=== PATIENT | female | born 1940 | race Caucasian/White ===

== ENCOUNTER → 2023-07-30 11:03 | Outpatient (REF) | payer OTHER, MEDICARE, SELFPAY ==
[2023-07-30 11:41] LABS: % Basophils 0.3 % (0-2); % Eosinophils 6.8 % (0-6); % Immature Granulocytes 0.5 % (0-0.5); % Lymphocytes 15.8 % (20.5-51.1); % Monocytes 7.3 % (1.7-9.3); % Neutrophils 69.3 % (42.2-75.2); Absolute Eosinophils 0.4 10^3/uL (0-0.7); Absolute Monocytes 0.5 10^3/uL (0.1-0.6); Absolute Neutrophils 4.5 10^3/uL (1.4-6.5); Hematocrit 27.2 % (37.0-47.0); Hemoglobin 8.8 g/dL (12.0-16.0); Mean Corp Hgb Conc. 32.4 g/dL (33.0-37.0); Mean Corpuscular Hgb 30.3 pg (27.0-31.0); Mean Corpuscular Volume 93.8 fL (81.0-99.0); Mean Platelet Volume 10.3 fL (7.4-10.4); Nucleated Red Blood Cells % 0 %; Platelet Count 196 10^3/uL (130-400); Red Cell Dist. Width 22.8 % (11.5-14.5); White Blood Cell Count 6.5 10^3/uL (4.8-10.8)
== END ==
LOC: OLABN 11:03
PROVIDERS: ATTENDING PHYSICIAN Internal Medicine Geriatric Medicine
DX: D63.8 Anemia in other chronic diseases classified elsewhere (principal)
CPT/HCPCS: 36415; 85025

== ENCOUNTER → 2023-08-06 09:02 | Outpatient (REF) | payer OTHER, MEDICARE, SELFPAY ==
[2023-08-06 10:02] LABS: % Basophils 0.4 % (0-2); % Eosinophils 12.5 % (0-6); % Immature Granulocytes 0.4 % (0-0.5); % Monocytes 8.4 % (1.7-9.3); % Neutrophils 56.3 % (42.2-75.2); Absolute Eosinophils 0.6 10^3/uL (0-0.7); Absolute Lymphocytes 1.1 10^3/uL (1.2-3.4); Absolute Monocytes 0.4 10^3/uL (0.1-0.6); Absolute Neutrophils 2.7 10^3/uL (1.4-6.5); Hemoglobin 8.9 g/dL (12.0-16.0); Mean Corp Hgb Conc. 31.8 g/dL (33.0-37.0); Mean Corpuscular Hgb 31.1 pg (27.0-31.0); Mean Corpuscular Volume 97.9 fL (81.0-99.0); Mean Platelet Volume 10.1 fL (7.4-10.4); Nucleated Red Blood Cells % 0 %; Platelet Count 144 10^3/uL (130-400); Red Blood Cell Count 2.86 10^6/uL (4.20-5.40); Red Cell Dist. Width 22.9 % (11.5-14.5); White Blood Cell Count 4.9 10^3/uL (4.8-10.8)
[2023-08-06 11:04] LABS: Anisocytosis 1+; Hypochromasia 1+; Normal RBC Morphology No; Polychromasia 1+
[2023-08-06 11:05] LABS: Ovalocytes 1+
[2023-08-06 11:07] LABS: Vitamin B12 958 pg/ml (239-931)
[2023-08-06 12:11] LABS: Glycohemoglobin (HgbA1c) 5.9 % (4.0-5.6)
== END ==
LOC: OLABN 09:02
PROVIDERS: ATTENDING PHYSICIAN Internal Medicine Geriatric Medicine
DX: E11.40 Type 2 diabetes mellitus with diabetic neuropathy, unspecified (principal); D51.9 Vitamin B12 deficiency anemia, unspecified; D63.8 Anemia in other chronic diseases classified elsewhere
CPT/HCPCS: 36415; 82607; 83036; 85025

== ENCOUNTER → 2023-08-13 09:26 | Outpatient (REF) | payer OTHER, MEDICARE, SELFPAY ==
[2023-08-13 10:25] LABS: % Basophils 0.6 % (0-2); % Eosinophils 5.5 % (0-6); % Lymphocytes 29.5 % (20.5-51.1); % Monocytes 13.8 % (1.7-9.3); % Neutrophils 49.6 % (42.2-75.2); Absolute Eosinophils 0.3 10^3/uL (0-0.7); Absolute Immature Granulocytes 0.1 10^3/uL (0-0.05); Absolute Lymphocytes 1.5 10^3/uL (1.2-3.4); Absolute Monocytes 0.7 10^3/uL (0.1-0.6); Absolute Neutrophils 2.4 10^3/uL (1.4-6.5); Mean Corpuscular Hgb 32.1 pg (27.0-31.0); Mean Corpuscular Volume 103.6 fL (81.0-99.0); Mean Platelet Volume 9.8 fL (7.4-10.4); Nucleated Red Blood Cells % 0 %; Platelet Count 170 10^3/uL (130-400); Red Cell Dist. Width 23.2 % (11.5-14.5); White Blood Cell Count 4.9 10^3/uL (4.8-10.8)
== END ==
LOC: OLABN 09:26
PROVIDERS: ATTENDING PHYSICIAN Internal Medicine Geriatric Medicine
DX: D63.8 Anemia in other chronic diseases classified elsewhere (principal)
CPT/HCPCS: 36415; 85025

== ENCOUNTER → 2023-08-20 12:53 | Outpatient (REF) | payer MEDICARE, OTHER, SELFPAY ==
[2023-08-20 13:25] LABS: % Basophils 0.4 % (0-2); % Eosinophils 2.7 % (0-6); % Immature Granulocytes 0.2 % (0-0.5); % Monocytes 12.5 % (1.7-9.3); % Neutrophils 61.2 % (42.2-75.2); Absolute Eosinophils 0.2 10^3/uL (0-0.7); Absolute Lymphocytes 1.3 10^3/uL (1.2-3.4); Absolute Monocytes 0.7 10^3/uL (0.1-0.6); Absolute Neutrophils 3.5 10^3/uL (1.4-6.5); Hematocrit 30.7 % (37.0-47.0); Hemoglobin 9.8 g/dL (12.0-16.0); Mean Corp Hgb Conc. 31.9 g/dL (33.0-37.0); Mean Corpuscular Hgb 33.3 pg (27.0-31.0); Mean Corpuscular Volume 104.4 fL (81.0-99.0); Mean Platelet Volume 9.4 fL (7.4-10.4); Nucleated Red Blood Cells % 0 %; Platelet Count 181 10^3/uL (130-400); Red Blood Cell Count 2.94 10^6/uL (4.20-5.40); Red Cell Dist. Width 21.3 % (11.5-14.5); White Blood Cell Count 5.7 10^3/uL (4.8-10.8)
== END ==
LOC: OLABN 12:53
PROVIDERS: ATTENDING PHYSICIAN Internal Medicine Geriatric Medicine
DX: D63.8 Anemia in other chronic diseases classified elsewhere (principal)
CPT/HCPCS: 85025

== ENCOUNTER → 2023-08-23 09:48 | Outpatient (REF) | payer MEDICARE, OTHER, SELFPAY ==
[2023-08-23 11:35] LABS: Urine Albumin Negative (Neg - Trace); Urine Bilirubin Negative (Negative); Urine Character Clear (Clear); Urine Color Yellow; Urine Glucose Negative (Negative); Urine Ketone Negative (Negative); Urine Leukocyte Trace (Negative); Urine Nitrite Negative (Negative); Urine Occult Blood 3+ (Negative); Urine Urobilinogen Negative (Neg - 1+)
[2023-08-23 12:13] LABS: Urine Squamous Cell 16-20 /LPF (Few)
[2023-08-23 12:15] LABS: Urine Bacteria Few (Negative); Urine Red Blood Cell 0-2 /HPF (0-2)
== END ==
LOC: OLABN 09:48
PROVIDERS: ATTENDING PHYSICIAN Internal Medicine Geriatric Medicine
DX: R35.0 Frequency of micturition (principal)
CPT/HCPCS: 81003; 81015; 87086

== ENCOUNTER → 2023-08-25 08:45 | Outpatient (REF) | payer MEDICARE, OTHER, SELFPAY ==
[2023-08-25 10:21] LABS: Urine Albumin Negative (Neg - Trace); Urine Bilirubin Negative (Negative); Urine Character Clear (Clear); Urine Color Yellow; Urine Glucose Negative (Negative); Urine Ketone Negative (Negative); Urine Leukocyte Negative (Negative); Urine Nitrite Negative (Negative); Urine Occult Blood Negative (Negative); Urine Specific Gravity 1.015 (<1.030); Urine Urobilinogen Negative (Neg - 1+)
== END ==
LOC: OLAB 08:45
PROVIDERS: ATTENDING PHYSICIAN Internal Medicine Geriatric Medicine
DX: R35.0 Frequency of micturition (principal)
CPT/HCPCS: 81003; 87086

== ENCOUNTER → 2023-08-27 10:51 | Outpatient (REF) | payer MEDICARE, OTHER, SELFPAY ==
[2023-08-27 11:41] LABS: Hematocrit 33.7 % (37.0-47.0); Hemoglobin 10.5 g/dL (12.0-16.0); Mean Corp Hgb Conc. 31.2 g/dL (33.0-37.0); Mean Corpuscular Hgb 32.8 pg (27.0-31.0); Mean Corpuscular Volume 105.3 fL (81.0-99.0); Mean Platelet Volume 9.6 fL (7.4-10.4); Platelet Count 180 10^3/uL (130-400); Red Cell Dist. Width 19.7 % (11.5-14.5); White Blood Cell Count 4.9 10^3/uL (4.8-10.8)
== END ==
LOC: OLABN 10:51
PROVIDERS: ATTENDING PHYSICIAN Student in an Organized Health Care Education/Training Program
DX: D63.8 Anemia in other chronic diseases classified elsewhere (principal); R35.0 Frequency of micturition
CPT/HCPCS: 36415; 85027; 87086

== ENCOUNTER → 2023-09-03 11:36 | Outpatient (REF) | payer MEDICARE, OTHER, SELFPAY ==
[2023-09-03 12:13] LABS: % Basophils 0.5 % (0-2); % Eosinophils 3.7 % (0-6); % Immature Granulocytes 0.3 % (0-0.5); % Lymphocytes 17.1 % (20.5-51.1); % Monocytes 9.7 % (1.7-9.3); % Neutrophils 68.7 % (42.2-75.2); Absolute Eosinophils 0.2 10^3/uL (0-0.7); Absolute Lymphocytes 1.1 10^3/uL (1.2-3.4); Absolute Monocytes 0.6 10^3/uL (0.1-0.6); Absolute Neutrophils 4.5 10^3/uL (1.4-6.5); Hematocrit 36.4 % (37.0-47.0); Hemoglobin 11.4 g/dL (12.0-16.0); Mean Corp Hgb Conc. 31.3 g/dL (33.0-37.0); Mean Corpuscular Hgb 33.5 pg (27.0-31.0); Mean Corpuscular Volume 107.1 fL (81.0-99.0); Mean Platelet Volume 9.5 fL (7.4-10.4); Nucleated Red Blood Cells % 0 %; Platelet Count 183 10^3/uL (130-400); Red Cell Dist. Width 18.2 % (11.5-14.5); White Blood Cell Count 6.5 10^3/uL (4.8-10.8)
== END ==
LOC: OLABN 11:36
PROVIDERS: ATTENDING PHYSICIAN Internal Medicine Geriatric Medicine
DX: D63.8 Anemia in other chronic diseases classified elsewhere (principal)
CPT/HCPCS: 36415; 85025

== ENCOUNTER → 2023-09-10 10:07 | Outpatient (REF) | payer MEDICARE, OTHER, SELFPAY ==
[2023-09-10 11:08] LABS: % Basophils 0.4 % (0-2); % Eosinophils 4.2 % (0-6); % Immature Granulocytes 0.2 % (0-0.5); % Lymphocytes 18.7 % (20.5-51.1); % Monocytes 11.1 % (1.7-9.3); % Neutrophils 65.4 % (42.2-75.2); Absolute Eosinophils 0.2 10^3/uL (0-0.7); Absolute Monocytes 0.6 10^3/uL (0.1-0.6); Absolute Neutrophils 3.6 10^3/uL (1.4-6.5); Hematocrit 33.6 % (37.0-47.0); Hemoglobin 10.9 g/dL (12.0-16.0); Mean Corp Hgb Conc. 32.4 g/dL (33.0-37.0); Mean Corpuscular Hgb 33.6 pg (27.0-31.0); Mean Corpuscular Volume 103.7 fL (81.0-99.0); Mean Platelet Volume 9.8 fL (7.4-10.4); Nucleated Red Blood Cells % 0 %; Platelet Count 191 10^3/uL (130-400); Red Blood Cell Count 3.24 10^6/uL (4.20-5.40); White Blood Cell Count 5.5 10^3/uL (4.8-10.8)
[2023-09-10 11:34] LABS: Free T4 1.43 ng/dl (0.78-2.19)
== END ==
LOC: OLABN 10:07
PROVIDERS: ATTENDING PHYSICIAN Internal Medicine Geriatric Medicine
DX: D63.8 Anemia in other chronic diseases classified elsewhere (principal); E03.9 Hypothyroidism, unspecified; E78.5 Hyperlipidemia, unspecified
CPT/HCPCS: 36415; 84439; 84443; 85025

== ENCOUNTER → 2023-09-17 10:34 | Outpatient (REF) | payer MEDICARE, OTHER, SELFPAY ==
[2023-09-17 10:55] LABS: % Basophils 0.6 % (0-2); % Eosinophils 5.7 % (0-6); % Immature Granulocytes 0.2 % (0-0.5); % Lymphocytes 23.8 % (20.5-51.1); % Monocytes 10.3 % (1.7-9.3); % Neutrophils 59.4 % (42.2-75.2); Absolute Eosinophils 0.3 10^3/uL (0-0.7); Absolute Lymphocytes 1.3 10^3/uL (1.2-3.4); Absolute Monocytes 0.5 10^3/uL (0.1-0.6); Absolute Neutrophils 3.1 10^3/uL (1.4-6.5); Hematocrit 32.2 % (37.0-47.0); Hemoglobin 10.3 g/dL (12.0-16.0); Mean Corpuscular Hgb 33.3 pg (27.0-31.0); Mean Corpuscular Volume 104.2 fL (81.0-99.0); Mean Platelet Volume 9.6 fL (7.4-10.4); Nucleated Red Blood Cells % 0 %; Platelet Count 206 10^3/uL (130-400); Red Blood Cell Count 3.09 10^6/uL (4.20-5.40); Red Cell Dist. Width 16.9 % (11.5-14.5); White Blood Cell Count 5.3 10^3/uL (4.8-10.8)
[2023-09-17 11:46] LABS: TSH 8.41 uIU/ml (0.47-4.68)
== END ==
LOC: OLABN 10:34
PROVIDERS: ATTENDING PHYSICIAN Internal Medicine Geriatric Medicine
DX: E03.9 Hypothyroidism, unspecified (principal); D63.8 Anemia in other chronic diseases classified elsewhere
CPT/HCPCS: 36415; 84443; 85025

== ENCOUNTER → 2023-09-20 09:20 | Outpatient (REF) | payer MEDICARE, OTHER, SELFPAY ==
[2023-09-20 10:42] LABS: % Basophils 0.5 % (0-2); % Eosinophils 4.6 % (0-6); % Immature Granulocytes 0.3 % (0-0.5); % Lymphocytes 23.7 % (20.5-51.1); % Neutrophils 59.9 % (42.2-75.2); Absolute Eosinophils 0.3 10^3/uL (0-0.7); Absolute Lymphocytes 1.5 10^3/uL (1.2-3.4); Absolute Monocytes 0.7 10^3/uL (0.1-0.6); Absolute Neutrophils 3.8 10^3/uL (1.4-6.5); Mean Corp Hgb Conc. 31.4 g/dL (33.0-37.0); Mean Corpuscular Hgb 32.6 pg (27.0-31.0); Mean Corpuscular Volume 103.9 fL (81.0-99.0); Nucleated Red Blood Cells % 0 %; Platelet Count 217 10^3/uL (130-400); Red Blood Cell Count 3.37 10^6/uL (4.20-5.40); Red Cell Dist. Width 16.6 % (11.5-14.5); White Blood Cell Count 6.3 10^3/uL (4.8-10.8)
[2023-09-20 11:10] LABS: Erythrocyte Sed Rate 118 mm/hour (0-20)
== END ==
LOC: OLABN 09:20
PROVIDERS: ATTENDING PHYSICIAN Internal Medicine Geriatric Medicine
DX: R52 Pain, unspecified (principal); I25.10 Atherosclerotic heart disease of native coronary artery without angina pectoris
CPT/HCPCS: 36415; 85025; 85652; 86140

== ENCOUNTER → 2023-09-24 12:10 | Outpatient (REF) | payer MEDICARE, OTHER, SELFPAY ==
[2023-09-24 13:00] LABS: % Basophils 0.5 % (0-2); % Eosinophils 4.7 % (0-6); % Immature Granulocytes 0.2 % (0-0.5); % Lymphocytes 14.8 % (20.5-51.1); % Monocytes 10.1 % (1.7-9.3); % Neutrophils 69.7 % (42.2-75.2); Absolute Eosinophils 0.3 10^3/uL (0-0.7); Absolute Monocytes 0.7 10^3/uL (0.1-0.6); Absolute Neutrophils 4.5 10^3/uL (1.4-6.5); Hematocrit 33.3 % (37.0-47.0); Hemoglobin 10.6 g/dL (12.0-16.0); Mean Corp Hgb Conc. 31.8 g/dL (33.0-37.0); Mean Corpuscular Hgb 32.7 pg (27.0-31.0); Mean Corpuscular Volume 102.8 fL (81.0-99.0); Mean Platelet Volume 9.6 fL (7.4-10.4); Nucleated Red Blood Cells % 0 %; Platelet Count 187 10^3/uL (130-400); Red Blood Cell Count 3.24 10^6/uL (4.20-5.40); Red Cell Dist. Width 16.5 % (11.5-14.5); White Blood Cell Count 6.4 10^3/uL (4.8-10.8)
[2023-09-24 14:14] LABS: Blood Urea Nitrogen 41 mg/dl (7-17); Calcium 8.5 mg/dl (8.4-10.2); Carbon Dioxide 27 mmol/L (22-30); Chloride 102 mmol/L (98-107); Glucose 122 mg/dl (70-99); Potassium 3.5 mmol/L (3.5-5.1); Sodium 139 mmol/L (135-145); eGFR 41.06
[2023-09-24 14:22] LABS: NT-proBNP 1230 pg/ml
== END ==
LOC: OLABN 12:10
PROVIDERS: ATTENDING PHYSICIAN Internal Medicine Geriatric Medicine
DX: E78.5 Hyperlipidemia, unspecified (principal); D63.8 Anemia in other chronic diseases classified elsewhere
CPT/HCPCS: 80048; 83880; 85025

== ENCOUNTER → 2023-10-01 09:56 | Outpatient (REF) | payer MEDICARE, OTHER, SELFPAY ==
[2023-10-01 11:15] LABS: % Basophils 0.2 % (0-2); % Eosinophils 0.1 % (0-6); % Immature Granulocytes 0.6 % (0-0.5); % Lymphocytes 7.3 % (20.5-51.1); % Monocytes 8.3 % (1.7-9.3); % Neutrophils 83.5 % (42.2-75.2); Absolute Immature Granulocytes 0.1 10^3/uL (0-0.05); Absolute Lymphocytes 0.6 10^3/uL (1.2-3.4); Absolute Monocytes 0.7 10^3/uL (0.1-0.6); Absolute Neutrophils 6.9 10^3/uL (1.4-6.5); Hematocrit 31.4 % (37.0-47.0); Hemoglobin 10.2 g/dL (12.0-16.0); Mean Corp Hgb Conc. 32.5 g/dL (33.0-37.0); Mean Corpuscular Hgb 33.1 pg (27.0-31.0); Mean Corpuscular Volume 101.9 fL (81.0-99.0); Mean Platelet Volume 9.9 fL (7.4-10.4); Nucleated Red Blood Cells % 0 %; Platelet Count 165 10^3/uL (130-400); Red Blood Cell Count 3.08 10^6/uL (4.20-5.40); Red Cell Dist. Width 17.2 % (11.5-14.5); White Blood Cell Count 8.3 10^3/uL (4.8-10.8)
== END ==
LOC: OLABN 09:56
PROVIDERS: ATTENDING PHYSICIAN Internal Medicine Geriatric Medicine
DX: D63.8 Anemia in other chronic diseases classified elsewhere (principal)
CPT/HCPCS: 36415; 85025

== ENCOUNTER → 2023-10-04 09:43 | Outpatient (REF) | payer MEDICARE, OTHER, SELFPAY ==
[2023-10-04 11:21] LABS: Hematocrit 27.6 % (37.0-47.0); Hemoglobin 8.8 g/dL (12.0-16.0); Mean Corp Hgb Conc. 31.9 g/dL (33.0-37.0); Mean Corpuscular Hgb 32.6 pg (27.0-31.0); Mean Corpuscular Volume 102.2 fL (81.0-99.0); Mean Platelet Volume 9.9 fL (7.4-10.4); Platelet Count 179 10^3/uL (130-400); Red Cell Dist. Width 16.9 % (11.5-14.5); White Blood Cell Count 4.9 10^3/uL (4.8-10.8)
== END ==
LOC: OLABN 09:43
PROVIDERS: ATTENDING PHYSICIAN Internal Medicine Geriatric Medicine
DX: D63.8 Anemia in other chronic diseases classified elsewhere (principal)
CPT/HCPCS: 36415; 85027

== ENCOUNTER 2023-10-06 05:23 | Inpatient (IN) | payer MEDICARE, OTHER, SELFPAY ==
[2023-10-06] VITALS (12 sets, daily range): BP systolic 101–167; BP diastolic 47–89; BMI 35.2; BMI 35.1
[2023-10-06 00:48] LABS: % Immature Granulocytes 1.1 % (0-0.5); % Neutrophils 94.9 % (42.2-75.2); Absolute Immature Granulocytes 0.1 10^3/uL (0-0.05); Absolute Lymphocytes 0.2 10^3/uL (1.2-3.4); Absolute Monocytes 0.1 10^3/uL (0.1-0.6); Absolute Neutrophils 7.5 10^3/uL (1.4-6.5); Hematocrit 32.4 % (37.0-47.0); Hemoglobin 10.6 g/dL (12.0-16.0); Mean Corp Hgb Conc. 32.7 g/dL (33.0-37.0); Mean Corpuscular Hgb 32.9 pg (27.0-31.0); Mean Corpuscular Volume 100.6 fL (81.0-99.0); Mean Platelet Volume 10.4 fL (7.4-10.4); Nucleated Red Blood Cells % 0 %; Platelet Count 310 10^3/uL (130-400); Red Blood Cell Count 3.22 10^6/uL (4.20-5.40); Red Cell Dist. Width 16.9 % (11.5-14.5); White Blood Cell Count 7.9 10^3/uL (4.8-10.8)
[2023-10-06 01:05] LABS: COVID-19 Antigen Negative (Negative)
[2023-10-06 02:16] LABS: ALT (SGPT) 11 U/L (0-35); AST (SGOT) 47 U/L (14-36); Albumin 3.4 g/dl (3.5-5.0); Alkaline Phosphatase 49 U/L (38-126); Blood Urea Nitrogen 48 mg/dl (7-17); Carbon Dioxide 21 mmol/L (22-30); Chloride 105 mmol/L (98-107); Estimated Creatinine Clearance 23 ml/min; Glucose 345 mg/dl (70-99); Potassium 5.3 mmol/L (3.5-5.1); Sodium 136 mmol/L (135-145); Total Bilirubin 0.8 mg/dl (0.2-1.3); Total Protein 7.4 g/dl (6.3-8.2); eGFR 24.48
[2023-10-06 02:26] LABS: NT-proBNP 8040 pg/ml
[2023-10-06 02:28] LABS: Troponin I 0.743 ng/ml
--- NOTE | 2023-10-06 02:40 | ED.GENMED ---
History of Present Illness
<ROESANN Todd - Last Filed: 10/06/23 03:13>
General
Chief Complaint: Breathing Problem
Source: patient
Time Seen by Provider: 10/06/23 02:11
Travel History
Have you had any contact with someone who has COVID-19?: No
Do you have any symptoms of coronavirus? Fever > 100 degrees, chills, cough, shortness of breath, sore throat, loss of taste or smell, muscle aches, or headache?: Yes
Symptoms:: SOB
History of Present Illness
History of Present Illness:
Pt is an 82 year old female presenting for respiratory distress at [facility]. She has a past medical history of chronic bronchitis, COPD, CHF, CAD, DVT, HTN, hyperlipidemia, mitral regurgitation, pulmonary HTN, GERD, CKD3, Parkinsons,
diabetes, and hypothyroidism. When asked why she is here pt states she does not know, she feels fine and has no complaints. Upon further questioning she admits to SOB but does not know why they started her on an antibiotic and steroid yesterday. Pt
denies recent falls, sore throat, congestion, ear pain, cough, chest pain, nausea, vomiting, diarrhea, fever, chills, abdominal pain, or headache.
Past History
<ROSEANN Todd - Last Filed: 10/06/23 03:13>
Past History
ED Past Medical History: Asthma, CAD, CHF, CVA (suggestion of lacunar stroke), GERD, HTN, Hypercholesterolemia, IDDM, Renal failure (chronic renal disease stage III), Valvular disease (MR), Hypothyroidism, Psychiatric (generalized anxiety disorder),
Other (Parkinson's, chronic lymphedema, cellulitis, MGUS IgG kappa, cognitive decline, B12 deficiency), Other (morbid obesity, pulmonary hypertension, anemia, DVT, PVD, meningioma, macular degeneration) and Other (drop foot left foot Fracture C
spine,Cellulitis, DVT, GIB, Umbilical hernia, iron deficiency, vitamin D deficiency)
ED Past Surgical History: Appendectomy, Cardiac (Stents 8-9), Cholecystectomy, Gynecological (Parital hysterectomy), Orthopedic (left knee replacement), Tonsilectomy and Other (PVD surgery, thyroidectomy)
Patient has exhibited threatening behavior?: No
PSI?: No
Social History
Tobacco: Non-smoker
Alcohol: None
Personal:
Living: alone
Employment: Retired
Family History
Family History: Other (reviewed and noncontributory)
Review of Systems
<ROSEANN Todd - Last Filed: 10/06/23 03:13>
Review of Systems
All Other Systems: Not applicable
Constitutional: Reports no symptoms
EENT: Reports no symptoms
Respiratory: Reports trouble breathing
Cardiac: Reports no symptoms
ABD/GI: Reports no symptoms
: Reports no symptoms
Musculoskeletal: Reports no symptoms
Skin: Reports no symptoms
Neurological: Reports no symptoms
Endocrine: Reports no symptoms
Hematologic/Lymphatic: Reports no symptoms
Psychiatric: Reports no symptoms
Phy Exam
<ROSEANN Todd - Last Filed: 10/06/23 03:13>
General Physical Exam
General Presentation: well appearing and no apparent distress
General age: appears stated age
General Skin: warm, dry and pale
General Habitus: elderly
General Mental: confused
General Hydration: dry mucous membranes and poor skin turgor
ENT Exam
ENT Exam: EOMI, pharynx normal and neck supple
Eye Exam
Eye Exam: PERRL and EOMI
Cardiovascular Exam
Cardiovascular Exam: regular rate/rhythm and normal peripheral pulses
Pulmonary Exam
Oxygen Status: oxygen 4 liters via NC
Breath Sounds: Rhonchi: generalized
Gastrointestinal Exam
Gastrointestinal Exam: normal bowel sounds, non tender, soft and non distended
Neurological Exam
Neurological Exam: alert and confused (unaware of the name of the facility she came from, the name of the hospital she is at, or what month it is. )
Musculoskeletal Exam
Musculoskeletal Exam: no edema
Skin Exam
Skin Exam: pallor and other (appearance of venous insufficiency in bilateral lower legs)
Psychiatric Exam
Psychiatric Exam: normal mood/affect
Scores
<Joshua Mitchell DO - Last Filed: 10/06/23 04:21>
Heart Failure Risk
Heart Failure Risk Score: Yes
History of Stroke or TIA: No
History of intubation for respiratory distress: No
Heart rate on ED arrival >/= 110: No
SaO2 <90% on arrival on room air: Yes
HR >/=110 during 3min walk test (or too ill to perform test): Yes
ECG has acute ischemic changes: No
Urea >/=12mmol/L (BUN 33.6mg/dL): Yes
Serum CO2>/=35mmol/L: No
Troponin I or T elevated to NE Level (0.4mg/dL): Yes
NT-proBNP >/=5,000ng/L (5,000pg/ml): Yes
HF Risk Score: 7
Admission Status: VERY HIGH RISK 69.8% Consider admission to hospital
Course
<ROSEANN Todd - Last Filed: 10/06/23 03:13>
Orders/Labs/Results
Orders:
Orders
10/06/23 00:20
EKG [Electrocardiogram (*1)] Urgent
Reason for Study: Shortness of Breath
10/06/23 00:21
EKG- Treatment ONCE
10/06/23 00:26
CBC/With Diff [Complete Blood Count/With Diff] Urgent
COVID-19 Antigen Urgent
Source: Nasal Swab
Influenza A+B Rapid Molecular Urgent
VALERY Source: Nasal Swab
Specimen Description:
10/06/23 01:39
Comprehensive Metabolic Panel Urgent
NT-proBNP Urgent
Troponin I Urgent
10/06/23 04:00
CR Chest - 2 Views Urgent
Comment:
Reason For Exam: dyspnea
10/06/23 04:03
Furosemide [Lasix] 80 mg IV NOW STA
Abnormal Lab Results
10/06/23 10/06/23
00:26 01:39
RBC 3.22 L 10^6/uL
(4.20-5.40)
Hgb 10.6 L D g/dL
(12.0-16.0)
Hct 32.4 L %
(37.0-47.0)
MCV 100.6 H fL
(81.0-99.0)
MCH 32.9 H pg
(27.0-31.0)
MCHC 32.7 L g/dL
(33.0-37.0)
RDW 16.9 H %
(11.5-14.5)
Abs Immat Gran (auto) 0.1 H 10^3/uL
(0-0.05)
Absolute Neuts (auto) 7.5 H 10^3/uL
(1.4-6.5)
Absolute Lymphs (auto) 0.2 L 10^3/uL
(1.2-3.4)
Immature Gran % 1.1 H %
(0-0.5)
Neutrophils % 94.9 H %
(42.2-75.2)
Lymphocytes % 3.0 L %
(20.5-51.1)
Monocytes % 1.0 L %
(1.7-9.3)
Potassium 5.3 H mmol/L
(3.5-5.1)
Carbon Dioxide 21 L mmol/L
(22-30)
BUN 48 H mg/dl
(7-17)
Creatinine 2.0 H mg/dL
(0.6-1.0)
Glucose 345 H mg/dl
(70-99)
Calcium 8.0 L mg/dl
(8.4-10.2)
AST 47 H U/L
(14-36)
Troponin I 0.743 H* ng/ml
Albumin 3.4 L g/dl
(3.5-5.0)
10/06/23 00:26
10/06/23 01:39
Vital Signs
Initial and Last Documented VS:
Initial Vital Signs
Pulse
106
10/06/23 00:22
Last Documented Vital Signs
Temp Pulse Resp BP Pulse Ox
97.5 F 56 21 120/56 100
10/06/23 00:28 10/06/23 04:00 10/06/23 04:00 10/06/23 04:00 10/06/23 04:00
Elanlt;Joshua Mitchell, DO - Last Filed: 10/06/23 04:21>
Orders/Labs/Results
Orders:
Orders
10/06/23 00:20
EKG [Electrocardiogram (*1)] Urgent
Reason for Study: Shortness of Breath
10/06/23 00:21
EKG- Treatment ONCE
10/06/23 00:26
CBC/With Diff [Complete Blood Count/With Diff] Urgent
COVID-19 Antigen Urgent
Source: Nasal Swab
Influenza A+B Rapid Molecular Urgent
VALERY Source: Nasal Swab
Specimen Description:
10/06/23 01:39
Comprehensive Metabolic Panel Urgent
NT-proBNP Urgent
Troponin I Urgent
10/06/23 04:00
CR Chest - 2 Views Urgent
Comment:
Reason For Exam: dyspnea
10/06/23 04:03
Furosemide [Lasix] 80 mg IV NOW STA
Abnormal Lab Results
10/06/23 10/06/23
00:26 01:39
RBC 3.22 L 10^6/uL
(4.20-5.40)
Hgb 10.6 L D g/dL
(12.0-16.0)
Hct 32.4 L %
(37.0-47.0)
MCV 100.6 H fL
(81.0-99.0)
MCH 32.9 H pg
(27.0-31.0)
MCHC 32.7 L g/dL
(33.0-37.0)
RDW 16.9 H %
(11.5-14.5)
Abs Immat Gran (auto) 0.1 H 10^3/uL
(0-0.05)
Absolute Neuts (auto) 7.5 H 10^3/uL
(1.4-6.5)
Absolute Lymphs (auto) 0.2 L 10^3/uL
(1.2-3.4)
Immature Gran % 1.1 H %
(0-0.5)
Neutrophils % 94.9 H %
(42.2-75.2)
Lymphocytes % 3.0 L %
(20.5-51.1)
Monocytes % 1.0 L %
(1.7-9.3)
Potassium 5.3 H mmol/L
(3.5-5.1)
Carbon Dioxide 21 L mmol/L
(22-30)
BUN 48 H mg/dl
(7-17)
Creatinine 2.0 H mg/dL
(0.6-1.0)
Glucose 345 H mg/dl
(70-99)
Calcium 8.0 L mg/dl
(8.4-10.2)
AST 47 H U/L
(14-36)
Troponin I 0.743 H* ng/ml
Albumin 3.4 L g/dl
(3.5-5.0)
10/06/23 00:26
10/06/23 01:39
Vital Signs
Initial and Last Documented VS:
Initial Vital Signs
Pulse
106
10/06/23 00:22
Last Documented Vital Signs
Temp Pulse Resp BP Pulse Ox
97.5 F 56 21 120/56 100
10/06/23 00:28 10/06/23 04:00 10/06/23 04:00 10/06/23 04:00 10/06/23 04:00
<ROSEANN Todd - Last Filed: 10/06/23 03:13>
MDM/Problems Addressed
Differential Diagnosis Includes:
CHF exacerbation, chronic bronchitis exacerbation, PNA, viral URI
MDM/Problems Addressed:
SOB
Chronic conditions affecting care: DM, HTN, CAD, Arrhythmia, COPD, Neurological disorder (Parkinsons) and Kidney disease
<ROSEANN Todd - Last Filed: 10/06/23 03:13>
*Critical Care Note
Total Time (30-74mins, 75-104mins- exclusive of procedures): Not Applicable
<Joshua Mitchell DO - Last Filed: 10/06/23 04:21>
Patient Management
Social determinants of health affecting care: Living situation
Discussion with other providers: Hospitalist
ED Attending Note
<ROSEANN Todd - Last Filed: 10/06/23 03:13>
-
Portions of this chart may have been created with voice recognition software.� Occasional wrong word or��sound alike� substitutions may have occurred due to the inherent limitations of voice recognition software.
<Joshua Mitchell, DO - Last Filed: 10/06/23 04:21>
ED Attending Note
Patient seen and examined by attending physician: Yes
I performed the substantive portion of visit, reviewed & personally made and approve the management plan that is documented in note by myself or SHABBIR.: Yes
ED Attending Note:
This a pleasant 82-year-old female presents with respiratory distress. She resides at [facility] and has had respiratory issues this evening. She does have a past medical history significant for COPD, CHF. She is not on home oxygen. Patient
was started on an antibiotic and a steroid yesterday. Denies chest pain current shortness of breath nausea vomiting or abdominal pain. Patient was seen in conjunction with the PA student. I have reviewed and agree with the history and treatment
plan presented. On my independent physical exam, patient is awake, alert, and pleasantly confused.
Vital signs are stable. Patient not hypoxic
Nursing note reviewed. I agree with nursing documentation up to this point in time.
Home Meds and allergies reviewed.
NUMBER AND COMPLEXITY OF PROBLEMS ADDRESSED AT THE ENCOUNTER
� Chronic conditions affecting care: COPD, CHF bronchitis, PNA, viral URI
� Acute Exacerbation and/or Progression of Chronic Illness: CHF exacerbation
� Differential Diagnosis includes:
AMOUNT AND/OR COMPLEXITY OF DATA TO BE REVIEWED AND ANALYZED
I performed an independent evaluation of the following and my interpretation is:
EKG: Sinus rhythm rate 81 with normal axis. Prolonged QT corrected at 606 ms. When compared with previous EKG dated July 19, 2023, patient does no longer have A-fib
CT:
X-rays:
Ultrasound:
Laboratory Studies:
Other:
Review of other/old records:
Clinical information was obtained by an independent historian:
Prescriptions/Medications Considered but not given:
Further testing considered but not performed:
RISK OF COMPLICATIONS AND/OR MORBIDITY OR MORTALITY OF PATIENT MANAGEMENT
Social determinants of health affecting care: Good Social Support
Discussion with other providers:
Escalation of care including admission/observation vs risk of discharge considered:
CRITICAL CARE NOTE:
Total Time (exclusive of procedures):
Update:
Discharge Plan
Departure
Patient Disposition: Admit
Date of Disposition: 10/06/23
Time of Disposition: 04:04
Admit to: Telemetry
Presentation/result/management discussed w/ accepting MD/DO: Hospitalist
Condition: Fair
Discharge Problem:
Chronic diastolic (congestive) heart failure, COPD exacerbation, Acute sinusitis, Elevated troponin
Prescriptions:
No Action
atorvastatin 80 MG tablet
80 mg PO HS
Refresh Classic (PF) 10 DROPS dropperette
1 drp BOTH EYES BID@
clopidogrel 75 MG tablet
75 mg PO DAILY 0RF
isosorbide mononitrate 60 MG tablet extended release 24 hr
60 mg PO DAILY 0RF
metolazone 5 MG tablet
5 mg PO DAILYPRN PRN (Reason: weight gain of 3lbs overnight)
furosemide 80 MG tablet
80 mg PO BID@829,1630
nitroglycerin 0.4 MG tablet, sublingual
0.4 mg sublingual [id number] PRN (Reason: chest pain)
magnesium oxide 400 MG capsule
400 mg PO MOWEFR
PreserVision AREDS-2 1 EACH capsule
1 ea PO DAILY
acetaminophen [Tylenol Extra Strength] 500 MG tablet
1,000 mg PO BID@
bisacodyl [OneLAX Bisacodyl] 10 MG suppository
10 mg NV DAILYPRN PRN (Reason: if mom ineffective)
lidocaine [Aspercreme (lidocaine)] 1 PATCH adhesive patch,medicated
1 patch topical DAILY
famotidine [Pepcid] 20 mg Tablet
10 mg PO DAILY
epoetin najma 40,000 unit/mL Solution
40,000 unit SC WE
cyanocobalamin (vitamin B-12) 1,000 mcg/mL Solution
1,000 mcg IM MONTHLY
Rx Instructions:
of the month
ketoconazole 2 % Shampoo
1 applic TOPICAL TUFR
cetirizine 5 mg Tablet
5 mg PO HS
dextromethorphan-guaifenesin [Tussin DM] 10-100 mg/5 mL Liquid
10 ml PO Q4HPRN PRN (Reason: cough)
levothyroxine [Synthroid] 100 mcg Tablet
112 mcg PO DAILY@0630
methenamine hippurate [Hiprex] 1 gram Tablet
1 g PO FR
ascorbic acid (vitamin C) [Vitamin C] 500 mg Tablet
500 mg PO DAILY
insulin aspart U-100 [Novolog U-100 Insulin aspart] 100 unit/mL Solution
9 unit SC AC
ferrous sulfate 325 mg (65 mg iron) Tablet
325 mg PO DAILY
carbidopa-levodopa 25-100 mg Tablet
2 tab PO QID
Rx Instructions:
@0630,1230,1630,2029
sodium chloride 0.65 % Aerosol,Morton
1 spray INTRANASAL Q1HPRN PRN (Reason: dryness)
duloxetine [Cymbalta] 30 mg Capsule,Delayed Release(Dr/Ec)
30 mg PO DAILY@2029
Senna Plus 8.6-50 mg Capsule
2 tab-cap PO QPM
insulin glargine [Basaglar KwikPen U-100 Insulin] 100 unit/mL (3 mL) insulin pen
20 unit SC HS
pregabalin 50 mg Capsule
50 mg PO HS Qty: 14 0RF
amiodarone [Pacerone] 200 mg Tablet
200 mg PO DAILY Qty: 30 0RF
pantoprazole 40 mg tablet,delayed release (DR/EC)
20 mg PO DAILY
Eliquis 5 mg tablet
2.5 mg PO BID
buspirone 5 mg Tablet
2.5 mg PO TID
ipratropium-albuterol 0.5 mg-3 mg(2.5 mg base)/3 mL Solution For Nebulization
3 ml INHALATION Q4H PRN (Reason: wheezing)
sulfamethoxazole-trimethoprim [Bactrim DS] 800-160 mg Tablet
1 tab PO BID
magnesium hydroxide 2,400 mg/10 mL Suspension
30 ml PO HS PRN (Reason: constipation)
latanoprost (PF) 0.005 % Dropperette
1 drp OPHTHALMIC (EYE) QPM
Referrals:
Evan Walden MD [Family Provider] -
Interventions
Interventions:
*Risk Screen - Suicide Last Done: 10/06/23 00:28
*General Assessment Last Done: 10/06/23 00:28
*Neglect/Abuse Screening Last Done: 10/06/23 00:28
ED- Fall Risk Assessment Last Done: 10/06/23 01:00
*ED COVID-19 Vaccine History Last Done: 10/06/23 00:28
ED- Cardiac Assessment Last Done: 10/06/23 01:00
ED- Pulmonary Assessment Last Done: 10/06/23 01:00
Discharge Date and Time
Print Language: CUBAN
[2023-10-06] MEDS: LASIX 80 MG IV ×2 (04:42→16:13)
--- NOTE | 2023-10-06 04:58 | HPS.HSE ---
Family Physician
-
Family Physician: Evan Walden
Chief Complaint
-
SoB
History of Present Illness
I could only very get limited information from the patient. Suspect cognitive decline. She dose not known why she is in ER
Information gathered by chart review and speaking with the ER staff.
82F Bed bound Res of [facility] with Parkinson dz, HX chr HFrEF on Lasix, Pul HTN, Prox AF on Eliquis and amiodarone, COPD, not on home O2 , HX CKD3b sent to ER for evalaution of SoB.
SoB:
As of yesterday, she was started on OP ABx and PO steroids.
ROS
No recent falls, sore throat, congestion, ear pain, cough, chest pain, nausea, vomiting, diarrhea
No fever, chills
No abdominal pain, or headache.
Medical History
Past Medical History
Past Medical History: Reports Other
Additional Past Medical History:
CAD ischemic cardiomyopathy.
Prolonged QT interval, resolved, likely medication related.
Prox Atrial fibrillation , new onset on July 18, 2023.
COPD
CKD3b
Anemia of chronic disease.
Hypothyroidism on replacement.
Parkinson's disease.
alf residence with bed-bound status
Past Surgical History: Reports Other (Appendectomy, Cardiac (Stents 8-9), Cholecystectomy, Gynecological (Parital hysterectomy), Orthopedic (left knee replacement), Tonsilectomy and Other (PVD surgery, thyroidectomy))
Social History
Unable to obtain full social history at this time due to: Other (suspect cognitive decline )
Tobacco: Non-smoker
Drug: None
Living: Detention
Family History
Family History: Not pertinent
Allergies / Home Medications
Allergies reflects when Allergies were last updated in [facility].
Home Medications with original date entered in [facility]
Allergy/Medication List:
Allergies
Allergy/AdvReac Type Severity Reaction Status Date / Time
amlodipine Allergy LEG PAINS Verified 10/06/23 00:34
amlodipine besylate Allergy leg pain Verified 10/06/23 00:34
[From Norvasc]
cat dander Allergy COUGH AND Verified 10/06/23 00:34
SNEEZING
ibuprofen Allergy Anaphylaxis Verified 10/06/23 00:34
metformin Allergy severe Verified 10/06/23 00:34
diarrhea
naproxen Allergy Unknown Verified 10/06/23 00:34
naproxen sodium [From Aleve] Allergy Anaphylaxis Verified 10/06/23 00:34
nortriptyline Allergy Unknown Verified 10/06/23 00:34
Penicillins Allergy rash as a Verified 10/06/23 00:34
child;
tolerates
Keflex,rash;severe
itching,rash;s
potassium chloride Allergy leg pain Verified 10/06/23 00:34
tree and shrub pollen Allergy COUGH AND Verified 10/06/23 00:34
SNEEZING
Home Medications
atorvastatin 80 mg tablet 80 mg PO HS High cholesterol 02/19/18
polyvinyl alcohol-povidone (PF) 1.4 %-0.6 % eye drops in a dropperette (Refresh Classic (PF)) 1 drp BOTH EYES BID@0830,1830 Eye condition 02/17/20
clopidogrel 75 mg tablet 75 mg PO DAILY 02/29/20
isosorbide mononitrate 60 mg tablet,extended release 24 hr 60 mg PO DAILY 02/29/20
acetaminophen 500 mg tablet (Tylenol Extra Strength) 1,000 mg PO BID@0830,1830 Pain 04/11/20
furosemide 80 mg tablet 80 mg PO BID@0830,1630 Fluid retention/Swelling 04/11/20
magnesium oxide 400 mg PO MOWEFR Constipation 04/11/20
metolazone 5 mg tablet 5 mg PO DAILYPRN PRN weight gain of 3lbs overnight 04/11/20
nitroglycerin 0.4 mg sublingual tablet 0.4 mg sublingual [id number] PRN chest pain 04/11/20
vit C 250 mg-vit E 90 mg-zinc 40 mg-copper 1 [id number] capsule (PreserVision AREDS-2) 1 ea PO DAILY Supplement 04/11/20
bisacodyl 10 mg rectal suppository (OneLAX Bisacodyl) 10 mg RI DAILYPRN PRN if mom ineffective 10/25/20
lidocaine 4 % topical patch (Aspercreme (lidocaine)) 1 patch topical DAILY RIGHT KNEE PAIN 01/19/21
cyanocobalamin (vitamin B-12) 1,000 mcg/mL injection solution 1,000 mcg IM MONTHLY Anemia 05/25/22
epoetin najma 40,000 unit/mL injection solution 40,000 unit SC WE take with 20,000 05/25/22
famotidine 20 mg tablet (Pepcid) 10 mg PO DAILY Gastrointestinal issue 05/25/22
ascorbic acid (vitamin C) 500 mg tablet (Vitamin C) 500 mg PO DAILY Supplement 07/10/23
carbidopa 25 mg-levodopa 100 mg tablet 2 tab PO QID Neurological Condition 07/10/23
cetirizine 5 mg tablet 5 mg PO HS Allergies 07/10/23
dextromethorphan-guaifenesin 10 mg-100 mg/5 mL oral liquid (Tussin DM) 10 ml PO Q4HPRN PRN cough 07/10/23
duloxetine 30 mg capsule,delayed release (Cymbalta) 30 mg PO DAILY@2030 Mental Health/Anxiety 07/10/23
ferrous sulfate 325 mg (65 mg iron) tablet 325 mg PO DAILY Supplement 07/10/23
insulin aspart U-100 100 unit/mL subcutaneous solution (Novolog U-100 Insulin aspart) 9 unit SC AC Diabetes 07/10/23
ketoconazole 2 % shampoo 1 applic topical TUFR Skin Issues 07/10/23
levothyroxine 100 mcg tablet (Synthroid) 112 mcg PO DAILY@0630 Thyroid 07/10/23
methenamine hippurate 1 gram tablet (Hiprex) 1 g PO FR Urinary Issue 07/10/23
sennosides 8.6 mg-docusate sodium 50 mg capsule (Senna Plus) 2 tab-cap PO QPM Constipation 07/10/23
sodium chloride 0.65 % nasal spray aerosol 1 spray intranasal Q1HPRN PRN dryness 07/10/23
insulin glargine 100 unit/mL (3 mL) subcutaneous pen (Basaglar KwikPen U-100 Insulin) 20 unit SC HS Diabetes 07/13/23
amiodarone 200 mg tablet (Pacerone) 200 mg PO DAILY #30 tabs 07/26/23
pregabalin 50 mg capsule 50 mg PO HS #14 caps 07/26/23
apixaban 5 mg tablet (Eliquis) 2.5 mg PO BID 10/06/23
buspirone 5 mg tablet 2.5 mg PO TID 10/06/23
ipratropium 0.5 mg-albuterol 3 mg (2.5 mg base)/3 mL nebulization soln 3 ml inhalation Q4H PRN wheezing 10/06/23
latanoprost (PF) 0.005 % eye drops in a dropperette 1 drp ophthalmic (eye) QPM 10/06/23
magnesium hydroxide 2,400 mg/10 mL oral suspension 30 ml PO HS PRN constipation 10/06/23
pantoprazole 40 mg tablet,delayed release 20 mg PO DAILY 10/06/23
sulfamethoxazole 800 mg-trimethoprim 160 mg tablet (Bactrim DS) 1 tab PO BID URI 10/06/23
Review of Systems
-
EENT: Reports No Symptoms
Respiratory: Reports See HPI and Trouble Breathing
Cardiac: Reports No Symptoms
Abdomen/GI: Reports No Symptoms
: Reports No Symptoms
Musculoskeletal: Reports No Symptoms
Skin: Reports No Symptoms
Neurological: Reports No Symptoms
Endocrine: Reports No Symptoms
Hematologic/Lymphatic: Reports No Symptoms
Psych: Reports Dementia (suspect cognitive disorder )
Physical Exam
Vital Signs
Vital Signs
Temp Pulse Resp BP Pulse Ox
97.5 F 56 21 120/56 100
10/06/23 00:28 10/06/23 04:00 10/06/23 04:00 10/06/23 04:00 10/06/23 04:00
Physical Exam
General: Well Developed and No Apparent Distress
HEENT: NormoCephalic, Anicteric and Moist mucous membranes
Respiratory: Rhonchi (bilateral and diffuse), Non Labored Respirations and Other (wearing 4 L NC O2 )
Cardiac: S1/S2, Regular Rhythm and Bradycardia; No Murmur
Breast: Deferred by me
GI: Soft, Non Tender, Non Distended and Normal Bowel Sounds
Rectal: Deferred by Provider
Genito-urinary: Deferred by me
Musculoskeletal: No Edema
Skin: Warm and Dry
Neuro: Awake; No Oriented ( confused (cannot recall the name of the facility she came from, the name of the hospital she is at, or disoriented wiht month ))
Psych: Calm and Confused
Laboratory Results
-
10/06/23 00:26
10/06/23 01:39
Laboratory Results
Total Bilirubin 0.8 mg/dl (0.2-1.3) 10/06/23 01:39
AST 47 U/L (14-36) H 10/06/23 01:39
ALT 11 U/L (0-35) 10/06/23 01:39
Alkaline Phosphatase 49 U/L (38-126) 10/06/23 01:39
Troponin I 0.743 ng/ml H* 10/06/23 01:39
Data Reviewed
-
Diagnostic Radiology: Image Personally Visualized and interpreted
Lab Data: Labs Reviewed by me
Old Records: Reviewed
Impression/Plan
-
VS:
Vital Signs
Temp Pulse Resp BP Pulse Ox
97.5 F 56 21 120/56 100
10/06/23 00:28 10/06/23 04:00 10/06/23 04:00 10/06/23 04:00 10/06/23 04:00
Data
nl WCC
Hgb 10.6 - baseline are mostly low 10s
MCV 100.6
K 5.3
CO2 21
BUN 48
Cr 2.0 - baseline is 1.2 - 1.4
e GFR 25
BG 345
AST 47
NEG Flu A & B
NEG Covid
TPNI 0.743
proBNP 8000s
EKG report
NORMAL SINUS RHYTHM
NONSPECIFIC ST AND T WAVE ABNORMALITY
ABNORMAL ECG
WHEN COMPARED WITH ECG OF 19-JUL-2023 09:45,
SINUS RHYTHM HAS REPLACED ATRIAL FIBRILLATION
NON-SPECIFIC CHANGE IN ST SEGMENT IN INFERIOR LEADS
T WAVE INVERSION NO LONGER EVIDENT IN INFERIOR LEADS
T WAVE INVERSION NO LONGER EVIDENT IN ANTEROLATERAL LEADS
QT HAS LENGTHENED
My read on CXR suspect mild interstitial Pul edema, Cardiomegaly
Echo 07/15/2023:
EF 35-40%, EF had been 55-60%, mild LVH, hypokinesis, mild mitral stenosis, peak/mean gradient 8/3 mmHg, valve area 1.7 cm 2 with mild to moderate MR, mild aortic stenosis, peak/mean gradient 15/10 mmHg, aortic valve area is 1.9 cm 2 with mild AI,
normal pulmonary artery systolic pressure
Last hospitalist admission: 07/13/23 - 07/26/23
DX; Acute heart failure, reduced ejection fraction
ASSESSMENT & PLAN
Noted [employer]IAN Polypharmacy
Acute on chr HFrEF , decompensated Pul HTN
Associated acute hypoxic RF requiring on 4 L O2 : Not on home O2
-BNP 8000s
-IV Lasix 80 BID
- IOs, daily weight
- Fluid restriction 1.0 L
- supplemental O2 to keep sat greater than 93
- DCA card consult
Elevated TPNI DDX: NIMI due to AE CHF with underlying CK3b
Denied CP
HX ICM, CAD
HX HLD
- Trend TPNI
- cont. Plavix, Statin and IMN
Suspect AE COPD element
HX COPD
- DuoNeb qid and PRN
- cont PO Prednisone
VERONIKA due to cardio renal syndrome on CKD stage IIIb likely cardiorenal
- Observe Cr in response to IV Diuresis
Prox AF
HX CVA
- cont. Plavix, Eliquis and amiodarone and Statin
Essential HTN: Normotensive Hypertension emergency
- cont. Frusemide
Hyperglycemia to current steroids
DMT2
- cont Home Lantus and NovoLog
- ISS low
GERD
- on home famotidine and PPI
Hypothyroidism
- cont. home Synthroid
Parkinsonism
Bed bound
- cont home Sinemet and donepezil
Chronic constipation
- cont bowel regimen with holding parameters
DVT Px:on chr Eliquis
Code: DNR
IP TLM
[2023-10-06] MEDS: DUONEB 3 ML INH ×5 (06:01→19:46)
[2023-10-06 06:12] LABS: Hematocrit 30.9 % (37.0-47.0); Hemoglobin 9.9 g/dL (12.0-16.0); Mean Platelet Volume 9.6 fL (7.4-10.4); Platelet Count 253 10^3/uL (130-400); Red Cell Dist. Width 16.7 % (11.5-14.5); White Blood Cell Count 7.5 10^3/uL (4.8-10.8)
[2023-10-06 06:32] LABS: Troponin I 0.999 ng/ml
[2023-10-06 06:47] LABS: Blood Urea Nitrogen 49 mg/dl (7-17); Calcium 8.6 mg/dl (8.4-10.2); Carbon Dioxide 21 mmol/L (22-30); Chloride 104 mmol/L (98-107); Estimated Creatinine Clearance 21 ml/min; Glucose 208 mg/dl (70-99); Potassium 4.2 mmol/L (3.5-5.1); Sodium 139 mmol/L (135-145); eGFR 21.84
[2023-10-06 07:19] LABS: TSH Reflex To Free T4 1.04 uIU/ml (0.47-4.68)
[2023-10-06] MEDS: SINEMET 25-100 PO (09:00)
[2023-10-06] MEDS: REFRESH EYE DROPS (PF) BOTH EYES (09:00)
[2023-10-06] MEDS: LASIX IV (09:00)
[2023-10-06] MEDS: NOVOLOG FLEXPEN-LOW RESISTANCE SC ×2 (09:00→12:30)
[2023-10-06] MEDS: NOVOLOG FLEXPEN SC (09:00)
--- NOTE | 2023-10-06 10:14 | W.PN.HOSP.TC ---
Today's Communication/Plan
-
see outlined plan
Assessment / Plan
Assessment / Plan
Assessment:
Acute on Chronic HFrEF
- EF 35-40% in July, reduced LV function
- BNP 8040, 2 weeks ago it was 1230
- continue IV Lasix BID - requires intensive monitoring of I/Os, weights, Lytes
- follows with Dr. Lynch - DCA consulted
Acute hypoxic respiratory insufficiency on 2L
- wean O2 as able
hx of COPD with mild exacerbation from bronchitis
- IV steroids x 24 hours
- nebs scheduled + prn
- add Doxy
Non-[place] trop elevation in setting of acute CHF, CKD 3b
hx of ICM and CAD
- Cardiac catheterization 07/19/2023: Left main: Calcified 80-90% distal stenosis, 50-60% ostial LAD stenosis, heavily calcified 95% stenosis proximal to D1, this is new, stented mid LAD with distal WON II flow, apical LAD possibly occluded,
circumflex 50 to 60% ostial stenosis, circumflex stent is patent, RCA 90% ostial stenosis, 70% stenosis mid
- on medical management as felt high risk for intervention, also contrast risk with underlying CKD 3b
- trend trops
- continue statin/Plavix/ISMN
VERONIKA on CKD stage 3b
Cardio-renal state in setting of acute CHF
- monitor BMP. Nephrology consulted
Parox A. Fib
- continue Amio/Eliquis
Hx of CVA
- continue Plavix/Statin
Essential HTN
- continue diuretics
- continue ISMN
Type 2 DM
- monitor with steroids
- continue SSI - moderate
- A1c: pending
GERD
- continue PPI/H2 christelle
Hypothyroidism
- continue replacement
Parkinsonism disease
Bed bound status
- cont home Sinemet and donepezil
Chronic constipation
- cont bowel regimen with holding parameters
DVT ppx: Eliquis
Code: DNR
Anticipated Discharge: > 48 hours
Subjective/Interval History
-
Date of Service: October 06, 2023
reports cough, sob
on O2 2L NC - not on O2 at baseline
Objective Data
-
Labs:
Laboratory Results
10/06/23 10/06/23 10/06/23
00:26 01:39 05:55
WBC 7.9 7.5
Hgb 10.6 L D 9.9 L
Hct 32.4 L 30.9 L
Plt Count 310 D 253
Sodium Cancelled 136 139
Potassium Cancelled 5.3 H 4.2
Chloride Cancelled 105 104
Carbon Dioxide Cancelled 21 L 21 L
BUN Cancelled 48 H 49 H
Creatinine Cancelled 2.0 H 2.2 H
Glucose Cancelled 345 H 208 H
Calcium Cancelled 8.0 L 8.6
Total Bilirubin Cancelled 0.8
AST Cancelled 47 H
ALT Cancelled 11
Alkaline Phosphatase Cancelled 49
Vital Signs:
Vital Signs
Temp Pulse Resp BP Pulse Ox
98.1 F 68 20 143/89 100
10/06/23 08:59 10/06/23 08:59 10/06/23 08:59 10/06/23 08:59 10/06/23 08:59
I&O
10/05/23 10/06/23 10/07/23
06:59 06:59 06:59
Output Total 300 / 300
Balance -300 / -300
Physical Exam
-
General: No Apparent Distress
HEENT: Normocephalic and Atraumatic
Respiratory: Rales and Crackles; Negative Wheezes
Cardiac: Regular Rhythm and S1/S2
Musculoskeletal: No Edema
Neuro: AO x 3
Psych: Calm
Data Reviewed
-
Total Time Spent with Patient (in minutes): 51
Labs: Labs Reviewed by me
[2023-10-06 10:36] LABS: Glycohemoglobin (HgbA1c) 6.5 % (4.0-5.6)
--- NOTE | 2023-10-06 11:31 | CON.CAR ---
Consultation
Consultation Request
Date/Time Consultation Requested: October 06, 2023
Date/Time Consultation Performed: October 06, 2023
Requesting Provider: Hospitalist
Performing Provider: Dr. Castro Franz
Reason for Consultation: Shortness of breath, congestive heart failure acute
Medical History
-
Chief Complaint: Shortness of breath
History of Present Illness:
PCP: Carlos Mott
Onc: Dr. Sumner
Cardiology: Dr. Danielle Franz
She was brought to [facility] emergency department on October 06, 2023 with worsening shortness of breath. She presented from [facility][1].
She has an extensive past medical history significant for COPD, congestive heart failure, coronary artery disease, CVA, DVT, hypertension, hyperlipidemia, chronic kidney disease, Parkinson's disease, diabetes, hypothyroidism. She also has
significant cognitive dysfunction.
She noted that while she was at [facility], the day prior to presenting to the emergency department she was started on antibiotics and steroids.
Electrocardiogram demonstrates sinus rhythm at [address] and T wave abnormalities. There is marked wavering of the baseline which makes further evaluation difficult.
Troponin value on presentation is 0.743 subsequently increased to 0.999
Laboratory values also show worsening renal insufficiency with creatinine of 2.0
CXR with moderate sized right-sided pleural effusion and small left pleural effusion. There is a mild increase in pulmonary vasculature suggesting possible congestive heart failure.
proBNP is elevated at 8040
Echo 07/15/2023:�EF 35-40%, mild LVH, hypokinesis, mild mitral stenosis, peak/mean gradient 8/3 mmHg, valve area 1.7 cm 2 with mild to moderate MR, mild aortic stenosis, peak/mean gradient 15/10 mmHg, aortic valve area is 1.9 cm 2 with mild AI,
normal pulmonary artery systolic pressure
(Echocardiogram from September 2021 noted LVEF of 55 to 60%, echocardiogram from February 22, 2020 noted EF of 25% with global hypokinesis as well as segmental wall motion abnormalities.)
PMH:
HFrEF
She has demonstrated reduced and then recovered and then reduced again ejection fraction
We have been avoiding PATRICK inhibitor, ARB, Aldactone, SGLT2 inhibitor given renal insufficiency which is waxed and waned
PAF
She is on amiodarone 200 mg daily as well as apixaban (2.5 mg twice daily)
Hypertension
Bradycardia
Prolonged QTc by EKG / abnormal EKG
COPD exacerbation/bronchitis
Recent UTI
CAD s/p NSTEMI 01/2020
CAD with medical management of multivessel CAD by cath 01/2020
CAD s/p remote PCI
12/2000 left circumflex stent
10/2002 mid RCA stent
10/2004 mid LAD x2 stents and OM stents
05/2007 mid OM stents
03/[address] stent
Prior evaluations have determined she is not a candidate for any further revascularization either surgical or percutaneous
Ranexa was previously discontinued to allow initiation of amiodarone given that she has demonstrated prolonged QT at times in the past.
Moderate MR
Insulin-dependent diabetes
CKD 3
Hyperlipidemia
PVD
Hypothyroidism
Severe orthopedic issues with decreased activity of daily living
History of neck fracture
Parkinson's disease
Social History
Tobacco: Non-Smoker
Alcohol: None
Living: Skilled Nursing
Family History
Family History: Reviewed & Not Pertinent
Allergies / Home Medications
Allergy/AdvReac Type Severity Reaction Status Date / Time
amlodipine Allergy LEG PAINS Verified 10/06/23 00:34
amlodipine besylate Allergy leg pain Verified 10/06/23 00:34
[From Norvasc]
cat dander Allergy COUGH AND Verified 10/06/23 00:34
SNEEZING
ibuprofen Allergy Anaphylaxis Verified 10/06/23 00:34
metformin Allergy severe Verified 10/06/23 00:34
diarrhea
naproxen Allergy Unknown Verified 10/06/23 00:34
naproxen sodium [From Aleve] Allergy Anaphylaxis Verified 10/06/23 00:34
nortriptyline Allergy Unknown Verified 10/06/23 00:34
Penicillins Allergy rash as a Verified 10/06/23 00:34
child;
tolerates
Keflex,rash;severe
itching,rash;s
potassium chloride Allergy leg pain Verified 10/06/23 00:34
tree and shrub pollen Allergy COUGH AND Verified 10/06/23 00:34
SNEEZING
�Medication �Instructions �Recorded �Confirmed �Type
atorvastatin 80 mg tablet 80 mg PO HS High cholesterol 02/19/18 10/06/23 History
polyvinyl alcohol-povidone (PF) 1 drp BOTH EYES BID@0830,1830 Eye 02/17/20 10/06/23 History
1.4 %-0.6 % eye drops in a condition
dropperette (Refresh Classic (PF))
clopidogrel 75 mg tablet 75 mg PO DAILY 02/29/20 10/06/23 Rx
isosorbide mononitrate 60 mg 60 mg PO DAILY 02/29/20 10/06/23 Rx
tablet,extended release 24 hr
acetaminophen 500 mg tablet 1,000 mg PO BID@0830,1830 Pain 04/11/20 10/06/23 History
(Tylenol Extra Strength)
furosemide 80 mg tablet 80 mg PO BID@0830,1630 Fluid 04/11/20 10/06/23 History
retention/Swelling
magnesium oxide 400 mg PO MOWEFR Constipation 04/11/20 10/06/23 History
metolazone 5 mg tablet 5 mg PO DAILYPRN PRN weight gain 04/11/20 10/06/23 History
of 3lbs overnight
nitroglycerin 0.4 mg sublingual 0.4 mg sublingual [id number] PRN 04/11/20 10/06/23 History
tablet chest pain
vit C 250 mg-vit E 90 mg-zinc 40 1 ea PO DAILY Supplement 04/11/20 10/06/23 History
mg-copper 1 [id number]
capsule (PreserVision AREDS-2)
bisacodyl 10 mg rectal suppository 10 mg CO DAILYPRN PRN if mom 10/25/20 10/06/23 History
(OneLAX Bisacodyl) ineffective
lidocaine 4 % topical patch 1 patch topical DAILY RIGHT KNEE 01/19/21 10/06/23 History
(Aspercreme (lidocaine)) PAIN
cyanocobalamin (vitamin B-12) 1,000 mcg IM MONTHLY Anemia 05/25/22 10/06/23 History
1,000 mcg/mL injection solution
epoetin najma 40,000 unit/mL 40,000 unit SC WE take with 20,000 05/25/22 10/06/23 History
injection solution
famotidine 20 mg tablet (Pepcid) 10 mg PO DAILY Gastrointestinal 05/25/22 10/06/23 History
issue
ascorbic acid (vitamin C) 500 mg 500 mg PO DAILY Supplement 07/10/23 10/06/23 History
tablet (Vitamin C)
carbidopa 25 mg-levodopa 100 mg 2 tab PO QID Neurological Condition 07/10/23 10/06/23 History
tablet
cetirizine 5 mg tablet 5 mg PO HS Allergies 07/10/23 10/06/23 History
dextromethorphan-guaifenesin 10 10 ml PO Q4HPRN PRN cough 07/10/23 10/06/23 History
mg-100 mg/5 mL oral liquid (Tussin
DM)
duloxetine 30 mg capsule,delayed 30 mg PO DAILY@2030 Mental 07/10/23 10/06/23 History
release (Cymbalta) Health/Anxiety
ferrous sulfate 325 mg (65 mg 325 mg PO DAILY Supplement 07/10/23 10/06/23 History
iron) tablet
insulin aspart U-100 100 unit/mL 9 unit SC AC Diabetes 07/10/23 10/06/23 History
subcutaneous solution (Novolog
U-100 Insulin aspart)
ketoconazole 2 % shampoo 1 applic topical TUFR Skin Issues 07/10/23 10/06/23 History
levothyroxine 100 mcg tablet 112 mcg PO DAILY@0630 Thyroid 07/10/23 10/06/23 History
(Synthroid)
methenamine hippurate 1 gram 1 g PO FR Urinary Issue 07/10/23 10/06/23 History
tablet (Hiprex)
sennosides 8.6 mg-docusate sodium 2 tab-cap PO QPM Constipation 07/10/23 10/06/23 History
50 mg capsule (Senna Plus)
sodium chloride 0.65 % nasal spray 1 spray intranasal Q1HPRN PRN 07/10/23 10/06/23 History
aerosol dryness
insulin glargine 100 unit/mL (3 20 unit SC HS Diabetes 07/13/23 10/06/23 History
mL) subcutaneous pen (Basaglar
KwikPen U-100 Insulin)
amiodarone 200 mg tablet (Pacerone) 200 mg PO DAILY #30 tabs 07/26/23 10/06/23 Rx
pregabalin 50 mg capsule 50 mg PO HS #14 caps 07/26/23 10/06/23 Rx
apixaban 5 mg tablet (Eliquis) 2.5 mg PO BID 10/06/23 10/06/23 History
buspirone 5 mg tablet 2.5 mg PO TID 10/06/23 10/06/23 History
ipratropium 0.5 mg-albuterol 3 mg 3 ml inhalation Q4H PRN wheezing 10/06/23 10/06/23 History
(2.5 mg base)/3 mL nebulization
soln
latanoprost (PF) 0.005 % eye drops 1 drp ophthalmic (eye) QPM 10/06/23 10/06/23 History
in a dropperette
magnesium hydroxide 2,400 mg/10 mL 30 ml PO HS PRN constipation 10/06/23 10/06/23 History
oral suspension
pantoprazole 40 mg tablet,delayed 20 mg PO DAILY 10/06/23 10/06/23 History
release
sulfamethoxazole 800 1 tab PO BID URI 10/06/23 10/06/23 History
mg-trimethoprim 160 mg tablet
(Bactrim DS)
Review of Systems
-
Unable to obtain full review of systems at this time due to: Dementia (There is some degree of dementia and forgetfulness so history may not be fully)
Physical Exam
Vital Signs
Temp Pulse Resp BP Pulse Ox
98.1 F 67 18 167/56 98
10/06/23 11:29 10/06/23 11:29 10/06/23 11:29 10/06/23 11:29 10/06/23 11:29
Lab Results
10/06/23 05:55
10/06/23 05:55
Troponin I Cancelled 10/06/23 17:33
[id number] Pept 8040 pg/ml 10/06/23 01:39
Physical Exam
General: Well Developed, Well Nourished, No Apparent Distress and Comfortable
HEENT: Normocephalic, Anicteric and Moist Mucous Membranes
Respiratory: Clear (. Decreased breath sounds at both bases although there is decreased inspiratory effort as well.)
Cardiac: S1/S2 and Regular Rhythm (Normal S1 and S2, no S3 no S4. There is grade 1/6 apical holosystolic murmur no rubs. PMI is difficult to palpate. There are no rubs)
Breast: Deferred by me
GI: Soft, Non Tender, Non Distended and Normal Bowel Sounds
Rectal: Deferred by Provider
Musculoskeletal: No Clubbing, No Cyanosis and Edema (There is +2 lower extremity edema bilaterally)
Skin: Warm and Dry
Neuro: Awake and Alert
Psych: Calm
Impression / Plan
-
Impression:
HFrEF, now acute and decompensated.
Most recent echocardiogram is from 07/15/2023 and demonstrates�EF 35-40%
She has demonstrated reduced and then recovered and then reduced again ejection fraction
We have been avoiding PATRICK inhibitor, ARB, Aldactone, SGLT2 inhibitor given renal insufficiency which is waxed and waned
She was last hospitalized 07/13/2023 for acute heart failure, proBNP 38063.
Elevated troponin
Suspect non-[place] troponin elevation related to decompensated congestive heart failure
Paroxysmal atrial fibrillation
Currently in sinus rhythm
She is on amiodarone 200 mg daily as well as apixaban (2.5 mg twice daily)
Hypertension
Bradycardia
Prolonged QTc by EKG / abnormal EKG
COPD exacerbation/bronchitis
Recent UTI
CAD s/p NSTEMI 01/2020
CAD with medical management of multivessel CAD by cath 01/2020
CAD s/p remote PCI
12/2000 left circumflex stent
10/2002 mid RCA stent
10/2004 mid LAD x2 stents and OM stents
05/2007 mid OM stents
03/[address] stent
Prior evaluations have determined she is not a candidate for any further revascularization either surgical or percutaneous
Ranexa was previously discontinued to allow initiation of amiodarone given that she has demonstrated prolonged QT at times in the past.
Moderate MR
Insulin-dependent diabetes
CKD 3
Hyperlipidemia
PVD
Hypothyroidism
Severe orthopedic issues with decreased activity of daily living
History of neck fracture
Parkinson's disease
DATA:
-Echocardiogram 07/15/2023 showed EF 35-40%, EF previously had been 55-60%.
-Cardiac cath 07/19/2023 demonstrated stable distal left main stenosis involving the origin of the LAD and circumflex and new high-grade calcified mid LAD stenosis with apical LAD now occluded. Initially there was discussion of high risk LAD PCI but
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 After further discussion w/ family decision was made to treat her medically as she was deemed not
a surgical candidate.
Recommendation:
-Agree with IV Lasix diuresis to manage her volume overload and decompensated HFrEF
Follow renal function, potassium and magnesium closely
Avoiding PATRICK inhibitor, ARB, Aldactone, SGLT2 inhibitor given renal insufficiency which is waxed and waned
Have been avoiding beta-christelle due to documented significant bradycardia at times
-Elevated troponin value
It is likely this is non-[place] related troponin from decompensated congestive heart failure.
She has known significant coronary artery disease but there is no longer any interventional option.
Medical management has also been difficult given inability to tolerate beta-christelle
She is maintained on Plavix (she is also on Eliquis anticoagulation for atrial fibrillation related thromboembolic risk reduction)
While she does have some degree of dementia and forgetfulness she is able to tell me she has not recently had any chest pain, although she admits to intermittent chest pressure at times which is chronic.
-Regarding paroxysmal atrial fibrillation
She is maintaining rhythm on amiodarone which we should continue
Continue Eliquis at current dosing for atrial fibrillation related thromboembolic risk reduction
-Regarding her known coronary artery disease unfortunately there is no viable interventional option and medical therapy has been limited as is noted above. Continue current medical therapy
I called and spoke to her son Reji giving him an update and answering all of his questions.
Data Reviewed
-
EKG: Tracing Personally Visualized and interpreted
Radiology: Image Personally Visualized and interpreted
Medical Tests (Nuc Med, Echo etc): Report Reviewed by me
Labs: Labs Reviewed by me
Old Records: Reviewed
Total Time Spent with Patient (in minutes): 82
[2023-10-06] MEDS: SYNTHROID 112 MCG PO (11:42)
[2023-10-06] MEDS: VIBRAMYCIN 100 MG PO ×2 (11:42→21:37)
[2023-10-06] MEDS: LIDOCAINE 4% PATCH 1 PATCH TOPICAL (11:43)
[2023-10-06 11:46] LABS: Glucose - Point of Care 137 mg/dl (70-99)
[2023-10-06] MEDS: IMDUR (EXTENDED RELEASE) 60 MG PO (12:17)
[2023-10-06] MEDS: PLAVIX 75 MG PO (12:17)
[2023-10-06] MEDS: PEPCID 10 MG PO (12:17)
[2023-10-06] MEDS: ELIQUIS 2.5 MG PO ×2 (12:18→21:36)
[2023-10-06] MEDS: PACERONE 200 MG PO (12:18)
[2023-10-06] MEDS: BUSPAR 2.5 MG PO ×3 (12:19→21:37)
[2023-10-06] MEDS: SINEMET 25-100 2 TABLET PO ×3 (12:20→21:37)
[2023-10-06] MEDS: NOVOLOG FLEXPEN 9 UNITS SC ×2 (12:45→17:20)
[2023-10-06 16:40] LABS: Glucose - Point of Care 163 mg/dl (70-99)
--- NOTE | 2023-10-06 17:14 | CM ---
Patient from [facility] with Hx Parkinsons Dz with Dx HF. O2 2L. Receiving IV Lasix. ST Eval pending.
Spoke with [employer], [facility] [employer], [facility];
the patient resides there in LTC and is on an [place] bed hold.
She is alert, Ox2 at baseline and recognizes family members.
The patient is assisted with ADLs and is able to do sit to stand transfers to her w/c.
She is non-ambulatory and was not getting PT.
The patient is normally on room air but was placed on O2 lst night.
Plan contact son when patient ready to return to SNF.
Plan return to [facility] when medically ready.
[2023-10-06] MEDS: NOVOLOG FLEXPEN-LOW RESISTANCE 1 UNITS SC (17:20)
--- NOTE | 2023-10-06 18:05 | W.CON.NEPH ---
Addendum entered and electronically signed by Eboni Scott MD 10/06/23 19:26:
may obtain renal US if cr did not improve tomorrow
Original Note:
Consultation
-
Date/Time Consultation Requested: 10/06/23 0810
Date/Time Consultation Performed: 10/06/23 1800
Requesting Provider: Michelle Duron
Performing Provider: Eboni Robles
Reason for Consultation: VERONIKA with CKD
Medical History
-
Chief Complaint: SOB
History of Present Illness:
She is 82y/o F with PMH Of ICMP with low EF on imdur, lasix, metolazone prn, COPD on inhalers, chr anemia on Procrit out pt, Parkinson on sinemet, DVT, P afib on amio and ELiquis, CKD beyza0n variable cr 1.2-1.8, type 2 DM on insulin, was brought
to [facility] emergency department on October 05 from [facility] with worsening shortness of breath. She noted in CHF exacerbation on CXR with high BNP 8040 and started on IV lasix 80mg BID. Cr on admit was 2, repeat was 2.2 this am hence
nephrology consulted.
She noted that while she was at [facility], the day prior to presenting to the emergency department she was started on antibiotics(bactrim) and steroids. She offers no cp or abd pain. no n/v. SOB improving. Good appetite. NO dysuria.
Past Medical History
HFrEF
Hypertension
Bradycardia
Prolonged QTc by EKG / abnormal EKG
CAD s/p NSTEMI 01/2020
CAD with medical management of multivessel CAD by cath 01/2020
CAD s/p remote PCI
12/2000 left circumflex stent
10/2002 mid RCA stent
10/2004 mid LAD x2 stents and OM stents
05/2007 mid OM stents
03/[address] stentPrior evaluations have determined she is not a candidate for any further revascularization either surgical or percutaneous
Moderate MR
Insulin-dependent diabetes
CKD 3
Hyperlipidemia
PVD
Hypothyroidism
Severe orthopedic issues with decreased activity of daily living
History of neck fracture
Parkinson's disease
Prox Atrial fibrillation , new onset on July 18, 2023.
COPD
Anemia of chronic disease.
Hypothyroidism on replacement.
jail residence with bed-bound status
Past Medical History: Other (Appendectomy, Cardiac (Stents 8-9), Cholecystectomy, Gynecological (Parital hysterectomy), Orthopedic (left knee replacement), Tonsilectomy and Other (PVD surgery, thyroidectomy))
Social History
Tobacco: Non-Smoker
Alcohol: None
Living: Alf
Family History
no CKD
Family History: Not Pertinent
Allergies / Home Medications
Allergy/AdvReac Type Severity Reaction Status Date / Time
amlodipine Allergy LEG PAINS Verified 10/06/23 00:34
amlodipine besylate Allergy leg pain Verified 10/06/23 00:34
[From Norvasc]
cat dander Allergy COUGH AND Verified 10/06/23 00:34
SNEEZING
ibuprofen Allergy Anaphylaxis Verified 10/06/23 00:34
metformin Allergy severe Verified 10/06/23 00:34
diarrhea
naproxen Allergy Unknown Verified 10/06/23 00:34
naproxen sodium [From Aleve] Allergy Anaphylaxis Verified 10/06/23 00:34
nortriptyline Allergy Unknown Verified 10/06/23 00:34
Penicillins Allergy rash as a Verified 10/06/23 00:34
child;
tolerates
Keflex,rash;severe
itching,rash;s
potassium chloride Allergy leg pain Verified 10/06/23 00:34
tree and shrub pollen Allergy COUGH AND Verified 10/06/23 00:34
SNEEZING
�Medication �Instructions �Recorded �Confirmed �Type
atorvastatin 80 mg tablet 80 mg PO HS High cholesterol 08/22/18 04/07/24 History
polyvinyl alcohol-povidone (PF) 1 drp BOTH EYES BID@0830,1830 Eye 02/17/20 10/06/23 History
1.4 %-0.6 % eye drops in a condition
dropperette (Refresh Classic (PF))
clopidogrel 75 mg tablet 75 mg PO DAILY 02/29/20 10/06/23 Rx
isosorbide mononitrate 60 mg 60 mg PO DAILY 02/29/20 10/06/23 Rx
tablet,extended release 24 hr
acetaminophen 500 mg tablet 1,000 mg PO BID@0830,1830 Pain 04/11/20 10/06/23 History
(Tylenol Extra Strength)
furosemide 80 mg tablet 80 mg PO BID@0830,1630 Fluid 04/11/20 10/06/23 History
retention/Swelling
magnesium oxide 400 mg PO MOWEFR Constipation 04/11/20 10/06/23 History
metolazone 5 mg tablet 5 mg PO DAILYPRN PRN weight gain 04/11/20 10/06/23 History
of 3lbs overnight
nitroglycerin 0.4 mg sublingual 0.4 mg sublingual [id number] PRN 04/11/20 10/06/23 History
tablet chest pain
vit C 250 mg-vit E 90 mg-zinc 40 1 ea PO DAILY Supplement 04/11/20 10/06/23 History
mg-copper 1 [id number]
capsule (PreserVision AREDS-2)
bisacodyl 10 mg rectal suppository 10 mg [place] DAILYPRN PRN if mom 10/25/20 10/06/23 History
(OneLAX Bisacodyl) ineffective
lidocaine 4 % topical patch 1 patch topical DAILY RIGHT KNEE 01/19/21 10/06/23 History
(Aspercreme (lidocaine)) PAIN
cyanocobalamin (vitamin B-12) 1,000 mcg IM MONTHLY Anemia 05/25/22 10/06/23 History
1,000 mcg/mL injection solution
epoetin najma 40,000 unit/mL 40,000 unit SC WE take with 20,000 05/25/22 10/06/23 History
injection solution
famotidine 20 mg tablet (Pepcid) 10 mg PO DAILY Gastrointestinal 05/25/22 10/06/23 History
issue
ascorbic acid (vitamin C) 500 mg 500 mg PO DAILY Supplement 07/10/23 10/06/23 History
tablet (Vitamin C)
carbidopa 25 mg-levodopa 100 mg 2 tab PO QID Neurological Condition 07/10/23 10/06/23 History
tablet
cetirizine 5 mg tablet 5 mg PO HS Allergies 07/10/23 10/06/23 History
dextromethorphan-guaifenesin 10 10 ml PO Q4HPRN PRN cough 07/10/23 10/06/23 History
mg-100 mg/5 mL oral liquid (Tussin
DM)
duloxetine 30 mg capsule,delayed 30 mg PO DAILY@2030 Mental 07/10/23 10/06/23 History
release (Cymbalta) Health/Anxiety
ferrous sulfate 325 mg (65 mg 325 mg PO DAILY Supplement 07/10/23 10/06/23 History
iron) tablet
insulin aspart U-100 100 unit/mL 9 unit SC AC Diabetes 07/10/23 10/06/23 History
subcutaneous solution (Novolog
U-100 Insulin aspart)
ketoconazole 2 % shampoo 1 applic topical TUFR Skin Issues 07/10/23 10/06/23 History
levothyroxine 100 mcg tablet 112 mcg PO DAILY@0630 Thyroid 07/10/23 10/06/23 History
(Synthroid)
methenamine hippurate 1 gram 1 g PO FR Urinary Issue 07/10/23 10/06/23 History
tablet (Hiprex)
sennosides 8.6 mg-docusate sodium 2 tab-cap PO QPM Constipation 07/10/23 10/06/23 History
50 mg capsule (Senna Plus)
sodium chloride 0.65 % nasal spray 1 spray intranasal Q1HPRN PRN 07/10/23 10/06/23 History
aerosol dryness
insulin glargine 100 unit/mL (3 20 unit SC HS Diabetes 07/13/23 10/06/23 History
mL) subcutaneous pen (Basaglar
KwikPen U-100 Insulin)
amiodarone 200 mg tablet (Pacerone) 200 mg PO DAILY #30 tabs 07/26/23 10/06/23 Rx
pregabalin 50 mg capsule 50 mg PO HS #14 caps 07/26/23 10/06/23 Rx
apixaban 5 mg tablet (Eliquis) 2.5 mg PO BID 10/06/23 10/06/23 History
buspirone 5 mg tablet 2.5 mg PO TID 10/06/23 10/06/23 History
ipratropium 0.5 mg-albuterol 3 mg 3 ml inhalation Q4H PRN wheezing 10/06/23 10/06/23 History
(2.5 mg base)/3 mL nebulization
soln
latanoprost (PF) 0.005 % eye drops 1 drp ophthalmic (eye) QPM 10/06/23 10/06/23 History
in a dropperette
magnesium hydroxide 2,400 mg/10 mL 30 ml PO HS PRN constipation 10/06/23 10/06/23 History
oral suspension
pantoprazole 40 mg tablet,delayed 20 mg PO DAILY 10/06/23 10/06/23 History
release
sulfamethoxazole 800 1 tab PO BID URI 10/06/23 10/06/23 History
mg-trimethoprim 160 mg tablet
(Bactrim DS)
Review of Systems
-
All complete 12 point ROS have been inquired and found negative other than stated in HPI
Physical Exam
Vital Signs
Vital Signs
Temp Pulse Resp BP Pulse Ox
98.0 F 72 18 130/70 98
10/06/23 15:25 10/06/23 16:13 10/06/23 15:25 10/06/23 16:13 10/06/23 15:25
Lab Results
WBC 7.5 10^3/uL (4.8-10.8) 10/06/23 05:55
RBC 3.00 10^6/uL (4.20-5.40) L 10/06/23 05:55
Hgb 9.9 g/dL (12.0-16.0) L 10/06/23 05:55
Hct 30.9 % (37.0-47.0) L 10/06/23 05:55
Plt Count 253 10^3/uL (130-400) 10/06/23 05:55
Sodium 139 mmol/L (135-145) 10/06/23 05:55
Potassium 4.2 mmol/L (3.5-5.1) 10/06/23 05:55
Chloride 104 mmol/L (98-107) 10/06/23 05:55
Carbon Dioxide 21 mmol/L (22-30) L 10/06/23 05:55
BUN 49 mg/dl (7-17) H 10/06/23 05:55
Creatinine 2.2 mg/dL (0.6-1.0) H 10/06/23 05:55
eGFR 21.84 10/06/23 05:55
Glucose 208 mg/dl (70-99) H 10/06/23 05:55
Calcium 8.6 mg/dl (8.4-10.2) 10/06/23 05:55
Ddi-R-Eccgvuyrcyr Pept 8040 pg/ml 10/06/23 01:39
Albumin 3.4 g/dl (3.5-5.0) L 10/06/23 01:39
Echo 07/2023:
CONCLUSIONS
Technically difficult study - Lumason used.
Mildly to moderately reduced left ventricular systolic function. Mild
concentric left ventricular hypertrophy. Apical hypokinesis. Left ventricular
ejection fraction is 35-40% by Gomez's method of discs.
Mild mitral stenosis. Mitral valve area by pressure halftime is calculated at
1.7 cm.2 Peak/mean gradients across the mitral valve are 8/3 mmHg
respectively. Mild to moderate mitral regurgitation.
Mild aortic stenosis. Peak/mean gradients across the aortic valve are 15/10
mmHg respectively. Using an LVOT diameter of 2.1 cm., the aortic valve by the
Continuity equation is calculated at 1.9 cm2. Mild aortic regurgitation.
Mild tricuspid regurgitation. Estimated pulmonary artery pressure of 24-29 mmHg
Compared to the previous echo the EF was 55-60% and is now reduced with apical
hypokinesis otherwise no other significant change.
CXR 10/05:
IMPRESSION:
There is a moderate sized right-sided pleural effusion and small left pleural effusion. There is a mild increase in pulmonary vasculature suggesting possible congestive heart failure.
Physical Exam
General: Awake, Alert, Oriented, AOx3, No Distress and Nontoxic
HEENT: EOMI and Anicteric
Respiratory: Clear (decreased BS), Normal Excursion and Nonlabored Respirations
Cardiac: S1/S2, Regular Rate/Rhythm and Murmur
Abdomen: Soft, Nontender and Nondistended
Musculoskeletal: No Cyanosis and No Edema
Skin: No Rash (chr skin changes of LEs)
Neuro: Nonfocal/Grossly Intact
Psych: Mood/afflect pleasant, Insight/judgement good, Appropriate and Other (mild forgetful)
Assessment/Plan
-
IMP:
Acute on CKD [id number] range of cr 1.2-1.8
Acute on chr HFrEF ,
decompensated Pul HTN
acute hypoxic RF
Elevated Troponin
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
CAD
HX HLD
HX COPD
VERONIKA
Prox AF
HX CVA
Essential HTN
DMT2
GERD
Hypothyroidism
Parkinsonism
Chronic constipation
Plan:
From [place] came with sob, noted CHF flare
VERONIKA with CKD-suspect cardiorenal, previous UA was bland
cont IVF diuresis with lasix and monitor labs
follow bladder scan
BP stable
follow h/h, was on out pt procrit
trop increasing, cards follows
d/w pt and reviewed CKD staging
Data Reviewed
-
Radiology: Report Reviewed by me
Medical Tests (Nuc Med, Echo etc): Report Reviewed by me
Labs: Labs Reviewed by me and Discussed with Patient
[2023-10-06] MEDS: REFRESH EYE DROPS (PF) 1 DROPS BOTH EYES (18:20)
[2023-10-06] MEDS: SENOKOT-S 2 TABLET PO (18:20)
[2023-10-06] MEDS: TESSALON PERLES 100 MG PO (18:27)
--- NOTE | 2023-10-06 19:34 | PTCARENOTE ---
Received patient this am AAOx2 from ED. Pt oriented to room. Spoke with an pharmacy for clarification of meds. Pt offered no complaints. Made patient comfortable. Cont to assess patient status.
[2023-10-06 21:37] LABS: Glucose - Point of Care 108 mg/dl (70-99)
[2023-10-06] MEDS: LYRICA 50 MG PO (21:37)
[2023-10-06] MEDS: LIPITOR 80 MG PO (21:37)
[2023-10-06] MEDS: CYMBALTA DELAYED RELEASE 30 MG PO (21:37)
[2023-10-06] MEDS: LANTUS 0.200000000000000011 UNITS SC (21:40)
[2023-10-06] MEDS: XALATAN OPHTHALMIC SOLUTION 1 DROP OPHTH (21:57)
[2023-10-07 03:41] VITALS: BP 124/51
[2023-10-07] MEDS: SYNTHROID 112 MCG PO (05:22)
[2023-10-07 05:33] LABS: Hematocrit 28.6 % (37.0-47.0); Hemoglobin 8.7 g/dL (12.0-16.0); Mean Corp Hgb Conc. 30.4 g/dL (33.0-37.0); Mean Corpuscular Hgb 31.9 pg (27.0-31.0); Mean Corpuscular Volume 104.8 fL (81.0-99.0); Mean Platelet Volume 9.5 fL (7.4-10.4); Platelet Count 247 10^3/uL (130-400); Red Blood Cell Count 2.73 10^6/uL (4.20-5.40); Red Cell Dist. Width 17.2 % (11.5-14.5); White Blood Cell Count 5.7 10^3/uL (4.8-10.8)
[2023-10-07 05:56] LABS: Blood Urea Nitrogen 52 mg/dl (7-17); Carbon Dioxide 24 mmol/L (22-30); Chloride 106 mmol/L (98-107); Estimated Creatinine Clearance 20 ml/min; Glucose 126 mg/dl (70-99); Magnesium 1.9 mg/dl (1.6-2.3); Potassium 3.7 mmol/L (3.5-5.1); Sodium 137 mmol/L (135-145)
[2023-10-07 06:00] VITALS: BMI 33.5
[2023-10-07 06:05] VITALS: BMI 35.1
[2023-10-07 07:20] VITALS: BP 149/64
[2023-10-07 07:23] LABS: Glucose - Point of Care 102 mg/dl (70-99)
[2023-10-07] MEDS: DUONEB 3 ML INH ×3 (07:30→19:28)
[2023-10-07 09:23] LABS: Troponin I 0.798 ng/ml
[2023-10-07] MEDS: NOVOLOG FLEXPEN-LOW RESISTANCE SC ×2 (09:43→12:37)
[2023-10-07] MEDS: LIDOCAINE 4% PATCH 1 PATCH TOPICAL (09:43)
[2023-10-07] MEDS: VIBRAMYCIN 100 MG PO ×2 (09:44→21:59)
[2023-10-07] MEDS: SINEMET 25-100 2 TABLET PO ×4 (09:44→21:53)
[2023-10-07] MEDS: PLAVIX 75 MG PO (09:44)
[2023-10-07] MEDS: PEPCID 10 MG PO (09:45)
[2023-10-07] MEDS: IMDUR (EXTENDED RELEASE) 60 MG PO (09:45)
[2023-10-07] MEDS: ELIQUIS 2.5 MG PO ×2 (09:45→21:59)
[2023-10-07] MEDS: PACERONE 200 MG PO (09:46)
[2023-10-07] MEDS: BUSPAR 2.5 MG PO ×3 (09:50→21:53)
[2023-10-07] MEDS: DECADRON 2 MG IV ×2 (09:51→21:57)
[2023-10-07] MEDS: REFRESH EYE DROPS (PF) 1 DROPS BOTH EYES ×2 (09:51→18:14)
[2023-10-07] MEDS: LASIX 80 MG IV ×2 (09:52→17:58)
[2023-10-07] MEDS: TESSALON PERLES 100 MG PO ×2 (10:05→15:48)
[2023-10-07] MEDS: NOVOLOG FLEXPEN 9 UNITS SC ×3 (10:06→17:59)
--- NOTE | 2023-10-07 10:17 | PTOTSP ---
SPEECH THERAPY SWALLOW EVALUATION:
Patient presents with grossly functional oropharyngeal swallow function; However, patient remains at risk for aspiration given predisposing (Parkinson's, COPD) and precipitating (CHF exacerbation, tenuous respiratory/pulmonary status, confusion)
dysphagia/aspiration risk factors. Recommend continue Regular texture diet, thin liquids. Medications whole with liquid as tolerated. Aspiration precautions including: Upright positioning; Remain up 30 minutes after eating/drinking; Small
sips/bites; Slow rate; Partial supervision/assistance as needed. Do not eat if SOB. D/C oral diet if signs of aspiration or decline in mental or respiratory status. Speech therapy to follow, assess diet tolerance and modify as appropriate, monitor
CXR and labs, determine indication for VFSS if warranted, and provide continued education regarding aspiration risks and precautions.
RECOMMEND:
1) Regular texture diet, thin liquids
2) Medications whole with liquid as tolerated
3) Aspiration precautions including: Upright positioning; Remain up 30 minutes after eating/drinking; Small sips/bites; Slow rate; Partial supervision/assistance as needed. Do not eat if SOB. D/C oral diet if signs of aspiration or decline in mental
or respiratory status
4) Speech therapy to follow, assess diet tolerance and modify as appropriate, monitor CXR and labs, determine indication for VFSS if warranted, and provide continued education regarding aspiration risks and precautions
[2023-10-07] MEDS: DUONEB INH (11:10)
--- NOTE | 2023-10-07 11:19 | W.PN.HOSP.TC ---
Today's Communication/Plan
-
continue IV Lasix; monitor lytes/Cr and obtain Echo
IV steroids x 1 day, then PO steroids, nebs, mucolytics
wean O2
Assessment / Plan
Assessment / Plan
Assessment:
Acute on Chronic HFrEF
- EF 35-40% in July, reduced LV function
- BNP 8040, 2 weeks ago it was 1230
- continue IV Lasix BID - requires intensive monitoring of I/Os, weights, Lytes
- follows with Dr. Lynch
- DCA group following
Acute hypoxic respiratory insufficiency on 2L
- wean O2 as able; currently on 1L NC
hx of COPD with mild exacerbation from bronchitis
- IV steroids x 24 hours (Saturday) then switch to PO steroids for short course
- nebs scheduled + prn
- continue Doxy, day 2
Non-IA trop elevation in setting of acute CHF, CKD 3b
hx of ICM and CAD
- Cardiac catheterization 07/19/2023: Left main: Calcified 80-90% distal stenosis, 50-60% ostial LAD stenosis, heavily calcified 95% stenosis proximal to D1, this is new, stented mid LAD with distal WON II flow, apical LAD possibly occluded,
circumflex 50 to 60% ostial stenosis, circumflex stent is patent, RCA 90% ostial stenosis, 70% stenosis mid
- on medical management as felt high risk for intervention, also contrast risk with underlying CKD 3b
- trend trops; peaked at 1.020
- check Echo
- continue statin/Plavix/ISMN
VERONIKA on CKD stage 3b
Cardio-renal state in setting of acute CHF
- monitor BMP. Nephrology following
Parox A. Fib
- continue Amio/Eliquis
Hx of CVA
- continue Plavix/Statin
Essential HTN
- continue diuretics
- continue ISMN
Type 2 DM
- monitor with steroids
- continue SSI - moderate
- A1c: 6.5%
GERD
- continue PPI/H2 christelle
Hypothyroidism
- continue replacement
Parkinsonism disease
Bed bound status
- cont home Sinemet and donepezil
Chronic constipation
- cont bowel regimen with holding parameters
DVT ppx: Eliquis
Code: DNR
Anticipated Discharge: > 48 hours
Subjective/Interval History
-
Date of Service: October 07, 2023
voiding ok, feels less SOB today
Objective Data
-
Labs:
Laboratory Results
10/07/23
04:53
WBC 5.7
Hgb 8.7 L
Hct 28.6 L
Plt Count 247
Sodium 137
Potassium 3.7
Chloride 106
Carbon Dioxide 24
BUN 52 H
Creatinine 2.3 H
Glucose 126 H
Calcium 8.0 L
Vital Signs:
Vital Signs
Temp Pulse Resp BP Pulse Ox
98.3 F 55 18 149/64 100
10/07/23 07:20 10/07/23 09:52 10/07/23 07:34 10/07/23 09:52 10/07/23 07:34
I&O
10/06/23 10/07/23 10/08/23
06:59 06:59 06:59
Intake Total 360 / 360
Output Total 1000 / 1000
Balance -640 / -640
Physical Exam
-
General: No Apparent Distress
HEENT: Normocephalic and Atraumatic
Respiratory: Rales and Rhonchi
Cardiac: Regular Rhythm and S1/S2
GI: Soft and Nontender
Genito-urinary: No Costovertebral Tender
Neuro: AO x 3
Psych: Calm
Data Reviewed
-
Total Time Spent with Patient (in minutes): 51
Labs: Labs Reviewed by me
[2023-10-07 12:35] LABS: Glucose - Point of Care 145 mg/dl (70-99)
[2023-10-07 12:36] VITALS: BP 123/52
--- NOTE | 2023-10-07 12:42 | WOUNDNOTE ---
WOUND CARE INSTRUCTIONS: Stage 2 Sacral/Buttocks- Clean with soap and water on normal saline. Apply Calazime to open areas BID and PRN
Bilateral heels- No sting barrier and adhesive foam. Change Q 3 days and PRN
Air Mattress
Frequent Continence Care
Turning Schedule
Keep heels off-loaded with air cushion on pillow under calves.
--- NOTE | 2023-10-07 12:45 | W.PN.CARDCBS ---
Today's Communication / Plan
-
Seems improved. Creatinine worsened slightly to 2.3
Continue IV Lasix and follow renal function closely
Impression / Plan
-
Impression:
HFrEF, now acute and decompensated.
Echocardiogram from 07/15/2023 with�EF 35-40%
She has demonstrated reduced and then recovered and then reduced again ejection fraction
We have been avoiding PATRICK inhibitor, ARB, Aldactone, SGLT2 inhibitor given renal insufficiency which is waxed and waned
She was hospitalized 07/13/2023 for acute heart failure, proBNP 09986.
Elevated troponin
Suspect non-TN myocardial injury related to decompensated congestive heart failure
Paroxysmal atrial fibrillation
Currently in sinus rhythm
She is on amiodarone 200 mg daily as well as apixaban (2.5 mg twice daily)
Hypertension
Bradycardia
Prolonged QTc by EKG / abnormal EKG
COPD exacerbation/bronchitis
Recent UTI
CAD s/p NSTEMI 01/2020
CAD with medical management of multivessel CAD by cath 01/2020
CAD s/p remote PCI
12/2000 left circumflex stent
10/2002 mid RCA stent
10/2004 mid LAD x2 stents and OM stents
05/2007 mid OM stents
03/[address] stent
Prior evaluations have determined she is not a candidate for any further revascularization either surgical or percutaneous
Ranexa was previously discontinued to allow initiation of amiodarone given that she has demonstrated prolonged QT at times in the past.
Moderate MR
Insulin-dependent diabetes
CKD 3
Hyperlipidemia
PVD
Hypothyroidism
Severe orthopedic issues with decreased activity of daily living
History of neck fracture
Parkinson's disease
DATA:
-Echocardiogram 07/15/2023 showed EF 35-40%, EF previously had been 55-60%.
-Cardiac cath 07/19/2023 demonstrated stable distal left main stenosis involving the origin of the LAD and circumflex and new high-grade calcified mid LAD stenosis with apical LAD now occluded. Initially there was discussion of high risk LAD PCI but
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 After further discussion w/ family decision was made to treat her medically as she was deemed not
a surgical candidate.
Recommendation:
Seems improved with weight possibly down 9 pounds
Creatinine has worsened slightly from 2.2 on admission to 2.3 on 10/06.
Continue IV Lasix and follow renal function closely
Avoiding PATRICK inhibitor, ARB, Aldactone, SGLT2 inhibitor given renal insufficiency
Have been avoiding beta-christelle due to documented significant bradycardia
She has known significant coronary artery disease but there is no longer any interventional option.
Medical management has also been difficult given inability to tolerate beta-christelle
She is maintained on Plavix
Progress Note - [employer]
Subjective
Date of Service: October 07, 2023
No complaints
Objective
Labs:
10/07/23 04:53
10/07/23 04:53
Labs
Hgb 8.7 g/dL (12.0-16.0) L 10/07/23 04:53
Hct 28.6 % (37.0-47.0) L 10/07/23 04:53
Plt Count 247 10^3/uL (130-400) 10/07/23 04:53
Sodium 137 mmol/L (135-145) 10/07/23 04:53
Potassium 3.7 mmol/L (3.5-5.1) 10/07/23 04:53
BUN 52 mg/dl (7-17) H 10/07/23 04:53
Creatinine 2.3 mg/dL (0.6-1.0) H 10/07/23 04:53
Glucose 126 mg/dl (70-99) H 10/07/23 04:53
Troponins
10/06/23 10/06/23 10/06/23
00:26 01:39 05:33
Troponin I Cancelled 0.743 H* Cancelled
10/06/23 10/06/23 10/06/23
05:55 11:33 12:00
Troponin I 0.999 H* D Cancelled 1.020 H*
10/06/23 10/06/23 10/07/23
17:33 18:00 08:50
Troponin I Cancelled Cancelled 0.798 H*
Vital Signs and I&O:
Vital Signs
Temp Pulse Resp BP Pulse Ox
98.7 F 67 22 123/52 93
10/07/23 12:36 10/07/23 12:36 10/07/23 12:36 10/07/23 12:36 10/07/23 12:36
Vital Signs
Temp Pulse Resp BP Pulse Ox
98.7 F 67 22 123/52 93
10/07/23 12:36 10/07/23 12:36 10/07/23 12:36 10/07/23 12:36 10/07/23 12:36
Intake & Output
10/05/23 10/06/23 10/07/23 10/08/23
06:59 06:59 06:59 06:59
Intake Total 360 / 360
Output Total 1000 / 1000
Balance -640 / -640
Physical Exam
Physical Exam
General: Well developed, well nourished in NAD.
Neck: Supple, no JVD, HJR, carotids +2 B/L, no bruits bilaterally.
Heart: Non displaced PMI, RRR, no murmurs, No S3, S4, no rubs.
Lungs: Scattered rhonchi
Extremities: No clubbing, cyanosis or edema bilaterally.
Neuro: Grossly nonfocal, awake, alert and oriented x3.
--- NOTE | 2023-10-07 12:46 | WOUNDNOTE ---
[facility] RN NOTE: Reviewed chart, met with patient. Patient assessed with RN Ba and PCT October. Patient awake, alert and cooperative. Buttocks with stage 2 appearing wound likely the result of a combination of pressure, moisture, and friction. Zinc based
barrier cream has been correctly applied and patient receiving frequent continence care. Static air overlay added to bed. Stage 1 PI bilateral heels. No sting barrier and adhesive foam applied and heels off-loaded with pillows under calves. Patient
turned to semi-side lying position. Patient reports good appetite. RN Ba given update. Will continue to follow as needed.
[2023-10-07] MEDS: SAFETUSSIN DM (SUGAR/ALCOHOL FREE) 200 MG PO (14:10)
--- NOTE | 2023-10-07 14:43 | W.PN.NEPH.PH ---
Today's Communication / Plan
-
- continue with IVF
- Cr slight bump
Assessment/Plan
-
IMP:
Acute on CKD [id number] range of cr 1.2-1.8
Acute on chr HFrEF ,
decompensated Pul HTN
acute hypoxic RF
Elevated Troponin
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
CAD
HX HLD
HX COPD
VERONIKA
Prox AF
HX CVA
Essential HTN
DMT2
GERD
Hypothyroidism
Parkinsonism
Chronic constipation
Plan:
From [place] came with sob, noted CHF flare
VERONIKA with CKD-suspect cardiorenal, previous UA was bland
cont IVF diuresis with lasix and monitor labs
obtain KUS today
BP stable
follow h/h, was on out pt procrit
cards follow
d/w patient and primary team
-
-
Date of Service: October 07, 2023
CC / HPI / ROS
-
Chief Complaint:
VERONIKA
History of Present Illness:
Cr up to 2.3 (bl 1.2-1.8)
continuing with IV lasix
Review of Systems:
feeling improved
weights coming down
Labs
-
Labs:
WBC 5.7 10^3/uL (4.8-10.8) 10/07/23 04:53
RBC 2.73 10^6/uL (4.20-5.40) L 10/07/23 04:53
Hgb 8.7 g/dL (12.0-16.0) L 10/07/23 04:53
Hct 28.6 % (37.0-47.0) L 10/07/23 04:53
Plt Count 247 10^3/uL (130-400) 10/07/23 04:53
Sodium 137 mmol/L (135-145) 10/07/23 04:53
Potassium 3.7 mmol/L (3.5-5.1) 10/07/23 04:53
Chloride 106 mmol/L (98-107) 10/07/23 04:53
Carbon Dioxide 24 mmol/L (22-30) 10/07/23 04:53
BUN 52 mg/dl (7-17) H 10/07/23 04:53
Creatinine 2.3 mg/dL (0.6-1.0) H 10/07/23 04:53
eGFR 20.70 10/07/23 04:53
Glucose 126 mg/dl (70-99) H 10/07/23 04:53
Calcium 8.0 mg/dl (8.4-10.2) L 10/07/23 04:53
Wit-E-Sgyobwfbhbq Pept 8040 pg/ml 10/06/23 01:39
Albumin 3.4 g/dl (3.5-5.0) L 10/06/23 01:39
Physical Exam
-
Vital Signs:
Vital Signs
Temp Pulse Resp BP Pulse Ox
98.7 F 67 22 123/52 93
10/07/23 12:36 10/07/23 12:36 10/07/23 12:36 10/07/23 12:36 10/07/23 12:36
Cardiovascular:: Regular rate and rhythm
Respiratory:: Bilateral: Coarse
Lung Excursion:: Normal
Abdomen:: Nontender and Soft
Bowel Sounds:: Normal
Extremity Edema:: None: Bilateral:
Silveira Catheter: No
[2023-10-07 15:50] VITALS: BP 124/51
[2023-10-07 15:59] VITALS: BMI 33.5
[2023-10-07 17:11] LABS: Glucose - Point of Care 183 mg/dl (70-99)
[2023-10-07] MEDS: SENOKOT-S 2 TABLET PO (17:57)
[2023-10-07] MEDS: NOVOLOG FLEXPEN-LOW RESISTANCE 1 UNITS SC (18:00)
[2023-10-07] MEDS: XALATAN OPHTHALMIC SOLUTION 1 DROP OPHTH (18:15)
[2023-10-07 19:40] VITALS: BP 112/76
[2023-10-07 21:37] LABS: Glucose - Point of Care 83 mg/dl (70-99)
[2023-10-07] MEDS: LIPITOR 80 MG PO (21:39)
[2023-10-07] MEDS: CYMBALTA DELAYED RELEASE 30 MG PO (21:55)
[2023-10-07] MEDS: LYRICA 50 MG PO (21:58)
[2023-10-07] MEDS: LANTUS SC (22:00)
[2023-10-07] MEDS: LANTUS 0.100000000000000006 UNITS SC (22:39)
[2023-10-07 23:00] VITALS: BP 113/49
[2023-10-08 03:32] VITALS: BP 123/43
[2023-10-08] MEDS: SYNTHROID 112 MCG PO (04:30)
[2023-10-08] MEDS: SAFETUSSIN DM (SUGAR/ALCOHOL FREE) 200 MG PO ×2 (04:31→22:43)
[2023-10-08 06:00] VITALS: BMI 33.0
[2023-10-08 06:37] LABS: Hematocrit 27.5 % (37.0-47.0); Hemoglobin 8.6 g/dL (12.0-16.0); Mean Corp Hgb Conc. 31.3 g/dL (33.0-37.0); Mean Corpuscular Hgb 32.6 pg (27.0-31.0); Mean Corpuscular Volume 104.2 fL (81.0-99.0); Mean Platelet Volume 9.3 fL (7.4-10.4); Platelet Count 246 10^3/uL (130-400); Red Blood Cell Count 2.64 10^6/uL (4.20-5.40); Red Cell Dist. Width 16.8 % (11.5-14.5); White Blood Cell Count 5.9 10^3/uL (4.8-10.8)
[2023-10-08 07:04] LABS: Blood Urea Nitrogen 60 mg/dl (7-17); Calcium 8.4 mg/dl (8.4-10.2); Carbon Dioxide 24 mmol/L (22-30); Chloride 103 mmol/L (98-107); Estimated Creatinine Clearance 22 ml/min; Glucose 168 mg/dl (70-99); Potassium 4.5 mmol/L (3.5-5.1); Sodium 138 mmol/L (135-145); eGFR 24.48
--- NOTE | 2023-10-08 07:32 | W.PN.HOSP.TC ---
Today's Communication/Plan
-
lasix
steroid taper, nebs, mucolytics
wean O2 as tolerated, encourage incentive spirometer use
start renal dosed zyrtec
retacrit once
monitor H&H renal function
Assessment / Plan
Assessment / Plan
Physical Exam
General: No Apparent Distress
HEENT: Normocephalic and Atraumatic
Respiratory: Clear to auscultation b/l
Cardiac: Regular Rhythm and S1/S2
GI: Soft and Nontender
Genito-urinary: No Costovertebral Tender
Neuro: AO x 3
Psych: Calm
Assessment:
Acute on Chronic HFrEF
- EF 35-40% in July, reduced LV function
- BNP 8040, 2 weeks prior was 1230
- continue IV Lasix BID - requires intensive monitoring of I/Os, weights, Lytes
- follows with Dr. Lynch
- Cardio eval appreciated
Acute hypoxic respiratory insufficiency
- wean O2 as tolerated
-incentive spirometry
hx of COPD with mild exacerbation from bronchitis
- IV steroids switched PO steroid taper
- nebs scheduled + prn
- continue Doxy, day 3
Cough respiratory insufficiency possible post-nasal drip contributing
-renally dosed Zyrtec started.
Non-CT trop elevation in setting of acute CHF, CKD 3b
hx of ICM and CAD
- Cardiac catheterization 07/19/2023: Left main: Calcified 80-90% distal stenosis, 50-60% ostial LAD stenosis, heavily calcified 95% stenosis proximal to D1, this is new, stented mid LAD with distal WON II flow, apical LAD possibly occluded,
circumflex 50 to 60% ostial stenosis, circumflex stent is patent, RCA 90% ostial stenosis, 70% stenosis mid
- on medical management as felt high risk for intervention, also contrast risk with underlying CKD 3b
- trend trops; peaked at 1.020 since trended down
- ECHO appreciated ECHO 65-70% mild to mod Mitral stenosis mod to severe MR, compared to ECHO Jul 2023 EF improved, possible worsening MR
- continue statin/Plavix/ISMN
VERONIKA on CKD stage 3b
Cardio-renal state in setting of acute CHF
- monitor BM
-cont diuresis
-Nephrology eval appreciated
-KUS appreciated b/l renal cortical atrophy, medical renal disease, no hydronephrosis, no sonographic abn's urinary bladder
Anemia, Macrocytic
Anemia of Chronic Disease, Renal insufficiency
B12 wnl
gets procrit hgb<10 outpt with weekly evaluations as per son Kyle
retacrit 10,000 U subq once ordered 10/07 Hgb 8.6 slowly trending down since admission
Parox A. Fib
- continue Amio/Eliquis
Hx of CVA
- continue Plavix/Statin
Essential HTN
- continue diuretics
- continue ISMN
Type 2 DM
- monitor with steroids
- continue SSI - moderate
- A1c: 6.5%
GERD
- continue PPI/H2 christelle
Hypothyroidism
- continue replacement
Parkinsonism disease
Bed bound status
- cont home Sinemet and donepezil
Chronic constipation
- cont bowel regimen with holding parameters
DVT ppx: Eliquis
Code: DNR
discussed with patient at bedside and patient's son Kyle over phone
I spent a total of 50 minutes with the patient or on the floor. More than 50% of this time involved counseling and coordination of care.
Anticipated Discharge: 24 - 48 hours
Subjective/Interval History
-
Date of Service: October 08, 2023
no acute distress resting comfortably in bed. Continues to report cough, remains oxygen dependent. patient also reports post-nasal drip.
Objective Data
-
Labs:
Laboratory Results
10/08/23
06:18
WBC 5.9
Hgb 8.6 L
Hct 27.5 L
Plt Count 246
Sodium 138
Potassium 4.5
Chloride 103
Carbon Dioxide 24
BUN 60 H
Creatinine 2.0 H
Glucose 168 H
Calcium 8.4
Vital Signs:
Vital Signs
Temp Pulse Resp BP Pulse Ox
98.3 F 58 20 123/43 100
10/08/23 03:32 10/08/23 03:32 10/08/23 03:32 10/08/23 03:32 10/08/23 03:32
I&O
10/07/23 10/08/23 10/09/23
06:59 06:59 06:59
Intake Total 360 / 360 1440 / 1440
Output Total 1000 / 1000 200 / 200
Balance -640 / -640 1240 / 1240
[2023-10-08] MEDS: DUONEB 3 ML INH ×4 (07:36→19:24)
[2023-10-08 07:40] VITALS: BP 119/51
[2023-10-08 08:00] LABS: Glucose - Point of Care 181 mg/dl (70-99)
[2023-10-08] MEDS: PEPCID 10 MG PO (09:16)
[2023-10-08] MEDS: IMDUR (EXTENDED RELEASE) 60 MG PO (09:16)
[2023-10-08] MEDS: ELIQUIS 2.5 MG PO ×2 (09:16→20:56)
[2023-10-08] MEDS: VIBRAMYCIN 100 MG PO ×2 (09:16→20:56)
[2023-10-08] MEDS: PLAVIX 75 MG PO (09:17)
[2023-10-08] MEDS: DELTASONE 40 MG PO (09:17)
[2023-10-08] MEDS: LASIX 80 MG IV ×2 (09:18→17:20)
[2023-10-08] MEDS: LIDOCAINE 4% PATCH 1 PATCH TOPICAL (09:20)
[2023-10-08] MEDS: PACERONE 200 MG PO (09:25)
[2023-10-08] MEDS: BUSPAR 2.5 MG PO ×3 (09:26→21:00)
[2023-10-08] MEDS: SINEMET 25-100 2 TABLET PO ×4 (09:26→17:20)
[2023-10-08] MEDS: REFRESH EYE DROPS (PF) 1 DROPS BOTH EYES ×2 (09:27→19:13)
[2023-10-08] MEDS: NOVOLOG FLEXPEN 9 UNITS SC ×3 (09:28→17:26)
[2023-10-08] MEDS: NOVOLOG FLEXPEN-LOW RESISTANCE 1 UNITS SC (09:30)
[2023-10-08] MEDS: TESSALON PERLES 100 MG PO (09:36)
--- NOTE | 2023-10-08 10:28 | W.PN.CARDCBS ---
Today's Communication / Plan
-
Continues to improve with IV lasix.
Cr improved to 2 October 07 after 2.3 on October 06.
Follow cr. Appreciate renal input.
Avoiding PATRICK inhibitor, ARB, Aldactone, SGLT2 inhibitor given renal insufficiency
Echo reviewed with pt and her EF has improved. MR is worse. Cont medical therapy.
Have been avoiding beta-christelle due to documented significant bradycardia
Cont medical management of her known CAD.
Cont Plavix.
Wean O2 as able. She was not on O2 at home.
Impression / Plan
-
.
Impression:
HFrEF, now acute and decompensated.
Echocardiogram from 07/15/2023 with�EF 35-40%
She has demonstrated reduced and then recovered and then reduced again ejection fraction
We have been avoiding PATRICK inhibitor, ARB, Aldactone, SGLT2 inhibitor given renal insufficiency which is waxed and waned
She was hospitalized 07/13/2023 for acute heart failure, proBNP 44773.
Elevated troponin
Suspect non-[place] myocardial injury related to decompensated congestive heart failure
Paroxysmal atrial fibrillation
Currently in sinus rhythm
She is on amiodarone 200 mg daily as well as apixaban (2.5 mg twice daily)
Hypertension
Bradycardia
Prolonged QTc by EKG / abnormal EKG
COPD exacerbation/bronchitis
Recent UTI
CAD s/p NSTEMI 01/2020
CAD with medical management of multivessel CAD by cath 01/2020
CAD s/p remote PCI
12/2000 left circumflex stent
10/2002 mid RCA stent
10/2004 mid LAD x2 stents and OM stents
05/2007 mid OM stents
03/[address] stent
Prior evaluations have determined she is not a candidate for any further revascularization either surgical or percutaneous
Ranexa was previously discontinued to allow initiation of amiodarone given that she has demonstrated prolonged QT at times in the past.
Moderate MR
Insulin-dependent diabetes
CKD 3
Hyperlipidemia
PVD
Hypothyroidism
Severe orthopedic issues with decreased activity of daily living
History of neck fracture
Parkinson's disease
DATA:
-Echocardiogram 07/15/2023 showed EF 35-40%, EF previously had been 55-60%.
-Cardiac cath 07/19/2023 demonstrated stable distal left main stenosis involving the origin of the LAD and circumflex and new high-grade calcified mid LAD stenosis with apical LAD now occluded. Initially there was discussion of high risk LAD PCI but
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 After further discussion w/ family decision was made to treat her medically as she was deemed not
a surgical candidate.
Echo October 07 2023: mild LVH, hyperdyamic systolic fxn, EF 65-70% Mild to moderate mitral stenosis. Peak/mean gradients across the
mitral valve are 14/6 mmHg. There is at least moderate and possibly severe mitral regurgitation. Mild aortic stenosis. Peak/mean gradients across the aortic
valve are 29/16 mmHg. Aortic valve area 1.1 cm. Mild to moderate aortic regurgitation.Mild tricuspid regurgitation. Estimated pulmonary artery pressure of 34 mmHg.
Since echo 07/15/2023 which was reviewed, ejection fraction has improved from 35-40% to 65-70%. MR may have worsened from mild to moderate to at least
moderate-severe.
Plan:
Continues to improve with IV lasix.
Cr improved to 2 October 07 after 2.3 on October 06.
Follow cr. Appreciate renal input.
Avoiding PATRICK inhibitor, ARB, Aldactone, SGLT2 inhibitor given renal insufficiency
Echo reviewed with pt and her EF has improved. MR is worse. Cont medical therapy.
Have been avoiding beta-christelle due to documented significant bradycardia
Cont medical management of her known CAD.
Cont Plavix.
Wean O2 as able. She was not on O2 at home.
Progress Note - Physician/Allergy/Immunology
Subjective
Date of Service: October 08, 2023
Pt seen and examined. No cp. Breathing better.
Objective
Labs:
10/08/23 06:18
10/08/23 06:18
Labs
Hgb 8.6 g/dL (12.0-16.0) L 10/08/23 06:18
Hct 27.5 % (37.0-47.0) L 10/08/23 06:18
Plt Count 246 10^3/uL (130-400) 10/08/23 06:18
Sodium 138 mmol/L (135-145) 10/08/23 06:18
Potassium 4.5 mmol/L (3.5-5.1) 10/08/23 06:18
BUN 60 mg/dl (7-17) H 10/08/23 06:18
Creatinine 2.0 mg/dL (0.6-1.0) H 10/08/23 06:18
Glucose 168 mg/dl (70-99) H 10/08/23 06:18
Troponins
10/06/23 10/06/23 10/06/23
00:26 01:39 05:33
Troponin I Cancelled 0.743 H* Cancelled
10/06/23 10/06/23 10/06/23
05:55 11:33 12:00
Troponin I 0.999 H* D Cancelled 1.020 H*
10/06/23 10/06/23 10/07/23
17:33 18:00 08:50
Troponin I Cancelled Cancelled 0.798 H*
Vital Signs and I&O:
Vital Signs
Temp Pulse Resp BP Pulse Ox
97.8 F 63 18 119/57 100
10/08/23 07:40 10/08/23 09:25 10/08/23 07:40 10/08/23 09:25 10/08/23 07:40
Vital Signs
Temp Pulse Resp BP Pulse Ox
97.8 F 63 18 119/57 100
10/08/23 07:40 10/08/23 09:25 10/08/23 07:40 10/08/23 09:25 10/08/23 07:40
Intake & Output
10/06/23 10/07/23 10/08/23 10/09/23
06:59 06:59 06:59 06:59
Intake Total 360 / 360 1440 / 1440
Output Total 1000 / 1000 200 / 200
Balance -640 / -640 1240 / 1240
Physical Exam
Physical Exam
General: No acute distress, AAOX3
Neck: Negative JVD
Heart: Regular, Negative S3 positive S1/S2, Negative S4, No murmur
Lungs: CTA b/l, negative wheezes/rales/rhonchi
Abd: Positive BS, NT/ND, neg rebound/rigidity/guarding
Ext: Negative cyanosis/clubbing/edema
Neuro: nonfocal
[2023-10-08 10:48] LABS: Iron 58 ug/dl (37-170)
[2023-10-08 10:58] LABS: Percent Saturation 24 % (20-50); Total Iron Binding Capacity 237 ug/dl (265-497)
[2023-10-08 11:30] VITALS: BP 129/61
[2023-10-08 11:51] LABS: Glucose - Point of Care 204 mg/dl (70-99)
[2023-10-08 11:54] LABS: Vitamin B12 863 pg/ml (239-931)
[2023-10-08] MEDS: NOVOLOG FLEXPEN-LOW RESISTANCE 2 UNITS SC ×2 (13:45→17:27)
--- NOTE | 2023-10-08 13:49 | W.PN.NEPH.PH ---
Today's Communication / Plan
-
- continue diuresis
Assessment/Plan
-
IMP:
Acute on CKD [id number] range of cr 1.2-1.8
Acute on chr HFrEF ,
decompensated Pul HTN
acute hypoxic RF
Elevated Troponin
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
CAD
HX HLD
HX COPD
VERONIKA
Prox AF
HX CVA
Essential HTN
DMT2
GERD
Hypothyroidism
Parkinsonism
Chronic constipation
Plan:
From NH came with sob, noted CHF flare
VERONIKA with CKD-suspect cardiorenal, previous UA was bland
cont IVF diuresis with lasix and monitor labs
Cr down to 2, peak 2.3
KUS with medical renal disease, no hydronephrosis
BP stable
follow h/h, was on out pt procrit
cards follow
d/w patient and primary team
-
-
Date of Service: October 08, 2023
CC / HPI / ROS
-
Chief Complaint:
VERONIKA
History of Present Illness:
Cr up to 2.0 (bl 1.2-1.8)
continuing with IV lasix
Review of Systems:
feeling improved
weights coming down
Labs
-
Labs:
WBC 5.9 10^3/uL (4.8-10.8) 10/08/23 06:18
RBC 2.64 10^6/uL (4.20-5.40) L 10/08/23 06:18
Hgb 8.6 g/dL (12.0-16.0) L 10/08/23 06:18
Hct 27.5 % (37.0-47.0) L 10/08/23 06:18
Plt Count 246 10^3/uL (130-400) 10/08/23 06:18
Sodium 138 mmol/L (135-145) 10/08/23 06:18
Potassium 4.5 mmol/L (3.5-5.1) 10/08/23 06:18
Chloride 103 mmol/L (98-107) 10/08/23 06:18
Carbon Dioxide 24 mmol/L (22-30) 10/08/23 06:18
BUN 60 mg/dl (7-17) H 10/08/23 06:18
Creatinine 2.0 mg/dL (0.6-1.0) H 10/08/23 06:18
eGFR 24.48 10/08/23 06:18
Glucose 168 mg/dl (70-99) H 10/08/23 06:18
Calcium 8.4 mg/dl (8.4-10.2) 10/08/23 06:18
Yaz-T-Tckqacufzew Pept 8040 pg/ml 10/06/23 01:39
Albumin 3.4 g/dl (3.5-5.0) L 10/06/23 01:39
Physical Exam
-
Vital Signs:
Vital Signs
Temp Pulse Resp BP Pulse Ox
98.5 F 83 20 129/61 95
10/08/23 11:30 10/08/23 11:30 10/08/23 11:30 10/08/23 11:30 10/08/23 11:30
Cardiovascular:: Regular rate and rhythm
Respiratory:: Bilateral: Coarse
Lung Excursion:: Normal
Abdomen:: Nontender and Soft
Bowel Sounds:: Normal
Extremity Edema:: +1: Bilateral:
Silveira Catheter: No
--- NOTE | 2023-10-08 14:24 | CM ---
Patient seen bedside, reports today is the best she has felt. Patient is LTC at [facility] on bed hold. CM will continue to follow for discharge planning needs.
Plan; return to [facility] SNF when stable.
[2023-10-08 15:40] VITALS: BP 147/52
[2023-10-08 16:39] LABS: Glucose - Point of Care 237 mg/dl (70-99)
[2023-10-08] MEDS: SENOKOT-S 2 TABLET PO (17:20)
[2023-10-08] MEDS: RETACRIT 10000 UNITS SC (18:32)
[2023-10-08] MEDS: XALATAN OPHTHALMIC SOLUTION 1 DROP OPHTH (18:32)
[2023-10-08 19:47] VITALS: BP 138/73
[2023-10-08] MEDS: CYMBALTA DELAYED RELEASE 30 MG PO (20:57)
[2023-10-08] MEDS: LYRICA 50 MG PO (21:00)
[2023-10-08] MEDS: LIPITOR 80 MG PO (21:01)
[2023-10-08 22:07] LABS: Glucose - Point of Care 263 mg/dl (70-99)
[2023-10-08] MEDS: LANTUS 0.200000000000000011 UNITS SC (22:25)
[2023-10-08 23:57] VITALS: BP 141/57
[2023-10-09 03:52] VITALS: BP 116/51
[2023-10-09] MEDS: SYNTHROID 112 MCG PO (05:54)
[2023-10-09 06:00] VITALS: BMI 33.5
--- NOTE | 2023-10-09 07:28 | W.PN.HOSP.TC ---
Today's Communication/Plan
-
lasix
steroid taper, nebs, mucolytics
wean O2 as tolerated, encourage incentive spirometer use
renal dosed zyrtec
monitor H&H renal function
Assessment / Plan
Assessment / Plan
Physical Exam
General: No Apparent Distress
HEENT: Normocephalic and Atraumatic
Respiratory: Clear to auscultation b/l
Cardiac: Regular Rhythm and S1/S2
GI: Soft and Nontender
Genito-urinary: No Costovertebral Tender
Neuro: AO x 3
Psych: Calm
Assessment:
Acute on Chronic HFrEF
- EF 35-40% in July, reduced LV function
- BNP 8040, 2 weeks prior was 1230
- continue IV Lasix BID - requires intensive monitoring of I/Os, weights, Lytes
- follows with Dr. Lynch
- Cardio eval appreciated
Acute hypoxic respiratory insufficiency
- wean O2 as tolerated
-incentive spirometry
hx of COPD with mild exacerbation from bronchitis
- IV steroids switched PO steroid taper
- nebs scheduled + prn
- continue Doxy, day 4
Cough respiratory insufficiency possible post-nasal drip contributing
-renally dosed Zyrtec started, cont
Non-Ischemic Myocardial Injury in setting of acute CHF, CKD 3b
hx of ICM and CAD
- Cardiac catheterization 07/19/2023: Left main: Calcified 80-90% distal stenosis, 50-60% ostial LAD stenosis, heavily calcified 95% stenosis proximal to D1, this is new, stented mid LAD with distal WON II flow, apical LAD possibly occluded,
circumflex 50 to 60% ostial stenosis, circumflex stent is patent, RCA 90% ostial stenosis, 70% stenosis mid
- on medical management as felt high risk for intervention, also contrast risk with underlying CKD 3b
- trend trops; peaked at 1.020 since trended down
- ECHO appreciated ECHO 65-70% mild to mod Mitral stenosis mod to severe MR, compared to ECHO Jul 2023 EF improved, possible worsening MR
- continue statin/Plavix/ISMN
VERONIKA on CKD stage 3b
Cardio-renal state in setting of acute CHF
- monitor BM
-cont diuresis
-Nephrology eval appreciated
-KUS appreciated b/l renal cortical atrophy, medical renal disease, no hydronephrosis, no sonographic abn's urinary bladder
Anemia, Macrocytic
Anemia of Chronic Disease, Renal insufficiency
B12 wnl
gets procrit hgb<10 outpt with weekly evaluations as per son Kyle
retacrit 10,000 U subq once ordered 10/07 Hgb 8.6 slowly trending down since admission
Parox A. Fib
- continue Amio/Eliquis
Hx of CVA
- continue Plavix/Statin
Essential HTN
- continue diuretics
- continue ISMN
Type 2 DM
- monitor with steroids
- continue SSI - moderate
- A1c: 6.5%
GERD
- continue PPI/H2 christelle
Hypothyroidism
- continue replacement
Parkinsonism disease
Bed bound status
- cont home Sinemet and donepezil
Chronic constipation
- cont bowel regimen with holding parameters
Bilateral Buttocks, Stage 2 pressure injury, POA
Bilateral Heels, Stage 1 pressure injury, POA
cont local wound care
DVT ppx: Eliquis
Code: DNR
discussed with patient at bedside and patient's son Kyle over phone
I spent a total of 50 minutes with the patient or on the floor. More than 50% of this time involved counseling and coordination of care.
Anticipated Discharge: 24 - 48 hours
Subjective/Interval History
-
Date of Service: October 09, 2023
Weaned off oxygen supplementation. Reports improvement/resolution post-nasal drip. Cough remains the same
Objective Data
-
Labs:
Laboratory Results
10/09/23
06:00
WBC Pending
Hgb Pending
Hct Pending
Plt Count Pending
Sodium Pending
Potassium Pending
Chloride Pending
Carbon Dioxide Pending
BUN Pending
Creatinine Pending
Glucose Pending
Calcium Pending
Vital Signs:
Vital Signs
Temp Pulse Resp BP Pulse Ox
97.8 F 61 18 116/51 99
10/09/23 03:52 10/09/23 03:52 10/09/23 03:52 10/09/23 03:52 10/09/23 03:52
I&O
10/08/23 10/09/23 10/10/23
06:59 06:59 06:59
Intake Total 1440 / 1440 900 / 900
Output Total 200 / 200 150 / 150
Balance 1240 / 1240 750 / 750
[2023-10-09 07:29] LABS: Glucose - Point of Care 160 mg/dl (70-99)
[2023-10-09] MEDS: DUONEB 3 ML INH ×4 (07:29→19:47)
[2023-10-09 07:30] VITALS: BP 166/65
[2023-10-09 08:48] LABS: Hematocrit 28.6 % (37.0-47.0); Hemoglobin 8.8 g/dL (12.0-16.0); Mean Corp Hgb Conc. 30.8 g/dL (33.0-37.0); Mean Corpuscular Hgb 31.3 pg (27.0-31.0); Mean Corpuscular Volume 101.8 fL (81.0-99.0); Mean Platelet Volume 9.2 fL (7.4-10.4); Platelet Count 270 10^3/uL (130-400); Red Blood Cell Count 2.81 10^6/uL (4.20-5.40); Red Cell Dist. Width 16.6 % (11.5-14.5); White Blood Cell Count 6.9 10^3/uL (4.8-10.8)
[2023-10-09 09:17] LABS: Blood Urea Nitrogen 73 mg/dl (7-17); Calcium 8.8 mg/dl (8.4-10.2); Carbon Dioxide 27 mmol/L (22-30); Chloride 104 mmol/L (98-107); Estimated Creatinine Clearance 23 ml/min; Glucose 119 mg/dl (70-99); Magnesium 2.1 mg/dl (1.6-2.3); Phosphorus 5.1 mg/dl (2.5-4.5); Potassium 3.8 mmol/L (3.5-5.1); Sodium 139 mmol/L (135-145); eGFR 24.48
[2023-10-09] MEDS: NOVOLOG FLEXPEN-LOW RESISTANCE 1 UNITS SC ×3 (09:54→18:27)
[2023-10-09] MEDS: NOVOLOG FLEXPEN 9 UNITS SC ×3 (09:54→18:27)
[2023-10-09] MEDS: PLAVIX 75 MG PO (09:55)
[2023-10-09] MEDS: LIDOCAINE 4% PATCH 1 PATCH TOPICAL (09:55)
[2023-10-09] MEDS: VIBRAMYCIN 100 MG PO ×2 (09:55→21:56)
[2023-10-09] MEDS: PACERONE 200 MG PO (09:55)
[2023-10-09] MEDS: SINEMET 25-100 2 TABLET PO ×4 (09:55→21:56)
[2023-10-09] MEDS: ELIQUIS 2.5 MG PO ×2 (09:56→21:55)
[2023-10-09] MEDS: DELTASONE 40 MG PO (09:57)
[2023-10-09] MEDS: BUSPAR 2.5 MG PO ×3 (09:58→21:56)
[2023-10-09] MEDS: IMDUR (EXTENDED RELEASE) 60 MG PO (09:58)
[2023-10-09] MEDS: ZYRTEC 5 MG PO (09:58)
[2023-10-09] MEDS: REFRESH EYE DROPS (PF) 1 DROPS BOTH EYES ×2 (10:00→17:44)
[2023-10-09] MEDS: PEPCID 10 MG PO (10:00)
[2023-10-09] MEDS: LASIX 80 MG IV ×2 (10:05→17:46)
[2023-10-09 11:00] VITALS: BP 133/57
--- NOTE | 2023-10-09 11:09 | PN.CDI ---
CDI
- -
CDI:
Physician Documentation Request
Admit Date: 10/06/23 05:23
Dear Doctor Chas,
Clinical Indicators:
Patient admitted with acute on chronic HFrEF.
10/07, PN, 'Non-TX trop elevation in setting of acute CHF, CKD 3b'
10/07 Cardiology PN, 'Suspect non-TX myocardial injury related to decompensated congestive heart failure
Troponin trend:
10/06/23 10/06/23 10/07/23
01:39 05:55 12:00
Troponin I 0.743 H* 0.999 H* D 1.020 H*
10/07/23
08:50
Troponin I 0.798 H*
Due to potentially conflicting documentation, please clarify the type troponin elevation:
Non ischemic myocardial injury
Troponin elevation only
Other, please specify
Use of terms such as suspected, likely, concern for, or probable (associated with a specific diagnosis that is being evaluated, monitored, or treated as if it exists) are acceptable and can be coded in the inpatient setting, when documented at the
time of discharge.
Thank you,
IRINEO Jesus RN
CDI Specialist
available via tiger text
Please use your independent medical judgment in providing your response.
--- NOTE | 2023-10-09 11:17 | PN.CDI ---
CDI
- -
CDI:
Physician Documentation Request
Admit Date: 10/06/23 05:23
Dear Doctor Chas,
Clinical Indicators:
Patient admitted with acute on chronic HFrEF.
10/05 WOC consult ordered.
10/06 WOC RN skin/wound assessment: -Bilateral Buttocks, Stage 2 pressure injury, POA
-Bilateral Heels, Stage 1 pressure injury, POA
Physician documentation of the type and location of wounds is required for compliant documentation. Based on the above clinical findings and your assessment, please provide the following in your progress note:
1. Location of the ulcer/wound, including laterality.
2. Type (etiology) of ulcer/wound:
- Pressure (decubitus) ulcer
- Other, please specify
- Unable to determine
3. If a pressure ulcer, please also include the stage* of the ulcer:
- Stage 1 - Skin intact, non-blanchable redness
- Stage 2 - Partial thickness loss of dermis, includes intact or open blister
- Stage 3 - Full thickness tissue not including bone, tendon or muscle
- Stage 4 - Full thickness tissue loss, including exposed bone, tendon or muscle
- Unstageable - Full thickness loss in which the base of the ulcer is covered by slough (yellow, chacko, devries, green or brown) and/or eschar (chacko, brown or black) in the wound bed.
- Unable to determine
Use of terms such as suspected, likely, concern for, or probable (associated with a specific diagnosis that is being evaluated, monitored, or treated as if it exists) are acceptable and can be coded in the inpatient setting, when documented at the
time of discharge.
Thank you,
IRINEO Jesus RN
CDI Specialist
available via tiger text
Please use your independent medical judgment in providing your response.
*Source: National Pressure Ulcer Advisory Panel (NPUAP)
--- NOTE | 2023-10-09 11:42 | W.PN.CARDCBS ---
Today's Communication / Plan
-
Agree with further IV diuresis, appreciate nephrology input
Continue medical management of CAD
Impression / Plan
-
Impression:
HFrEF, now acute and decompensated.
Echocardiogram from 07/15/2023 with�EF 35-40%
She has demonstrated reduced and then recovered and then reduced again ejection fraction
We have been avoiding PATRICK inhibitor, ARB, Aldactone, SGLT2 inhibitor given renal insufficiency which is waxed and waned
She was hospitalized 07/13/2023 for acute heart failure, proBNP 71982.
Elevated troponin
Suspect non-[place] myocardial injury related to decompensated congestive heart failure
Paroxysmal atrial fibrillation
Currently in sinus rhythm
She is on amiodarone 200 mg daily as well as apixaban (2.5 mg twice daily)
Hypertension
Bradycardia
Prolonged QTc by EKG / abnormal EKG
COPD exacerbation/bronchitis
Recent UTI
CAD s/p NSTEMI 01/2020
CAD with medical management of multivessel CAD by cath 01/2020
CAD s/p remote PCI
12/2000 left circumflex stent
10/2002 mid RCA stent
10/2004 mid LAD x2 stents and OM stents
05/2007 mid OM stents
03/[address] stent
Prior evaluations have determined she is not a candidate for any further revascularization either surgical or percutaneous
Ranexa was previously discontinued to allow initiation of amiodarone given that she has demonstrated prolonged QT at times in the past.
Moderate MR
Insulin-dependent diabetes
CKD 3
Hyperlipidemia
PVD
Hypothyroidism
Severe orthopedic issues with decreased activity of daily living
History of neck fracture
Parkinson's disease
DATA:
-Echocardiogram 07/15/2023 showed EF 35-40%, EF previously had been 55-60%.
-Cardiac cath 07/19/2023 demonstrated stable distal left main stenosis involving the origin of the LAD and circumflex and new high-grade calcified mid LAD stenosis with apical LAD now occluded. Initially there was discussion of high risk LAD PCI but
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 After further discussion w/ family decision was made to treat her medically as she was deemed not
a surgical candidate.
Echo October 07 2023: mild LVH, hyperdyamic systolic fxn, EF 65-70% Mild to moderate mitral stenosis. Peak/mean gradients across the
mitral valve are 14/6 mmHg. There is at least moderate and possibly severe mitral regurgitation. Mild aortic stenosis. Peak/mean gradients across the aortic
valve are 29/16 mmHg. Aortic valve area 1.1 cm. Mild to moderate aortic regurgitation.Mild tricuspid regurgitation. Estimated pulmonary artery pressure of 34 mmHg.
Since echo 07/15/2023 which was reviewed, ejection fraction has improved from 35-40% to 65-70%. MR may have worsened from mild to moderate to at least
moderate-severe.
Plan:
Acute on chronic HF recovered EF
Echo was reviewed with pt and her EF has improved. MR is worse. Cont medical therapy.
Weight trending down with IV lasix, but still requiring supplemental O2
Cr elevated from baseline, but stable, appreciate renal input
Continue IV lasix
Wean O2 as able. She was not on O2 at home.
Avoiding PATRICK inhibitor, ARB, Aldactone, SGLT2 inhibitor given renal insufficiency
Have been avoiding beta-christelle due to bradycardia
Troponin elevation noted, supect non-[place] troponin in setting of VERONIKA and CHF
Cont medical management of her known CAD with Plavix and high intensity statin
Progress Note - Financial Consultant
Subjective
Date of Service: October 09, 2023
NAOE. Resting comfortably in bed. Tells me breathing is comfortable on supplemental O2.
Objective
Labs:
10/09/23 08:13
10/09/23 08:13
Labs
Hgb 8.8 g/dL (12.0-16.0) L 10/09/23 08:13
Hct 28.6 % (37.0-47.0) L 10/09/23 08:13
Plt Count 270 10^3/uL (130-400) 10/09/23 08:13
Sodium 139 mmol/L (135-145) 10/09/23 08:13
Potassium 3.8 mmol/L (3.5-5.1) 10/09/23 08:13
BUN 73 mg/dl (7-17) H 10/09/23 08:13
Creatinine 2.0 mg/dL (0.6-1.0) H 10/09/23 08:13
Glucose 119 mg/dl (70-99) H 10/09/23 08:13
Troponins
10/06/23 10/06/23 10/07/23
12:00 18:00 08:50
Troponin I 1.020 H* Cancelled 0.798 H*
Vital Signs and I&O:
Vital Signs
Temp Pulse Resp BP Pulse Ox
97.7 F 80 16 166/65 100
10/09/23 07:30 10/09/23 11:36 10/09/23 11:36 10/09/23 07:30 10/09/23 07:31
Vital Signs
Temp Pulse Resp BP Pulse Ox
97.7 F 80 16 166/65 100
10/09/23 07:30 10/09/23 11:36 10/09/23 11:36 10/09/23 07:30 10/09/23 07:31
Intake & Output
10/07/23 10/08/23 10/09/23 10/10/23
06:59 06:59 06:59 06:59
Intake Total 360 / 360 1440 / 1440 900 / 900
Output Total 1000 / 1000 200 / 200 150 / 150
Balance -640 / -640 1240 / 1240 750 / 750
Physical Exam
Physical Exam
Gen: NAD, AA
HEENT: NC/AT, sclera anicteric
Neck: No JVD
CV: RRR
Lungs: No increased WOB on 2L NC
Abd: S/ND
Ext: No LE edema
Skin: Warm, dry
Neuro: Resting tremor
[2023-10-09 12:34] LABS: Glucose - Point of Care 151 mg/dl (70-99)
[2023-10-09] MEDS: SAFETUSSIN DM (SUGAR/ALCOHOL FREE) 200 MG PO ×2 (12:59→22:00)
[2023-10-09 15:00] VITALS: BP 133/83
[2023-10-09] MEDS: TESSALON PERLES 100 MG PO ×2 (15:07→22:00)
--- NOTE | 2023-10-09 16:30 | CM ---
solar sales manager reviewed patient's chart and plan is for patient to return to [facility] retirement placement when stable.
Plan; Patient to return to [facility].
[2023-10-09 17:13] LABS: Glucose - Point of Care 185 mg/dl (70-99)
--- NOTE | 2023-10-09 17:34 | W.PN.NEPH.PH ---
Today's Communication / Plan
-
likely change to po lasix soon
Assessment/Plan
-
IMP:
Acute on CKD [id number] range of cr 1.2-1.8
Acute on chr HFrEF ,
decompensated Pul HTN
acute hypoxic RF
Elevated Troponin
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
CAD
HX HLD
HX COPD
VERONIKA
Prox AF
HX CVA
Essential HTN
DMT2
GERD
Hypothyroidism
Parkinsonism
Chronic constipation
Plan:
From NH came with sob, noted CHF flare
VERONIKA with CKD-suspect cardiorenal, previous UA was bland
cont IVF diuresis with lasix and monitor labs
Cr stable at 2, peak 2.3
KUS with medical renal disease, no hydronephrosis
BP stable
she is off O2 today now likely change to po Lasix tomorrow
follow h/h, was on out pt procrit
cards follow
d/w patient and nursing
-
-
Date of Service: October 09, 2023
CC / HPI / ROS
-
Chief Complaint:
VERONIKA
History of Present Illness:
Cr stable at 2.0 (bl 1.2-1.8), BUN increasing
continuing with IV lasix
wt slightly up but she is off O2 today
BP stable
Review of Systems:
no cp or sob at rest
no fever
Labs
-
Labs:
WBC 6.9 10^3/uL (4.8-10.8) 10/09/23 08:13
RBC 2.81 10^6/uL (4.20-5.40) L 10/09/23 08:13
Hgb 8.8 g/dL (12.0-16.0) L 10/09/23 08:13
Hct 28.6 % (37.0-47.0) L 10/09/23 08:13
Plt Count 270 10^3/uL (130-400) 10/09/23 08:13
Sodium 139 mmol/L (135-145) 10/09/23 08:13
Potassium 3.8 mmol/L (3.5-5.1) 10/09/23 08:13
Chloride 104 mmol/L (98-107) 10/09/23 08:13
Carbon Dioxide 27 mmol/L (22-30) 10/09/23 08:13
BUN 73 mg/dl (7-17) H 10/09/23 08:13
Creatinine 2.0 mg/dL (0.6-1.0) H 10/09/23 08:13
eGFR 24.48 10/09/23 08:13
Glucose 119 mg/dl (70-99) H 10/09/23 08:13
Calcium 8.8 mg/dl (8.4-10.2) 10/09/23 08:13
Phosphorus 5.1 mg/dl (2.5-4.5) H 10/09/23 08:13
Eie-I-Wbrfwxuxczw Pept 8040 pg/ml 10/06/23 01:39
Albumin 3.4 g/dl (3.5-5.0) L 10/06/23 01:39
Physical Exam
-
Vital Signs:
Vital Signs
Temp Pulse Resp BP Pulse Ox
97.4 F 76 16 133/83 97
10/09/23 15:00 10/09/23 15:31 10/09/23 15:31 10/09/23 15:00 10/09/23 15:31
Cardiovascular:: Regular rate and rhythm
Respiratory:: Bilateral: CTA (anteriorly)
Lung Excursion:: Normal
Abdomen:: Nontender and Soft
Extremity Edema:: None: Bilateral:
Silveira Catheter: No
[2023-10-09] MEDS: XALATAN OPHTHALMIC SOLUTION 1 DROP OPHTH (17:44)
[2023-10-09] MEDS: SENOKOT-S 2 TABLET PO (17:45)
[2023-10-09 19:30] VITALS: BP 109/49
[2023-10-09 21:09] LABS: Glucose - Point of Care 228 mg/dl (70-99)
[2023-10-09] MEDS: LIPITOR 80 MG PO (21:56)
[2023-10-09] MEDS: LYRICA 50 MG PO (21:56)
[2023-10-09] MEDS: CYMBALTA DELAYED RELEASE 30 MG PO (21:56)
[2023-10-09] MEDS: LANTUS 0.200000000000000011 UNITS SC (21:57)
[2023-10-09 23:35] VITALS: BP 111/49
[2023-10-10 03:48] VITALS: BP 144/66
[2023-10-10 04:59] VITALS: BMI 33.3
[2023-10-10] MEDS: SYNTHROID 112 MCG PO (05:15)
[2023-10-10] MEDS: DUONEB 3 ML INH ×2 (07:38→11:09)
[2023-10-10 07:44] LABS: Hematocrit 30.7 % (37.0-47.0); Hemoglobin 9.7 g/dL (12.0-16.0); Mean Corp Hgb Conc. 31.6 g/dL (33.0-37.0); Mean Corpuscular Volume 101.3 fL (81.0-99.0); Mean Platelet Volume 9.1 fL (7.4-10.4); Platelet Count 260 10^3/uL (130-400); Red Blood Cell Count 3.03 10^6/uL (4.20-5.40); Red Cell Dist. Width 16.8 % (11.5-14.5); White Blood Cell Count 7.3 10^3/uL (4.8-10.8)
[2023-10-10 07:45] LABS: Glucose - Point of Care 121 mg/dl (70-99)
[2023-10-10 08:08] LABS: Blood Urea Nitrogen 78 mg/dl (7-17); Calcium 8.6 mg/dl (8.4-10.2); Carbon Dioxide 26 mmol/L (22-30); Chloride 106 mmol/L (98-107); Estimated Creatinine Clearance 25 ml/min; Glucose 108 mg/dl (70-99); Phosphorus 5.4 mg/dl (2.5-4.5); Potassium 3.7 mmol/L (3.5-5.1); Sodium 139 mmol/L (135-145); eGFR 27.78
[2023-10-10 08:09] VITALS: BP 152/64
[2023-10-10] MEDS: NOVOLOG FLEXPEN-LOW RESISTANCE SC (09:02)
[2023-10-10] MEDS: NOVOLOG FLEXPEN 9 UNITS SC ×2 (09:24→13:04)
[2023-10-10] MEDS: LASIX 80 MG IV (09:24)
[2023-10-10] MEDS: PACERONE 200 MG PO (09:26)
[2023-10-10] MEDS: PLAVIX 75 MG PO (09:27)
[2023-10-10] MEDS: SINEMET 25-100 2 TABLET PO ×2 (09:27→13:08)
[2023-10-10] MEDS: IMDUR (EXTENDED RELEASE) 60 MG PO (09:27)
[2023-10-10] MEDS: VIBRAMYCIN 100 MG PO (09:28)
[2023-10-10] MEDS: BUSPAR 2.5 MG PO (09:28)
[2023-10-10] MEDS: DELTASONE 40 MG PO (09:28)
[2023-10-10] MEDS: ELIQUIS 2.5 MG PO (09:28)
[2023-10-10] MEDS: PEPCID 10 MG PO (09:29)
[2023-10-10] MEDS: REFRESH EYE DROPS (PF) 1 DROPS BOTH EYES (09:30)
[2023-10-10] MEDS: ZYRTEC 5 MG PO (09:30)
[2023-10-10] MEDS: LIDOCAINE 4% PATCH 1 PATCH TOPICAL (09:30)
--- NOTE | 2023-10-10 10:32 | W.PN.CARDCBS ---
Today's Communication / Plan
-
Okay for discharge
See recommendations below
Impression / Plan
-
Impression:
HFrEF, now acute and decompensated.
Echocardiogram from 07/15/2023 with�EF 35-40%
She has demonstrated reduced and then recovered and then reduced again ejection fraction
We have been avoiding PATRICK inhibitor, ARB, Aldactone, SGLT2 inhibitor given renal insufficiency which is waxed and waned
She was hospitalized 07/13/2023 for acute heart failure, proBNP 18217.
Elevated troponin
Suspect non-[place] myocardial injury related to decompensated congestive heart failure
Paroxysmal atrial fibrillation
Currently in sinus rhythm
She is on amiodarone 200 mg daily as well as apixaban (2.5 mg twice daily)
Hypertension
Bradycardia
Prolonged QTc by EKG / abnormal EKG
COPD exacerbation/bronchitis
Recent UTI
CAD s/p NSTEMI 01/2020
CAD with medical management of multivessel CAD by cath 01/2020
CAD s/p remote PCI
12/2000 left circumflex stent
10/2002 mid RCA stent
10/2004 mid LAD x2 stents and OM stents
05/2007 mid OM stents
03/[address] stent
Prior evaluations have determined she is not a candidate for any further revascularization either surgical or percutaneous
Ranexa was previously discontinued to allow initiation of amiodarone given that she has demonstrated prolonged QT at times in the past.
Moderate MR
Insulin-dependent diabetes
CKD 3
Hyperlipidemia
PVD
Hypothyroidism
Severe orthopedic issues with decreased activity of daily living
History of neck fracture
Parkinson's disease
DATA:
-Echocardiogram 07/15/2023 showed EF 35-40%, EF previously had been 55-60%.
-Cardiac cath 07/19/2023 demonstrated stable distal left main stenosis involving the origin of the LAD and circumflex and new high-grade calcified mid LAD stenosis with apical LAD now occluded. Initially there was discussion of high risk LAD PCI but
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 After further discussion w/ family decision was made to treat her medically as she was deemed not
a surgical candidate.
Echo October 07 2023: mild LVH, hyperdyamic systolic fxn, EF 65-70% Mild to moderate mitral stenosis. Peak/mean gradients across the
mitral valve are 14/6 mmHg. There is at least moderate and possibly severe mitral regurgitation. Mild aortic stenosis. Peak/mean gradients across the aortic
valve are 29/16 mmHg. Aortic valve area 1.1 cm. Mild to moderate aortic regurgitation.Mild tricuspid regurgitation. Estimated pulmonary artery pressure of 34 mmHg.
Since echo 07/15/2023 which was reviewed, ejection fraction has improved from 35-40% to 65-70%. MR may have worsened from mild to moderate to at least
moderate-severe.
Plan:
Overall stable, okay for discharge
Recommended cardiac medications at discharge:
Amiodarone 200 mg a day
Apixaban 2.5 mg a day
Atorvastatin 80 mg nightly
Clopidogrel 75 mg daily
Isosorbide mononitrate 60 mg daily
Furosemide 120 mg p.o. twice daily (Increased dose)
Metolazone 5 mg in a.m. as needed weight gain over 3 pounds, no more than twice a week
BMP in 1 week
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
Subjective
Date of Service: October 10, 2023:
Nurses informed me that patient is for transfer back to [facility] later today. She feels well
Allergies: Amlodipine, metformin, naproxen, nortriptyline, penicillins
Outpatient occasions: 0 200 mg a day, apixaban 2.5 daily, atorvastatin 80 mg at bedtime, buspirone 2.5 3 times daily, Sinemet, Zyrtec, clopidogrel 75 a day, Cymbalta September, famotidine, furosemide 80 mg p.o. twice daily, insulin, isosorbide
mononitrate,
Current meds amiodarone 200 mg a day, apixaban 2.5 mg twice daily, atorvastatin 80 mg at bedtime, buspirone, Sinemet 2 tablets 4 times daily, Plavix 75 mg a day, Cymbalta 30 mg daily, isosorbide mononitrate 30 mg a day, lidocaine patch, leflunomide,
Lyrica, furosemide 80 mg p.o. twice daily, prednisone 40 mg a day, lidocaine patch, insulin, famotidine, Zyrtec, levothyroxine
PMH/PSH/SH/FH: Reviewed
Review of systems: Negative except as above
Hemoglobin 9.7, BUN/creatinine 78 and 1.8, creatinine had been 2.0 peaked at 2.3, proBNP was 8040 on 05 October, had been as high as 26,900 in July
Objective
Labs:
10/10/23 07:22
10/10/23 07:22
Labs
Hgb 9.7 g/dL (12.0-16.0) L 10/10/23 07:22
Hct 30.7 % (37.0-47.0) L 10/10/23 07:22
Plt Count 260 10^3/uL (130-400) 10/10/23 07:22
Sodium 139 mmol/L (135-145) 10/10/23 07:22
Potassium 3.7 mmol/L (3.5-5.1) 10/10/23 07:22
BUN 78 mg/dl (7-17) H 10/10/23 07:22
Creatinine 1.8 mg/dL (0.6-1.0) H 10/10/23 07:22
Glucose 108 mg/dl (70-99) H 10/10/23 07:22
Vital Signs and I&O:
Vital Signs
Temp Pulse Resp BP Pulse Ox
36.5 C 61 17 152/64 100
10/10/23 08:09 10/10/23 08:09 10/10/23 08:09 10/10/23 08:09 10/10/23 08:09
Vital Signs
Temp Pulse Resp BP Pulse Ox
36.5 C 61 17 152/64 100
10/10/23 08:09 10/10/23 08:09 10/10/23 08:09 10/10/23 08:09 10/10/23 08:09
Intake & Output
10/08/23 10/09/23 10/10/23 10/11/23
07:59 07:59 07:59 07:59
Intake Total 1440 / 1440 900 / 900 1080 / 1080
Output Total 200 / 200 150 / 150
Balance 1240 / 1240 750 / 750 1080 / 1080
Physical Exam
Physical Exam
152/64, pulse 61, respirate 17, weight is 85.36 kg, largely unchanged, weight on admission was 90.1 kg
No distress, head neck exam unremarkable, lungs are clear, regular rate and rhythm, abdomen benign, not much edema, MR murmur, AAS murmur, neuro nonfocal
--- NOTE | 2023-10-10 11:04 | W.PN.HOSP.TC ---
Today's Communication/Plan
-
dc back to SNF
Assessment / Plan
Assessment / Plan
Assessment:
Acute on Chronic HFrEF
- EF 35-40% in July, reduced LV function
- BNP 8040, 2 weeks prior was 1230
- weight down overall 5 kg on IV Lasix
- switch to PO Lasix 80mg bid (home dose)
- follows with Dr. Lynch - OP f/u
Acute hypoxic respiratory insufficiency
- wean O2 as tolerated
- incentive spirometry
hx of COPD with mild exacerbation from bronchitis
- discharge on prednisone taper
- nebs scheduled + prn
- continue Doxy, day 11/02
Cough respiratory insufficiency possible post-nasal drip contributing
- renally dosed Zyrtec started, cont
Non-Ischemic Myocardial Injury in setting of acute CHF, CKD 3b
hx of ICM and CAD
- Cardiac catheterization 07/19/2023: Left main: Calcified 80-90% distal stenosis, 50-60% ostial LAD stenosis, heavily calcified 95% stenosis proximal to D1, this is new, stented mid LAD with distal WON II flow, apical LAD possibly occluded,
circumflex 50 to 60% ostial stenosis, circumflex stent is patent, RCA 90% ostial stenosis, 70% stenosis mid
- on medical management as felt high risk for intervention, also contrast risk with underlying CKD 3b
- trend trops; peaked at 1.020 since trended down
- ECHO appreciated ECHO 65-70% mild to mod Mitral stenosis mod to severe MR, compared to ECHO Jul 2023 EF improved, possible worsening MR
- continue statin/Plavix/ISMN
VERONIKA on CKD stage 3b
Cardio-renal state in setting of acute CHF
- monitor BM
- cont diuresis
- Nephrology eval appreciated
- KUS appreciated b/l renal cortical atrophy, medical renal disease, no hydronephrosis, no sonographic abn's urinary bladder
Anemia, Macrocytic
Anemia of Chronic Disease, Renal insufficiency
- s/p Retacrit x 1 dose 10/07
- Hb 9.7 today
Parox A. Fib
- continue Amiodarone/Eliquis
Hx of CVA
- continue Plavix/Statin
Essential HTN
- continue diuretics
- continue ISMN
Type 2 DM
- monitor with steroids
- continue SSI - moderate
- A1c: 6.5%
GERD
- continue PPI/H2 christelle
Hypothyroidism
- continue replacement
Parkinsonism disease
Bed bound status
- cont home Sinemet and donepezil
Chronic constipation
- cont bowel regimen with holding parameters
Bilateral Buttocks, Stage 2 pressure injury, POA
Bilateral Heels, Stage 1 pressure injury, POA
cont local wound care
DVT ppx: Eliquis
Code: DNR
More than 30 minutes spent in discharge including
Final examination of the patient
Summarizing hospital stay
Instructions for continuing care to all relevant caregivers
Preparation of discharge records, prescriptions, and referral forms
Total time spent (in minutes): 42
Anticipated Discharge: Today
Subjective/Interval History
-
Date of Service: October 10, 2023
feels better, off O2
has intermittent cough at times
Objective Data
-
Labs:
Laboratory Results
10/10/23
07:22
WBC 7.3
Hgb 9.7 L
Hct 30.7 L
Plt Count 260
Sodium 139
Potassium 3.7
Chloride 106
Carbon Dioxide 26
BUN 78 H
Creatinine 1.8 H
Glucose 108 H
Calcium 8.6
Vital Signs:
Vital Signs
Temp Pulse Resp BP Pulse Ox
97.7 F 61 17 152/64 100
10/10/23 08:09 10/10/23 08:09 10/10/23 08:09 10/10/23 08:09 10/10/23 08:09
I&O
10/09/23 10/10/23 10/11/23
06:59 06:59 06:59
Intake Total 900 / 900 1080 / 1080
Output Total 150 / 150
Balance 750 / 750 1080 / 1080
Physical Exam
-
General: No Apparent Distress
HEENT: Normocephalic and Atraumatic
Respiratory: Negative Wheezes
Cardiac: Regular Rhythm and S1/S2
GI: Soft
Genito-urinary: No Costovertebral Tender
Neuro: AO x 3
Psych: Calm
Data Reviewed
-
Total Time Spent with Patient (in minutes): 42
Labs: Labs Reviewed by me
--- NOTE | 2023-10-10 11:24 | W.DS.TRANS ---
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
-
Discharge Instructions:
Sleep Apnea Risk Intermediate
Discharge Diagnosis/Procedures acute CHF, acute COPD exacerbation. Hypoxia
resolved, VERONIKA on CKD resolved
Diet 2 Gram Sodium,Diabetic, Carb Controlled,Restrict
fluids to 48 oz
Activity As tolerated
Bathing Restrictions None
Instructions: *PCP/Other Nib Adjuster Heart Failure Instructions
Stand-Alone Forms:
Changes to Home Medications: No
Discharge Medications:
DC Medications w/original date entered in [employer]
atorvastatin 80 mg tablet 80 mg PO HS High cholesterol 02/19/18
polyvinyl alcohol-povidone (PF) 1.4 %-0.6 % eye drops in a dropperette (Refresh Classic (PF)) 1 drp BOTH EYES BID@0830,1830 Eye condition 02/17/20
clopidogrel 75 mg tablet 75 mg PO DAILY 02/29/20
isosorbide mononitrate 60 mg tablet,extended release 24 hr 60 mg PO DAILY 02/29/20
acetaminophen 500 mg tablet (Tylenol Extra Strength) 1,000 mg PO BID@0830,1830 Pain 04/11/20
furosemide 80 mg tablet 80 mg PO BID@0830,1630 Fluid retention/Swelling 04/11/20
magnesium oxide 400 mg PO MOWEFR Constipation 04/11/20
metolazone 5 mg tablet 5 mg PO DAILYPRN PRN weight gain of 3lbs overnight 04/11/20
nitroglycerin 0.4 mg sublingual tablet 0.4 mg sublingual [id number] PRN chest pain 04/11/20
vit C 250 mg-vit E 90 mg-zinc 40 mg-copper 1 [id number] capsule (PreserVision AREDS-2) 1 ea PO DAILY Supplement 04/11/20
bisacodyl 10 mg rectal suppository (OneLAX Bisacodyl) 10 mg OH DAILYPRN PRN if mom ineffective 10/25/20
lidocaine 4 % topical patch (Aspercreme (lidocaine)) 1 patch topical DAILY RIGHT KNEE PAIN 01/19/21
cyanocobalamin (vitamin B-12) 1,000 mcg/mL injection solution 1,000 mcg IM MONTHLY Anemia 05/25/22
epoetin najma 40,000 unit/mL injection solution 40,000 unit SC WE take with 20,000 05/25/22
famotidine 20 mg tablet (Pepcid) 10 mg PO DAILY Gastrointestinal issue 05/25/22
ascorbic acid (vitamin C) 500 mg tablet (Vitamin C) 500 mg PO DAILY Supplement 07/10/23
carbidopa 25 mg-levodopa 100 mg tablet 2 tab PO QID Neurological Condition 07/10/23
cetirizine 5 mg tablet 5 mg PO HS Allergies 07/10/23
dextromethorphan-guaifenesin 10 mg-100 mg/5 mL oral liquid (Tussin DM) 10 ml PO Q4HPRN PRN cough 07/10/23
duloxetine 30 mg capsule,delayed release (Cymbalta) 30 mg PO DAILY@2030 Mental Health/Anxiety 07/10/23
ferrous sulfate 325 mg (65 mg iron) tablet 325 mg PO DAILY Supplement 07/10/23
insulin aspart U-100 100 unit/mL subcutaneous solution (Novolog U-100 Insulin aspart) 9 unit SC AC Diabetes 07/10/23
levothyroxine 100 mcg tablet (Synthroid) 112 mcg PO DAILY@0630 Thyroid 07/10/23
methenamine hippurate 1 gram tablet (Hiprex) 1 g PO FR Urinary Issue 07/10/23
sennosides 8.6 mg-docusate sodium 50 mg capsule (Senna Plus) 2 tab-cap PO QPM Constipation 07/10/23
sodium chloride 0.65 % nasal spray aerosol 1 spray intranasal Q1HPRN PRN dryness 07/10/23
insulin glargine 100 unit/mL (3 mL) subcutaneous pen (Basaglar KwikPen U-100 Insulin) 20 unit SC HS Diabetes 07/13/23
amiodarone 200 mg tablet (Pacerone) 200 mg PO DAILY #30 tabs 07/26/23
pregabalin 50 mg capsule 50 mg PO HS #14 caps 07/26/23
apixaban 5 mg tablet (Eliquis) 2.5 mg PO BID Blood Clot Prevention/Tx 10/06/23
buspirone 5 mg tablet 2.5 mg PO TID 10/06/23
ipratropium 0.5 mg-albuterol 3 mg (2.5 mg base)/3 mL nebulization soln 3 ml inhalation Q4H PRN wheezing 10/06/23
latanoprost (PF) 0.005 % eye drops in a dropperette 1 drp ophthalmic (eye) QPM Eye Condition 10/06/23
magnesium hydroxide 2,400 mg/10 mL oral suspension 30 ml PO HS PRN constipation 10/06/23
pantoprazole 40 mg tablet,delayed release 20 mg PO DAILY Gastrointestinal Issue 10/06/23
doxycycline hyclate 100 mg capsule 100 mg PO Q12 #1 cap 10/10/23
prednisone 10 mg tablet 10 mg PO DIRECTED #12 tabs 10/10/23
Home Medication Changes
Pending Results: No
Total time spent discharging patient (in min): 42
[2023-10-10 11:33] LABS: Glucose - Point of Care 205 mg/dl (70-99)
[2023-10-10 11:40] VITALS: BP 142/63
[2023-10-10] MEDS: SAFETUSSIN DM (SUGAR/ALCOHOL FREE) 200 MG PO (11:46)
[2023-10-10] MEDS: TESSALON PERLES 100 MG PO (11:47)
--- NOTE | 2023-10-10 12:00 | CM ---
Patient seen bedside, plan for return to [facility], 1:30 p.m. ambulance transport scheduled. CM updated Sylvester at [facility] with transport time. CM spoke with patients son, Reji, provided transport time. Reviewed IMM with Reji, will email to
[email or web address]. Reji inquiring about patients belongings when she was admitted to the hospital, nurse aware and calling ED. Son requesting patients phone and central office maintainer be sent with her. CM will continue to follow for discharge planning needs.
Plan; return to [facility], 1:30 p.m. ambulance transport
[facility]:
Report: [phone]
[2023-10-10] MEDS: NOVOLOG FLEXPEN-LOW RESISTANCE 2 UNITS SC (13:08)
--- NOTE | 2023-10-11 14:06 | W.HF.CON ---
Heart Failure
- LV Function
Left ventricular function study result: LV Ejection fraction >40%
Ejection Fraction Percentage: 65-70
- ARNI
Patient already on ARNI: No
Heart Failure ARNI Not Indicated: LV Ejection Fraction >/= 40%
- ACEI/ARB
Patient already on ACEI/ARB: No
Heart Failure ACEI/ARB Not Indicated: LV Ejection Fraction > 40%
- Beta Freddie
Patient already on Evidence Based Beta Freddie: No
Heart Failure Evidence Based Beta Freddie Not Indicated: LV Ejection Fraction > 40%
- Mineralocorticord Receptor Antagonist
Patient already on MRA: No
Heart Failure MRA Not Indicated: LV Ejection Fraction > 40%
- SGLT-2 Inhibitor
Patient already on SGLT-2 Inhibitor: No
Heart Failure SGLT-2 Inhibitor Not Indicated: LV Ejection Fraction >40%
- Afib Anticoagulation
Patient already on Anticoagulation for Afib: Yes
- NYHA CHF Classification
NYHA CHF Classification Level: Class III - Symptoms w/ min exertion, interferes w/ nml daily activity
- ACC/AHA Stage
ACC/AHA Stage: Stage C: Symptomatic Heart Failure
== END 2023-10-10 14:15 | DRG 291 ==
LOC: 4 EAST ACU 05:23
PROVIDERS: Internal Medicine; ADMITTING PHYSICIAN Internal Medicine; ATTENDING PHYSICIAN Internal Medicine; CONSULT PHYSICIAN Internal Medicine; CONSULT PHYSICIAN Internal Medicine Cardiovascular Disease; EMERGENCY PHYSICIAN Student in an Organized Health Care Education/Training Program; FAMILY PHYSICIAN Internal Medicine Geriatric Medicine
DX: I13.0 Hypertensive heart and chronic kidney disease with heart failure and stage 1 through stage 4 chronic kidney disease, or unspecified chronic kidney disease (principal); I50.23 Acute on chronic systolic (congestive) heart failure; J44.1 Chronic obstructive pulmonary disease with (acute) exacerbation; I16.1 Hypertensive emergency; N17.9 Acute kidney failure, unspecified; I25.10 Atherosclerotic heart disease of native coronary artery without angina pectoris; E89.0 Postprocedural hypothyroidism; E11.22 Type 2 diabetes mellitus with diabetic chronic kidney disease; K21.9 Gastro-esophageal reflux disease without esophagitis; N18.32 Chronic kidney disease, stage 3b; E78.00 Pure hypercholesterolemia, unspecified; I27.20 Pulmonary hypertension, unspecified; E11.51 Type 2 diabetes mellitus with diabetic peripheral angiopathy without gangrene; R09.02 Hypoxemia; E11.65 Type 2 diabetes mellitus with hyperglycemia; K59.09 Other constipation; D63.8 Anemia in other chronic diseases classified elsewhere; R06.89 Other abnormalities of breathing; I5A Non-ischemic myocardial injury (non-traumatic); D53.9 Nutritional anemia, unspecified; L89.312 Pressure ulcer of right buttock, stage 2; L89.322 Pressure ulcer of left buttock, stage 2; L89.621 Pressure ulcer of left heel, stage 1; L89.611 Pressure ulcer of right heel, stage 1; I08.0 Rheumatic disorders of both mitral and aortic valves; I48.0 Paroxysmal atrial fibrillation; I25.5 Ischemic cardiomyopathy; G20.A1 Parkinson's disease without dyskinesia, without mention of fluctuations; J30.1 Allergic rhinitis due to pollen; Z96.652 Presence of left artificial knee joint; Z66 Do not resuscitate; Z86.718 Personal history of other venous thrombosis and embolism; I25.2 Old myocardial infarction; Z86.73 Personal history of transient ischemic attack (TIA), and cerebral infarction without residual deficits; Z95.5 Presence of coronary angioplasty implant and graft; Z79.01 Long term (current) use of anticoagulants; Z11.52 Encounter for screening for COVID-19; Z79.4 Long term (current) use of insulin; Z79.890 Hormone replacement therapy; Z79.02 Long term (current) use of antithrombotics/antiplatelets; Z74.01 Bed confinement status; Z88.6 Allergy status to analgesic agent; Z88.1 Allergy status to other antibiotic agents; Z88.0 Allergy status to penicillin; Z88.8 Allergy status to other drugs, medicaments and biological substances; Z87.440 Personal history of urinary (tract) infections
CPT/HCPCS: 93308; 36415; 71046; 76770; 80048; 80053; 82607; 82962; 83036; 83540; 83550; 83735; 83880; 84100; 84443; 84484; 85025; 85027; 87070; 87502; 87811; 92526; 92610; 93005; 93321; 93325; 94640; 96374; 99285; Q5106

== ENCOUNTER → 2023-10-15 09:44 | Outpatient (REF) | payer OTHER, MEDICARE, SELFPAY ==
[2023-10-15 10:02] LABS: % Basophils 0.1 % (0-2); % Eosinophils 0.6 % (0-6); % Immature Granulocytes 0.4 % (0-0.5); % Lymphocytes 17.8 % (20.5-51.1); % Monocytes 8.6 % (1.7-9.3); % Neutrophils 72.5 % (42.2-75.2); Absolute Eosinophils 0.1 10^3/uL (0-0.7); Absolute Lymphocytes 1.5 10^3/uL (1.2-3.4); Absolute Monocytes 0.7 10^3/uL (0.1-0.6); Hematocrit 36.2 % (37.0-47.0); Hemoglobin 11.7 g/dL (12.0-16.0); Mean Corp Hgb Conc. 32.3 g/dL (33.0-37.0); Mean Corpuscular Hgb 31.8 pg (27.0-31.0); Mean Corpuscular Volume 98.4 fL (81.0-99.0); Mean Platelet Volume 10.2 fL (7.4-10.4); Nucleated Red Blood Cells % 0 %; Platelet Count 263 10^3/uL (130-400); Red Blood Cell Count 3.68 10^6/uL (4.20-5.40); Red Cell Dist. Width 15.8 % (11.5-14.5); White Blood Cell Count 8.2 10^3/uL (4.8-10.8)
== END ==
LOC: OLABN 09:44
PROVIDERS: ATTENDING PHYSICIAN Internal Medicine Geriatric Medicine
DX: D63.8 Anemia in other chronic diseases classified elsewhere (principal)
CPT/HCPCS: 36415; 85025

== ENCOUNTER → 2023-10-17 10:11 | Outpatient (REF) | payer OTHER, MEDICARE, SELFPAY ==
[2023-10-17 12:34] LABS: NT-proBNP 2610 pg/ml
[2023-10-17 12:37] LABS: Blood Urea Nitrogen 77 mg/dl (7-17); Calcium 8.4 mg/dl (8.4-10.2); Carbon Dioxide 28 mmol/L (22-30); Chloride 103 mmol/L (98-107); Glucose 101 mg/dl (70-99); Potassium 3.6 mmol/L (3.5-5.1); Sodium 137 mmol/L (135-145)
== END ==
LOC: OLABN 10:11
PROVIDERS: ATTENDING PHYSICIAN Internal Medicine Geriatric Medicine
DX: N18.32 Chronic kidney disease, stage 3b (principal)
CPT/HCPCS: 36415; 80048; 83880

== ENCOUNTER → 2023-10-21 11:01 | Outpatient (REF) | payer OTHER, MEDICARE, SELFPAY ==
[2023-10-21 13:14] LABS: NT-proBNP 2670 pg/ml
[2023-10-21 13:49] LABS: Albumin 3.1 g/dl (3.5-5.0); Blood Urea Nitrogen 54 mg/dl (7-17); Carbon Dioxide 30 mmol/L (22-30); Chloride 102 mmol/L (98-107); Glucose 142 mg/dl (70-99); Phosphorus 4.5 mg/dl (2.5-4.5); Sodium 134 mmol/L (135-145); eGFR 29.76
== END ==
LOC: OLABN 11:01
PROVIDERS: ATTENDING PHYSICIAN Internal Medicine Geriatric Medicine
DX: N18.32 Chronic kidney disease, stage 3b (principal)
CPT/HCPCS: 36415; 80069; 83880

== ENCOUNTER → 2023-10-22 10:26 | Outpatient (REF) | payer OTHER, MEDICARE, SELFPAY ==
[2023-10-22 14:16] LABS: % Basophils 0.3 % (0-2); % Eosinophils 3.3 % (0-6); % Immature Granulocytes 0.3 % (0-0.5); % Lymphocytes 22.6 % (20.5-51.1); % Neutrophils 64.5 % (42.2-75.2); Absolute Eosinophils 0.2 10^3/uL (0-0.7); Absolute Lymphocytes 1.4 10^3/uL (1.2-3.4); Absolute Monocytes 0.6 10^3/uL (0.1-0.6); Absolute Neutrophils 4.1 10^3/uL (1.4-6.5); Hematocrit 32.8 % (37.0-47.0); Hemoglobin 10.3 g/dL (12.0-16.0); Mean Corp Hgb Conc. 31.4 g/dL (33.0-37.0); Mean Corpuscular Hgb 32.2 pg (27.0-31.0); Mean Corpuscular Volume 102.5 fL (81.0-99.0); Mean Platelet Volume 11.8 fL (7.4-10.4); Nucleated Red Blood Cells % 0 %; Platelet Count 116 10^3/uL (130-400); White Blood Cell Count 6.3 10^3/uL (4.8-10.8)
== END ==
LOC: OLABN 10:26
PROVIDERS: ATTENDING PHYSICIAN Internal Medicine Geriatric Medicine
DX: D63.8 Anemia in other chronic diseases classified elsewhere (principal)
CPT/HCPCS: 36415; 85025

== ENCOUNTER → 2023-10-29 10:05 | Outpatient (REF) | payer OTHER, MEDICARE, SELFPAY ==
[2023-10-29 10:49] LABS: Blood Urea Nitrogen 47 mg/dl (7-17); Calcium 8.3 mg/dl (8.4-10.2); Carbon Dioxide 32 mmol/L (22-30); Chloride 99 mmol/L (98-107); Glucose 137 mg/dl (70-99); Potassium 3.7 mmol/L (3.5-5.1); Sodium 135 mmol/L (135-145); eGFR 27.78
[2023-10-29 10:56] LABS: % Basophils 0.4 % (0-2); % Eosinophils 4.8 % (0-6); % Immature Granulocytes 0.4 % (0-0.5); % Lymphocytes 26.3 % (20.5-51.1); % Monocytes 9.1 % (1.7-9.3); Absolute Eosinophils 0.3 10^3/uL (0-0.7); Absolute Lymphocytes 1.5 10^3/uL (1.2-3.4); Absolute Monocytes 0.5 10^3/uL (0.1-0.6); Absolute Neutrophils 3.3 10^3/uL (1.4-6.5); Hematocrit 31.6 % (37.0-47.0); Mean Corp Hgb Conc. 31.6 g/dL (33.0-37.0); Mean Corpuscular Hgb 31.9 pg (27.0-31.0); Mean Platelet Volume 10.5 fL (7.4-10.4); Nucleated Red Blood Cells % 0 %; Platelet Count 139 10^3/uL (130-400); Red Blood Cell Count 3.13 10^6/uL (4.20-5.40); Red Cell Dist. Width 16.8 % (11.5-14.5); White Blood Cell Count 5.6 10^3/uL (4.8-10.8)
[2023-10-29 10:57] LABS: NT-proBNP 2160 pg/ml
[2023-10-29 11:06] LABS: Free T4 1.71 ng/dl (0.78-2.19)
[2023-10-29 11:25] LABS: TSH 3.55 uIU/ml (0.47-4.68)
== END ==
LOC: OLABN 10:05
PROVIDERS: ATTENDING PHYSICIAN Internal Medicine Geriatric Medicine
DX: N18.32 Chronic kidney disease, stage 3b (principal); E03.9 Hypothyroidism, unspecified; E11.40 Type 2 diabetes mellitus with diabetic neuropathy, unspecified
CPT/HCPCS: 36415; 80048; 83880; 84439; 84443; 85025

== ENCOUNTER → 2023-11-05 09:43 | Outpatient (REF) | payer OTHER, MEDICARE, SELFPAY ==
[2023-11-05 10:37] LABS: % Basophils 0.2 % (0-2); % Eosinophils 4.7 % (0-6); % Immature Granulocytes 0.2 % (0-0.5); % Lymphocytes 31.4 % (20.5-51.1); % Monocytes 10.7 % (1.7-9.3); % Neutrophils 52.8 % (42.2-75.2); Absolute Eosinophils 0.2 10^3/uL (0-0.7); Absolute Lymphocytes 1.4 10^3/uL (1.2-3.4); Absolute Monocytes 0.5 10^3/uL (0.1-0.6); Absolute Neutrophils 2.3 10^3/uL (1.4-6.5); Hematocrit 32.8 % (37.0-47.0); Hemoglobin 10.1 g/dL (12.0-16.0); Mean Corp Hgb Conc. 30.8 g/dL (33.0-37.0); Mean Corpuscular Hgb 31.6 pg (27.0-31.0); Mean Corpuscular Volume 102.5 fL (81.0-99.0); Mean Platelet Volume 9.4 fL (7.4-10.4); Nucleated Red Blood Cells % 0 %; Platelet Count 186 10^3/uL (130-400); Red Cell Dist. Width 17.4 % (11.5-14.5); White Blood Cell Count 4.3 10^3/uL (4.8-10.8)
[2023-11-05 11:07] LABS: Blood Urea Nitrogen 32 mg/dl (7-17); Calcium 8.1 mg/dl (8.4-10.2); Carbon Dioxide 32 mmol/L (22-30); Chloride 102 mmol/L (98-107); Glucose 100 mg/dl (70-99); Potassium 3.6 mmol/L (3.5-5.1); Sodium 137 mmol/L (135-145); eGFR 34.58
[2023-11-05 14:07] LABS: Glycohemoglobin (HgbA1c) 6.6 % (4.0-5.6)
[2023-11-06 11:38] LABS: NT-proBNP 2960 pg/ml
== END ==
LOC: OLABN 09:43
PROVIDERS: ATTENDING PHYSICIAN Internal Medicine Geriatric Medicine
DX: E11.40 Type 2 diabetes mellitus with diabetic neuropathy, unspecified (principal); D63.8 Anemia in other chronic diseases classified elsewhere
CPT/HCPCS: 36415; 80048; 83036; 83880; 85025

== ENCOUNTER → 2023-11-12 09:41 | Outpatient (REF) | payer OTHER, MEDICARE, SELFPAY ==
[2023-11-12 10:34] LABS: % Basophils 0.3 % (0-2); % Eosinophils 1.8 % (0-6); % Immature Granulocytes 0.3 % (0-0.5); % Monocytes 10.9 % (1.7-9.3); % Neutrophils 64.7 % (42.2-75.2); Absolute Eosinophils 0.1 10^3/uL (0-0.7); Absolute Lymphocytes 1.4 10^3/uL (1.2-3.4); Absolute Monocytes 0.7 10^3/uL (0.1-0.6); Hematocrit 37.2 % (37.0-47.0); Hemoglobin 11.4 g/dL (12.0-16.0); Mean Corp Hgb Conc. 30.6 g/dL (33.0-37.0); Mean Corpuscular Hgb 32.1 pg (27.0-31.0); Mean Corpuscular Volume 104.8 fL (81.0-99.0); Mean Platelet Volume 9.7 fL (7.4-10.4); Nucleated Red Blood Cells % 0 %; Platelet Count 186 10^3/uL (130-400); Red Blood Cell Count 3.55 10^6/uL (4.20-5.40); Red Cell Dist. Width 17.9 % (11.5-14.5); White Blood Cell Count 6.1 10^3/uL (4.8-10.8)
== END ==
LOC: OLABN 09:41
PROVIDERS: ATTENDING PHYSICIAN Internal Medicine Geriatric Medicine
DX: D63.8 Anemia in other chronic diseases classified elsewhere (principal)
CPT/HCPCS: 36415; 85025

== ENCOUNTER → 2023-11-19 13:36 | Outpatient (REF) | payer MEDICARE, OTHER, SELFPAY ==
[2023-11-19 13:52] LABS: % Basophils 0.5 % (0-2); % Eosinophils 2.3 % (0-6); % Immature Granulocytes 0.2 % (0-0.5); % Lymphocytes 20.3 % (20.5-51.1); % Monocytes 9.9 % (1.7-9.3); % Neutrophils 66.8 % (42.2-75.2); Absolute Eosinophils 0.2 10^3/uL (0-0.7); Absolute Lymphocytes 1.4 10^3/uL (1.2-3.4); Absolute Monocytes 0.7 10^3/uL (0.1-0.6); Absolute Neutrophils 4.4 10^3/uL (1.4-6.5); Hematocrit 36.7 % (37.0-47.0); Hemoglobin 10.8 g/dL (12.0-16.0); Mean Corp Hgb Conc. 29.4 g/dL (33.0-37.0); Mean Corpuscular Hgb 31.3 pg (27.0-31.0); Mean Corpuscular Volume 106.4 fL (81.0-99.0); Mean Platelet Volume 9.8 fL (7.4-10.4); Nucleated Red Blood Cells % 0 %; Platelet Count 158 10^3/uL (130-400); Red Blood Cell Count 3.45 10^6/uL (4.20-5.40); Red Cell Dist. Width 17.2 % (11.5-14.5); White Blood Cell Count 6.6 10^3/uL (4.8-10.8)
== END ==
LOC: OLABN 13:36
PROVIDERS: ATTENDING PHYSICIAN Internal Medicine Geriatric Medicine
DX: E11.40 Type 2 diabetes mellitus with diabetic neuropathy, unspecified (principal)
CPT/HCPCS: 36415; 85025

== ENCOUNTER → 2023-11-26 10:47 | Outpatient (REF) | payer MEDICARE, OTHER, SELFPAY ==
[2023-11-26 11:32] LABS: % Basophils 0.3 % (0-2); % Immature Granulocytes 0.3 % (0-0.5); % Lymphocytes 21.6 % (20.5-51.1); % Monocytes 10.7 % (1.7-9.3); % Neutrophils 64.1 % (42.2-75.2); Absolute Eosinophils 0.2 10^3/uL (0-0.7); Absolute Lymphocytes 1.4 10^3/uL (1.2-3.4); Absolute Monocytes 0.7 10^3/uL (0.1-0.6); Absolute Neutrophils 4.1 10^3/uL (1.4-6.5); Hematocrit 33.8 % (37.0-47.0); Hemoglobin 10.6 g/dL (12.0-16.0); Mean Corp Hgb Conc. 31.4 g/dL (33.0-37.0); Mean Corpuscular Hgb 32.1 pg (27.0-31.0); Mean Corpuscular Volume 102.4 fL (81.0-99.0); Mean Platelet Volume 9.8 fL (7.4-10.4); Nucleated Red Blood Cells % 0 %; Platelet Count 194 10^3/uL (130-400); Red Cell Dist. Width 17.5 % (11.5-14.5); White Blood Cell Count 6.4 10^3/uL (4.8-10.8)
== END ==
LOC: OLABN 10:47
PROVIDERS: ATTENDING PHYSICIAN Internal Medicine Geriatric Medicine
DX: D63.8 Anemia in other chronic diseases classified elsewhere (principal)
CPT/HCPCS: 36415; 85025

== ENCOUNTER → 2023-12-03 10:34 | Outpatient (REF) | payer MEDICARE, OTHER, SELFPAY ==
[2023-12-03 11:15] LABS: % Basophils 0.4 % (0-2); % Eosinophils 4.3 % (0-6); % Immature Granulocytes 0.4 % (0-0.5); % Lymphocytes 24.2 % (20.5-51.1); % Monocytes 11.4 % (1.7-9.3); % Neutrophils 59.3 % (42.2-75.2); Absolute Eosinophils 0.2 10^3/uL (0-0.7); Absolute Lymphocytes 1.4 10^3/uL (1.2-3.4); Absolute Monocytes 0.6 10^3/uL (0.1-0.6); Absolute Neutrophils 3.4 10^3/uL (1.4-6.5); Hematocrit 38.3 % (37.0-47.0); Hemoglobin 11.6 g/dL (12.0-16.0); Mean Corp Hgb Conc. 30.3 g/dL (33.0-37.0); Mean Corpuscular Volume 105.5 fL (81.0-99.0); Mean Platelet Volume 9.8 fL (7.4-10.4); Nucleated Red Blood Cells % 0 %; Platelet Count 178 10^3/uL (130-400); Red Blood Cell Count 3.63 10^6/uL (4.20-5.40); Red Cell Dist. Width 17.6 % (11.5-14.5); White Blood Cell Count 5.6 10^3/uL (4.8-10.8)
== END ==
LOC: OLABN 10:34
PROVIDERS: ATTENDING PHYSICIAN Internal Medicine Geriatric Medicine
DX: D63.8 Anemia in other chronic diseases classified elsewhere (principal)
CPT/HCPCS: 36415; 85025

== ENCOUNTER → 2023-12-10 10:12 | Outpatient (REF) | payer MEDICARE, OTHER, SELFPAY ==
[2023-12-10 11:01] LABS: % Basophils 0.6 % (0-2); % Eosinophils 4.2 % (0-6); % Immature Granulocytes 0.2 % (0-0.5); % Monocytes 10.3 % (1.7-9.3); % Neutrophils 59.7 % (42.2-75.2); Absolute Eosinophils 0.2 10^3/uL (0-0.7); Absolute Lymphocytes 1.4 10^3/uL (1.2-3.4); Absolute Monocytes 0.6 10^3/uL (0.1-0.6); Absolute Neutrophils 3.3 10^3/uL (1.4-6.5); Hematocrit 35.2 % (37.0-47.0); Hemoglobin 10.9 g/dL (12.0-16.0); Mean Corpuscular Hgb 31.9 pg (27.0-31.0); Mean Corpuscular Volume 102.9 fL (81.0-99.0); Mean Platelet Volume 10.1 fL (7.4-10.4); Nucleated Red Blood Cells % 0 %; Platelet Count 157 10^3/uL (130-400); Red Blood Cell Count 3.42 10^6/uL (4.20-5.40); Red Cell Dist. Width 17.1 % (11.5-14.5); White Blood Cell Count 5.4 10^3/uL (4.8-10.8)
[2023-12-10 11:10] LABS: Blood Urea Nitrogen 56 mg/dl (7-17); Calcium 8.3 mg/dl (8.4-10.2); Carbon Dioxide 30 mmol/L (22-30); Chloride 103 mmol/L (98-107); Glucose 106 mg/dl (70-99); Potassium 3.7 mmol/L (3.5-5.1); Sodium 140 mmol/L (135-145); eGFR 29.57
[2023-12-10 11:18] LABS: NT-proBNP 1900 pg/ml
== END ==
LOC: OLABN 10:12
PROVIDERS: ATTENDING PHYSICIAN Internal Medicine Geriatric Medicine
DX: D63.8 Anemia in other chronic diseases classified elsewhere (principal); N18.32 Chronic kidney disease, stage 3b
CPT/HCPCS: 36415; 80048; 83880; 85025

== ENCOUNTER → 2023-12-17 10:28 | Outpatient (REF) | payer MEDICARE, OTHER, SELFPAY ==
[2023-12-17 11:39] LABS: % Basophils 0.3 % (0-2); % Eosinophils 1.9 % (0-6); % Immature Granulocytes 0.2 % (0-0.5); % Lymphocytes 17.5 % (20.5-51.1); % Monocytes 9.4 % (1.7-9.3); % Neutrophils 70.7 % (42.2-75.2); Absolute Eosinophils 0.1 10^3/uL (0-0.7); Absolute Lymphocytes 1.1 10^3/uL (1.2-3.4); Absolute Monocytes 0.6 10^3/uL (0.1-0.6); Absolute Neutrophils 4.5 10^3/uL (1.4-6.5); Hematocrit 36.3 % (37.0-47.0); Hemoglobin 11.2 g/dL (12.0-16.0); Mean Corp Hgb Conc. 30.9 g/dL (33.0-37.0); Mean Corpuscular Hgb 32.7 pg (27.0-31.0); Mean Corpuscular Volume 105.8 fL (81.0-99.0); Mean Platelet Volume 10.2 fL (7.4-10.4); Nucleated Red Blood Cells % 0 %; Platelet Count 178 10^3/uL (130-400); Red Blood Cell Count 3.43 10^6/uL (4.20-5.40); Red Cell Dist. Width 17.3 % (11.5-14.5); White Blood Cell Count 6.3 10^3/uL (4.8-10.8)
== END ==
LOC: OLABN 10:28
PROVIDERS: ATTENDING PHYSICIAN Internal Medicine Geriatric Medicine
DX: D63.8 Anemia in other chronic diseases classified elsewhere (principal)
CPT/HCPCS: 36415; 85025

== ENCOUNTER → 2023-12-24 11:56 | Outpatient (REF) | payer MEDICARE, OTHER, SELFPAY ==
[2023-12-24 12:35] LABS: % Basophils 0.6 % (0-2); % Eosinophils 5.4 % (0-6); % Immature Granulocytes 0.4 % (0-0.5); % Lymphocytes 21.4 % (20.5-51.1); % Monocytes 12.8 % (1.7-9.3); % Neutrophils 59.4 % (42.2-75.2); Absolute Eosinophils 0.3 10^3/uL (0-0.7); Absolute Lymphocytes 1.1 10^3/uL (1.2-3.4); Absolute Monocytes 0.7 10^3/uL (0.1-0.6); Absolute Neutrophils 3.1 10^3/uL (1.4-6.5); Hematocrit 29.8 % (37.0-47.0); Hemoglobin 9.5 g/dL (12.0-16.0); Mean Corp Hgb Conc. 31.9 g/dL (33.0-37.0); Mean Corpuscular Hgb 32.4 pg (27.0-31.0); Mean Corpuscular Volume 101.7 fL (81.0-99.0); Nucleated Red Blood Cells % 0 %; Platelet Count 167 10^3/uL (130-400); Red Blood Cell Count 2.93 10^6/uL (4.20-5.40); Red Cell Dist. Width 16.5 % (11.5-14.5); White Blood Cell Count 5.2 10^3/uL (4.8-10.8)
== END ==
LOC: OLABN 11:56
PROVIDERS: ATTENDING PHYSICIAN Internal Medicine Geriatric Medicine
DX: D63.8 Anemia in other chronic diseases classified elsewhere (principal)
CPT/HCPCS: 36415; 85025

== ENCOUNTER → 2023-12-31 11:27 | Outpatient (REF) | payer MEDICARE, OTHER, SELFPAY ==
[2023-12-31 12:10] LABS: % Basophils 0.6 % (0-2); % Eosinophils 6.6 % (0-6); % Immature Granulocytes 0.4 % (0-0.5); % Lymphocytes 23.6 % (20.5-51.1); % Monocytes 12.5 % (1.7-9.3); % Neutrophils 56.3 % (42.2-75.2); Absolute Eosinophils 0.4 10^3/uL (0-0.7); Absolute Lymphocytes 1.3 10^3/uL (1.2-3.4); Absolute Monocytes 0.7 10^3/uL (0.1-0.6); Hematocrit 29.9 % (37.0-47.0); Hemoglobin 9.6 g/dL (12.0-16.0); Mean Corp Hgb Conc. 32.1 g/dL (33.0-37.0); Mean Corpuscular Hgb 32.3 pg (27.0-31.0); Mean Corpuscular Volume 100.7 fL (81.0-99.0); Mean Platelet Volume 9.8 fL (7.4-10.4); Nucleated Red Blood Cells % 0 %; Platelet Count 173 10^3/uL (130-400); Red Blood Cell Count 2.97 10^6/uL (4.20-5.40); Red Cell Dist. Width 16.5 % (11.5-14.5); White Blood Cell Count 5.3 10^3/uL (4.8-10.8)
== END ==
LOC: OLABN 11:27
PROVIDERS: ATTENDING PHYSICIAN Internal Medicine Geriatric Medicine
DX: D63.8 Anemia in other chronic diseases classified elsewhere (principal)
CPT/HCPCS: 36415; 85025

== ENCOUNTER → 2024-01-07 10:42 | Outpatient (REF) | payer MEDICARE, OTHER, SELFPAY ==
[2024-01-07 13:17] LABS: % Basophils 0.4 % (0-2); % Eosinophils 5.1 % (0-6); % Immature Granulocytes 0.2 % (0-0.5); % Lymphocytes 23.7 % (20.5-51.1); % Monocytes 13.6 % (1.7-9.3); Absolute Eosinophils 0.3 10^3/uL (0-0.7); Absolute Lymphocytes 1.2 10^3/uL (1.2-3.4); Absolute Monocytes 0.7 10^3/uL (0.1-0.6); Absolute Neutrophils 2.8 10^3/uL (1.4-6.5); Hematocrit 30.4 % (37.0-47.0); Hemoglobin 9.5 g/dL (12.0-16.0); Mean Corp Hgb Conc. 31.3 g/dL (33.0-37.0); Mean Corpuscular Hgb 32.4 pg (27.0-31.0); Mean Corpuscular Volume 103.8 fL (81.0-99.0); Mean Platelet Volume 9.7 fL (7.4-10.4); Nucleated Red Blood Cells % 0 %; Platelet Count 179 10^3/uL (130-400); Red Blood Cell Count 2.93 10^6/uL (4.20-5.40); Red Cell Dist. Width 17.2 % (11.5-14.5); White Blood Cell Count 4.9 10^3/uL (4.8-10.8)
== END ==
LOC: OLABN 10:42
PROVIDERS: ATTENDING PHYSICIAN Internal Medicine Geriatric Medicine
DX: D63.8 Anemia in other chronic diseases classified elsewhere (principal)
CPT/HCPCS: 36415; 85025

== ENCOUNTER → 2024-01-14 11:41 | Outpatient (REF) | payer MEDICARE, OTHER, SELFPAY ==
[2024-01-14 12:57] LABS: % Basophils 0.6 % (0-2); % Eosinophils 4.1 % (0-6); % Immature Granulocytes 0.2 % (0-0.5); % Lymphocytes 21.6 % (20.5-51.1); % Monocytes 12.4 % (1.7-9.3); % Neutrophils 61.1 % (42.2-75.2); Absolute Eosinophils 0.2 10^3/uL (0-0.7); Absolute Lymphocytes 1.1 10^3/uL (1.2-3.4); Absolute Monocytes 0.6 10^3/uL (0.1-0.6); Absolute Neutrophils 3.2 10^3/uL (1.4-6.5); Hematocrit 31.8 % (37.0-47.0); Hemoglobin 10.2 g/dL (12.0-16.0); Mean Corp Hgb Conc. 32.1 g/dL (33.0-37.0); Mean Corpuscular Hgb 33.6 pg (27.0-31.0); Mean Corpuscular Volume 104.6 fL (81.0-99.0); Nucleated Red Blood Cells % 0 %; Platelet Count 172 10^3/uL (130-400); Red Blood Cell Count 3.04 10^6/uL (4.20-5.40); Red Cell Dist. Width 17.1 % (11.5-14.5); White Blood Cell Count 5.2 10^3/uL (4.8-10.8)
[2024-01-14 12:59] LABS: Urine Albumin Negative (Neg - Trace); Urine Bilirubin Negative (Negative); Urine Character Clear (Clear); Urine Color Yellow; Urine Glucose Negative (Negative); Urine Ketone Trace (Negative); Urine Leukocyte 1+ (Negative); Urine Nitrite Positive (Negative); Urine Occult Blood 1+ (Negative); Urine Specific Gravity 1.015 (<1.030); Urine Urobilinogen Negative (Neg - 1+)
[2024-01-14 13:21] LABS: Urine Red Blood Cell 0-2 /HPF (0-2)
[2024-01-14 13:22] LABS: Urine Bacteria Moderate (Negative); Urine White Cell 21-25 /HPF (0-5)
== END ==
LOC: OLABN 11:41
PROVIDERS: ATTENDING PHYSICIAN Internal Medicine Geriatric Medicine
DX: D63.8 Anemia in other chronic diseases classified elsewhere (principal); R35.0 Frequency of micturition
CPT/HCPCS: 36415; 81003; 81015; 85025; 87077; 87086; 87186

== ENCOUNTER → 2024-01-21 10:10 | Outpatient (REF) | payer MEDICARE, OTHER, SELFPAY ==
[2024-01-21 12:36] LABS: % Basophils 0.9 % (0-2); % Eosinophils 4.7 % (0-6); % Immature Granulocytes 0.2 % (0-0.5); % Lymphocytes 24.9 % (20.5-51.1); % Monocytes 15.2 % (1.7-9.3); % Neutrophils 54.1 % (42.2-75.2); Absolute Eosinophils 0.2 10^3/uL (0-0.7); Absolute Lymphocytes 1.1 10^3/uL (1.2-3.4); Absolute Monocytes 0.7 10^3/uL (0.1-0.6); Absolute Neutrophils 2.4 10^3/uL (1.4-6.5); Hematocrit 33.7 % (37.0-47.0); Hemoglobin 10.6 g/dL (12.0-16.0); Mean Corp Hgb Conc. 31.5 g/dL (33.0-37.0); Mean Corpuscular Hgb 32.8 pg (27.0-31.0); Mean Corpuscular Volume 104.3 fL (81.0-99.0); Nucleated Red Blood Cells % 0 %; Platelet Count 175 10^3/uL (130-400); Red Blood Cell Count 3.23 10^6/uL (4.20-5.40); Red Cell Dist. Width 17.6 % (11.5-14.5); White Blood Cell Count 4.5 10^3/uL (4.8-10.8)
== END ==
LOC: OLABN 10:10
PROVIDERS: ATTENDING PHYSICIAN Internal Medicine Geriatric Medicine
DX: D63.8 Anemia in other chronic diseases classified elsewhere (principal); J44.1 Chronic obstructive pulmonary disease with (acute) exacerbation
CPT/HCPCS: 85025

== ENCOUNTER → 2024-01-28 11:46 | Outpatient (REF) | payer MEDICARE, OTHER, SELFPAY ==
[2024-01-28 12:08] LABS: % Basophils 0.6 % (0-2); % Eosinophils 5.5 % (0-6); % Lymphocytes 24.5 % (20.5-51.1); % Monocytes 12.9 % (1.7-9.3); % Neutrophils 56.5 % (42.2-75.2); Absolute Eosinophils 0.3 10^3/uL (0-0.7); Absolute Lymphocytes 1.3 10^3/uL (1.2-3.4); Absolute Monocytes 0.7 10^3/uL (0.1-0.6); Hematocrit 33.4 % (37.0-47.0); Hemoglobin 10.4 g/dL (12.0-16.0); Mean Corp Hgb Conc. 31.1 g/dL (33.0-37.0); Mean Corpuscular Hgb 33.3 pg (27.0-31.0); Mean Corpuscular Volume 107.1 fL (81.0-99.0); Mean Platelet Volume 9.8 fL (7.4-10.4); Nucleated Red Blood Cells % 0 %; Platelet Count 171 10^3/uL (130-400); Red Blood Cell Count 3.12 10^6/uL (4.20-5.40); Red Cell Dist. Width 17.1 % (11.5-14.5); White Blood Cell Count 5.3 10^3/uL (4.8-10.8)
== END ==
LOC: OLABN 11:46
PROVIDERS: ATTENDING PHYSICIAN Internal Medicine Geriatric Medicine
DX: D63.8 Anemia in other chronic diseases classified elsewhere (principal)
CPT/HCPCS: 36415; 85025

== ENCOUNTER → 2024-02-04 11:56 | Outpatient (REF) | payer MEDICARE, OTHER, SELFPAY ==
[2024-02-04 13:38] LABS: % Basophils 0.5 % (0-2); % Eosinophils 4.1 % (0-6); % Immature Granulocytes 0.2 % (0-0.5); % Lymphocytes 27.7 % (20.5-51.1); % Monocytes 12.4 % (1.7-9.3); % Neutrophils 55.1 % (42.2-75.2); Absolute Eosinophils 0.2 10^3/uL (0-0.7); Absolute Lymphocytes 1.1 10^3/uL (1.2-3.4); Absolute Monocytes 0.5 10^3/uL (0.1-0.6); Absolute Neutrophils 2.3 10^3/uL (1.4-6.5); Hematocrit 32.8 % (37.0-47.0); Hemoglobin 10.4 g/dL (12.0-16.0); Mean Corp Hgb Conc. 31.7 g/dL (33.0-37.0); Mean Corpuscular Hgb 32.6 pg (27.0-31.0); Mean Corpuscular Volume 102.8 fL (81.0-99.0); Mean Platelet Volume 10.1 fL (7.4-10.4); Nucleated Red Blood Cells % 0 %; Platelet Count 155 10^3/uL (130-400); Red Blood Cell Count 3.19 10^6/uL (4.20-5.40); Red Cell Dist. Width 17.2 % (11.5-14.5); White Blood Cell Count 4.1 10^3/uL (4.8-10.8)
[2024-02-04 14:03] LABS: NT-proBNP 949 pg/ml
[2024-02-04 14:32] LABS: Blood Urea Nitrogen 71 mg/dl (7-17); Calcium 8.2 mg/dl (8.4-10.2); Carbon Dioxide 24 mmol/L (22-30); Chloride 103 mmol/L (98-107); Glucose 119 mg/dl (70-99); Iron 50 ug/dl (37-170); Potassium 3.3 mmol/L (3.5-5.1); Sodium 138 mmol/L (135-145); eGFR 25.88
[2024-02-04 15:09] LABS: Vitamin B12 926 pg/ml (239-931)
[2024-02-05 09:08] LABS: Glycohemoglobin (HgbA1c) 5.6 % (4.0-5.6)
== END ==
LOC: OLABN 11:56
PROVIDERS: ATTENDING PHYSICIAN Internal Medicine Geriatric Medicine
DX: D63.8 Anemia in other chronic diseases classified elsewhere (principal); D51.9 Vitamin B12 deficiency anemia, unspecified; E11.40 Type 2 diabetes mellitus with diabetic neuropathy, unspecified; I13.0 Hypertensive heart and chronic kidney disease with heart failure and stage 1 through stage 4 chronic kidney disease, or unspecified chronic kidney disease
CPT/HCPCS: 36415; 80048; 82607; 83036; 83540; 83880; 85025

== ENCOUNTER → 2024-02-11 12:03 | Outpatient (REF) | payer MEDICARE, OTHER, SELFPAY ==
[2024-02-11 13:04] LABS: % Basophils 0.4 % (0-2); % Eosinophils 4.6 % (0-6); % Immature Granulocytes 0.2 % (0-0.5); % Lymphocytes 25.2 % (20.5-51.1); % Monocytes 11.6 % (1.7-9.3); Absolute Eosinophils 0.2 10^3/uL (0-0.7); Absolute Lymphocytes 1.3 10^3/uL (1.2-3.4); Absolute Monocytes 0.6 10^3/uL (0.1-0.6); Hematocrit 35.6 % (37.0-47.0); Hemoglobin 11.3 g/dL (12.0-16.0); Mean Corp Hgb Conc. 31.7 g/dL (33.0-37.0); Mean Corpuscular Hgb 33.5 pg (27.0-31.0); Mean Corpuscular Volume 105.6 fL (81.0-99.0); Mean Platelet Volume 9.5 fL (7.4-10.4); Nucleated Red Blood Cells % 0 %; Platelet Count 144 10^3/uL (130-400); Red Blood Cell Count 3.37 10^6/uL (4.20-5.40); Red Cell Dist. Width 16.8 % (11.5-14.5); White Blood Cell Count 5.2 10^3/uL (4.8-10.8)
== END ==
LOC: OLABN 12:03
PROVIDERS: ATTENDING PHYSICIAN Internal Medicine Geriatric Medicine
DX: D63.8 Anemia in other chronic diseases classified elsewhere (principal)
CPT/HCPCS: 36415; 85025

== ENCOUNTER → 2024-02-18 10:54 | Outpatient (REF) | payer MEDICARE, OTHER, SELFPAY ==
[2024-02-18 11:32] LABS: % Basophils 0.4 % (0-2); % Eosinophils 3.3 % (0-6); % Lymphocytes 26.5 % (20.5-51.1); % Monocytes 9.6 % (1.7-9.3); % Neutrophils 60.2 % (42.2-75.2); Absolute Eosinophils 0.2 10^3/uL (0-0.7); Absolute Lymphocytes 1.3 10^3/uL (1.2-3.4); Absolute Monocytes 0.5 10^3/uL (0.1-0.6); Absolute Neutrophils 2.9 10^3/uL (1.4-6.5); Hematocrit 34.1 % (37.0-47.0); Hemoglobin 10.9 g/dL (12.0-16.0); Mean Corpuscular Hgb 33.7 pg (27.0-31.0); Mean Corpuscular Volume 105.6 fL (81.0-99.0); Mean Platelet Volume 10.5 fL (7.4-10.4); Nucleated Red Blood Cells % 0 %; Platelet Count 144 10^3/uL (130-400); Red Blood Cell Count 3.23 10^6/uL (4.20-5.40); Red Cell Dist. Width 16.2 % (11.5-14.5); White Blood Cell Count 4.8 10^3/uL (4.8-10.8)
== END ==
LOC: OLABN 10:54
PROVIDERS: ATTENDING PHYSICIAN Student in an Organized Health Care Education/Training Program
DX: D63.8 Anemia in other chronic diseases classified elsewhere (principal)
CPT/HCPCS: 36415; 85025

== ENCOUNTER → 2024-02-25 11:46 | Outpatient (REF) | payer MEDICARE, OTHER, SELFPAY ==
[2024-02-25 13:02] LABS: % Basophils 0.4 % (0-2); % Eosinophils 3.2 % (0-6); % Immature Granulocytes 0.2 % (0-0.5); % Lymphocytes 23.8 % (20.5-51.1); % Monocytes 10.1 % (1.7-9.3); % Neutrophils 62.3 % (42.2-75.2); Absolute Eosinophils 0.2 10^3/uL (0-0.7); Absolute Lymphocytes 1.1 10^3/uL (1.2-3.4); Absolute Monocytes 0.5 10^3/uL (0.1-0.6); Absolute Neutrophils 2.9 10^3/uL (1.4-6.5); Hematocrit 36.1 % (37.0-47.0); Hemoglobin 11.3 g/dL (12.0-16.0); Mean Corp Hgb Conc. 31.3 g/dL (33.0-37.0); Mean Corpuscular Hgb 32.3 pg (27.0-31.0); Mean Corpuscular Volume 103.1 fL (81.0-99.0); Mean Platelet Volume 10.3 fL (7.4-10.4); Nucleated Red Blood Cells % 0 %; Platelet Count 172 10^3/uL (130-400); Red Cell Dist. Width 16.6 % (11.5-14.5); White Blood Cell Count 4.7 10^3/uL (4.8-10.8)
== END ==
LOC: OLABN 11:46
PROVIDERS: ATTENDING PHYSICIAN Internal Medicine Geriatric Medicine
DX: D63.8 Anemia in other chronic diseases classified elsewhere (principal)
CPT/HCPCS: 36415; 85025

== ENCOUNTER → 2024-03-03 13:17 | Outpatient (REF) | payer MEDICARE, OTHER, SELFPAY ==
[2024-03-03 13:38] LABS: % Basophils 0.2 % (0-2); % Eosinophils 3.9 % (0-6); % Immature Granulocytes 0.2 % (0-0.5); % Lymphocytes 24.1 % (20.5-51.1); % Neutrophils 60.6 % (42.2-75.2); Absolute Eosinophils 0.2 10^3/uL (0-0.7); Absolute Lymphocytes 1.1 10^3/uL (1.2-3.4); Absolute Monocytes 0.5 10^3/uL (0.1-0.6); Absolute Neutrophils 2.8 10^3/uL (1.4-6.5); Hematocrit 33.8 % (37.0-47.0); Mean Corp Hgb Conc. 32.5 g/dL (33.0-37.0); Mean Corpuscular Hgb 32.9 pg (27.0-31.0); Mean Corpuscular Volume 101.2 fL (81.0-99.0); Mean Platelet Volume 10.5 fL (7.4-10.4); Nucleated Red Blood Cells % 0 %; Platelet Count 147 10^3/uL (130-400); Red Blood Cell Count 3.34 10^6/uL (4.20-5.40); Red Cell Dist. Width 15.8 % (11.5-14.5); White Blood Cell Count 4.6 10^3/uL (4.8-10.8)
== END ==
LOC: OLABN 13:17
PROVIDERS: ATTENDING PHYSICIAN Internal Medicine Geriatric Medicine
DX: D63.8 Anemia in other chronic diseases classified elsewhere (principal)
CPT/HCPCS: 36415; 85025

== ENCOUNTER → 2024-03-10 10:44 | Outpatient (REF) | payer MEDICARE, OTHER, SELFPAY ==
[2024-03-10 11:25] LABS: % Basophils 0.8 % (0-2); % Immature Granulocytes 0.2 % (0-0.5); % Lymphocytes 29.8 % (20.5-51.1); % Monocytes 10.2 % (1.7-9.3); Absolute Eosinophils 0.3 10^3/uL (0-0.7); Absolute Lymphocytes 1.5 10^3/uL (1.2-3.4); Absolute Monocytes 0.5 10^3/uL (0.1-0.6); Absolute Neutrophils 2.7 10^3/uL (1.4-6.5); Hematocrit 30.9 % (37.0-47.0); Hemoglobin 9.9 g/dL (12.0-16.0); Mean Corpuscular Hgb 32.2 pg (27.0-31.0); Mean Corpuscular Volume 100.7 fL (81.0-99.0); Nucleated Red Blood Cells % 0 %; Platelet Count 131 10^3/uL (130-400); Red Blood Cell Count 3.07 10^6/uL (4.20-5.40); Red Cell Dist. Width 15.6 % (11.5-14.5)
[2024-03-10 12:22] LABS: Vitamin D, 25-OH*** 24.9 ng/mL (30-80)
== END ==
LOC: OLABN 10:44
PROVIDERS: ATTENDING PHYSICIAN Internal Medicine Geriatric Medicine
DX: D63.8 Anemia in other chronic diseases classified elsewhere (principal); E03.9 Hypothyroidism, unspecified; E55.9 Vitamin D deficiency, unspecified
CPT/HCPCS: 36415; 82306; 84439; 84443; 85025

== ENCOUNTER → 2024-03-17 11:15 | Outpatient (REF) | payer MEDICARE, OTHER, SELFPAY ==
[2024-03-17 11:39] LABS: % Basophils 0.4 % (0-2); % Eosinophils 4.6 % (0-6); % Immature Granulocytes 0.4 % (0-0.5); % Monocytes 11.7 % (1.7-9.3); % Neutrophils 55.9 % (42.2-75.2); Absolute Eosinophils 0.2 10^3/uL (0-0.7); Absolute Lymphocytes 1.4 10^3/uL (1.2-3.4); Absolute Monocytes 0.6 10^3/uL (0.1-0.6); Absolute Neutrophils 2.9 10^3/uL (1.4-6.5); Hematocrit 30.4 % (37.0-47.0); Hemoglobin 9.7 g/dL (12.0-16.0); Mean Corp Hgb Conc. 31.9 g/dL (33.0-37.0); Mean Corpuscular Hgb 32.2 pg (27.0-31.0); Mean Platelet Volume 9.8 fL (7.4-10.4); Nucleated Red Blood Cells % 0 %; Platelet Count 167 10^3/uL (130-400); Red Blood Cell Count 3.01 10^6/uL (4.20-5.40); Red Cell Dist. Width 15.7 % (11.5-14.5); White Blood Cell Count 5.2 10^3/uL (4.8-10.8)
== END ==
LOC: OLABN 11:15
PROVIDERS: ATTENDING PHYSICIAN Internal Medicine Geriatric Medicine
DX: D63.8 Anemia in other chronic diseases classified elsewhere (principal)
CPT/HCPCS: 36415; 85025

== ENCOUNTER → 2024-03-24 09:13 | Outpatient (REF) | payer MEDICARE, OTHER, SELFPAY ==
[2024-03-24 09:56] LABS: % Basophils 0.6 % (0-2); % Eosinophils 3.7 % (0-6); % Immature Granulocytes 0.2 % (0-0.5); % Lymphocytes 22.8 % (20.5-51.1); % Monocytes 11.8 % (1.7-9.3); % Neutrophils 60.9 % (42.2-75.2); Absolute Eosinophils 0.2 10^3/uL (0-0.7); Absolute Lymphocytes 1.2 10^3/uL (1.2-3.4); Absolute Monocytes 0.6 10^3/uL (0.1-0.6); Absolute Neutrophils 3.3 10^3/uL (1.4-6.5); Hematocrit 31.1 % (37.0-47.0); Hemoglobin 10.2 g/dL (12.0-16.0); Mean Corp Hgb Conc. 32.8 g/dL (33.0-37.0); Mean Corpuscular Hgb 33.7 pg (27.0-31.0); Mean Corpuscular Volume 102.6 fL (81.0-99.0); Mean Platelet Volume 9.4 fL (7.4-10.4); Nucleated Red Blood Cells % 0 %; Platelet Count 147 10^3/uL (130-400); Red Blood Cell Count 3.03 10^6/uL (4.20-5.40); Red Cell Dist. Width 16.1 % (11.5-14.5); White Blood Cell Count 5.4 10^3/uL (4.8-10.8)
== END ==
LOC: OLABN 09:13
PROVIDERS: ATTENDING PHYSICIAN Internal Medicine Geriatric Medicine
DX: D63.8 Anemia in other chronic diseases classified elsewhere (principal)
CPT/HCPCS: 36415; 85025

== ENCOUNTER → 2024-03-31 11:51 | Outpatient (REF) | payer MEDICARE, OTHER, SELFPAY ==
[2024-03-31 16:22] LABS: % Basophils 0.4 % (0-2); % Eosinophils 4.6 % (0-6); % Immature Granulocytes 0.2 % (0-0.5); % Lymphocytes 27.5 % (20.5-51.1); % Monocytes 10.3 % (1.7-9.3); Absolute Eosinophils 0.2 10^3/uL (0-0.7); Absolute Lymphocytes 1.3 10^3/uL (1.2-3.4); Absolute Monocytes 0.5 10^3/uL (0.1-0.6); Absolute Neutrophils 2.7 10^3/uL (1.4-6.5); Hematocrit 31.9 % (37.0-47.0); Hemoglobin 9.9 g/dL (12.0-16.0); Mean Corpuscular Hgb 32.5 pg (27.0-31.0); Mean Corpuscular Volume 104.6 fL (81.0-99.0); Mean Platelet Volume 10.3 fL (7.4-10.4); Nucleated Red Blood Cells % 0 %; Platelet Count 159 10^3/uL (130-400); Red Blood Cell Count 3.05 10^6/uL (4.20-5.40); Red Cell Dist. Width 16.6 % (11.5-14.5); White Blood Cell Count 4.8 10^3/uL (4.8-10.8)
== END ==
LOC: OLABN 11:51
PROVIDERS: ATTENDING PHYSICIAN Internal Medicine Geriatric Medicine
DX: D63.8 Anemia in other chronic diseases classified elsewhere (principal)
CPT/HCPCS: 36415; 85025

== ENCOUNTER → 2024-04-01 11:45 | Outpatient (REF) | payer MEDICARE, OTHER, SELFPAY ==
[2024-04-01 13:52] LABS: Vitamin B12 953 pg/ml (239-931)
== END ==
LOC: OLABN 11:45
PROVIDERS: ATTENDING PHYSICIAN Internal Medicine Geriatric Medicine
DX: D51.9 Vitamin B12 deficiency anemia, unspecified (principal)
CPT/HCPCS: 36415; 82607

== ENCOUNTER → 2024-04-07 09:47 | Outpatient (REF) | payer MEDICARE, OTHER, SELFPAY ==
[2024-04-07 10:44] LABS: % Basophils 0.6 % (0-2); % Eosinophils 5.2 % (0-6); % Immature Granulocytes 0.2 % (0-0.5); % Lymphocytes 28.5 % (20.5-51.1); % Monocytes 11.9 % (1.7-9.3); % Neutrophils 53.6 % (42.2-75.2); Absolute Eosinophils 0.2 10^3/uL (0-0.7); Absolute Lymphocytes 1.3 10^3/uL (1.2-3.4); Absolute Monocytes 0.6 10^3/uL (0.1-0.6); Absolute Neutrophils 2.5 10^3/uL (1.4-6.5); Hematocrit 35.6 % (37.0-47.0); Hemoglobin 10.9 g/dL (12.0-16.0); Mean Corp Hgb Conc. 30.6 g/dL (33.0-37.0); Mean Corpuscular Volume 104.4 fL (81.0-99.0); Mean Platelet Volume 10.2 fL (7.4-10.4); Nucleated Red Blood Cells % 0 %; Platelet Count 152 10^3/uL (130-400); Red Blood Cell Count 3.41 10^6/uL (4.20-5.40); Red Cell Dist. Width 16.9 % (11.5-14.5); White Blood Cell Count 4.6 10^3/uL (4.8-10.8)
== END ==
LOC: OLABN 09:47
PROVIDERS: ATTENDING PHYSICIAN Internal Medicine Geriatric Medicine
DX: D63.8 Anemia in other chronic diseases classified elsewhere (principal)
CPT/HCPCS: 36415; 85025

== ENCOUNTER → 2024-04-14 11:35 | Outpatient (REF) | payer MEDICARE, OTHER, SELFPAY ==
[2024-04-14 12:07] LABS: % Basophils 0.6 % (0-2); % Eosinophils 4.6 % (0-6); % Immature Granulocytes 0.2 % (0-0.5); % Lymphocytes 28.6 % (20.5-51.1); % Monocytes 13.4 % (1.7-9.3); % Neutrophils 52.6 % (42.2-75.2); Absolute Eosinophils 0.2 10^3/uL (0-0.7); Absolute Lymphocytes 1.4 10^3/uL (1.2-3.4); Absolute Monocytes 0.6 10^3/uL (0.1-0.6); Absolute Neutrophils 2.5 10^3/uL (1.4-6.5); Hematocrit 33.3 % (37.0-47.0); Hemoglobin 10.7 g/dL (12.0-16.0); Mean Corp Hgb Conc. 32.1 g/dL (33.0-37.0); Mean Corpuscular Hgb 33.2 pg (27.0-31.0); Mean Corpuscular Volume 103.4 fL (81.0-99.0); Mean Platelet Volume 10.2 fL (7.4-10.4); Nucleated Red Blood Cells % 0 %; Platelet Count 162 10^3/uL (130-400); Red Blood Cell Count 3.22 10^6/uL (4.20-5.40); White Blood Cell Count 4.8 10^3/uL (4.8-10.8)
== END ==
LOC: OLABN 11:35
PROVIDERS: ATTENDING PHYSICIAN Internal Medicine Geriatric Medicine
DX: D63.8 Anemia in other chronic diseases classified elsewhere (principal)
CPT/HCPCS: 36415; 85025

== ENCOUNTER → 2024-04-21 11:20 | Outpatient (REF) | payer MEDICARE, OTHER, SELFPAY ==
[2024-04-21 12:32] LABS: % Basophils 0.6 % (0-2); % Eosinophils 2.2 % (0-6); % Immature Granulocytes 0.4 % (0-0.5); % Lymphocytes 19.9 % (20.5-51.1); % Monocytes 9.6 % (1.7-9.3); % Neutrophils 67.3 % (42.2-75.2); Absolute Eosinophils 0.1 10^3/uL (0-0.7); Absolute Lymphocytes 1.1 10^3/uL (1.2-3.4); Absolute Monocytes 0.5 10^3/uL (0.1-0.6); Absolute Neutrophils 3.6 10^3/uL (1.4-6.5); Hemoglobin 10.5 g/dL (12.0-16.0); Mean Corp Hgb Conc. 30.9 g/dL (33.0-37.0); Mean Corpuscular Hgb 32.5 pg (27.0-31.0); Mean Corpuscular Volume 105.3 fL (81.0-99.0); Mean Platelet Volume 10.1 fL (7.4-10.4); Nucleated Red Blood Cells % 0 %; Platelet Count 164 10^3/uL (130-400); Red Blood Cell Count 3.23 10^6/uL (4.20-5.40); Red Cell Dist. Width 17.1 % (11.5-14.5); White Blood Cell Count 5.3 10^3/uL (4.8-10.8)
[2024-04-21 13:18] LABS: Blood Urea Nitrogen 44 mg/dl (7-17); Calcium 8.1 mg/dl (8.4-10.2); Carbon Dioxide 29 mmol/L (22-30); Chloride 102 mmol/L (98-107); Glucose 95 mg/dl (70-99); Potassium 3.7 mmol/L (3.5-5.1); Sodium 142 mmol/L (135-145); eGFR 34.36
[2024-04-21 13:27] LABS: NT-proBNP 1720 pg/ml
== END ==
LOC: OLABN 11:20
PROVIDERS: ATTENDING PHYSICIAN Internal Medicine Geriatric Medicine
DX: D63.8 Anemia in other chronic diseases classified elsewhere (principal); I50.22 Chronic systolic (congestive) heart failure
CPT/HCPCS: 36415; 80048; 83880; 85025

== ENCOUNTER → 2024-04-27 10:21 | Outpatient (REF) | payer MEDICARE, OTHER, SELFPAY ==
[2024-04-27 11:09] LABS: HDL Cholesterol 22 mg/dl; LDL Cholesterol, Calculated 34 mg/dl; Total Cholesterol 90 mg/dl (50-199); Triglyceride 170 mg/dl (10-149); Very Low Density Lipoprotein 34 mg/dl (0-30)
== END ==
LOC: OLABN 10:21
PROVIDERS: ATTENDING PHYSICIAN Internal Medicine Geriatric Medicine
DX: I10 Essential (primary) hypertension (principal)
CPT/HCPCS: 36415; 80061

== ENCOUNTER → 2024-04-28 11:16 | Outpatient (REF) | payer MEDICARE, OTHER, SELFPAY ==
[2024-04-28 13:14] LABS: % Basophils 0.4 % (0-2); % Eosinophils 5.1 % (0-6); % Immature Granulocytes 0.2 % (0-0.5); % Lymphocytes 31.6 % (20.5-51.1); % Monocytes 12.7 % (1.7-9.3); Absolute Eosinophils 0.2 10^3/uL (0-0.7); Absolute Lymphocytes 1.4 10^3/uL (1.2-3.4); Absolute Monocytes 0.6 10^3/uL (0.1-0.6); Absolute Neutrophils 2.3 10^3/uL (1.4-6.5); Hematocrit 34.6 % (37.0-47.0); Mean Corp Hgb Conc. 31.8 g/dL (33.0-37.0); Mean Corpuscular Hgb 33.8 pg (27.0-31.0); Mean Corpuscular Volume 106.5 fL (81.0-99.0); Mean Platelet Volume 10.8 fL (7.4-10.4); Nucleated Red Blood Cells % 0 %; Platelet Count 124 10^3/uL (130-400); Red Blood Cell Count 3.25 10^6/uL (4.20-5.40); Red Cell Dist. Width 16.7 % (11.5-14.5); White Blood Cell Count 4.5 10^3/uL (4.8-10.8)
== END ==
LOC: OLABN 11:16
PROVIDERS: ATTENDING PHYSICIAN Internal Medicine Geriatric Medicine
DX: D63.8 Anemia in other chronic diseases classified elsewhere (principal)
CPT/HCPCS: 36415; 85025

== ENCOUNTER → 2024-05-05 11:18 | Outpatient (REF) | payer MEDICARE, OTHER, SELFPAY ==
[2024-05-05 11:53] LABS: Blood Urea Nitrogen 50 mg/dl (7-17); Calcium 8.1 mg/dl (8.4-10.2); Carbon Dioxide 30 mmol/L (22-30); Chloride 106 mmol/L (98-107); Glucose 84 mg/dl (70-99); Potassium 3.8 mmol/L (3.5-5.1); Sodium 145 mmol/L (135-145); eGFR 37.33
[2024-05-05 12:10] LABS: % Basophils 0.6 % (0-2); % Eosinophils 3.7 % (0-6); % Immature Granulocytes 0.2 % (0-0.5); % Lymphocytes 31.8 % (20.5-51.1); % Monocytes 13.5 % (1.7-9.3); % Neutrophils 50.2 % (42.2-75.2); Absolute Eosinophils 0.2 10^3/uL (0-0.7); Absolute Lymphocytes 1.5 10^3/uL (1.2-3.4); Absolute Monocytes 0.7 10^3/uL (0.1-0.6); Absolute Neutrophils 2.4 10^3/uL (1.4-6.5); Hematocrit 33.3 % (37.0-47.0); Hemoglobin 10.6 g/dL (12.0-16.0); Mean Corp Hgb Conc. 31.8 g/dL (33.0-37.0); Mean Corpuscular Hgb 32.7 pg (27.0-31.0); Mean Corpuscular Volume 102.8 fL (81.0-99.0); Nucleated Red Blood Cells % 0 %; Platelet Count 159 10^3/uL (130-400); Red Blood Cell Count 3.24 10^6/uL (4.20-5.40); Red Cell Dist. Width 15.9 % (11.5-14.5); White Blood Cell Count 4.8 10^3/uL (4.8-10.8)
[2024-05-05 13:12] LABS: Glycohemoglobin (HgbA1c) 5.9 % (4.0-5.6)
== END ==
LOC: OLABN 11:18
PROVIDERS: ATTENDING PHYSICIAN Internal Medicine Geriatric Medicine
DX: E11.40 Type 2 diabetes mellitus with diabetic neuropathy, unspecified (principal); D63.8 Anemia in other chronic diseases classified elsewhere
CPT/HCPCS: 36415; 80048; 83036; 85025

== ENCOUNTER 2024-05-06 22:00 | Inpatient (IN) | payer MEDICARE, OTHER, SELFPAY ==
[2024-05-06] VITALS (16 sets, daily range): BP systolic 62–155; BP diastolic 23–86; BMI 33.4; BMI 32.6
--- NOTE | 2024-05-06 16:03 | ED.GENMED ---
History of Present Illness
<Carlos Topete PA-C - Last Filed: 05/06/24 20:05>
General
Chief Complaint: Skin Problem
Source: patient
Time Seen by Provider: 05/06/24 15:57
History of Present Illness
History of Present Illness:
83-year-old female with history of Parkinson's on Eliquis presents with increasing swelling to the right tran starting today. She is unsure how it got there but she may have bumped it. No fall. No other complaints at this time
Past History
<Carlos Topete PA-C - Last Filed: 05/06/24 20:05>
Past History
ED Past Medical History: Asthma, CAD, CHF, CVA (suggestion of lacunar stroke), GERD, HTN, Hypercholesterolemia, IDDM, Renal failure (chronic renal disease stage III), Valvular disease (MR), Hypothyroidism, Psychiatric (generalized anxiety disorder),
Other (Parkinson's, chronic lymphedema, cellulitis, MGUS IgG kappa, cognitive decline, B12 deficiency), Other (morbid obesity, pulmonary hypertension, anemia, DVT, PVD, meningioma, macular degeneration) and Other (drop foot left foot Fracture C
spine,Cellulitis, DVT, GIB, Umbilical hernia, iron deficiency, vitamin D deficiency)
ED Past Surgical History: Appendectomy, Cardiac (Stents 8-9), Cholecystectomy, Gynecological (Parital hysterectomy), Orthopedic (left knee replacement), Tonsilectomy and Other (PVD surgery, thyroidectomy)
Patient has exhibited threatening behavior?: No
PSI?: No
Social History
Tobacco: Non-smoker
Alcohol: None
Personal:
Living: alone
Employment: Retired
Family History
Family History: Other (reviewed and noncontributory)
Phy Exam
<Carlos Topete PA-C - Last Filed: 05/06/24 20:05>
Physical Exam
Physical Exam:
General: Well-appearing female no acute respiratory distress
HEENT: Normocephalic
Heart: Regular rate and rhythm no murmurs lungs: Clear no wheeze
Extremities: Large hematoma noted anterior lateral aspect right tran. This is soft to the touch but tender. Compartments otherwise soft 2+ dorsalis pedis pulse right foot with good sensation to the right foot no increased pain with passive motion
of the right ankle and knee
Skin is intact but ecchymotic over the hematoma
Course
<Carlos Topete PA-C - Last Filed: 05/06/24 20:05>
Orders/Labs/Results
Orders:
Orders
05/06/24 16:02
CR Leg Tibia/fibula Right 2 Vw Urgent
Comment:
Reason For Exam: hematoma/trauma
05/06/24 18:30
Morphine Sulfate 2 mg .ROUTE .STK-MED ONE
05/06/24 18:31
Morphine Sulfate 2 mg IV NOW STA
05/06/24 19:03
HYDROmorphone [Dilaudid] 0.5 mg IV NOW STA
05/06/24 19:05
HYDROmorphone [Dilaudid] 0.5 mg .ROUTE .STK-MED ONE
05/06/24 19:19
Complete Blood Count/With Diff Urgent
Comprehensive Metabolic Panel Urgent
Abnormal Lab Results
05/06/24
19:19
RBC 3.69 L 10^6/uL
(4.20-5.40)
MCV 100.3 H fL
(81.0-99.0)
MCH 32.5 H pg
(27.0-31.0)
MCHC 32.4 L g/dL
(33.0-37.0)
RDW 15.9 H %
(11.5-14.5)
Monocytes % 10.2 H %
(1.7-9.3)
BUN 44 H mg/dl
(7-17)
Creatinine 1.2 H mg/dL
(0.6-1.0)
Glucose 67 L mg/dl
(70-99)
Calcium 8.2 L mg/dl
(8.4-10.2)
AST 49 H U/L
(14-36)
05/06/24 19:19
05/06/24 19:19
Vital Signs
Initial and Last Documented VS:
Initial Vital Signs
BP
144/70
05/06/24 15:56
Last Documented Vital Signs
Temp Pulse Resp BP Pulse Ox
97.8 F 59 15 142/43 98
05/06/24 15:57 05/06/24 16:00 05/06/24 16:00 05/06/24 16:00 05/06/24 16:00
<Collins Moreno, DO - Last Filed: 05/06/24 17:56>
Orders/Labs/Results
Orders:
Orders
05/06/24 16:02
CR Leg Tibia/fibula Right 2 Vw Urgent
Comment:
Reason For Exam: hematoma/trauma
05/06/24 18:30
Morphine Sulfate 2 mg .ROUTE .STK-MED ONE
05/06/24 18:31
Morphine Sulfate 2 mg IV NOW STA
05/06/24 19:03
HYDROmorphone [Dilaudid] 0.5 mg IV NOW STA
05/06/24 19:05
HYDROmorphone [Dilaudid] 0.5 mg .ROUTE .STK-MED ONE
05/06/24 19:19
Complete Blood Count/With Diff Urgent
Comprehensive Metabolic Panel Urgent
Abnormal Lab Results
05/06/24
19:19
RBC 3.69 L 10^6/uL
(4.20-5.40)
MCV 100.3 H fL
(81.0-99.0)
MCH 32.5 H pg
(27.0-31.0)
MCHC 32.4 L g/dL
(33.0-37.0)
RDW 15.9 H %
(11.5-14.5)
Monocytes % 10.2 H %
(1.7-9.3)
BUN 44 H mg/dl
(7-17)
Creatinine 1.2 H mg/dL
(0.6-1.0)
Glucose 67 L mg/dl
(70-99)
Calcium 8.2 L mg/dl
(8.4-10.2)
AST 49 H U/L
(14-36)
05/06/24 19:19
05/06/24 19:19
Vital Signs
Initial and Last Documented VS:
Initial Vital Signs
BP
144/70
05/06/24 15:56
Last Documented Vital Signs
Temp Pulse Resp BP Pulse Ox
97.8 F 59 15 142/43 98
05/06/24 15:57 05/06/24 16:00 05/06/24 16:00 05/06/24 16:00 05/06/24 16:00
<Carlos Topete PA-C - Last Filed: 05/06/24 20:05>
MDM/Problems Addressed
Differential Diagnosis Includes:
Swelling over the anterior lateral right tran. Clinical exam most consistent with hematoma. No sign of infectious source. Will order x-ray to evaluate for underlying bony injury. Exam not consistent with compartment syndrome.
<Carlos Topete PA-C - Last Filed: 05/06/24 20:05>
*Critical Care Note
Total Time (30-74mins, 75-104mins- exclusive of procedures): Not Applicable
<Carlos Topete PA-C - Last Filed: 05/06/24 20:05>
Update Note
Update Note:
Reevaluated patient. Patient is in more discomfort. Hematoma has enlarged slightly since her arrival. Discussed with emergency room attending as well as general surgery. General surgery is recommending holding Eliquis for potential incision and
drainage of hematoma
ED Attending Note
<Carlos Topete PA-C - Last Filed: 05/06/24 20:05>
-
Portions of this chart may have been created with voice recognition software.� Occasional wrong word or��sound alike� substitutions may have occurred due to the inherent limitations of voice recognition software.
<Collins Moreno DO - Last Filed: 05/06/24 17:56>
ED Attending Note
Patient seen and examined by attending physician: Yes
I performed the substantive portion of visit, reviewed & personally made and approve the management plan that is documented in note by myself or SHABBIR.: Yes
ED Attending Note:
I have seen and evaluated the patient with a [id number] encounter. I have spoken to the advance practicer provider and involved in the medical history, the physical exam, medical decision making.
Evaluation and management service: agree unless noted differently below.
Results interpretation: agree unless noted differently below.
Focused HPI: 83-year-old female presenting with large hematoma to the outside of her right leg. Son at bedside believes that this is related to the 'sit to stand machine'. She has a history of Parkinson's and is somewhat wheelchair-bound. She
uses machine to help her get up. This happened in the past to her left leg that required drainage
Physical exam: Large hematoma to the lateral aspect of right leg. Distal extremity neurovascular intact
Medical Decision Making: Patient will require drainage of the hematoma to avoid skin necrosis and compartment syndrome
Discharge Plan
Departure
Patient Disposition: Admit
Date of Disposition: 05/06/24
Time of Disposition: 20:05
Admit to: Telemetry
Presentation/result/management discussed w/ accepting MD/DO: Hospitalist
Discharge Problem:
Hematoma
Prescriptions:
No Action
atorvastatin 80 MG tablet
80 mg PO HS
Refresh Classic (PF) 10 DROPS dropperette
1 drp BOTH EYES BID@
clopidogrel 75 MG tablet
75 mg PO DAILY 0RF
isosorbide mononitrate 60 MG tablet extended release 24 hr
60 mg PO DAILY 0RF
metolazone 5 MG tablet
5 mg PO DAILYPRN PRN (Reason: weight gain of 3lbs overnight)
nitroglycerin 0.4 MG tablet, sublingual
0.4 mg sublingual [id number] PRN (Reason: chest pain)
magnesium oxide 400 MG capsule
400 mg PO MOWEFR
PreserVision AREDS-2 1 EACH capsule
1 ea PO DAILY
acetaminophen [Tylenol Extra Strength] 500 MG tablet
1,000 mg PO BID@
bisacodyl [OneLAX Bisacodyl] 10 MG suppository
10 mg VA DAILYPRN PRN (Reason: if mom ineffective)
lidocaine [Aspercreme (lidocaine)] 1 PATCH adhesive patch,medicated
1 patch topical DAILY
epoetin najma 40,000 unit/mL Solution
40,000 unit SC WE
cyanocobalamin (vitamin B-12) 1,000 mcg/mL Solution
500 mcg IM MONTHLY
Rx Instructions:
of the month
cetirizine 5 mg Tablet
5 mg PO HS
methenamine hippurate [Hiprex] 1 gram Tablet
1 g PO FR
ascorbic acid (vitamin C) [Vitamin C] 500 mg Tablet
500 mg PO DAILY
ferrous sulfate 325 mg (65 mg iron) Tablet
325 mg PO DAILY
carbidopa-levodopa 25-100 mg Tablet
2 tab PO QID
Rx Instructions:
@0630,1230,1630,2030
sodium chloride 0.65 % Aerosol,Braham
1 spray INTRANASAL Q1HPRN PRN (Reason: dryness)
Senna Plus 8.6-50 mg Capsule
2 tab-cap PO QPM
insulin glargine [Basaglar KwikPen U-100 Insulin] 100 unit/mL (3 mL) insulin pen
20 unit SC HS
pregabalin 50 mg Capsule
50 mg PO HS Qty: 14 0RF
pantoprazole 40 mg tablet,delayed release (DR/EC)
20 mg PO DAILY
Eliquis 5 mg tablet
2.5 mg PO BID
buspirone 5 mg Tablet
2.5 mg PO TID
magnesium hydroxide 2,400 mg/10 mL Suspension
30 ml PO HSPRN PRN (Reason: constipation)
latanoprost (PF) 0.005 % Dropperette
1 drp RIGHT EYE QPM
acetaminophen 325 mg Tablet
650 mg PO DAILYPRN PRN (Reason: mild pain/fever>100.4)
ketoconazole 2 % Shampoo
1 applic TOPICAL TUFR
levothyroxine 112 mcg tablet
112 mcg PO DAILY@0630
insulin aspart U-100 100 unit/mL (3 mL) insulin pen
9 unit SC TID@0830,1230,1730
amiodarone 100 mg tablet
100 mg PO DAILY
duloxetine 20 mg capsule,delayed release(DR/EC)
20 mg PO HS
benzocaine-menthol 6-10 mg Lozenge
1 ludwin MUCOUS MEMBRANE Q2HPRN PRN (Reason: sore throat)
cholecalciferol (vitamin D3) 1,250 mcg (50,000 unit) Tablet
1,250 mcg PO MONTHLY
cholecalciferol (vitamin D3) 250 mcg (10,000 unit) Tablet
250 mcg PO MONTHLY
Retacrit 20,000 unit/mL solution
20,000 unit SC WE
furosemide [Lasix] 40 mg tablet
80 mg PO BID@0830,1630
Referrals:
Evan Walden MD [Family Provider] -
Interventions
Interventions:
*Risk Screen - Suicide Last Done: 05/06/24 16:01
*General Assessment Last Done: 05/06/24 16:01
*Neglect/Abuse Screening Last Done: 05/06/24 16:01
ED- Fall Risk Assessment Last Done: 05/06/24 16:01
*ED COVID-19 Vaccine History Last Done: 05/06/24 16:01
ED-Skin Assessment Last Done: 05/06/24 16:01
Discharge Date and Time
Print Language: HEBREW
[2024-05-06] MEDS: MORPHINE SULFATE 2 MG IV (18:31)
[2024-05-06] MEDS: DILAUDID 0.5 MG IV (19:06)
[2024-05-06 19:29] LABS: % Basophils 0.7 % (0-2); % Eosinophils 2.5 % (0-6); % Immature Granulocytes 0.3 % (0-0.5); % Lymphocytes 25.4 % (20.5-51.1); % Monocytes 10.2 % (1.7-9.3); % Neutrophils 60.9 % (42.2-75.2); Absolute Eosinophils 0.2 10^3/uL (0-0.7); Absolute Lymphocytes 1.5 10^3/uL (1.2-3.4); Absolute Monocytes 0.6 10^3/uL (0.1-0.6); Absolute Neutrophils 3.6 10^3/uL (1.4-6.5); Mean Corp Hgb Conc. 32.4 g/dL (33.0-37.0); Mean Corpuscular Hgb 32.5 pg (27.0-31.0); Mean Corpuscular Volume 100.3 fL (81.0-99.0); Mean Platelet Volume 10.4 fL (7.4-10.4); Nucleated Red Blood Cells % 0 %; Platelet Count 199 10^3/uL (130-400); Red Blood Cell Count 3.69 10^6/uL (4.20-5.40); Red Cell Dist. Width 15.9 % (11.5-14.5)
[2024-05-06 19:58] LABS: ALT (SGPT) 27 U/L (0-35); AST (SGOT) 49 U/L (14-36); Albumin 4.2 g/dl (3.5-5.0); Alkaline Phosphatase 54 U/L (38-126); Blood Urea Nitrogen 44 mg/dl (7-17); Calcium 8.2 mg/dl (8.4-10.2); Carbon Dioxide 26 mmol/L (22-30); Chloride 99 mmol/L (98-107); Estimated Creatinine Clearance 37 ml/min; Glucose 67 mg/dl (70-99); Potassium 4.2 mmol/L (3.5-5.1); Sodium 142 mmol/L (135-145); Total Bilirubin 0.9 mg/dl (0.2-1.3); eGFR 44.91
[2024-05-06 20:15] LABS: Glucose - Point of Care 144 mg/dl (70-99)
[2024-05-06 20:37] LABS: Glucose - Point of Care 128 mg/dl (70-99)
--- NOTE | 2024-05-06 20:39 | HPS.HSE ---
Addendum entered and electronically signed by Yoni Anguiano DO 05/06/24 23:22:
Patient seen and examined independently. Agree with findings and plan as set forth by Lynn Hopper PA-C.
Patient is an 83y F with PMH significant for ASCVD, DM-II and A-Fib on Eliquis who presents to ED for evaluation of R hawkins swelling and discomfort. Patient has been using a [id number] machine which places pressure on the anterior shins. She
denies any other injury, trauma, fall, etc. Patient noted swelling and discomfort in the R hawkins earlier today that has significantly increased over time.
In the ED, patient had an episode of brief syncope. She was pale and poorly responsive. She was bradycardic and hypotensive. Symptoms resolved fairly quickly.
EKG was done showing marked prolongation in QT interval.
Currently patient is sleeping comfortably with heart rates in the 30-40s during sleep.
Ass:
Right Hawkins Hematoma on Eliquis
Syncope
Prolonged QTc / Bradycardia
ASCVD
Chronic HFrEF
Paroxysmal Atrial Fibrillation
DM-II
CKD III
Parkinson's Disease
Hypothyroidism
Plan:
Admit for further evaluation and treatment.
Hold Eliquis and Plavix for now.
CTA done in the ED without evidence of active extravasation / ongoing bleeding.
Compression with PATRICK wrap, elevation, ice application.
Vascular Surgery evaluation for additional recommendations / possible hematoma evacuation.
Monitor distal neurovascular status overnight.
Monitor on tele for worsening arrhythmia.
Hold amiodarone given bradycardia and QT prolongation.
Cardiology evaluation for additional recommendations.
Hold Lasix for now and follow I/Os, daily weights, etc.
Continue Sinemet.
SSI coverage.
Original Note:
Family Physician
-
Family Physician: Evan Walden
Chief Complaint
-
Hematoma
History of Present Illness
Patient is a 83 y/o female past medical history of CHF, CKD, DM, ASCVD on Plavix and A-Fib on Eliquis who presents with right lower extremity hematoma. Patient is unable to tell me how she injured her leg. Apparently patient injured the leg while
using a sit to stand lift device earlier today. A large hematoma was discovered and she was sent to the emergency department for evaluation.
While in the ED patient had a syncopal episode. Nursing noted her be pale, diaphoretic and minimally responsive. Patient was mildly hypotensive during the episode. She was given a bolus of fluid, and patient quickly recovered. ECG revealed very
prolonged QT of 630m.s
Medical History
Past Medical History
Past Medical History: Reports Other
Additional Past Medical History:
Left Cerebellar Stroke
Multivessel Coronary Artery Disease s/p Multiple Stents
Chronic HFrEF
Moderate/Severe Mitral Regurgitation
Paroxysmal Atrial Fibrillation
Essential Hypertension
Hyperlipidemia
Insulin-Dependent Diabetes Mellitus
Diabetic Neuropathy
CKD Stage III
Anemia of Chronic Disease
Parkinson's Disease
Cognitive Impairment
Hypothyroidism
GERD
Chronic Constipation
Past Surgical History: Reports Other
Additional Past Surgical History:
Cholecystectomy
Hysterectomy
Knee Replacement
Rotator Cuff Repair
Spinal Fusion/Laminectomy
Social History
Tobacco: Non-smoker
Drug: None
Living: Senior Living
Family History
Family History: Not pertinent
Allergies / Home Medications
Allergies reflects when Allergies were last updated in [email or web address].
Home Medications with original date entered in [email or web address]
Allergy/Medication List:
Allergies
Allergy/AdvReac Type Severity Reaction Status Date / Time
amlodipine Allergy LEG PAINS Verified 05/06/24 15:57
amlodipine besylate Allergy leg pain Verified 05/06/24 15:57
[From [facility]]
cat dander Allergy COUGH AND Verified 05/06/24 15:57
SNEEZING
ibuprofen Allergy Anaphylaxis Verified 05/06/24 15:57
metformin Allergy severe Verified 05/06/24 15:57
diarrhea
naproxen Allergy Unknown Verified 05/06/24 15:57
naproxen sodium [From Aleve] Allergy Anaphylaxis Verified 05/06/24 15:57
nortriptyline Allergy Unknown Verified 05/06/24 15:57
Penicillins Allergy rash as a Verified 05/06/24 15:57
child;
tolerates
Keflex,rash;severe
itching,rash;s
potassium chloride Allergy leg pain Verified 05/06/24 15:57
tree and shrub pollen Allergy COUGH AND Verified 05/06/24 15:57
SNEEZING
Home Medications
atorvastatin 80 mg tablet 80 mg PO HS High cholesterol 02/19/18
polyvinyl alcohol-povidone (PF) 1.4 %-0.6 % eye drops in a dropperette (Refresh Classic (PF)) 1 drp BOTH EYES BID@0830,1830 Eye condition 02/17/20
clopidogrel 75 mg tablet 75 mg PO DAILY 02/29/20
isosorbide mononitrate 60 mg tablet,extended release 24 hr 60 mg PO DAILY 02/29/20
acetaminophen 500 mg tablet (Tylenol Extra Strength) 1,000 mg PO BID@0830,1830 Pain 04/11/20
magnesium oxide 400 mg PO MOWEFR Constipation 04/11/20
metolazone 5 mg tablet 5 mg PO DAILYPRN PRN weight gain of 3lbs overnight 04/11/20
nitroglycerin 0.4 mg sublingual tablet 0.4 mg sublingual [id number] PRN chest pain 04/11/20
vit C 250 mg-vit E 90 mg-zinc 40 mg-copper 1 [id number] capsule (PreserVision AREDS-2) 1 ea PO DAILY Supplement 04/11/20
bisacodyl 10 mg rectal suppository (OneLAX Bisacodyl) 10 mg ID DAILYPRN PRN if mom ineffective 10/25/20
lidocaine 4 % topical patch (Aspercreme (lidocaine)) 1 patch topical DAILY RIGHT KNEE PAIN 01/19/21
cyanocobalamin (vitamin B-12) 1,000 mcg/mL injection solution 500 mcg IM MONTHLY Anemia 05/25/22
epoetin najma 40,000 unit/mL injection solution 40,000 unit SC WE take with 20,000 05/25/22
ascorbic acid (vitamin C) 500 mg tablet (Vitamin C) 500 mg PO DAILY Supplement 07/10/23
carbidopa 25 mg-levodopa 100 mg tablet 2 tab PO QID Neurological Condition 07/10/23
cetirizine 5 mg tablet 5 mg PO HS Allergies 07/10/23
ferrous sulfate 325 mg (65 mg iron) tablet 325 mg PO DAILY Supplement 07/10/23
methenamine hippurate 1 gram tablet (Hiprex) 1 g PO FR Urinary Issue 07/10/23
sennosides 8.6 mg-docusate sodium 50 mg capsule (Senna Plus) 2 tab-cap PO QPM Constipation 07/10/23
sodium chloride 0.65 % nasal spray aerosol 1 spray intranasal Q1HPRN PRN dryness 07/10/23
insulin glargine 100 unit/mL (3 mL) subcutaneous pen (Basaglar KwikPen U-100 Insulin) 20 unit SC HS Diabetes 07/13/23
pregabalin 50 mg capsule 50 mg PO HS #14 caps 07/26/23
apixaban 5 mg tablet (Eliquis) 2.5 mg PO BID Blood Clot Prevention/Tx 10/06/23
buspirone 5 mg tablet 2.5 mg PO TID 10/06/23
latanoprost (PF) 0.005 % eye drops in a dropperette 1 drp RIGHT EYE QPM Eye Condition 10/06/23
magnesium hydroxide 2,400 mg/10 mL oral suspension 30 ml PO HSPRN PRN constipation 10/06/23
pantoprazole 40 mg tablet,delayed release 20 mg PO DAILY Gastrointestinal Issue 10/06/23
acetaminophen 325 mg tablet 650 mg PO DAILYPRN PRN mild pain/fever>100.4 05/06/24
amiodarone 100 mg tablet 100 mg PO DAILY 05/06/24
benzocaine 6 mg-menthol 10 mg lozenges 1 ludwin mucous membrane Q2HPRN PRN sore throat 05/06/24
cholecalciferol (vitamin D3) 1,250 mcg (50,000 unit) tablet 1,250 mcg PO MONTHLY taken w/ 250 mcg 05/06/24
cholecalciferol (vitamin D3) 250 mcg (10,000 unit) tablet 250 mcg PO MONTHLY taken w/ 1,250 mcg 05/06/24
duloxetine 20 mg capsule,delayed release 20 mg PO HS 05/06/24
epoetin najma-epbx 20,000 unit/mL injection solution (Retacrit) 20,000 unit SC WE take with 40,000 05/06/24
furosemide 40 mg tablet (Lasix) 80 mg PO BID@0830,1630 05/06/24
insulin aspart U-100 100 unit/mL (3 mL) subcutaneous pen 9 unit SC TID@0830,1230,1730 05/06/24
ketoconazole 2 % shampoo 1 applic topical TUFR 05/06/24
levothyroxine 112 mcg tablet 112 mcg PO DAILY@0630 05/06/24
Review of Systems
-
Unable to obtain full review of systems at this time due to: Acuity (Confusion)
Physical Exam
Vital Signs
Vital Signs
Temp Pulse Resp BP Pulse Ox
97.8 F 56 18 132/44 95
05/06/24 15:57 05/06/24 20:25 05/06/24 20:25 05/06/24 20:25 05/06/24 20:25
Physical Exam
General: Comfortable and Conversant
HEENT: Anicteric and Moist mucous membranes
Respiratory: Clear and Non Labored Respirations
Cardiac: S1/S2 and Regular Rhythm
GI: Soft and Non Tender
Musculoskeletal: No Clubbing, No Cyanosis and Other (Large right lower extremity hematoma wrapped in PATRICK compression wrap)
Skin: Warm and Dry
Neuro: Awake, Alert and Nonfocal/grossly intact
Laboratory Results
-
05/06/24 19:19
Laboratory Results
Total Bilirubin 0.9 mg/dl (0.2-1.3) 05/06/24 19:19
AST 49 U/L (14-36) H 05/06/24 19:19
ALT 27 U/L (0-35) 05/06/24 19:19
Alkaline Phosphatase 54 U/L (38-126) 05/06/24 19:19
Data Reviewed
-
Diagnostic Radiology: Image Personally Visualized and interpreted
Lab Data: Labs Reviewed by me
Impression/Plan
-
Large Right Lower Extremity Hematoma
-Consult Vascular Surgery
-If patient develops signs of worsening/ongoing bleeding would obtain CTA
-Hold Eliquis and Plavix
-Monitor Hgb
-Monitor vascular checks
-NPO should patient require intervention
Syncope
-Monitor on Telemetry
-Monitor vital signs
Prolonged QT - Appears to have lengthened significantly since prior ECG
-Hold amiodarone
-Recheck ECG in AM
ASCVD ( CVA, CAD s/p Stents and PAD)
-Plavix on hold due to bleeding
Chronic HFrEF
-Hold Lasix
-Monitor Is&Os and Daily Weights
Paroxysmal Atrial Fibrillation
-Eliquis on hold due to bleeding
-Amiodarone on hold due to bradycardia and prolonged QT
Hyperlipidemia
-Continue atorvastatin
Insulin-Dependent Diabetes Mellitus
-Half usual dose of glargine while NPO
-Monitor sugars and continue coverage insulin
CKD Stage III
-Creatinine at baseline
Parkinson's Disease
-Continue Sinemet
Hypothyroidism
-Continue levothyroxine
DVT proph: SCD to left lower ext
Code Status: DNR
[2024-05-06 20:47] LABS: Glucose 125 mg/dl (70-99)
[2024-05-06 20:51] LABS: Magnesium 2.1 mg/dl (1.6-2.3)
[2024-05-06 20:53] LABS: NT-proBNP 1640 pg/ml; Troponin I 0.016 ng/ml
[2024-05-06 21:29] LABS: Hematocrit 32.9 % (37.0-47.0); Hemoglobin 10.7 g/dL (12.0-16.0)
[2024-05-07] VITALS (14 sets, daily range): BP systolic 97–194; BP diastolic 41–78; BMI 32.6; BMI 32.5
--- NOTE | 2024-05-07 00:30 | PTCARENOTE ---
Pt arrived to [facility] from ED and was a pullover assist from stretcher to bed. Pt is AAOx2 to person and place, no complaints of pain. Automatic BP was 190/76, HR 45. Manual BP in left upper arm was 170/78, pt is asymptomatic. ANGEL Prado notified,
will recheck BP in 1 hour.
[2024-05-07 01:03] LABS: Glucose - Point of Care 148 mg/dl (70-99)
[2024-05-07] MEDS: BUSPAR 2.5 MG PO ×4 (01:08→21:56)
[2024-05-07] MEDS: SINEMET 25-100 2 TABLET PO ×5 (01:08→21:56)
[2024-05-07] MEDS: LYRICA 50 MG PO ×2 (01:09→21:56)
[2024-05-07] MEDS: CYMBALTA DELAYED RELEASE 20 MG PO ×2 (01:10→21:56)
[2024-05-07] MEDS: LANTUS 0.1 UNITS SC ×2 (01:10→21:57)
[2024-05-07] MEDS: LIPITOR 80 MG PO ×2 (01:10→21:56)
[2024-05-07] MEDS: NOVOLOG FLEXPEN-HIGH RESISTANCE 1 UNITS SC ×2 (01:33→05:51)
[2024-05-07 02:16] LABS: Hematocrit 37.1 % (37.0-47.0); Hemoglobin 12.1 g/dL (12.0-16.0)
--- NOTE | 2024-05-07 04:10 | PTCARENOTE ---
Pt's manual BP still elevated at 170/70, pt is asymptomatic without pain. NATIONAL ACCOUNT EXECUTIVE Dez Magallanes notified, will continue to monitor. No further orders at this time.
[2024-05-07 05:46] LABS: Glucose - Point of Care 127 mg/dl (70-99)
[2024-05-07] MEDS: SYNTHROID 112 MCG PO (05:51)
[2024-05-07 07:18] LABS: Hematocrit 34.3 % (37.0-47.0); Hemoglobin 11.3 g/dL (12.0-16.0); Mean Corp Hgb Conc. 32.9 g/dL (33.0-37.0); Mean Corpuscular Hgb 33.8 pg (27.0-31.0); Mean Corpuscular Volume 102.7 fL (81.0-99.0); Mean Platelet Volume 9.8 fL (7.4-10.4); Platelet Count 145 10^3/uL (130-400); Red Blood Cell Count 3.34 10^6/uL (4.20-5.40); Red Cell Dist. Width 15.6 % (11.5-14.5); White Blood Cell Count 6.8 10^3/uL (4.8-10.8)
[2024-05-07 07:48] LABS: Blood Urea Nitrogen 39 mg/dl (7-17); Calcium 8.2 mg/dl (8.4-10.2); Carbon Dioxide 28 mmol/L (22-30); Chloride 103 mmol/L (98-107); Estimated Creatinine Clearance 36 ml/min; Glucose 109 mg/dl (70-99); Potassium 3.8 mmol/L (3.5-5.1); Sodium 142 mmol/L (135-145); eGFR 44.91
[2024-05-07] MEDS: PROTONIX 20 MG PO (07:53)
[2024-05-07] MEDS: IMDUR (EXTENDED RELEASE) 60 MG PO (07:53)
[2024-05-07] MEDS: TYLENOL 1000 MG PO ×2 (07:53→17:04)
[2024-05-07] MEDS: MAGNESIUM SULFATE 50 IV (08:02)
--- NOTE | 2024-05-07 09:02 | CON.CAR ---
Addendum entered and electronically signed by Danielle Franz MD 05/07/24 10:34:
I saw and examined the patient.
The [employer] Trader's note was reviewed and I agree with the note.
Comment: Patient seen and examined she denies chest pain, palpitations, dizziness. She is here primarily with trauma to her leg with syncope in the ER in the setting of pain and narcotics. She has history of coronary artery disease, heart failure
waxing and waning ejection fraction, paroxysmal atrial fibrillation. She also has diabetes, Parkinson's disease and dementia. She was in pain in the ER and she received narcotics. Blood pressure and heart rate decreased and QT interval
significantly prolonged. Historically QT interval is top normal mildly increased but has been stable on polypharmacy. 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 EKG this morning improved. Electrolytes to be repleted. I spoke to her son Reji at great length.
Plan at this time:
-They are awaiting vascular consult regarding leg hematoma.
-Anticoagulation with Eliquis/Plavix is currently on hold she does take this for PAF. Consider 81 mg aspirin. Await vascular. Patient with 'allergy which may be anaphylaxis to NSAIDs '. It appears she has been on aspirin in the past without
problem.
-QT interval was greatly prolonged after syncope/narcotics. She was also bradycardic at that time. Heart rate has improved. EKG today improved. Amiodarone 100 mg resumed at 100 mg Saturday. Follow EKGs daily.
-Replete electrolytes
-Check daily EKGs
-Continue cardiac risk factor modification.
-Would asked hospitalist service to review all medications that are noncardiac that may prolong QT interval and limit if able.
Original Note:
Consultation
Consultation Request
Date/Time Consultation Performed: 05/07/24
Requesting Provider: Dr. Daugherty
Performing Provider: Antoinette Donnelly PA-C for Dr. Danielle Franz
Reason for Consultation: bradycardia, syncope
Medical History
-
Chief Complaint: R tran swelling
History of Present Illness:
Patient is an 83-year-old female with extensive cardiac history including CAD with multiple remote stents as below, most recently with NSTEMI 01/2020, not felt to be candidate for any further revascularization and medically managed. She has PAF on
chronic amiodarone therapy 100 mg daily and Eliquis 2.5 mg twice daily. She is a resident of [facility]. She presented to [facility] yesterday due to noting swelling and pain of her right lateral tran/calf. There was
report that there was use of a sit to stand machine which may have caused some trauma. Appears by imaging to have evidence of a large hematoma. While in the ER, she was noted to have syncopal episode associated with hypotension and bradycardia.
EKG showed heart rates in the 30s to 40s with prolonged QTc resulting in admission and cardiology consultation. She had been given pain medications in ER. Quickly improved with bolus of IVF. Outpatient amiodarone was placed on hold. Currently
without feelings of lightheadedness, dizziness. She does not recall events of yesterday, and does have baseline Parkinson's and dementia.
PMH:
PAF
Chronic amiodarone therapy
Chronic eliquis therapy
Hypertension
History of prolonged QTc/Bradycardia
HFimpEF
EF has fluctuated historically
COPD
CAD
12/2000 left circumflex stent
10/2002 mid RCA stent
10/2004 mid LAD x2 stents and OM stents
05/2007 mid OM stents
03/[address] stent
01/2020 NSTEMI, medical management of multivessel CAD, she is not a candidate for any further revascularization either surgical or percutaneous
Ranexa was previously discontinued to allow initiation of amiodarone given that she has demonstrated prolonged QT at times in the past.
Moderate MR
Insulin-dependent diabetes
CKD 3
Hyperlipidemia
PVD
Hypothyroidism
Severe orthopedic issues with decreased activity of daily living
History of neck fracture
Parkinson's disease
Dementia
Polypharmacy
Multiple medication intolerances/allergies
Past Medical History
Past Medical History: Other (in HPI)
Social History
Tobacco: Non-Smoker
Alcohol: None
Living: [facility]
Family History
Family History: Reviewed & Not Pertinent
Allergies / Home Medications
Allergy/AdvReac Type Severity Reaction Status Date / Time
amlodipine Allergy LEG PAINS Verified 05/06/24 15:57
amlodipine besylate Allergy leg pain Verified 05/06/24 15:57
[From Norvasc]
cat dander Allergy COUGH AND Verified 05/06/24 15:57
SNEEZING
ibuprofen Allergy Anaphylaxis Verified 05/06/24 15:57
metformin Allergy severe Verified 05/06/24 15:57
diarrhea
naproxen Allergy Unknown Verified 05/06/24 15:57
naproxen sodium [From Aleve] Allergy Anaphylaxis Verified 05/06/24 15:57
nortriptyline Allergy Unknown Verified 05/06/24 15:57
Penicillins Allergy rash as a Verified 05/06/24 15:57
child;
tolerates
Keflex,rash;severe
itching,rash;s
potassium chloride Allergy leg pain Verified 05/06/24 15:57
tree and shrub pollen Allergy COUGH AND Verified 05/06/24 15:57
SNEEZING
�Medication �Instructions �Recorded �Confirmed �Type
atorvastatin 80 mg tablet 80 mg PO HS High cholesterol 02/19/18 05/06/24 History
polyvinyl alcohol-povidone (PF) 1 drp BOTH EYES BID@0830,1830 Eye 02/17/20 05/06/24 History
1.4 %-0.6 % eye drops in a condition
dropperette (Refresh Classic (PF))
isosorbide mononitrate 60 mg 60 mg PO DAILY 02/29/20 05/06/24 Rx
tablet,extended release 24 hr
acetaminophen 500 mg tablet 1,000 mg PO BID@0830,1830 Pain 04/11/20 05/06/24 History
(Tylenol Extra Strength)
magnesium oxide 400 mg PO MOWEFR Constipation 04/11/20 05/06/24 History
metolazone 5 mg tablet 5 mg PO DAILYPRN PRN weight gain 04/11/20 05/06/24 History
of 3lbs overnight
nitroglycerin 0.4 mg sublingual 0.4 mg sublingual [id number] PRN 04/11/20 05/06/24 History
tablet chest pain
vit C 250 mg-vit E 90 mg-zinc 40 1 ea PO DAILY Supplement 04/11/20 05/06/24 History
mg-copper 1 [id number]
capsule (PreserVision AREDS-2)
bisacodyl 10 mg rectal suppository 10 mg [place] DAILYPRN PRN if mom 10/25/20 05/06/24 History
(OneLAX Bisacodyl) ineffective
lidocaine 4 % topical patch 1 patch topical DAILY RIGHT KNEE 01/19/21 05/06/24 History
(Aspercreme (lidocaine)) PAIN
cyanocobalamin (vitamin B-12) 500 mcg IM MONTHLY Anemia 05/25/22 05/06/24 History
1,000 mcg/mL injection solution
epoetin najma 40,000 unit/mL 40,000 unit SC WE take with 20,000 05/25/22 05/06/24 History
injection solution
ascorbic acid (vitamin C) 500 mg 500 mg PO DAILY Supplement 07/10/23 05/06/24 History
tablet (Vitamin C)
carbidopa 25 mg-levodopa 100 mg 2 tab PO QID Neurological Condition 07/10/23 05/06/24 History
tablet
cetirizine 5 mg tablet 5 mg PO HS Allergies 07/10/23 05/06/24 History
ferrous sulfate 325 mg (65 mg 325 mg PO DAILY Supplement 07/10/23 05/06/24 History
iron) tablet
methenamine hippurate 1 gram 1 g PO FR Urinary Issue 07/10/23 05/06/24 History
tablet (Hiprex)
sennosides 8.6 mg-docusate sodium 2 tab-cap PO QPM Constipation 07/10/23 05/06/24 History
50 mg capsule (Senna Plus)
sodium chloride 0.65 % nasal spray 1 spray intranasal Q1HPRN PRN 07/10/23 05/06/24 History
aerosol dryness
insulin glargine 100 unit/mL (3 20 unit SC HS Diabetes 07/13/23 05/06/24 History
mL) subcutaneous pen (Basaglar
KwikPen U-100 Insulin)
pregabalin 50 mg capsule 50 mg PO HS #14 caps 07/26/23 05/06/24 Rx
apixaban 5 mg tablet (Eliquis) 2.5 mg PO BID Blood Clot 10/06/23 05/06/24 History
Prevention/Tx
buspirone 5 mg tablet 2.5 mg PO TID Mental Health/Anxiety 10/06/23 05/06/24 History
latanoprost (PF) 0.005 % eye drops 1 drp RIGHT EYE QPM Eye Condition 10/06/23 05/06/24 History
in a dropperette
magnesium hydroxide 2,400 mg/10 mL 30 ml PO HSPRN PRN constipation 10/06/23 05/06/24 History
oral suspension
pantoprazole 40 mg tablet,delayed 20 mg PO DAILY Gastrointestinal 10/06/23 05/06/24 History
release Issue
acetaminophen 325 mg tablet 650 mg PO DAILYPRN PRN mild 05/06/24 05/06/24 History
pain/fever>100.4
amiodarone 100 mg tablet 100 mg PO DAILY Arrhythmia 05/06/24 05/06/24 History
benzocaine 6 mg-menthol 10 mg 1 ludwin mucous membrane Q2HPRN PRN 05/06/24 05/06/24 History
lozenges sore throat
cholecalciferol (vitamin D3) 1,250 1,250 mcg PO MONTHLY taken w/ 250 05/06/24 05/06/24 History
mcg (50,000 unit) tablet mcg
cholecalciferol (vitamin D3) 250 250 mcg PO MONTHLY taken w/ 1,250 05/06/24 05/06/24 History
mcg (10,000 unit) tablet mcg
duloxetine 20 mg capsule,delayed 20 mg PO HS Depression 05/06/24 05/06/24 History
release
epoetin najma-epbx 20,000 unit/mL 20,000 unit SC WE take with 40,000 05/06/24 05/06/24 History
injection solution (Retacrit)
furosemide 40 mg tablet (Lasix) 80 mg PO BID@0830,1630 Fluid 05/06/24 05/06/24 History
Retention/Swelling
insulin aspart U-100 100 unit/mL 9 unit SC TID@0830,1230,1730 05/06/24 05/06/24 History
(3 mL) subcutaneous pen Diabetes
ketoconazole 2 % shampoo 1 applic topical TUFR Skin Issues 05/06/24 05/06/24 History
levothyroxine 112 mcg tablet 112 mcg PO DAILY@0630 Thyroid 05/06/24 05/06/24 History
clopidogrel 75 mg tablet 75 mg PO DAILY Blood Clot 05/07/24 05/06/24 History
Prevention/Tx
Review of Systems
-
History Source: Patient
All other systems: Negative unless noted
Physical Exam
Vital Signs
Temp Pulse Resp BP Pulse Ox
98.6 F 57 19 164/51 98
05/07/24 07:00 05/07/24 07:00 05/07/24 07:00 05/07/24 07:00 05/07/24 07:00
Lab Results
05/07/24 06:25
05/07/24 06:25
Troponin I 0.016 ng/ml 05/06/24 20:24
Bsr-[id number]-[id number] Pept 1640 pg/ml 05/06/24 20:24
Physical Exam
General: No Apparent Distress, Comfortable and Other (baseline tremor)
HEENT: Normocephalic, Anicteric and Moist Mucous Membranes
Respiratory: Clear and Non Labored Respirations
Cardiac: S1/S2, Regular Rhythm, Murmur and Other (bradycardic)
GI: Soft, Non Tender, Non Distended and Normal Bowel Sounds
Musculoskeletal: No Clubbing, No Cyanosis and Other (L calf with melvin wrap, 1+ edema)
Skin: Warm and Dry
Neuro: Awake, Alert and Oriented (to self, place)
Impression / Plan
-
PCP: Carlos Mott
Onc: Dr. Sumner
Cardiology: Dr. Danielle Franz
Impression:
Presentation with L calf/tran pain and swelling
RLE hematoma
Syncope with bradycardia/prolonged QTc/hypotension
PAF
Chronic amiodarone therapy
Chronic eliquis therapy
Hypertension
History of prolonged QTc/Bradycardia
HFimpEF
EF has fluctuated historically
COPD
CAD
12/2000 left circumflex stent
10/2002 mid RCA stent
10/2004 mid LAD x2 stents and OM stents
05/2007 mid OM stents
03/[address] stent
01/2020 NSTEMI, medical management of multivessel CAD, she is not a candidate for any further revascularization either surgical or percutaneous
Ranexa was previously discontinued to allow initiation of amiodarone given that she has demonstrated prolonged QT at times in the past.
Moderate MR
Insulin-dependent diabetes
CKD 3
Hyperlipidemia
PVD
Hypothyroidism
Severe orthopedic issues with decreased activity of daily living
History of neck fracture
Parkinson's disease
Dementia
Polypharmacy
Multiple medication intolerances/allergies
Echocardiogram 07/15/2023 showed EF 35-40%, EF previously had been 55-60%.
Cardiac cath 07/19/2023 demonstrated stable distal left main stenosis involving the origin of the LAD and circumflex and new high-grade calcified mid LAD stenosis with apical LAD now occluded. Initially there was discussion of high risk LAD PCI but
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 After further discussion w/ family decision was made to treat her medically as she was deemed not
a surgical candidate.
Echo October 07 2023: Hyperdynamic LV, EF 65 to 70%, MAC, mild to moderate MS with peak/mean gradients 14/6 mmHg, at least moderate and possibly severe MR likely underestimated due to MAC, mild with peak/mean gradients 29/16 mmHg, ANGELINA 1.1 cm�, mild
to moderate AR, mild TR, PAP 34 mmHg
Plan:
-Unclear etiology of syncope/hypotension. possibly from pain medications given in ER as BP upon arrival was stable. was given IVF with quick recovery.
-polypharmacy also possibly contributing
-BPs improved overnight. continue OP imdur
-OP lasix on hold, consider resuming in AM. follow volume status
-EKG 05/07 with improving QTc. she does have baseline bradycardia and prolonged QTc. will resume po amiodarone 100mg MWF. remains in SB upon review of tele overnight, HRs improved
-will repeat EKG in AM
-replete K. mag stable
-check TSH
-awaiting vascular surgery evaluation to determine if need for intervention of RLE hematoma. currently eliquis and plavix on hold. would consider initiating asa 81mg daily while off antiplatelet/OAC if plan for intervention (she has history of
anaphylaxis to NSAIDS however tells me she tolerated asa in past). if no plans for intervention, would resume eliquis/plavix as ok per vascular
-d/w nursing
- discussed with patient's son via telephone
Data Reviewed
-
EKG: Tracing Personally Visualized and interpreted
CT Scan: Report Reviewed by me
Medical Tests (Nuc Med, Echo etc): Report Reviewed by me
Labs: Labs Reviewed by me
Old Records: Reviewed
--- NOTE | 2024-05-07 09:28 | CON.VAS ---
Consultation
Consultation Request
Date/Time Consultation Performed: 05/07/2024
Requesting Provider: Hospitalist
Performing Provider: Dina Grullon, ANGEL-C for Moe Narayanan MD
Medical History
-
Chief Complaint: Right lower leg hematoma
History of Present Illness:
This is an 83 year old female with significant past medical history of Parkinson, CHF, CKD, DM, CAD, GERD, hypertension, and atrial fibrillation on Eliquis who presented to [facility] on 05/06/2024 with reports of right tran swelling
following injury to her leg using a sit to stand lift device at her detention facility, per chart review. Per patient she cannot recall any trauma to her leg. ED evaluation significant for large hematoma and prolonged QT likely resulting in a
syncopal episode in the ED, prompting admission. Vascular surgery consulted for tran hematoma. Currently, she offers no complaints and is resting in bed comfortably. She does note pain with palpation to hematoma area but none at rest.
Past Medical History
Past Medical History: Arrhythmias (Paroxysmal Atrial Fibrillation), CAD (Multivessel Coronary Artery Disease s/p Multiple Stents), CHF (Chronic HFrEF), GERD, HTN, Hypothyroidism, IDDM (Insulin-Dependent Diabetes Mellitus), Valvular Disease
(Moderate/Severe Mitral Regurgitation) and Other (Hyperlipidemia, Diabetic Neuropathy, CKD Stage III, Anemia of Chronic Disease, Parkinson's Disease, Cognitive Impairment, Chronic Constipation)
Past Surgical History: Cholecystectomy, Gynecological (Hysterectomy) and Other (Knee Replacement, Rotator Cuff Repair, Spinal Fusion/Laminectomy)
Social History
Tobacco: Non-Smoker
Alcohol: None
Living: Residential
Allergies / Home Medications
Allergy/AdvReac Type Severity Reaction Status Date / Time
amlodipine Allergy LEG PAINS Verified 05/06/24 15:57
amlodipine besylate Allergy leg pain Verified 05/06/24 15:57
[From [facility]]
cat dander Allergy COUGH AND Verified 05/06/24 15:57
SNEEZING
ibuprofen Allergy Anaphylaxis Verified 05/06/24 15:57
metformin Allergy severe Verified 05/06/24 15:57
diarrhea
naproxen Allergy Unknown Verified 05/06/24 15:57
naproxen sodium [From Aleve] Allergy Anaphylaxis Verified 05/06/24 15:57
nortriptyline Allergy Unknown Verified 05/06/24 15:57
Penicillins Allergy rash as a Verified 05/06/24 15:57
child;
tolerates
Keflex,rash;severe
itching,rash;s
potassium chloride Allergy leg pain Verified 05/06/24 15:57
tree and shrub pollen Allergy COUGH AND Verified 05/06/24 15:57
SNEEZING
�Medication �Instructions �Recorded �Confirmed �Type
atorvastatin 80 mg tablet 80 mg PO HS High cholesterol 02/19/18 05/06/24 History
polyvinyl alcohol-povidone (PF) 1 drp BOTH EYES BID@0830,1830 Eye 02/17/20 05/06/24 History
1.4 %-0.6 % eye drops in a condition
dropperette (Refresh Classic (PF))
isosorbide mononitrate 60 mg 60 mg PO DAILY 02/29/20 05/06/24 Rx
tablet,extended release 24 hr
acetaminophen 500 mg tablet 1,000 mg PO BID@0830,1830 Pain 04/11/20 05/06/24 History
(Tylenol Extra Strength)
magnesium oxide 400 mg PO MOWEFR Constipation 04/11/20 05/06/24 History
metolazone 5 mg tablet 5 mg PO DAILYPRN PRN weight gain 04/11/20 05/06/24 History
of 3lbs overnight
nitroglycerin 0.4 mg sublingual 0.4 mg sublingual [id number] PRN 04/11/20 05/06/24 History
tablet chest pain
vit C 250 mg-vit E 90 mg-zinc 40 1 ea PO DAILY Supplement 04/11/20 05/06/24 History
mg-copper 1 [id number]
capsule (PreserVision AREDS-2)
bisacodyl 10 mg rectal suppository 10 mg [place] DAILYPRN PRN if mom 10/25/20 05/06/24 History
(OneLAX Bisacodyl) ineffective
lidocaine 4 % topical patch 1 patch topical DAILY RIGHT KNEE 01/19/21 05/06/24 History
(Aspercreme (lidocaine)) PAIN
cyanocobalamin (vitamin B-12) 500 mcg IM MONTHLY Anemia 05/25/22 05/06/24 History
1,000 mcg/mL injection solution
epoetin najma 40,000 unit/mL 40,000 unit SC WE take with 20,000 05/25/22 05/06/24 History
injection solution
ascorbic acid (vitamin C) 500 mg 500 mg PO DAILY Supplement 07/10/23 05/06/24 History
tablet (Vitamin C)
carbidopa 25 mg-levodopa 100 mg 2 tab PO QID Neurological Condition 07/10/23 05/06/24 History
tablet
cetirizine 5 mg tablet 5 mg PO HS Allergies 07/10/23 05/06/24 History
ferrous sulfate 325 mg (65 mg 325 mg PO DAILY Supplement 07/10/23 05/06/24 History
iron) tablet
methenamine hippurate 1 gram 1 g PO FR Urinary Issue 07/10/23 05/06/24 History
tablet (Hiprex)
sennosides 8.6 mg-docusate sodium 2 tab-cap PO QPM Constipation 07/10/23 05/06/24 History
50 mg capsule (Senna Plus)
sodium chloride 0.65 % nasal spray 1 spray intranasal Q1HPRN PRN 07/10/23 05/06/24 History
aerosol dryness
insulin glargine 100 unit/mL (3 20 unit SC HS Diabetes 07/13/23 05/06/24 History
mL) subcutaneous pen (Basaglar
KwikPen U-100 Insulin)
pregabalin 50 mg capsule 50 mg PO HS #14 caps 07/26/23 05/06/24 Rx
apixaban 5 mg tablet (Eliquis) 2.5 mg PO BID Blood Clot 10/06/23 05/06/24 History
Prevention/Tx
buspirone 5 mg tablet 2.5 mg PO TID Mental Health/Anxiety 10/06/23 05/06/24 History
latanoprost (PF) 0.005 % eye drops 1 drp RIGHT EYE QPM Eye Condition 10/06/23 05/06/24 History
in a dropperette
magnesium hydroxide 2,400 mg/10 mL 30 ml PO HSPRN PRN constipation 10/06/23 05/06/24 History
oral suspension
pantoprazole 40 mg tablet,delayed 20 mg PO DAILY Gastrointestinal 10/06/23 05/06/24 History
release Issue
acetaminophen 325 mg tablet 650 mg PO DAILYPRN PRN mild 05/06/24 05/06/24 History
pain/fever>100.4
amiodarone 100 mg tablet 100 mg PO DAILY Arrhythmia 05/06/24 05/06/24 History
benzocaine 6 mg-menthol 10 mg 1 ludwin mucous membrane Q2HPRN PRN 05/06/24 05/06/24 History
lozenges sore throat
cholecalciferol (vitamin D3) 1,250 1,250 mcg PO MONTHLY taken w/ 250 05/06/24 05/06/24 History
mcg (50,000 unit) tablet mcg
cholecalciferol (vitamin D3) 250 250 mcg PO MONTHLY taken w/ 1,250 05/06/24 05/06/24 History
mcg (10,000 unit) tablet mcg
duloxetine 20 mg capsule,delayed 20 mg PO HS Depression 05/06/24 05/06/24 History
release
epoetin najma-epbx 20,000 unit/mL 20,000 unit SC WE take with 40,000 05/06/24 05/06/24 History
injection solution (Retacrit)
furosemide 40 mg tablet (Lasix) 80 mg PO BID@0830,1630 Fluid 05/06/24 05/06/24 History
Retention/Swelling
insulin aspart U-100 100 unit/mL 9 unit SC TID@0830,1230,1730 05/06/24 05/06/24 History
(3 mL) subcutaneous pen Diabetes
ketoconazole 2 % shampoo 1 applic topical TUFR Skin Issues 05/06/24 05/06/24 History
levothyroxine 112 mcg tablet 112 mcg PO DAILY@0630 Thyroid 05/06/24 05/06/24 History
clopidogrel 75 mg tablet 75 mg PO DAILY Blood Clot 05/07/24 05/06/24 History
Prevention/Tx
Review of Systems
-
History Source: Patient
Constitutional: Reports No Symptoms
EENT: Reports No Symptoms
Respiratory: Reports No Symptoms
Cardiac: Reports No Symptoms
Vascular: Denies Leg Pain / Claudication
Abdomen/GI: Reports No Symptoms
: Reports No Symptoms
Musculoskeletal: Reports No Symptoms
Skin: Reports Other (right lower extremity hematoma at tran )
Neurological: Reports No Symptoms
Endocrine: Reports No Symptoms
Physical Exam
Vital Signs
Temp Pulse Resp BP Pulse Ox
98.6 F 57 19 164/51 98
05/07/24 07:00 05/07/24 07:00 05/07/24 07:00 05/07/24 07:00 05/07/24 07:00
Lab Results
05/07/24 06:25
05/07/24 06:25
Troponin I 0.016 ng/ml 05/06/24 20:24
Vso-W-Bthfvkaznxv Pept 1640 pg/ml 05/06/24 20:24
Physical Exam
General: No Apparent Distress and Comfortable
HEENT: Normocephalic, Anicteric and Atraumatic
Cardiac: Negative JVD
GI: Soft, Non Tender and Non Distended
Musculoskeletal: Edema (RLE tran with edema surrounding hematoma )
Skin: Warm ( Feet are both warm and pink) and Other (ight calf with subcutaneous blistering type very large hematoma or fluid collection. Skin overlying appears to be necrotic/ischemic from stretch.)
Neuro: Awake
Assessment / Plan
-
Assessment: 83 year old female with large tense hematoma right subcutaneous space right lateral calf. Does not involve any intramuscular compartment.
Plan:
Recommendation for relatively urgent or expedient washout/drainage of hematoma. Dr. Moe Narayanan discussed concern about skin viability; and that this may result in long-term wound care problems. She may need down the line evaluation by plastic
surgery for skin grafting if it turns out to be a large space/gap of skin. Of note there is no evidence of any extravasation to suggest active bleeding on the CT scan.
[2024-05-07] MEDS: KCL 20 MEQ PO (10:02)
--- NOTE | 2024-05-07 10:57 | W.PN.UPDATE ---
Update Note
Progress Note Update
83-year-old female seen with ANGEL Diaz and ANGEL Grullon. Full consultation to follow. Extensive medical history as noted and reviewed in the charting. She does not ambulate (parkinsonism and other medical issues), and is mainly in wheelchair. She has
a sit to stand device. And likely felt secondary to this there was an injury to the right calf that resulted in large hematoma. We were asked to evaluate.
On exam/she is in no acute distress. Breathing is unlabored. Feet are both warm and pink. Right calf with subcutaneous blistering type very large hematoma or fluid collection. Skin overlying appears to be necrotic/ischemic from stretch.
CT scan reviewed. Large subcutaneous hematoma. Does not involve any intramuscular compartment.
Plan/tense hematoma right subcutaneous space right lateral calf. Skin changes noted. I extensively discussed with the patient these findings. Discussed my recommendation for relatively urgent or expedient washout/drainage of this. Discussed my
concern about skin viability. Discussed that I do not think this is going to present as a limb threatening problem, but may result in long-term wound care problems. I discussed this frankly with her. She may need down the line evaluation by
plastic surgery for skin grafting if it turns out to be a large space/gap of skin that does not purulent. Of note there is no evidence of any extravasation to suggest active bleeding on the CT scan. Per her request I also called her son and spoke
to him extensively on the phone about the entirety of this process and my recommendations for urgent washout. He is in agreement with proceeding. He did notify me that she had the same issue in the left lower extremity a couple years ago. Was
locally drained in the emergency room. However she underwent a year-long course of wound care issues almost requiring skin graft in that lower extremity as well. They understand all. Will plan operative incision and drainage today. Note I
discussed the case with her guide travel as well. She is in agreement with proceeding. Will hold Eliquis for 24 hours given that she is not in atrial fibrillation currently.
[2024-05-07 11:35] LABS: TSH Reflex To Free T4 4.56 uIU/ml (0.47-4.68)
[2024-05-07 12:05] LABS: Glucose - Point of Care 152 mg/dl (70-99)
[2024-05-07] MEDS: NOVOLOG FLEXPEN-HIGH RESISTANCE 2 UNITS SC ×2 (12:06→17:03)
--- NOTE | 2024-05-07 13:21 | W.SUR.PREOP ---
Pre-Operative Surgical Note
-
I have examined this patient prior to the performance of the scheduled procedure.
The patient's condition is unchanged from the time of the current History and
Physical and the patient is able to undergo the scheduled procedure.
--- NOTE | 2024-05-07 14:12 | W.PN.HOSP.TC ---
Today's Communication/Plan
-
holding noac,plavix
Drainout of hematoma today
ekg in am
resume amio
Electrolyte repletion as needed
Assessment / Plan
Assessment / Plan
Physical Exam
General: No Apparent Distress, Comfortable and Other (baseline tremor)
HEENT: Normocephalic, Anicteric and Moist Mucous Membranes
Respiratory: Clear and Non Labored Respirations
Cardiac: S1/S2, Regular Rhythm, Murmur and Other (bradycardic)
GI: Soft, Non Tender, Non Distended and Normal Bowel Sounds
Musculoskeletal: No Clubbing, No Cyanosis and Other (L calf with melvin wrap, 1+ edema)
Skin: Warm and Dry
Neuro: Awake, Alert and Oriented (to self, place)
Large Right Lower Extremity Hematoma
-Consult Vascular Surgery
-If patient develops signs of worsening/ongoing bleeding would obtain CTA
-Hold Eliquis and Plavix
-Monitor Hgb
-Monitor vascular checks
-NPO
- washout/drainage of hematoma today
- no active arterial extravasation
-She may need down the line evaluation by plastic surgery for skin grafting if it turns out to be a large space/gap of skin.
Syncope
-Monitor on Telemetry
-Monitor vital signs
-cards consulted
-no chest pain
Prolonged QT - Appears to have lengthened significantly since prior ECG
-EKG improved
- can resume amiodarone
-EKG in am
-spoke to neuro - carbidopa/levo does not truly increase qtc
-engaging pharmacy for other meds that could prolong qtc
ASCVD ( CVA, CAD s/p Stents and PAD)
-Plavix on hold due to bleeding
Chronic HFrEF
-Hold Lasix
-Monitor Is&Os and Daily Weights
Paroxysmal Atrial Fibrillation
-Eliquis on hold due to bleeding
-resume amio
Hyperlipidemia
-Continue atorvastatin
Insulin-Dependent Diabetes Mellitus
-Half usual dose of glargine while NPO
-Monitor sugars and continue coverage insulin
CKD Stage III
-Creatinine at baseline
Parkinson's Disease
-Continue Sinemet
Hypothyroidism
-Continue levothyroxine
DVT proph: SCD to left lower ext
Code Status: DNR
Total time spent on today's encounter was 50 minutes which included time spent in counseling the patient/family regarding diagnosis and treatment plan as listed above, goals of care, and symptom management. Case was discussed with nursing staff,
specialists, and care coordinators/case management. All labs and imaging personally reviewed by me. Remainder the time spent in detailed review of previous records, lab data, imaging, and other medical provider documentation.
Anticipated Discharge: 24 - 48 hours
Subjective/Interval History
-
Date of Service: May 07, 2024
hematoma evacuation today
Objective Data
-
Labs:
Laboratory Results
05/07/24 05/07/24
02:00 06:25
WBC 6.8
Hgb 12.1 11.3 L
Hct 37.1 34.3 L
Plt Count 145 D
Sodium 142
Potassium 3.8
Chloride 103
Carbon Dioxide 28
BUN 39 H
Creatinine 1.2 H
Glucose 109 H
Calcium 8.2 L
Vital Signs:
Vital Signs
Temp Pulse Resp BP Pulse Ox
98.7 F 57 19 99/50 98
05/07/24 11:21 05/07/24 11:21 05/07/24 11:21 05/07/24 11:21 05/07/24 11:21
I&O
05/06/24 05/07/24 05/08/24
06:59 06:59 06:59
Intake Total 240 / 240
Balance 240 / 240
Review of Systems
-
History Source: Patient
All other systems: Not reviewed unless documented
Data Reviewed
-
Total Time Spent with Patient (in minutes): 42
Diagnostic Radiology: Image personally visualized and interpreted and Report Reviewed by me
CT Scan: Image personally visualized and interpreted and Report Reviewed by me
Labs: Labs Reviewed by me
--- NOTE | 2024-05-07 14:48 | W.SUR.POST ---
Surgical Immediate Post Op
Note
Pre Op Diagnosis: Right calf hematoma
Post Op Diagnosis: same
Procedure Performed: Right calf hematoma washout and VAC placement
Primary Surgeon: Oracio
Assist: Mitchel LASSITER
Anesthesia: LMA
Estimated Blood Loss:
Fluids: See anesthesia flow sheet
Drains/Shunts: None
Specimens/Cultures: hematoma
Doppler/Duplex/Angio (Y/N): N
Complications: None
Operative Findings: 16x9x0.5cm site, black foam and adaptic, subq
--- NOTE | 2024-05-07 14:49 | OR.RPT ---
Operative Report
Operative Report
PROCEDURE DATE: 05/07/2024
Preoperative diagnosis: Tense hematoma right calf with skin changes.
Postoperative diagnosis: Same
Procedure: Evacuation of right calf hematoma with pulse lavage irrigation and debridement of skin (nonviable) measuring approximately 8 cm width by 14 cm length. Placement of wound VAC.
Surgeon: Oracio
Cannon Pinion Adjuster: ANGEL Grullon, required for all aspects of procedure including assistance with traction/countertraction, placement of wound VAC.
Complications: None
Anesthesia: General
Indications for procedure:
10 subcutaneous hematoma. Did not involve muscle compartments. Risk/benefit/alternatives of evacuation were discussed. I did discuss potential nonviability of the skin based on its appearance and extreme tension of the skin and discoloration.
Patient and her son understood all wish to proceed.
Description of procedure:
Patient was identified brought to the operating room placed on the table in supine position. After the adequate administration of anesthesia she was prepped and draped in the standard surgical fashion. A standard preoperative timeout was
undertaken and everybody was in agreement the plan. A longitudinal incision was made along the length of the middle portion of the tense hematoma. Just under the epidermal layer of the skin, there was a hematoma poking out. As soon as we made
that incision we evacuated a large hematoma (gelatinous like). This was all expressed. On either side of the incision the skin flaps were now essentially floating and had no dermal or other attachments. Therefore I felt that these were not viable
at all. They were extremely thickened. Therefore we excised out these flaps the skin with a total excision measurement of about 8 cm width by 14 cm length. We then pulse lavaged the entirety of the remaining subcutaneous bed. Tissues all looked
clean and healthy. 1 L of saline solution was used to pulse lavage. Next, we placed a wound VAC. Patient tolerated procedure well.
--- NOTE | 2024-05-07 14:54 | CM ---
Addendum entered by Komal Casiano 05/07/24 16:08:
hotel assistant general manager received information from wound care nurse that patient was placed on vac machine, case aide reached put to admissions at [facility] and set a referral and faxed all clinical information including note from wound care.
Original Note:
hotel assistant general manager reviewed patient's chart and met with patient and patient was admitted from [facility] where patient is a halfway resident. Patient requests assist of 1 with sit to stand and transfer to w/c, patient requires assist of 2 with all
ADL's.
PCP: Dr. Walden
Pharmacy: [facility] at [facility]
Plan: Patient to return to [facility] when stable
[facility]
Report [phone]
[2024-05-07 15:17] LABS: Glucose - Point of Care 152 mg/dl (70-99)
--- NOTE | 2024-05-07 15:17 | WOUNDNOTE ---
WO RN note: Reymundo texted TYRON Silva re: Patient will need a RLE wound vac at [facility], medium black foam, pump setting 125mmhg continuous, change q 48-72hrs. Clarified with Dina Grullon, Vascular REGISTRATION REPRESENTATIVE the next vac dressing change is due on Saturday. Reymundo
texted Gwendolyn Handy, RN asking her to evaluate patient for an air overlay mattress or air bed d/t history of stage 2 buttocks pressure injury, nursing documented patient does not turn self in bed. Gwendolyn responded she will and that patient is
currently in PACU.
--- NOTE | 2024-05-07 16:20 | PTCARENOTE ---
Received pt from PACU, awake and alert. RLE with melvin wrap and wound vac attached. No drainage noted. Dorsalis pedal pulse weak to palpation. RLE pale in color but pt with (+) CMS. No c/o pain. Son at bedside ordering dinner.
[2024-05-07 16:42] LABS: Glucose - Point of Care 155 mg/dl (70-99)
[2024-05-07] MEDS: SENOKOT-S 2 TABLET PO (17:03)
[2024-05-07 21:17] LABS: Glucose - Point of Care 148 mg/dl (70-99)
--- NOTE | 2024-05-08 01:30 | PTCARENOTE ---
Pt reports 10/10 pain in her right calf/hematoma site. No PRN pain medications ordered. ANGEL Hairston notified and x1 order of Ultram 50mg ordered and provided to pt.
[2024-05-08] MEDS: ULTRAM 50 MG PO (01:37)
[2024-05-08 03:10] VITALS: BP 111/88
[2024-05-08] MEDS: TYLENOL 1000 MG PO ×3 (04:50→18:30)
[2024-05-08] MEDS: ROXICODONE 5 MG PO (04:51)
--- NOTE | 2024-05-08 05:00 | PTCARENOTE ---
Pt reports 9/10 pain despite Ultram 50mg administration for right calf pain. ELECTRICAL DEVELOPMENT ENGINEER Yovanny notified and 1x Tylenol 1000mg and 1x Roxicodone 5mg provided to pt.
[2024-05-08 06:00] VITALS: BMI 33.4
[2024-05-08] MEDS: SYNTHROID 112 MCG PO (06:09)
[2024-05-08 07:00] VITALS: BP 117/46
[2024-05-08] MEDS: PROTONIX 20 MG PO (07:59)
[2024-05-08] MEDS: PACERONE 100 MG PO (07:59)
[2024-05-08] MEDS: IMDUR (EXTENDED RELEASE) 60 MG PO (07:59)
[2024-05-08] MEDS: BUSPAR 2.5 MG PO ×3 (07:59→22:46)
[2024-05-08] MEDS: SINEMET 25-100 2 TABLET PO ×4 (08:00→22:45)
[2024-05-08 08:03] LABS: Glucose - Point of Care 134 mg/dl (70-99)
[2024-05-08] MEDS: NOVOLOG FLEXPEN-HIGH RESISTANCE 1 UNITS SC ×2 (08:05→18:30)
[2024-05-08] MEDS: PLAVIX 75 MG PO (08:11)
[2024-05-08 08:15] LABS: Hematocrit 29.9 % (37.0-47.0); Hemoglobin 9.3 g/dL (12.0-16.0); Mean Corp Hgb Conc. 31.1 g/dL (33.0-37.0); Mean Corpuscular Hgb 33.3 pg (27.0-31.0); Mean Corpuscular Volume 107.2 fL (81.0-99.0); Mean Platelet Volume 10.2 fL (7.4-10.4); Platelet Count 119 10^3/uL (130-400); Red Blood Cell Count 2.79 10^6/uL (4.20-5.40); Red Cell Dist. Width 15.9 % (11.5-14.5); White Blood Cell Count 5.1 10^3/uL (4.8-10.8)
[2024-05-08 08:22] LABS: APTT 27.5 Sec (23.4-35.0); INR 1.13; PT 14.8 Sec (11.4-14.6)
[2024-05-08 09:30] LABS: Blood Urea Nitrogen 44 mg/dl (7-17); Calcium 8.2 mg/dl (8.4-10.2); Carbon Dioxide 25 mmol/L (22-30); Chloride 104 mmol/L (98-107); Estimated Creatinine Clearance 25 ml/min; Glucose 118 mg/dl (70-99); Potassium 4.2 mmol/L (3.5-5.1); Sodium 140 mmol/L (135-145); eGFR 27.61
[2024-05-08] MEDS: LR 1000 IV ×2 (10:01→11:36)
--- NOTE | 2024-05-08 10:18 | W.PN.CARDCBS ---
Addendum entered and electronically signed by Manuel Pulliam MD 05/08/24 11:58:
I saw and examined the patient.
The Condenser Tester's note was reviewed and I agree with the note.
Comment: Briefly, 83-year-old woman past medical history of CHF, CAD and paroxysmal atrial fibrillation who presents with hematoma now status post evacuation on 05/07/2024
Cardiology was consulted for prolonged QTc
Amiodarone dose has been reduced
QTc today was 506 ms
Patient tells me she is asymptomatic today, no further episodes of presyncope/syncope
Continue to monitor on telemetry while here
Keep K>4, Mg>2
Repeat ECG to reevaluate QTc
Resume Eliquis when safe from a surgical standpoint
Rest per Antoinette Donnelly
Original Note:
Today's Communication / Plan
-
follow QTc. continue amiodarone 100mg MWF
BPs stable
IVF for VERONIKA
resume plavix today. resume eliquis when ok per vascular
Impression / Plan
-
PCP: Carlos Mott
Onc: Dr. Sumner
Cardiology: Dr. Danielle Franz
Impression:
Presentation with L calf/tran pain and swelling
RLE hematoma s/p evacuation and wound vac placement 05/07/24
Syncope with bradycardia/prolonged QTc/hypotension
VERONIKA
PAF
Chronic amiodarone therapy
Chronic eliquis therapy
Hypertension
History of prolonged QTc/Bradycardia
HFimpEF
EF has fluctuated historically
COPD
CAD
12/2000 left circumflex stent
10/2002 mid RCA stent
10/2004 mid LAD x2 stents and OM stents
05/2007 mid OM stents
03/[address] stent
01/2020 NSTEMI, medical management of multivessel CAD, she is not a candidate for any further revascularization either surgical or percutaneous
Ranexa was previously discontinued to allow initiation of amiodarone given that she has demonstrated prolonged QT at times in the past.
Moderate MR
Insulin-dependent diabetes
CKD 3
Hyperlipidemia
PVD
Hypothyroidism
Severe orthopedic issues with decreased activity of daily living
History of neck fracture
Parkinson's disease
Dementia
Polypharmacy
Multiple medication intolerances/allergies
Echocardiogram 07/15/2023 showed EF 35-40%, EF previously had been 55-60%.
Cardiac cath 07/19/2023 demonstrated stable distal left main stenosis involving the origin of the LAD and circumflex and new high-grade calcified mid LAD stenosis with apical LAD now occluded. Initially there was discussion of high risk LAD PCI but
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 After further discussion w/ family decision was made to treat her medically as she was deemed not
a surgical candidate.
Echo October 07 2023: Hyperdynamic LV, EF 65 to 70%, MAC, mild to moderate MS with peak/mean gradients 14/6 mmHg, at least moderate and possibly severe MR likely underestimated due to MAC, mild with peak/mean gradients 29/16 mmHg, ANGELINA 1.1 cm�, mild
to moderate AR, mild TR, PAP 34 mmHg
Plan:
-RLE hematoma s/p evacuation and wound vac placement 05/07/24. hgb 9.3. ok to resume plavix today per vascular. eliquis remains on hold at present, resume when able
-Unclear etiology of syncope/hypotension. possibly from pain medications given in ER as BP upon arrival was stable. polypharmacy also possibly contributing
-BPs stable. continue OP imdur with hold parameters
-Cr bumped to 1.8 today, ? hypotension related. receiving IVF. follow volume status, OP lasix remains on hold
-EKG 05/08 appears close to baseline. in SB with HRs mostly in 50s on review of tele overnight. she has chronic bradycardia and prolonged QTc. continue amiodarone at reduced dose of 100mg MWF. avoid QT prolonging medications. is on duloxetine as OP
-K/mag stable
-TSH WNL
-d/w nursing
Progress Note - Timber Treatment Plant Operator
Subjective
Date of Service: May 08, 2024
resting comfortably, reports RLE pain
Objective
Labs:
05/08/24 07:39
05/08/24 07:39
Labs
Hgb 9.3 g/dL (12.0-16.0) L 05/08/24 07:39
Hct 29.9 % (37.0-47.0) L 05/08/24 07:39
Plt Count 119 10^3/uL (130-400) L 05/08/24 07:39
PT 14.8 Sec (11.4-14.6) H 05/08/24 07:39
INR 1.13 05/08/24 07:39
APTT 27.5 Sec (23.4-35.0) 05/08/24 07:39
Sodium 140 mmol/L (135-145) 05/08/24 07:39
Potassium 4.2 mmol/L (3.5-5.1) 05/08/24 07:39
BUN 44 mg/dl (7-17) H 05/08/24 07:39
Creatinine 1.8 mg/dL (0.6-1.0) H 05/08/24 07:39
Glucose 118 mg/dl (70-99) H 05/08/24 07:39
Troponins
05/06/24
20:24
Troponin I 0.016
Vital Signs and I&O:
Vital Signs
Temp Pulse Resp BP Pulse Ox
97.7 F 54 18 117/46 94
05/08/24 07:00 05/08/24 07:00 05/08/24 07:00 05/08/24 07:00 05/08/24 07:50
Vital Signs
Temp Pulse Resp BP Pulse Ox
97.7 F 54 18 117/46 94
05/08/24 07:00 05/08/24 07:00 05/08/24 07:00 05/08/24 07:00 05/08/24 07:50
Intake & Output
05/06/24 05/07/24 05/08/24 05/09/24
07:59 07:59 07:59 07:59
Intake Total 240 / 240 1010 / 1010
Balance 240 / 240 1010 / 1010
Physical Exam
Physical Exam
GEN: No distress, awake, oriented to self, place
HEENT: supple, anicteric, mmm, eomi
LUNGS: CTA B/L anterolaterally, no wheezes
CV: Reg and jeanette, S1/S2, 2/6 murmur
ABD: soft, BS+, NT/ND
EXT: No cyanosis, clubbing. trace edema of B/L LE
NEURO: Gross non-focal
SKIN: Warm, pink, dry. No rash. RLE with melvin wrap and wound vac in place. R toes warm
--- NOTE | 2024-05-08 10:40 | W.PN.VS ---
Today's Communication / Plan
-
See below.
Assessment/Plan
-
Assessment: 83-year-old female POD #1 Evacuation of right calf hematoma with pulse lavage irrigation and debridement of skin (nonviable) measuring approximately 8 cm width by 14 cm length. Placement of wound VAC.
Plan:
Okay from a vascular surgical perspective to restart home anticoagulation
Continue wound VAC care throughout the weekend
Would recommend patient remain in house for initial wound VAC change on Saturday
Wound VAC change will be done by vascular surgery team on Saturday
Subjective Data
-
Date of Service: May 08, 2024
Patient seen and examined at bedside, offers no complaints. Endorses that she is experiencing right tran pain but it is mild and well-managed with current postoperative pain management.
Objective Data
-
Vital Signs
Temp Pulse Resp BP Pulse Ox
97.7 F 54 18 117/46 94
05/08/24 07:00 05/08/24 07:00 05/08/24 07:00 05/08/24 07:00 05/08/24 07:50
Intake and Output
05/07/24 05/08/24 05/09/24
06:59 06:59 06:59
Intake Total 240 / 240 1010 / 1010
Balance 240 / 240 1010 / 1010
Intake:
Oral fluids 240 / 240 960 / 960
IV fluids (Total) 50 / 50
Other:
How many times incontinent 2 1
SATURATED amount urine
Lab Results
05/08/24 07:39
05/08/24 07:39
Calcium 8.2 mg/dl (8.4-10.2) L 05/08/24 07:39
Magnesium 2.0 mg/dl (1.6-2.3) 05/07/24 06:25
Total Bilirubin 0.9 mg/dl (0.2-1.3) 05/06/24 19:19
AST 49 U/L (14-36) H 05/06/24 19:19
ALT 27 U/L (0-35) 05/06/24 19:19
Alkaline Phosphatase 54 U/L (38-126) 05/06/24 19:19
Total Protein 8.0 g/dl (6.3-8.2) 05/06/24 19:19
Albumin 4.2 g/dl (3.5-5.0) 05/06/24 19:19
Physical Exam
-
No apparent distress, resting bed comfortably
No dyspnea on room air
ABD flat, nondistended
Right lower extremity tran wound VAC site CDI, wound VAC holding suction, foot warm
--- NOTE | 2024-05-08 10:47 | WOUNDNOTE ---
WOC RN note: Dina Grullon, Vascular MANAGER OF BUSINESS OPERATIONS martin texted confirming the vascular team plans to change patient's vac on Saturday.
[2024-05-08 11:00] VITALS: BP 103/44
--- NOTE | 2024-05-08 11:50 | CM ---
compensation programs manager reviewed patient's chart and spoke with wound care and plan is for patient to return to [facility] when stable, patient will need a wound vac machine, insurance case manager reached out to admissions at [facility] and provide her with
orders for wound vac along with all clinicals on patient. Per Lucrecia in admissions at [facility] she will have a wound vac for patient on Saturday.
Plan; Patient to return to [facility] when stable, wound vac has been ordered.
[facility]
Report [phone]
[2024-05-08 13:01] LABS: Glucose - Point of Care 237 mg/dl (70-99)
[2024-05-08] MEDS: NOVOLOG FLEXPEN-HIGH RESISTANCE 4 UNITS SC (13:01)
--- NOTE | 2024-05-08 14:16 | W.PN.HOSP.TC ---
Today's Communication/Plan
-
resume eliquis
wound vac in place, change on saturday
pain control
IVF, monitor renal function
Assessment / Plan
Assessment / Plan
Physical Exam
General: No Apparent Distress, Comfortable and Other (baseline tremor)
HEENT: Normocephalic, Anicteric and Moist Mucous Membranes
Respiratory: Clear and Non Labored Respirations
Cardiac: S1/S2, Regular Rhythm, Murmur and Other (bradycardic)
GI: Soft, Non Tender, Non Distended and Normal Bowel Sounds
Musculoskeletal: No Clubbing, No Cyanosis and Other (L calf with melvin wrap, 1+ edema)
Skin: Warm and Dry
Neuro: Awake, Alert and Oriented (to self, place)
Large Right Lower Extremity Hematoma
-Consult Vascular Surgery
-If patient develops signs of worsening/ongoing bleeding would obtain CTA
-Resume Eliquis
-plavix
-Monitor Hgb
-Monitor vascular checks
- washout/drainage of hematoma today
- no active arterial extravasation
-She may need down the line evaluation by plastic surgery for skin grafting if it turns out to be a large space/gap of skin.
-wound vac change saturday
Syncope
-Monitor on Telemetry
-Monitor vital signs
-cards consulted
-no chest pain
Prolonged QT - Appears to have lengthened significantly since prior ECG
-EKG improved
- can resume amiodarone - lower dose
-EKG in am
-spoke to neuro - carbidopa/levo does not truly increase qtc
-engaging pharmacy for other meds that could prolong qtc
ASCVD ( CVA, CAD s/p Stents and PAD)
-Plavix on hold due to bleeding
Chronic HFrEF
-Hold Lasix
-Monitor Is&Os and Daily Weights
Paroxysmal Atrial Fibrillation
-Eliquis on hold due to bleeding
-resume amio
Hyperlipidemia
-Continue atorvastatin
Insulin-Dependent Diabetes Mellitus
-Half usual dose of glargine while NPO
-Monitor sugars and continue coverage insulin
VERONIKA on CKD Stage III
-Creatinine at baseline
-LR bolus now
Parkinson's Disease
-Continue Sinemet
Hypothyroidism
-Continue levothyroxine
DVT proph: Eliquis
Code Status: DNR
Anticipated Discharge: > 48 hours
Subjective/Interval History
-
Date of Service: May 08, 2024
Successful evacuation of right calf hematoma yesterday
Objective Data
-
Labs:
Laboratory Results
05/08/24
07:39
WBC 5.1
Hgb 9.3 L
Hct 29.9 L
Plt Count 119 L
PT 14.8 H
INR 1.13
APTT 27.5
Sodium 140
Potassium 4.2
Chloride 104
Carbon Dioxide 25
BUN 44 H
Creatinine 1.8 H
Glucose 118 H
Calcium 8.2 L
Vital Signs:
Vital Signs
Temp Pulse Resp BP Pulse Ox
97.7 F 58 18 103/44 96
05/08/24 11:00 05/08/24 11:00 05/08/24 11:00 05/08/24 11:00 05/08/24 11:00
I&O
05/07/24 05/08/24 05/09/24
06:59 06:59 06:59
Intake Total 240 / 240 1010 / 1010
Balance 240 / 240 1010 / 1010
Review of Systems
-
History Source: Patient
All other systems: Not reviewed unless documented
Physical Exam
-
General: No Apparent Distress
HEENT: Normocephalic and Atraumatic
Respiratory: Negative Wheezes
Cardiac: Regular Rhythm and S1/S2
GI: Soft
Genito-urinary: No Costovertebral Tender
Skin: Other (Right lower extremity tran wound VAC site CDI, wound VAC holding suction, foot warm)
Neuro: AO x 3
Psych: Calm
Data Reviewed
-
CT Scan: Image personally visualized and interpreted and Report Reviewed by me
Labs: Labs Reviewed by me
--- NOTE | 2024-05-08 14:40 | PN.CDI ---
CDI
- -
CDI:
Physician Documentation Request
Admit Date: 05/06/24 22:00
Dear Doctor Dat ,
Please review the following and provide your response in the progress notes.
Clinical Indicators:
Pt admitted with large right calf hematoma s/p evacuation now with wound vac
Documented per ED, ' presents with increasing swelling to the right tran starting today. She is unsure how it got there but she may have bumped it. No fall. ...Son at bedside believes that this is related to the 'sit to stand machine'. She has a
history of Parkinson's and is somewhat wheelchair-bound. ...'
Please provide the suspected Etiology of the documented Hematoma:
Traumatic
Non-traumatic
Other
Use of terms such as suspected, likely, concern for, or probable (associated with a specific diagnosis that is being evaluated, monitored, or treated as if it exists) are acceptable and can be coded in the inpatient setting, when documented at the
time of discharge.
Thank you,
Kayy Beaver RN
CDI Specialist
[place] [facility]
Please use your independent medical judgment in providing your response.
--- NOTE | 2024-05-08 14:44 | PN.CDI ---
CDI
- -
CDI:
Physician Documentation Request
Admit Date: 05/06/24 22:00
Dear Doctor Dat,
Please review the following and provide your response in the progress notes.
Clinical Indicators:
Pt admitted with large right calf hematoma s/p evacuation now with wound vac
Documented per Nursing Wound care note 05/06 Present on admission right buttock pressure related stage 2 pressure injury ..silicone border placed ..'
Physician documentation of the type and location of wounds is required for compliant documentation. Based on the above clinical findings and your assessment, please provide the following in your progress note:
1. Location of the ulcer/wound, including laterality.
2. Type (etiology) of ulcer/wound:
- Pressure (decubitus) ulcer
- Non-pressure ulcer
- Other ( please specify)
Use of terms such as suspected, likely, concern for, or probable (associated with a specific diagnosis that is being evaluated, monitored, or treated as if it exists) are acceptable and can be coded in the inpatient setting, when documented at the
time of discharge.
Thank you,
Kayy Beaver RN
CDI Specialist
[place] [facility]
Please use your independent medical judgment in providing your response.
*Source: National Pressure Ulcer Advisory Panel (NPUAP)
--- NOTE | 2024-05-08 14:48 | PN.CDI ---
CDI
- -
CDI:
Physician Documentation Request
Admit Date: 05/06/24 22:00
Dear Doctor Dat,
Please review the following and provide your response in the progress notes.
Clinical Indicators:
Pt admitted with large right calf hematoma s/p evacuation now with wound vac
Operative report , ' ..approximately 8 cm width by 14 cm length. ... As soon as we made that incision we evacuated a large hematoma (gelatinous like)....'
Trended Hemiglobin/Hematocrit below
05/06/24 05/06/24 05/07/24
19:19 21:20 02:00
Hgb 12.0 12.1
Hct 37.0 32.9 L 37.1
05/07/24 05/08/24
06:25 07:39
Hgb 11.3 L 9.3 L
Hct 34.3 L 29.9 L
Please provide a diagnosis for the above lab abnormality :
Acute blood loss anemia
Abnormal lab value
Other
Use of terms such as suspected, likely, concern for, or probable (associated with a specific diagnosis that is being evaluated, monitored, or treated as if it exists) are acceptable and can be coded in the inpatient setting, when documented at the
time of discharge.
Thank you,
Kayy Beaver RN
CDI Specialist
[place] [facility]
Please use your independent medical judgment in providing your response.
[2024-05-08 15:00] VITALS: BP 124/48
[2024-05-08 16:55] LABS: Glucose - Point of Care 128 mg/dl (70-99)
[2024-05-08] MEDS: SENOKOT-S 2 TABLET PO (18:30)
[2024-05-08] MEDS: ELIQUIS 2.5 MG PO (20:44)
[2024-05-08 21:17] LABS: Glucose - Point of Care 158 mg/dl (70-99)
[2024-05-08 22:29] VITALS: BP 143/52
[2024-05-08] MEDS: CYMBALTA DELAYED RELEASE 20 MG PO (22:45)
[2024-05-08] MEDS: LIPITOR 80 MG PO (22:46)
[2024-05-08] MEDS: LYRICA 50 MG PO (22:48)
[2024-05-08] MEDS: LANTUS 0.1 UNITS SC (22:49)
[2024-05-09 03:15] VITALS: BP 136/64
[2024-05-09 06:00] VITALS: BMI 33.9
[2024-05-09] MEDS: SYNTHROID 112 MCG PO (06:01)
[2024-05-09 07:11] LABS: Hematocrit 28.1 % (37.0-47.0); Hemoglobin 9.1 g/dL (12.0-16.0); Mean Corp Hgb Conc. 32.4 g/dL (33.0-37.0); Mean Corpuscular Volume 104.9 fL (81.0-99.0); Mean Platelet Volume 10.4 fL (7.4-10.4); Platelet Count 121 10^3/uL (130-400); Red Blood Cell Count 2.68 10^6/uL (4.20-5.40); Red Cell Dist. Width 15.9 % (11.5-14.5); White Blood Cell Count 5.4 10^3/uL (4.8-10.8)
[2024-05-09 07:15] VITALS: BP 126/58
[2024-05-09 07:38] LABS: ALT (SGPT) 13 U/L (0-35); AST (SGOT) 28 U/L (14-36); Albumin 3.2 g/dl (3.5-5.0); Alkaline Phosphatase 73 U/L (38-126); Blood Urea Nitrogen 44 mg/dl (7-17); Calcium 8.2 mg/dl (8.4-10.2); Carbon Dioxide 27 mmol/L (22-30); Chloride 102 mmol/L (98-107); Estimated Creatinine Clearance 28 ml/min; Glucose 104 mg/dl (70-99); Potassium 4.3 mmol/L (3.5-5.1); Sodium 139 mmol/L (135-145); Total Bilirubin 0.5 mg/dl (0.2-1.3); Total Protein 6.3 g/dl (6.3-8.2)
[2024-05-09 08:07] LABS: Glucose - Point of Care 157 mg/dl (70-99)
[2024-05-09] MEDS: PROTONIX 20 MG PO (08:29)
[2024-05-09] MEDS: PLAVIX 75 MG PO (08:29)
[2024-05-09] MEDS: BUSPAR 2.5 MG PO ×3 (08:29→20:28)
[2024-05-09] MEDS: SINEMET 25-100 2 TABLET PO ×4 (08:29→20:27)
[2024-05-09] MEDS: IMDUR (EXTENDED RELEASE) 60 MG PO (08:29)
[2024-05-09] MEDS: TYLENOL 1000 MG PO ×2 (08:29→17:27)
[2024-05-09] MEDS: NOVOLOG FLEXPEN-HIGH RESISTANCE 2 UNITS SC ×3 (08:30→17:26)
[2024-05-09] MEDS: ELIQUIS 2.5 MG PO ×2 (08:30→20:27)
[2024-05-09 11:42] LABS: Glucose - Point of Care 185 mg/dl (70-99)
--- NOTE | 2024-05-09 11:50 | W.PN.CARDCBS ---
Today's Communication / Plan
-
Cardiac stable continue current medicines.
Continued on Plavix and Eliquis were resumed.
EKG and telemetry stable.
Follow volume status.
Postop care.
Impression / Plan
-
PCP: Carlos Mott
Onc: Dr. Sumner
Cardiology: Dr. Danielle Franz
Impression:
Presentation with L calf/tran pain and swelling
RLE hematoma s/p evacuation and wound vac placement 05/07/24
Syncope with bradycardia/prolonged QTc/hypotension
VERONIKA
PAF
Chronic amiodarone therapy
Chronic eliquis therapy
Hypertension
History of prolonged QTc/Bradycardia
HFimpEF
EF has fluctuated historically
COPD
CAD
12/2000 left circumflex stent
10/2002 mid RCA stent
10/2004 mid LAD x2 stents and OM stents
05/2007 mid OM stents
03/[address] stent
01/2020 NSTEMI, medical management of multivessel CAD, she is not a candidate for any further revascularization either surgical or percutaneous
Ranexa was previously discontinued to allow initiation of amiodarone given that she has demonstrated prolonged QT at times in the past.
Moderate MR
Insulin-dependent diabetes
CKD 3
Hyperlipidemia
PVD
Hypothyroidism
Severe orthopedic issues with decreased activity of daily living
History of neck fracture
Parkinson's disease
Dementia
Polypharmacy
Multiple medication intolerances/allergies
Echocardiogram 07/15/2023 showed EF 35-40%, EF previously had been 55-60%.
Cardiac cath 07/19/2023 demonstrated stable distal left main stenosis involving the origin of the LAD and circumflex and new high-grade calcified mid LAD stenosis with apical LAD now occluded. Initially there was discussion of high risk LAD PCI but
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 After further discussion w/ family decision was made to treat her medically as she was deemed not
a surgical candidate.
Echo October 07 2023: Hyperdynamic LV, EF 65 to 70%, MAC, mild to moderate MS with peak/mean gradients 14/6 mmHg, at least moderate and possibly severe MR likely underestimated due to MAC, mild with peak/mean gradients 29/16 mmHg, ANGELINA 1.1 cm�, mild
to moderate AR, mild TR, PAP 34 mmHg
Plan:
-Patient remains stable from a cardiac point of view.
-RLE hematoma s/p evacuation and wound vac placement 05/07/24. For wound VAC change on Saturday.
-She continues on plavix. Eliquis resumed and okayed with vascular.
-Unclear etiology of syncope/hypotension. Probably from pain and pain medications given in ER as BP upon arrival was stable. She then became hypotensive and had bradycardia. Polypharmacy also possibly contributing. Continue to follow.
-BPs stable. continue OP imdur
-Chronic renal insufficiency with kidney function up and down. Essentially stable. Had received IVF. Follow volume status, OP lasix remains on hold. Resume at discharge.
-EKG at baseline. Telemetry stable. She has chronic bradycardia and prolonged QTc. Continue amiodarone at reduced dose of 100mg MWF. avoid QT prolonging medications. She is on duloxetine as OP
-K/mag stable
-TSH WNL
Discussed with patient and her son at the bedside.
Progress Note - Human Resources Hr Generalist
Subjective
Date of Service: May 09, 2024
She is eating well. Her legs bother her a little. She denies chest pain or palpitations
Objective
Labs:
05/09/24 06:02
05/09/24 06:02
Labs
Hgb 9.1 g/dL (12.0-16.0) L 05/09/24 06:02
Hct 28.1 % (37.0-47.0) L 05/09/24 06:02
Plt Count 121 10^3/uL (130-400) L 05/09/24 06:02
PT 14.8 Sec (11.4-14.6) H 05/08/24 07:39
INR 1.13 05/08/24 07:39
APTT 27.5 Sec (23.4-35.0) 05/08/24 07:39
Sodium 139 mmol/L (135-145) 05/09/24 06:02
Potassium 4.3 mmol/L (3.5-5.1) 05/09/24 06:02
BUN 44 mg/dl (7-17) H 05/09/24 06:02
Creatinine 1.6 mg/dL (0.6-1.0) H 05/09/24 06:02
Glucose 104 mg/dl (70-99) H 05/09/24 06:02
Troponins
05/06/24
20:24
Troponin I 0.016
Vital Signs and I&O:
Vital Signs
Temp Pulse Resp BP Pulse Ox
98.8 F 54 18 126/58 99
05/09/24 07:15 05/09/24 07:15 05/09/24 07:15 05/09/24 07:15 05/09/24 07:15
Vital Signs
Temp Pulse Resp BP Pulse Ox
98.8 F 54 18 126/58 99
05/09/24 07:15 05/09/24 07:15 05/09/24 07:15 05/09/24 07:15 05/09/24 07:15
Intake & Output
05/07/24 05/08/24 05/09/24 05/10/24
06:59 06:59 06:59 06:59
Intake Total 240 / 240 1010 / 1010 2350 / 2350
Balance 240 / 240 1010 / 1010 2350 / 2350
Physical Exam
Physical Exam
General: Well developed, well nourished in NAD.
Heart: Non displaced PMI, RRR, no murmurs, No S3, S4, no rubs.
Lungs: Distant anterior heart sounds
Extremities: Wound VAC in place
[2024-05-09 11:51] VITALS: BP 111/53
--- NOTE | 2024-05-09 15:11 | W.PN.HOSP.TC ---
Today's Communication/Plan
-
wound vac change saturday
Assessment / Plan
Assessment / Plan
Physical Exam
General: No Apparent Distress, Comfortable and Other (baseline tremor)
HEENT: Normocephalic, Anicteric and Moist Mucous Membranes
Respiratory: Clear and Non Labored Respirations
Cardiac: S1/S2, Regular Rhythm, Murmur and Other (bradycardic)
GI: Soft, Non Tender, Non Distended and Normal Bowel Sounds
Musculoskeletal: No Clubbing, No Cyanosis and Other (L calf with melvin wrap, 1+ edema)
Skin: Warm and Dry
Neuro: Awake, Alert and Oriented (to self, place)
Large Right Lower Extremity Hematoma
-Consult Vascular Surgery
-If patient develops signs of worsening/ongoing bleeding would obtain CTA
-Resume Eliquis
-plavix
-Monitor Hgb
-Monitor vascular checks
- washout/drainage of hematoma today
- no active arterial extravasation
-She may need down the line evaluation by plastic surgery for skin grafting if it turns out to be a large space/gap of skin.
-wound vac change saturday
Syncope
-Monitor on Telemetry
-Monitor vital signs
-cards consulted
-no chest pain
-possibly from pain medications given in ER as BP upon arrival was stable
-polypharm may be contributing - should address as outpatient with pcp
Prolonged QT - Appears to have lengthened significantly since prior ECG
-EKG improved
- can resume amiodarone - lower dose
-EKG in am
-spoke to neuro - carbidopa/levo does not truly increase qtc
-engaging pharmacy for other meds that could prolong qtc
ASCVD ( CVA, CAD s/p Stents and PAD)
-Plavix on hold due to bleeding
Chronic HFrEF
-Hold Lasix
-Monitor Is&Os and Daily Weights
Paroxysmal Atrial Fibrillation
-Eliquis on hold due to bleeding
-resume amio
Hyperlipidemia
-Continue atorvastatin
Insulin-Dependent Diabetes Mellitus
-Half usual dose of glargine while NPO
-Monitor sugars and continue coverage insulin
VERONIKA on CKD Stage III
-Creatinine at baseline
-LR bolus now
Parkinson's Disease
-Continue Sinemet
Hypothyroidism
-Continue levothyroxine
DVT proph: Eliquis
Code Status: DNR
Anticipated Discharge: > 48 hours
Subjective/Interval History
-
Date of Service: May 09, 2024
No acute events overnight
Objective Data
-
Labs:
Laboratory Results
05/09/24
06:02
WBC 5.4
Hgb 9.1 L
Hct 28.1 L
Plt Count 121 L
Sodium 139
Potassium 4.3
Chloride 102
Carbon Dioxide 27
BUN 44 H
Creatinine 1.6 H
Glucose 104 H
Calcium 8.2 L
Total Bilirubin 0.5
AST 28
ALT 13
Alkaline Phosphatase 73
Vital Signs:
Vital Signs
Temp Pulse Resp BP Pulse Ox
99.5 F 54 20 111/53 97
05/09/24 11:51 05/09/24 11:51 05/09/24 11:51 05/09/24 11:51 05/09/24 11:51
I&O
05/08/24 05/09/24 05/10/24
06:59 06:59 06:59
Intake Total 1010 / 1010 2350 / 2350
Balance 1010 / 1010 2350 / 2350
Review of Systems
-
History Source: Patient
All other systems: Not reviewed unless documented
Data Reviewed
-
CT Scan: Image personally visualized and interpreted and Report Reviewed by me
Labs: Labs Reviewed by me
[2024-05-09 15:44] VITALS: BP 130/50
[2024-05-09 16:57] LABS: Glucose - Point of Care 166 mg/dl (70-99)
[2024-05-09] MEDS: SENOKOT-S 2 TABLET PO (17:27)
[2024-05-09 19:00] VITALS: BP 146/63
[2024-05-09] MEDS: LIPITOR 80 MG PO (20:27)
[2024-05-09] MEDS: LYRICA 50 MG PO (20:27)
[2024-05-09] MEDS: CYMBALTA DELAYED RELEASE 20 MG PO (20:27)
[2024-05-09 21:40] LABS: Glucose - Point of Care 129 mg/dl (70-99)
[2024-05-09] MEDS: LANTUS 0.1 UNITS SC (21:55)
[2024-05-09 23:00] VITALS: BP 162/63
[2024-05-10] VITALS (9 sets, daily range): BP systolic 133–174; BP diastolic 53–89; PULSE 58; O2SAT 100; BMI 34.0
[2024-05-10] MEDS: SYNTHROID 112 MCG PO (06:24)
[2024-05-10 06:33] LABS: Hematocrit 28.1 % (37.0-47.0); Hemoglobin 8.9 g/dL (12.0-16.0); Mean Corp Hgb Conc. 31.7 g/dL (33.0-37.0); Mean Corpuscular Hgb 33.6 pg (27.0-31.0); Platelet Count 122 10^3/uL (130-400); Red Blood Cell Count 2.65 10^6/uL (4.20-5.40); Red Cell Dist. Width 15.8 % (11.5-14.5); White Blood Cell Count 5.1 10^3/uL (4.8-10.8)
[2024-05-10 06:47] LABS: Blood Urea Nitrogen 43 mg/dl (7-17); Calcium 8.3 mg/dl (8.4-10.2); Carbon Dioxide 27 mmol/L (22-30); Chloride 105 mmol/L (98-107); Estimated Creatinine Clearance 30 ml/min; Glucose 110 mg/dl (70-99); Potassium 4.4 mmol/L (3.5-5.1); Sodium 138 mmol/L (135-145); eGFR 34.36
[2024-05-10 07:20] LABS: Glucose - Point of Care 129 mg/dl (70-99)
[2024-05-10] MEDS: BUSPAR 2.5 MG PO ×3 (07:52→21:23)
[2024-05-10] MEDS: TYLENOL 1000 MG PO ×2 (07:52→17:20)
[2024-05-10] MEDS: NOVOLOG FLEXPEN-HIGH RESISTANCE SC ×2 (07:52→17:03)
[2024-05-10] MEDS: PROTONIX 20 MG PO (07:52)
[2024-05-10] MEDS: IMDUR (EXTENDED RELEASE) 60 MG PO (07:52)
[2024-05-10] MEDS: SINEMET 25-100 2 TABLET PO ×4 (07:53→21:26)
[2024-05-10] MEDS: ELIQUIS 2.5 MG PO ×2 (07:53→19:42)
[2024-05-10] MEDS: PLAVIX 75 MG PO (07:53)
[2024-05-10 11:32] LABS: Glucose - Point of Care 189 mg/dl (70-99)
--- NOTE | 2024-05-10 11:52 | W.PN.CARDCBS ---
Today's Communication / Plan
-
She remains hypertensive despite pain control. Limited in treatment options given renal insufficiency, amiodarone use and avoidance of AV abdelrahman blocking agents given bradycardia. Will proceed with hydralazine 25 mg 3 times daily.
She is mildly volume overloaded with increase weight. Will give one-time dose of Lasix 20 mg IV. Reassess weight in the morning.
Resume usual Lasix at discharge. Will need chemistry in 1 week.
Impression / Plan
-
PCP: Carlos Mott
Onc: Dr. Sumner
Cardiology: Dr. Danielle Franz
Impression:
Presentation with L calf/tran pain and swelling
RLE hematoma s/p evacuation and wound vac placement 05/07/24
Syncope with bradycardia/prolonged QTc/hypotension
VERONIKA
PAF
Chronic amiodarone therapy
Chronic eliquis therapy
Hypertension
History of prolonged QTc/Bradycardia
HFimpEF
EF has fluctuated historically
COPD
CAD
12/2000 left circumflex stent
10/2002 mid RCA stent
10/2004 mid LAD x2 stents and OM stents
05/2007 mid OM stents
03/[address] stent
01/2020 NSTEMI, medical management of multivessel CAD, she is not a candidate for any further revascularization either surgical or percutaneous
Ranexa was previously discontinued to allow initiation of amiodarone given that she has demonstrated prolonged QT at times in the past.
Moderate MR
Insulin-dependent diabetes
CKD 3
Hyperlipidemia
PVD
Hypothyroidism
Severe orthopedic issues with decreased activity of daily living
History of neck fracture
Parkinson's disease
Dementia
Polypharmacy
Multiple medication intolerances/allergies
Echocardiogram 07/15/2023 showed EF 35-40%, EF previously had been 55-60%.
Cardiac cath 07/19/2023 demonstrated stable distal left main stenosis involving the origin of the LAD and circumflex and new high-grade calcified mid LAD stenosis with apical LAD now occluded. Initially there was discussion of high risk LAD PCI but
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 After further discussion w/ family decision was made to treat her medically as she was deemed not
a surgical candidate.
Echo October 07 2023: Hyperdynamic LV, EF 65 to 70%, MAC, mild to moderate MS with peak/mean gradients 14/6 mmHg, at least moderate and possibly severe MR likely underestimated due to MAC, mild with peak/mean gradients 29/16 mmHg, ANGELINA 1.1 cm�, mild
to moderate AR, mild TR, PAP 34 mmHg
Plan:
-Her blood pressure has remained elevated and pain is well-controlled. Limited in treatment options given renal insufficiency, amiodarone use and avoidance of AV abdelrahman blocking agents given bradycardia. Will proceed with hydralazine 25 mg 3 times
daily. Continue to follow. This will be helpful in addition given history of waxing and waning ejection fraction.
-She seems mildly volume overloaded with increase weight. Will give one-time dose of Lasix 20 mg. Reassess weight in the morning. Resume usual Lasix at discharge. Will need chemistry in 1 week.
-RLE hematoma s/p evacuation and wound vac placement 05/07/24. For wound VAC change on Saturday.
-She continues on plavix. Eliquis resumed and okayed with vascular.
-Unclear etiology of syncope/hypotension. Probably from pain and pain medications given in ER as BP upon arrival was stable. She then became hypotensive and had bradycardia. Polypharmacy also possibly contributing. Continue to follow.
-Continue OP imdur no angina noted.
-Chronic renal insufficiency with kidney function up and down. Essentially stable. Had received IVF. OP lasix remains on hold. Resume at discharge.
-EKG at baseline reassess tomorrow. Telemetry stable. She has chronic bradycardia and prolonged QTc. Continue amiodarone at reduced dose of 100mg MWF. Avoid QT prolonging medications. She is on duloxetine as OP
-K/mag stable
-TSH WNL
Discussed with patient
Progress Note - Director Of Materials Management
Subjective
Date of Service: May 10, 2024
She denies chest pain, palpitations and dizziness and is hoping to leave tomorrow.
Objective
Labs:
05/10/24 05:36
05/10/24 05:36
Labs
Hgb 8.9 g/dL (12.0-16.0) L 05/10/24 05:36
Hct 28.1 % (37.0-47.0) L 05/10/24 05:36
Plt Count 122 10^3/uL (130-400) L 05/10/24 05:36
PT 14.8 Sec (11.4-14.6) H 05/08/24 07:39
INR 1.13 05/08/24 07:39
APTT 27.5 Sec (23.4-35.0) 05/08/24 07:39
Sodium 138 mmol/L (135-145) 05/10/24 05:36
Potassium 4.4 mmol/L (3.5-5.1) 05/10/24 05:36
BUN 43 mg/dl (7-17) H 05/10/24 05:36
Creatinine 1.5 mg/dL (0.6-1.0) H 05/10/24 05:36
Glucose 110 mg/dl (70-99) H 05/10/24 05:36
Vital Signs and I&O:
Vital Signs
Temp Pulse Resp BP Pulse Ox
99.7 F 78 20 168/89 94
05/10/24 08:30 05/10/24 08:30 05/10/24 08:30 05/10/24 08:30 05/10/24 08:30
Vital Signs
Temp Pulse Resp BP Pulse Ox
99.7 F 78 20 168/89 94
05/10/24 08:30 05/10/24 08:30 05/10/24 08:30 05/10/24 08:30 05/10/24 08:30
Intake & Output
05/08/24 05/09/24 05/10/24 05/11/24
06:59 06:59 06:59 06:59
Intake Total 1010 / 1010 2350 / 2350 740 / 740
Balance 1010 / 1010 2350 / 2350 740 / 740
Physical Exam
Physical Exam
General: Well developed, well nourished in NAD.
Neck: Supple, no JVD, HJR, carotids +2 B/L, no bruits bilaterally.
Heart: Non displaced PMI, RRR, no murmurs, No S3, S4, no rubs.
Lungs: Clear to auscultation bilaterally, no wheeze, rhonchi, rubs bilaterally,
Extremities: No clubbing, cyanosis trace to +1 dependent edema in bed
Neuro: Grossly nonfocal, awake, alert and oriented x3.
[2024-05-10] MEDS: LASIX 20 MG IV (12:19)
[2024-05-10] MEDS: NOVOLOG FLEXPEN-HIGH RESISTANCE 2 UNITS SC (12:19)
--- NOTE | 2024-05-10 13:58 | W.PN.HOSP.TC ---
Addendum entered and electronically signed by Aldo Daugherty MD 05/10/24 16:05:
#Suspect Non Traumatic hematoma
#right buttock pressure related stage 2 pressure injury
#Acute blood loss anemia
with hematoma
No evidence of active bleeding at this time
continue to monitor hgb and transfuse as necessary; hgb goal >7
Original Note:
Today's Communication/Plan
-
Wound VAC change tomorrow
IV Lasix, can switch to home p.o. dose upon discharge
Cardiology added hydralazine
Assessment / Plan
Assessment / Plan
Physical Exam
General: No Apparent Distress, Comfortable and Other (baseline tremor)
HEENT: Normocephalic, Anicteric and Moist Mucous Membranes
Respiratory: Clear and Non Labored Respirations
Cardiac: S1/S2, Regular Rhythm, Murmur and Other (bradycardic)
GI: Soft, Non Tender, Non Distended and Normal Bowel Sounds
Musculoskeletal: No Clubbing, No Cyanosis and Other (L calf with melvin wrap, 1+ edema)
Skin: Warm and Dry
Neuro: Awake, Alert and Oriented (to self, place)
Large Right Lower Extremity Hematoma
-Consult Vascular Surgery
-If patient develops signs of worsening/ongoing bleeding would obtain CTA
-Resume Eliquis
-plavix
-Monitor Hgb
-Monitor vascular checks
- washout/drainage of hematoma today
- no active arterial extravasation
-She may need down the line evaluation by plastic surgery for skin grafting if it turns out to be a large space/gap of skin.
-wound vac change saturday
Syncope
-Monitor on Telemetry
-Monitor vital signs
-cards consulted
-no chest pain
-possibly from pain medications given in ER as BP upon arrival was stable
-polypharm may be contributing - should address as outpatient with pcp and limit meds as much as tolerated
Prolonged QT - Appears to have lengthened significantly since prior ECG
-EKG improved
- can resume amiodarone - lower dose
-EKG in am
-spoke to neuro - carbidopa/levo does not truly increase qtc
-engaging pharmacy for other meds that could prolong qtc
ASCVD ( CVA, CAD s/p Stents and PAD)
-Plavix on hold due to bleeding
Chronic HFrEF
-give 1 time IV lasix today, resume PO lasix upon dc
-Monitor Is&Os and Daily Weights
-bmp after dc
Paroxysmal Atrial Fibrillation
-Eliquis on hold due to bleeding
-resume amio
Hyperlipidemia
-Continue atorvastatin
Insulin-Dependent Diabetes Mellitus
-Half usual dose of glargine while NPO
-Monitor sugars and continue coverage insulin
CKD Stage III
-Creatinine at baseline
#Hypertension
-add on hydralazine
P.o. isosorbide mononitrate, Lasix
Parkinson's Disease
-Continue Sinemet
Hypothyroidism
-Continue levothyroxine
DVT proph: Eliquis
Code Status: DNR
Anticipated Discharge: Within 24 hours
Subjective/Interval History
-
Date of Service: May 10, 2024
No acute events
Objective Data
-
Labs:
Laboratory Results
05/10/24
05:36
WBC 5.1
Hgb 8.9 L
Hct 28.1 L
Plt Count 122 L
Sodium 138
Potassium 4.4
Chloride 105
Carbon Dioxide 27
BUN 43 H
Creatinine 1.5 H
Glucose 110 H
Calcium 8.3 L
Vital Signs:
Vital Signs
Temp Pulse Resp BP Pulse Ox
99.5 F 62 18 133/65 99
05/10/24 12:35 05/10/24 12:35 05/10/24 12:35 05/10/24 12:35 05/10/24 12:35
I&O
05/09/24 05/10/24 05/11/24
06:59 06:59 06:59
Intake Total 2350 / 2350 740 / 740
Balance 2350 / 2350 740 / 740
Review of Systems
-
History Source: Patient
All other systems: Not reviewed unless documented
Data Reviewed
-
CT Scan: Image personally visualized and interpreted and Report Reviewed by me
Labs: Labs Reviewed by me
[2024-05-10] MEDS: APRESOLINE 25 MG PO ×2 (15:48→21:22)
[2024-05-10 16:48] LABS: Glucose - Point of Care 109 mg/dl (70-99)
[2024-05-10] MEDS: SENOKOT-S 2 TABLET PO (17:15)
[2024-05-10] MEDS: LANTUS 0.1 UNITS SC (21:25)
[2024-05-10] MEDS: CYMBALTA DELAYED RELEASE 20 MG PO (21:25)
[2024-05-10] MEDS: LIPITOR 80 MG PO (21:26)
[2024-05-10] MEDS: LYRICA 50 MG PO (21:27)
[2024-05-10 21:51] LABS: Glucose - Point of Care 166 mg/dl (70-99)
[2024-05-11 03:00] VITALS: BP 160/57
[2024-05-11] MEDS: SYNTHROID 112 MCG PO (05:46)
[2024-05-11 06:00] VITALS: BMI 34.2
[2024-05-11 07:28] VITALS: BP 145/59
[2024-05-11 07:42] LABS: Glucose - Point of Care 107 mg/dl (70-99)
[2024-05-11] MEDS: NOVOLOG FLEXPEN-HIGH RESISTANCE SC (07:47)
[2024-05-11] MEDS: PROTONIX 20 MG PO (08:07)
[2024-05-11] MEDS: TYLENOL 1000 MG PO (08:07)
[2024-05-11] MEDS: PLAVIX 75 MG PO (08:08)
[2024-05-11] MEDS: BUSPAR 2.5 MG PO (08:08)
[2024-05-11] MEDS: APRESOLINE 25 MG PO (08:08)
[2024-05-11] MEDS: ELIQUIS 2.5 MG PO (08:08)
[2024-05-11] MEDS: IMDUR (EXTENDED RELEASE) 60 MG PO (08:09)
[2024-05-11] MEDS: SINEMET 25-100 2 TABLET PO ×2 (08:09→12:06)
[2024-05-11] MEDS: PACERONE 100 MG PO (08:11)
--- NOTE | 2024-05-11 08:21 | W.PN.VS ---
Today's Communication / Plan
-
See below.
Assessment/Plan
-
Assessment: 83-year-old female POD #4 Evacuation of right calf hematoma with pulse lavage irrigation and debridement of skin (nonviable) measuring approximately 8 cm width by 14 cm length. Placement of wound VAC.
Plan:
Continue wound VAC, next change Saturday05/13/24 wound care consulted
Recommend outpatient plastic surgery follow up, may require skin grafting
Will follow up in the office, appointment left in discharge instructions
Subjective Data
-
Date of Service: May 11, 2024
Patient seen and examined at bedside, offers no complaints.
Objective Data
-
Vital Signs
Temp Pulse Resp BP Pulse Ox
98.9 F 60 20 145/59 96
05/11/24 07:28 05/11/24 07:28 05/11/24 07:28 05/11/24 08:08 05/11/24 07:28
Intake and Output
05/10/24 05/11/24 05/12/24
06:59 06:59 06:59
Intake Total 740 / 740 1430 / 1430
Balance 740 / 740 1430 / 1430
Intake:
Oral fluids 740 / 740 1430 / 1430
Other:
How many times incontinent 1 1
MODERATE amount urine
How many times incontinent 1 1
SATURATED amount urine
Calcium 8.3 mg/dl (8.4-10.2) L 05/10/24 05:36
Magnesium 2.0 mg/dl (1.6-2.3) 05/07/24 06:25
Total Bilirubin 0.5 mg/dl (0.2-1.3) 05/09/24 06:02
AST 28 U/L (14-36) 05/09/24 06:02
ALT 13 U/L (0-35) 05/09/24 06:02
Alkaline Phosphatase 73 U/L (38-126) 05/09/24 06:02
Total Protein 6.3 g/dl (6.3-8.2) D 05/09/24 06:02
Albumin 3.2 g/dl (3.5-5.0) L 05/09/24 06:02
Physical Exam
-
No apparent distress, resting in bed comfortably
No dyspnea on room air
ABD flat, nondistended
Right lower extremity tran wound VAC site CDI, wound VAC holding suction, foot warm, vac removed site with good granulation tissue and viable skin edges, dressing replaced by the provider, wound dimensions 13 cm Lx 9cm Wx 0cm depth
[2024-05-11 09:17] LABS: Blood Urea Nitrogen 40 mg/dl (7-17); Calcium 8.5 mg/dl (8.4-10.2); Carbon Dioxide 28 mmol/L (22-30); Chloride 103 mmol/L (98-107); Estimated Creatinine Clearance 32 ml/min; Glucose 83 mg/dl (70-99); Potassium 4.2 mmol/L (3.5-5.1); Sodium 139 mmol/L (135-145); eGFR 37.33
[2024-05-11 09:50] LABS: Hematocrit 30.1 % (37.0-47.0); Hemoglobin 9.8 g/dL (12.0-16.0); Mean Corp Hgb Conc. 32.6 g/dL (33.0-37.0); Mean Corpuscular Hgb 33.8 pg (27.0-31.0); Mean Corpuscular Volume 103.8 fL (81.0-99.0); Platelet Count 163 10^3/uL (130-400); Red Cell Dist. Width 15.6 % (11.5-14.5); White Blood Cell Count 5.6 10^3/uL (4.8-10.8)
--- NOTE | 2024-05-11 10:15 | WOUNDNOTE ---
WOC RN note: Reymundo texted FAHAD Worley that if patient is discharged to SNF today, to remove her vac dressing and apply saline gauze for transfer and SNF applies their vac equipment.
--- NOTE | 2024-05-11 10:25 | W.PN.CARDCBS ---
Addendum entered and electronically signed by Kamila Abraham DO 05/11/24 15:26:
I saw and examined the patient.
The Acute Care Clinical Nurse Specialist's note was reviewed and I agree with the note.
Comment: Patient seen and examined. Complaining of leg pain but denies shortness of breath or chest pain. No palpitations. Wound VAC present
General: NAD
HEENT: EOMI
Heart: SR on tele
Lungs: No audible wheeze
Extremities: Trace to +1 B/L LE edema. + wound vac
Neuro: Grossly nonfocal
Plan:
Leg hematoma status postevacuation and wound VAC placement 05/07/2024
-Supportive wound care
-Continue Plavix and Eliquis resumed
-Plan for outpatient plastic surgery follow-up
Syncope with bradycardia and hypotension with prolonged QTc
-Blood pressures are stable.
-QTc overall has improved. EKG today sinus rhythm with QTc 511 ms
-avoid QT prolonging agents and monitor with periodic EKGs
Paroxysmal atrial fibrillation in sinus rhythm
-Amiodarone dose lowered to 100 mg MWF
-Eliquis anticoagulation resumed
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
-Outpatient Lasix originally held is now being restarted. Resume Lasix 80 mg twice daily
Stable from a cardiovascular standpoint for discharge
Outpatient cardiac follow-up to be arranged
Original Note:
Today's Communication / Plan
-
Restart Lasix 80 mg PO BID tonight
Impression / Plan
-
PCP: aCrlos Mott
Onc: Dr. Sumner
Cardiology: Dr. Danielle Franz
Impression:
Presentation with L calf/tran pain and swelling
RLE hematoma s/p evacuation and wound vac placement 05/07/24
Syncope with bradycardia/prolonged QTc/hypotension
VERONIKA
Paroxysmal AFib
chronic amiodarone therapy
chronic Eliquis therapy
Hypertension
History of prolonged QTc/Bradycardia
HFimpEF
EF has fluctuated historically
COPD
CAD
12/2000 left circumflex stent
10/2002 mid RCA stent
10/2004 mid LAD x2 stents and OM stents
05/2007 mid OM stents
03/[address] stent
01/2020 NSTEMI, medical management of multivessel CAD, she is not a candidate for any further revascularization either surgical or percutaneous
Ranexa was previously discontinued to allow initiation of amiodarone given that she has demonstrated prolonged QT at times in the past.
Moderate MR
Insulin-dependent diabetes
CKD 3
Hyperlipidemia
PVD
Hypothyroidism
Severe orthopedic issues with decreased activity of daily living
History of neck fracture
Parkinson's disease
Dementia
Polypharmacy
Multiple medication intolerances/allergies
Cardiac cath 07/19/2023 demonstrated stable distal left main stenosis involving the origin of the LAD and circumflex and new high-grade calcified mid LAD stenosis with apical LAD now occluded. Initially there was discussion of high risk LAD PCI but
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 After further discussion w/ family decision was made to treat her medically as she was deemed not
a surgical candidate.
Echo 07/15/23: EF 35-40%, EF previously had been 55-60%.
Echo 10/07/23: Hyperdynamic LV, EF 65 to 70%, MAC, mild to moderate MS with peak/mean gradients 14/6 mmHg, at least moderate and possibly severe MR likely underestimated due to MAC, mild with peak/mean gradients 29/16 mmHg, ANGELINA 1.1 cm�, mild to
moderate AR, mild TR, PAP 34 mmHg
Plan:
-Weight is up 1 lb despite Lasix 20 mg IV x1 on 05/11/24. Cre improved a bit at 1.4. Outpatient dose of Lasix 80 mg PO BID has been on hold admission due to VERONIKA. Will resume Lasix 80 mg PO BID on 05/11/24 evening.
-Her blood pressure remained elevated despite pain being well-controlled, so hydralazine 25 mg TID was started 05/10/24.
-Outpatient dose of Imdur ER 60 mg daily has been continued.
-Limited options for additional BP meds given CKD, amiodarone use and avoidance of AV abdelrahman blocking agents given bradycardia.
-RLE hematoma s/p evacuation and wound vac placement 05/07/24. For wound VAC change on Saturday.
-Outpatient doses of Plavix 75 mg daily and Eliquis 2.5 mg BID (age 83, Cre 1.4-1.5, wt 87 kg) continued.
-Unclear etiology of syncope/hypotension. Probably from pain and pain medications given in ER as BP upon arrival was stable. She then became hypotensive and had bradycardia. Polypharmacy also possibly contributing. Continue to follow.
-QT c as long as 700 ms on admission, but then improved. QTc 511 ms on 05/11/24. Cont lower dose of amiodarone at 100 mg MWF. She is on duloxetine as OP
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
Subjective
Date of Service: May 11, 2024
No CP or SOB
Objective
Labs:
05/11/24 07:49
05/11/24 07:49
Labs
Hgb 9.8 g/dL (12.0-16.0) L 05/11/24 07:49
Hct 30.1 % (37.0-47.0) L 05/11/24 07:49
Plt Count 163 10^3/uL (130-400) D 05/11/24 07:49
PT 14.8 Sec (11.4-14.6) H 05/08/24 07:39
INR 1.13 05/08/24 07:39
APTT 27.5 Sec (23.4-35.0) 05/08/24 07:39
Sodium 139 mmol/L (135-145) 05/11/24 07:49
Potassium 4.2 mmol/L (3.5-5.1) 05/11/24 07:49
BUN 40 mg/dl (7-17) H 05/11/24 07:49
Creatinine 1.4 mg/dL (0.6-1.0) H 05/11/24 07:49
Glucose 83 mg/dl (70-99) 05/11/24 07:49
Vital Signs and I&O:
Vital Signs
Temp Pulse Resp BP Pulse Ox
98.9 F 60 20 145/59 96
05/11/24 07:28 05/11/24 07:28 05/11/24 07:28 05/11/24 08:08 05/11/24 07:28
Vital Signs
Temp Pulse Resp BP Pulse Ox
98.9 F 60 20 145/59 96
05/11/24 07:28 05/11/24 07:28 05/11/24 07:28 05/11/24 08:08 05/11/24 07:28
Intake & Output
05/09/24 05/10/24 05/11/24 05/12/24
06:59 06:59 06:59 06:59
Intake Total 2350 / 2350 740 / 740 1430 / 1430
Balance 2350 / 2350 740 / 740 1430 / 1430
Physical Exam
Physical Exam
General: NAD
HEENT: EOMI
Heart: SR on tele
Lungs: No audible wheeze
Extremities: Trace to +1 B/L LE edema.
Neuro: Grossly nonfocal
[2024-05-11 11:09] VITALS: BP 163/59
[2024-05-11 11:18] LABS: Glucose - Point of Care 174 mg/dl (70-99)
[2024-05-11] MEDS: NOVOLOG FLEXPEN-HIGH RESISTANCE 2 UNITS SC (11:28)
--- NOTE | 2024-05-11 11:52 | CM ---
Chart reviewed and plan is for patient to return to [facility] when stable, patient will need wound vac at discharge, per admissions at [facility] they have ordered a wound vac and have it ready for patient at their facility.
[facility]
Report [phone]

Plan; Back to [facility] when stable.
--- NOTE | 2024-05-11 13:35 | W.PN.HOSP.TC ---
Today's Communication/Plan
-
Discharge
Assessment / Plan
Assessment / Plan
83-year-old female admitted for left calf pain and swelling-a large right lower extremity hematoma evaluated by vascular surgery.
CVS: S1-S2 normal, sm at apex
Chest: CTA B/L
Abdomen: Soft, NT / Bowel sounds present
Extremities: No edema, right calf area with a
# Large right lower extremity hematoma-nontraumatic
Vascular surgery did evacuation of hematoma with wound VAC placement on 05/07/2024.
Wound VAC- to be replaced when pt gets to [place]
Continued on Plavix
Eliquis resumed
Needs outpatient plastic surgery follow-up as she may require skin grafting.
# Syncope-with bradycardia and prolonged QTc along with hypotension reasons. Polypharmacy also contributing.
# Prolonged QTc
#Coronary artery disease with multiple stents. Patient was not considered as a candidate for further revascularization procedures.
Was on Ranexa which was discontinued when started on amiodarone for A-fib.
Cardiac cath 07/19/2023-stable distal left main stenosis involving the origin of LAD and circumflex and new high-grade calcified and mid LAD stenosis with apical LAD occluded. Even though high risk PCI was considered because of her inguinal hematoma
family decided to do medical treatment.
On Plavix, Imdur, statin
# Moderate MR
# Chronic HFrEF-on metolazone 5 mg daily as needed as outpatient
Echo - 10/07/23 - Normal LV Size, LVH,Hyperdynamic LV EF 65-70%Mild to moderate MS , mod - severe MR, Mild , Mild to Mod AI, Mild TR, PA pre 34 mm hg
Not on beta-christelle secondary to bradycardia. Not on PATRICK/ARB Arni/MRA secondary to renal failure
# Paroxysmal atrial fibrillation-continue amiodarone 100 mg Saturday
# Anemia secondary to acute blood loss and bleeding-Hb Stable
# Mild thrombocytopenia-Resolved
# Hyperlipidemia-continue atorvastatin
# Diabetes-with neuropathy on glargine 20 units at bedtime and 9 units AC, pregabalin as outpatient. Currently on 10 mg of Lantus with sliding scale
# CKD stage III
# Hypertension-hydralazine 25 mg 3 times daily
# Hypothyroidism-history of thyroidectomy and radioiodine for thyroid. Continue Synthroid
# Parkinson disease-continue Sinemet
# History of CVA -continue Eliquis and statin
# COPD/asthma-asymptomatic at present
# Peripheral artery disease
# Dementia
# Pulmonary hypertension
# Depression-continue duloxetine, buspirone
# GERD-continue PPI
# MGUS
# Atherosclerosis
# History of DVT
# History of lumbar laminectomy/arthritis/ambulatory dysfunction/spinal stenosis
# DVT prophylaxis-Eliquis
# DNR status
D/W vascular surgery, discussed with wound care who recommended to continue with the saline dressing for transport and continue with wound VAC at [facility]
Discussed with case management
Discussed with cardiology
D/W Son. He stated that patient does not ambulate anymore. They use a sit to stand machine and that is how she was enjoyed in the past and now. They discharged her from PT because she does not ambulate.
More than 30 minutes spent in discharge including
Final examination of the patient
Summarizing hospital stay
Instructions for continuing care to all relevant caregivers
Preparation of discharge records, prescriptions, and referral forms
Total time spent (in minutes): 37 min
Anticipated Discharge: Today
Subjective/Interval History
-
Date of Service: May 11, 2024
Objective Data
-
Labs:
Laboratory Results
05/11/24
07:49
WBC 5.6
Hgb 9.8 L
Hct 30.1 L
Plt Count 163 D
Sodium 139
Potassium 4.2
Chloride 103
Carbon Dioxide 28
BUN 40 H
Creatinine 1.4 H
Glucose 83
Calcium 8.5
Vital Signs:
Vital Signs
Temp Pulse Resp BP Pulse Ox
98.1 F 70 20 163/59 97
05/11/24 11:09 05/11/24 11:09 05/11/24 11:09 05/11/24 11:09 05/11/24 11:09
I&O
05/10/24 05/11/24 05/12/24
06:59 06:59 06:59
Intake Total 740 / 740 1430 / 1430
Balance 740 / 740 1430 / 1430
[2024-05-11 14:06] VITALS: BP 125/57
--- NOTE | 2024-05-11 14:53 | W.DS.TRANS ---
Addendum entered and electronically signed by Juliana Sanchez MD 05/12/24 15:38:
Dictation- [id number]
Original Note:
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
-
Discharge Instructions:
Sleep Apnea Risk Intermediate
Discharge Diagnosis/Procedures Large right lower extremity hematoma status post
evacuation and VAC placement
Syncope
Prolonged QTc
Coronary artery disease with multiple stents
Moderate MR, moderate MS, mild to moderate AI
Paroxysmal atrial fibrillation
Anemia
Hyperlipidemia
Diabetes
CKD stage III
Hypertension
Hypothyroidism
Parkinson disease
History of CVA
Peripheral artery disease
Dementia
Pulmonary hypertension
Depression
GERD
MGUS
Atherosclerosis
History of DVT
Diet Diabetic, Carb Controlled,2 Gram Sodium
Activity No strenuous activity
Driving Restrictions No driving
Other Services PT,OT
Instructions:
Stand-Alone Forms:
Changes to Home Medications: Yes
Discharge Medications:
DC Medications w/original date entered in [employer]
atorvastatin 80 mg tablet 80 mg PO HS High cholesterol 02/19/18
polyvinyl alcohol-povidone (PF) 1.4 %-0.6 % eye drops in a dropperette (Refresh Classic (PF)) 1 drp BOTH EYES BID@0830,1830 Eye condition 02/17/20
acetaminophen 500 mg tablet (Tylenol Extra Strength) 1,000 mg PO BID@0830,1830 Pain 04/11/20
metolazone 5 mg tablet 5 mg PO DAILYPRN PRN weight gain of 3lbs overnight 04/11/20
nitroglycerin 0.4 mg sublingual tablet 0.4 mg sublingual [id number] PRN chest pain 04/11/20
vit C 250 mg-vit E 90 mg-zinc 40 mg-copper 1 vy-jfrebq-ertwej capsule (PreserVision AREDS-2) 1 ea PO DAILY Supplement 04/11/20
bisacodyl 10 mg rectal suppository (OneLAX Bisacodyl) 10 mg [place] DAILYPRN PRN if mom ineffective 10/25/20
lidocaine 4 % topical patch (Aspercreme (lidocaine)) 1 patch topical DAILY RIGHT KNEE PAIN 01/19/21
cyanocobalamin (vitamin B-12) 1,000 mcg/mL injection solution 500 mcg IM MONTHLY Anemia 05/25/22
epoetin najma 40,000 unit/mL injection solution 40,000 unit SC WE take with 20,000 05/25/22
ascorbic acid (vitamin C) 500 mg tablet (Vitamin C) 500 mg PO DAILY Supplement 07/10/23
carbidopa 25 mg-levodopa 100 mg tablet 2 tab PO QID Neurological Condition 07/10/23
ferrous sulfate 325 mg (65 mg iron) tablet 325 mg PO DAILY Supplement 07/10/23
methenamine hippurate 1 gram tablet (Hiprex) 1 g PO FR Urinary Issue 07/10/23
sennosides 8.6 mg-docusate sodium 50 mg capsule (Senna Plus) 2 tab-cap PO QPM Constipation 07/10/23
sodium chloride 0.65 % nasal spray aerosol 1 spray intranasal Q1HPRN PRN dryness 07/10/23
apixaban 5 mg tablet (Eliquis) 2.5 mg PO BID Blood Clot Prevention/Tx 10/06/23
buspirone 5 mg tablet 2.5 mg PO TID Mental Health/Anxiety 10/06/23
latanoprost (PF) 0.005 % eye drops in a dropperette 1 drp RIGHT EYE QPM Eye Condition 10/06/23
magnesium hydroxide 2,400 mg/10 mL oral suspension 30 ml PO HSPRN PRN constipation 10/06/23
pantoprazole 40 mg tablet,delayed release 20 mg PO DAILY Gastrointestinal Issue 10/06/23
acetaminophen 325 mg tablet 650 mg PO DAILYPRN PRN mild pain/fever>100.4 05/06/24
benzocaine 6 mg-menthol 10 mg lozenges 1 ludwin mucous membrane Q2HPRN PRN sore throat 05/06/24
cholecalciferol (vitamin D3) 1,250 mcg (50,000 unit) tablet 1,250 mcg PO MONTHLY taken w/ 250 mcg 05/06/24
cholecalciferol (vitamin D3) 250 mcg (10,000 unit) tablet 250 mcg PO MONTHLY taken w/ 1,250 mcg 05/06/24
duloxetine 20 mg capsule,delayed release 20 mg PO HS Depression 05/06/24
epoetin najma-epbx 20,000 unit/mL injection solution (Retacrit) 20,000 unit SC WE take with 40,000 05/06/24
furosemide 40 mg tablet (Lasix) 80 mg PO BID@0830,1630 Fluid Retention/Swelling 05/06/24
ketoconazole 2 % shampoo 1 applic topical TUFR Skin Issues 05/06/24
levothyroxine 112 mcg tablet 112 mcg PO DAILY@0630 Thyroid 05/06/24
clopidogrel 75 mg tablet 75 mg PO DAILY Blood Clot Prevention/Tx 05/07/24
amiodarone 100 mg tablet 100 mg PO MOWEFR Arrhythmia #0 tabs 05/11/24
hydralazine 25 mg tablet 25 mg PO TID Blood pressure #0 tabs 05/11/24
insulin glargine 100 unit/mL (3 mL) subcutaneous pen (Basaglar KwikPen U-100 Insulin) 12 unit (0.12 mL) SC HS Diabetes #0 mL 05/11/24
isosorbide mononitrate 60 mg tablet,extended release 24 hr 60 mg PO DAILY Heart disease/condition #0 tabs 05/11/24
magnesium oxide 400 mg PO MOWEFR Electrolyte Repletion #0 caps 05/11/24
pregabalin 50 mg capsule 50 mg PO HS Neurological Condition #14 caps 05/11/24
Home Medication Changes
Amiodarone dose decreased
Hydralazine is new
Pending Results: No
--- NOTE | 2024-05-11 17:00 | WOUNDNOTE ---
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
== END 2024-05-11 16:18 | DRG 556 ==
LOC: 4 WEST ACU 22:00
PROVIDERS: Internal Medicine; Nurse Practitioner; Physician Assistant; Physician Assistant Medical; Surgery Vascular Surgery; ADMITTING PHYSICIAN Hospitalist; ATTENDING PHYSICIAN Hospitalist; EMERGENCY PHYSICIAN Student in an Organized Health Care Education/Training Program; FAMILY PHYSICIAN Internal Medicine Geriatric Medicine; OTHER PHYSICIAN Internal Medicine Cardiovascular Disease
PROC: 0HCKXZZ Extirpation of Matter from Right Lower Leg Skin, External Approach (ICD-10-PCS; 2024-05-07)
PROC: 0HBKXZZ Excision of Right Lower Leg Skin, External Approach (ICD-10-PCS; 2024-05-07)
DX: M79.81 Nontraumatic hematoma of soft tissue (principal); D62 Acute posthemorrhagic anemia; F02.83 Dementia in other diseases classified elsewhere, unspecified severity, with mood disturbance; F02.84 Dementia in other diseases classified elsewhere, unspecified severity, with anxiety; I13.0 Hypertensive heart and chronic kidney disease with heart failure and stage 1 through stage 4 chronic kidney disease, or unspecified chronic kidney disease; I50.22 Chronic systolic (congestive) heart failure; N17.9 Acute kidney failure, unspecified; Z66 Do not resuscitate; G20.A1 Parkinson's disease without dyskinesia, without mention of fluctuations; I25.10 Atherosclerotic heart disease of native coronary artery without angina pectoris; I48.0 Paroxysmal atrial fibrillation; N18.30 Chronic kidney disease, stage 3 unspecified; R94.31 Abnormal electrocardiogram [ECG] [EKG]; E89.0 Postprocedural hypothyroidism; K21.9 Gastro-esophageal reflux disease without esophagitis; E78.5 Hyperlipidemia, unspecified; E11.22 Type 2 diabetes mellitus with diabetic chronic kidney disease; D63.1 Anemia in chronic kidney disease; E11.40 Type 2 diabetes mellitus with diabetic neuropathy, unspecified; E11.51 Type 2 diabetes mellitus with diabetic peripheral angiopathy without gangrene; I25.2 Old myocardial infarction; J44.9 Chronic obstructive pulmonary disease, unspecified; L89.312 Pressure ulcer of right buttock, stage 2; R55 Syncope and collapse; I34.0 Nonrheumatic mitral (valve) insufficiency; Z99.3 Dependence on wheelchair; Z98.1 Arthrodesis status; Z96.652 Presence of left artificial knee joint; Z95.5 Presence of coronary angioplasty implant and graft; Z88.8 Allergy status to other drugs, medicaments and biological substances; Z88.6 Allergy status to analgesic agent; Z88.0 Allergy status to penicillin; Z79.899 Other long term (current) drug therapy; Z79.890 Hormone replacement therapy; Z79.02 Long term (current) use of antithrombotics/antiplatelets; Z79.01 Long term (current) use of anticoagulants; Z79.4 Long term (current) use of insulin
CPT/HCPCS: 88304; 10140; 11042; 11045; 36415; 73590; 73706; 80048; 80053; 82947; 82962; 83036; 83735; 83880; 84443; 84484; 85014; 85018; 85025; 85027; 85610; 85730; 86850; 86900; 86901; 87070; 93005; 96374; 96375; 97163; 97167; 99285; Q9967

== ENCOUNTER → 2024-05-12 09:54 | Outpatient (REF) | payer MEDICARE, OTHER, SELFPAY ==
[2024-05-12 10:55] LABS: % Basophils 0.5 % (0-2); % Immature Granulocytes 0.2 % (0-0.5); % Lymphocytes 25.8 % (20.5-51.1); % Monocytes 9.8 % (1.7-9.3); % Neutrophils 60.7 % (42.2-75.2); Absolute Eosinophils 0.2 10^3/uL (0-0.7); Absolute Lymphocytes 1.5 10^3/uL (1.2-3.4); Absolute Monocytes 0.6 10^3/uL (0.1-0.6); Absolute Neutrophils 3.4 10^3/uL (1.4-6.5); Hematocrit 28.1 % (37.0-47.0); Hemoglobin 8.9 g/dL (12.0-16.0); Mean Corp Hgb Conc. 31.7 g/dL (33.0-37.0); Mean Corpuscular Hgb 33.6 pg (27.0-31.0); Mean Platelet Volume 10.2 fL (7.4-10.4); Nucleated Red Blood Cells % 0 %; Platelet Count 177 10^3/uL (130-400); Red Blood Cell Count 2.65 10^6/uL (4.20-5.40); Red Cell Dist. Width 16.1 % (11.5-14.5); White Blood Cell Count 5.6 10^3/uL (4.8-10.8)
== END ==
LOC: OLABN 09:54
PROVIDERS: ATTENDING PHYSICIAN Internal Medicine Geriatric Medicine
DX: D63.8 Anemia in other chronic diseases classified elsewhere (principal)
CPT/HCPCS: 36415; 85025

== ENCOUNTER → 2024-05-18 11:17 | Outpatient (REF) | payer OTHER, MEDICARE, SELFPAY ==
[2024-05-18 12:25] LABS: Albumin 3.2 g/dl (3.5-5.0); Blood Urea Nitrogen 51 mg/dl (7-17); Calcium 7.9 mg/dl (8.4-10.2); Carbon Dioxide 29 mmol/L (22-30); Chloride 103 mmol/L (98-107); Glucose 119 mg/dl (70-99); Magnesium 2.1 mg/dl (1.6-2.3); Phosphorus 5.7 mg/dl (2.5-4.5); Potassium 3.6 mmol/L (3.5-5.1); Sodium 143 mmol/L (135-145); eGFR 27.61
== END ==
LOC: OLABN 11:17
PROVIDERS: ATTENDING PHYSICIAN Internal Medicine Geriatric Medicine
DX: I10 Essential (primary) hypertension (principal); N18.32 Chronic kidney disease, stage 3b
CPT/HCPCS: 36415; 80069; 83735

== ENCOUNTER → 2024-05-19 10:45 | Outpatient (REF) | payer OTHER, MEDICARE, SELFPAY ==
[2024-05-19 11:53] LABS: % Basophils 0.5 % (0-2); % Eosinophils 4.2 % (0-6); % Immature Granulocytes 0.3 % (0-0.5); % Lymphocytes 23.9 % (20.5-51.1); % Monocytes 14.4 % (1.7-9.3); % Neutrophils 56.7 % (42.2-75.2); Absolute Eosinophils 0.3 10^3/uL (0-0.7); Absolute Lymphocytes 1.5 10^3/uL (1.2-3.4); Absolute Monocytes 0.9 10^3/uL (0.1-0.6); Absolute Neutrophils 3.5 10^3/uL (1.4-6.5); Hematocrit 29.4 % (37.0-47.0); Hemoglobin 9.3 g/dL (12.0-16.0); Mean Corp Hgb Conc. 31.6 g/dL (33.0-37.0); Mean Corpuscular Hgb 33.6 pg (27.0-31.0); Mean Corpuscular Volume 106.1 fL (81.0-99.0); Mean Platelet Volume 10.1 fL (7.4-10.4); Nucleated Red Blood Cells % 0 %; Platelet Count 179 10^3/uL (130-400); Red Blood Cell Count 2.77 10^6/uL (4.20-5.40); Red Cell Dist. Width 16.3 % (11.5-14.5); White Blood Cell Count 6.2 10^3/uL (4.8-10.8)
== END ==
LOC: OLABN 10:45
PROVIDERS: ATTENDING PHYSICIAN Internal Medicine Geriatric Medicine
DX: D63.8 Anemia in other chronic diseases classified elsewhere (principal)
CPT/HCPCS: 36415; 85025

== ENCOUNTER → 2024-05-26 09:05 | Outpatient (REF) | payer OTHER, MEDICARE, SELFPAY ==
[2024-05-26 10:41] LABS: % Basophils 0.3 % (0-2); % Eosinophils 3.8 % (0-6); % Immature Granulocytes 0.3 % (0-0.5); % Lymphocytes 25.2 % (20.5-51.1); % Monocytes 10.3 % (1.7-9.3); % Neutrophils 60.1 % (42.2-75.2); Absolute Eosinophils 0.2 10^3/uL (0-0.7); Absolute Lymphocytes 1.6 10^3/uL (1.2-3.4); Absolute Monocytes 0.7 10^3/uL (0.1-0.6); Absolute Neutrophils 3.8 10^3/uL (1.4-6.5); Hematocrit 30.6 % (37.0-47.0); Hemoglobin 9.7 g/dL (12.0-16.0); Mean Corp Hgb Conc. 31.7 g/dL (33.0-37.0); Mean Corpuscular Hgb 33.3 pg (27.0-31.0); Mean Corpuscular Volume 105.2 fL (81.0-99.0); Mean Platelet Volume 10.1 fL (7.4-10.4); Nucleated Red Blood Cells % 0 %; Platelet Count 182 10^3/uL (130-400); Red Blood Cell Count 2.91 10^6/uL (4.20-5.40); Red Cell Dist. Width 16.5 % (11.5-14.5); White Blood Cell Count 6.3 10^3/uL (4.8-10.8)
== END ==
LOC: OLABN 09:05
PROVIDERS: ATTENDING PHYSICIAN Internal Medicine Geriatric Medicine
DX: D63.8 Anemia in other chronic diseases classified elsewhere (principal)
CPT/HCPCS: 36415; 85025

== ENCOUNTER → 2024-06-02 09:20 | Outpatient (REF) | payer OTHER, MEDICARE, SELFPAY ==
[2024-06-02 10:29] LABS: % Basophils 0.6 % (0-2); % Eosinophils 5.6 % (0-6); % Immature Granulocytes 0.4 % (0-0.5); % Lymphocytes 29.1 % (20.5-51.1); % Monocytes 10.3 % (1.7-9.3); Absolute Eosinophils 0.3 10^3/uL (0-0.7); Absolute Lymphocytes 1.4 10^3/uL (1.2-3.4); Absolute Monocytes 0.5 10^3/uL (0.1-0.6); Absolute Neutrophils 2.5 10^3/uL (1.4-6.5); Hematocrit 31.3 % (37.0-47.0); Hemoglobin 9.5 g/dL (12.0-16.0); Mean Corp Hgb Conc. 30.4 g/dL (33.0-37.0); Mean Corpuscular Hgb 33.6 pg (27.0-31.0); Mean Corpuscular Volume 110.6 fL (81.0-99.0); Mean Platelet Volume 9.9 fL (7.4-10.4); Nucleated Red Blood Cells % 0 %; Platelet Count 183 10^3/uL (130-400); Red Blood Cell Count 2.83 10^6/uL (4.20-5.40); Red Cell Dist. Width 17.1 % (11.5-14.5); White Blood Cell Count 4.7 10^3/uL (4.8-10.8)
== END ==
LOC: OLABN 09:20
PROVIDERS: ATTENDING PHYSICIAN Internal Medicine Geriatric Medicine
DX: D63.8 Anemia in other chronic diseases classified elsewhere (principal)
CPT/HCPCS: 36415; 85025

== ENCOUNTER → 2024-06-09 10:47 | Outpatient (REF) | payer OTHER, MEDICARE, SELFPAY ==
[2024-06-09 12:03] LABS: % Basophils 0.4 % (0-2); % Eosinophils 5.1 % (0-6); % Immature Granulocytes 0.2 % (0-0.5); % Lymphocytes 26.7 % (20.5-51.1); % Monocytes 12.6 % (1.7-9.3); Absolute Eosinophils 0.2 10^3/uL (0-0.7); Absolute Lymphocytes 1.3 10^3/uL (1.2-3.4); Absolute Monocytes 0.6 10^3/uL (0.1-0.6); Absolute Neutrophils 2.6 10^3/uL (1.4-6.5); Hematocrit 31.5 % (37.0-47.0); Hemoglobin 9.7 g/dL (12.0-16.0); Mean Corp Hgb Conc. 30.8 g/dL (33.0-37.0); Mean Corpuscular Hgb 33.9 pg (27.0-31.0); Mean Corpuscular Volume 110.1 fL (81.0-99.0); Mean Platelet Volume 9.7 fL (7.4-10.4); Nucleated Red Blood Cells % 0 %; Platelet Count 177 10^3/uL (130-400); Red Blood Cell Count 2.86 10^6/uL (4.20-5.40); Red Cell Dist. Width 17.2 % (11.5-14.5); White Blood Cell Count 4.8 10^3/uL (4.8-10.8)
== END ==
LOC: OLABN 10:47
PROVIDERS: ATTENDING PHYSICIAN Internal Medicine Geriatric Medicine
DX: D63.8 Anemia in other chronic diseases classified elsewhere (principal); E55.9 Vitamin D deficiency, unspecified
CPT/HCPCS: 36415; 82306; 85025

== ENCOUNTER → 2024-06-16 10:17 | Outpatient (REF) | payer OTHER, MEDICARE, SELFPAY ==
[2024-06-16 11:30] LABS: % Basophils 0.4 % (0-2); % Immature Granulocytes 0.2 % (0-0.5); % Lymphocytes 21.4 % (20.5-51.1); % Monocytes 11.7 % (1.7-9.3); % Neutrophils 61.3 % (42.2-75.2); Absolute Eosinophils 0.3 10^3/uL (0-0.7); Absolute Lymphocytes 1.1 10^3/uL (1.2-3.4); Absolute Monocytes 0.6 10^3/uL (0.1-0.6); Hemoglobin 9.3 g/dL (12.0-16.0); Mean Corpuscular Hgb 33.7 pg (27.0-31.0); Mean Corpuscular Volume 112.3 fL (81.0-99.0); Mean Platelet Volume 9.7 fL (7.4-10.4); Nucleated Red Blood Cells % 0 %; Platelet Count 165 10^3/uL (130-400); Red Blood Cell Count 2.76 10^6/uL (4.20-5.40); Red Cell Dist. Width 17.2 % (11.5-14.5)
[2024-06-16 14:08] LABS: ALT (SGPT) 10 U/L (0-35); AST (SGOT) 16 U/L (14-36); Albumin 3.1 g/dl (3.5-5.0); Alkaline Phosphatase 64 U/L (38-126); Direct Bilirubin 0.2 mg/dl (0.0-0.4); HDL Cholesterol 25 mg/dl; LDL Cholesterol, Calculated 21 mg/dl; Total Bilirubin 0.4 mg/dl (0.2-1.3); Total Cholesterol 83 mg/dl (50-199); Total Protein 6.1 g/dl (6.3-8.2); Triglyceride 185 mg/dl (10-149); Very Low Density Lipoprotein 37 mg/dl (0-30)
== END ==
LOC: OLABN 10:17
PROVIDERS: ATTENDING PHYSICIAN Internal Medicine Geriatric Medicine
DX: E78.5 Hyperlipidemia, unspecified (principal); D63.8 Anemia in other chronic diseases classified elsewhere
CPT/HCPCS: 36415; 80061; 80076; 85025

== ENCOUNTER → 2024-06-23 09:48 | Outpatient (REF) | payer OTHER, MEDICARE, SELFPAY ==
[2024-06-23 11:14] LABS: % Basophils 0.4 % (0-2); % Eosinophils 4.2 % (0-6); % Immature Granulocytes 0.4 % (0-0.5); % Lymphocytes 20.7 % (20.5-51.1); % Monocytes 10.9 % (1.7-9.3); % Neutrophils 63.4 % (42.2-75.2); Absolute Eosinophils 0.2 10^3/uL (0-0.7); Absolute Lymphocytes 1.1 10^3/uL (1.2-3.4); Absolute Monocytes 0.6 10^3/uL (0.1-0.6); Absolute Neutrophils 3.5 10^3/uL (1.4-6.5); Hematocrit 32.3 % (37.0-47.0); Hemoglobin 10.1 g/dL (12.0-16.0); Mean Corp Hgb Conc. 31.3 g/dL (33.0-37.0); Mean Corpuscular Hgb 33.9 pg (27.0-31.0); Mean Corpuscular Volume 108.4 fL (81.0-99.0); Mean Platelet Volume 9.9 fL (7.4-10.4); Nucleated Red Blood Cells % 0 %; Platelet Count 190 10^3/uL (130-400); Red Blood Cell Count 2.98 10^6/uL (4.20-5.40); Red Cell Dist. Width 16.6 % (11.5-14.5); White Blood Cell Count 5.5 10^3/uL (4.8-10.8)
== END ==
LOC: OLABN 09:48
PROVIDERS: ATTENDING PHYSICIAN Internal Medicine Geriatric Medicine
DX: D63.8 Anemia in other chronic diseases classified elsewhere (principal)
CPT/HCPCS: 36415; 85025

== ENCOUNTER → 2024-06-30 09:44 | Outpatient (REF) | payer OTHER, MEDICARE, SELFPAY ==
[2024-06-30 16:54] LABS: % Basophils 0.4 % (0-2); % Eosinophils 6.4 % (0-6); % Immature Granulocytes 0.2 % (0-0.5); % Lymphocytes 20.3 % (20.5-51.1); % Monocytes 11.4 % (1.7-9.3); % Neutrophils 61.3 % (42.2-75.2); Absolute Eosinophils 0.3 10^3/uL (0-0.7); Absolute Lymphocytes 1.1 10^3/uL (1.2-3.4); Absolute Monocytes 0.6 10^3/uL (0.1-0.6); Absolute Neutrophils 3.2 10^3/uL (1.4-6.5); Hematocrit 32.8 % (37.0-47.0); Hemoglobin 9.5 g/dL (12.0-16.0); Mean Corpuscular Hgb 32.6 pg (27.0-31.0); Mean Corpuscular Volume 112.7 fL (81.0-99.0); Mean Platelet Volume 9.6 fL (7.4-10.4); Nucleated Red Blood Cells % 0 %; Platelet Count 180 10^3/uL (130-400); Red Blood Cell Count 2.91 10^6/uL (4.20-5.40); Red Cell Dist. Width 16.7 % (11.5-14.5); White Blood Cell Count 5.2 10^3/uL (4.8-10.8)
== END ==
LOC: OLABN 09:44
PROVIDERS: ATTENDING PHYSICIAN Internal Medicine Geriatric Medicine
DX: D63.8 Anemia in other chronic diseases classified elsewhere (principal)
CPT/HCPCS: 36415; 85025

== ENCOUNTER → 2024-07-07 10:14 | Outpatient (REF) | payer OTHER, MEDICARE, SELFPAY ==
[2024-07-07 10:51] LABS: % Basophils 0.4 % (0-2); % Eosinophils 4.9 % (0-6); % Immature Granulocytes 0.6 % (0-0.5); % Lymphocytes 20.8 % (20.5-51.1); % Neutrophils 62.3 % (42.2-75.2); Absolute Eosinophils 0.3 10^3/uL (0-0.7); Absolute Lymphocytes 1.1 10^3/uL (1.2-3.4); Absolute Monocytes 0.6 10^3/uL (0.1-0.6); Absolute Neutrophils 3.3 10^3/uL (1.4-6.5); Hematocrit 30.8 % (37.0-47.0); Hemoglobin 9.3 g/dL (12.0-16.0); Mean Corp Hgb Conc. 30.2 g/dL (33.0-37.0); Mean Corpuscular Volume 109.2 fL (81.0-99.0); Nucleated Red Blood Cells % 0 %; Platelet Count 186 10^3/uL (130-400); Red Blood Cell Count 2.82 10^6/uL (4.20-5.40); Red Cell Dist. Width 16.4 % (11.5-14.5); White Blood Cell Count 5.3 10^3/uL (4.8-10.8)
== END ==
LOC: OLABN 10:14
PROVIDERS: ATTENDING PHYSICIAN Internal Medicine Geriatric Medicine
DX: D63.8 Anemia in other chronic diseases classified elsewhere (principal)
CPT/HCPCS: 36415; 85025

== ENCOUNTER → 2024-07-10 12:02 | Outpatient (REF) | payer OTHER, MEDICARE, SELFPAY | LOC: WOUND 12:02 | PROVIDERS: ATTENDING PHYSICIAN Surgery; FAMILY PHYSICIAN Internal Medicine Geriatric Medicine | DX: L97.811 Non-pressure chronic ulcer of other part of right lower leg limited to breakdown of skin (principal); I87.2 Venous insufficiency (chronic) (peripheral); I35.0 Nonrheumatic aortic (valve) stenosis; I73.9 Peripheral vascular disease, unspecified; R41.82 Altered mental status, unspecified; E78.2 Mixed hyperlipidemia; I25.10 Atherosclerotic heart disease of native coronary artery without angina pectoris | CPT/HCPCS: 99203 ==

== ENCOUNTER → 2024-07-14 09:24 | Outpatient (REF) | payer MEDICARE, OTHER, SELFPAY ==
[2024-07-14 10:37] LABS: % Basophils 0.4 % (0-2); % Eosinophils 4.9 % (0-6); % Immature Granulocytes 0.2 % (0-0.5); % Lymphocytes 23.1 % (20.5-51.1); % Monocytes 10.1 % (1.7-9.3); % Neutrophils 61.3 % (42.2-75.2); Absolute Eosinophils 0.3 10^3/uL (0-0.7); Absolute Lymphocytes 1.2 10^3/uL (1.2-3.4); Absolute Monocytes 0.5 10^3/uL (0.1-0.6); Absolute Neutrophils 3.2 10^3/uL (1.4-6.5); Hematocrit 31.2 % (37.0-47.0); Hemoglobin 9.6 g/dL (12.0-16.0); Mean Corp Hgb Conc. 30.8 g/dL (33.0-37.0); Mean Corpuscular Hgb 33.6 pg (27.0-31.0); Mean Corpuscular Volume 109.1 fL (81.0-99.0); Nucleated Red Blood Cells % 0 %; Platelet Count 159 10^3/uL (130-400); Red Blood Cell Count 2.86 10^6/uL (4.20-5.40); Red Cell Dist. Width 16.4 % (11.5-14.5); White Blood Cell Count 5.2 10^3/uL (4.8-10.8)
== END ==
LOC: OLABN 09:24
PROVIDERS: ATTENDING PHYSICIAN Internal Medicine Geriatric Medicine
DX: D63.8 Anemia in other chronic diseases classified elsewhere (principal)
CPT/HCPCS: 36415; 85025

== ENCOUNTER → 2024-07-21 10:30 | Outpatient (REF) | payer MEDICARE, OTHER, SELFPAY ==
[2024-07-21 12:10] LABS: % Basophils 0.4 % (0-2); % Eosinophils 2.4 % (0-6); % Immature Granulocytes 0.2 % (0-0.5); % Lymphocytes 15.8 % (20.5-51.1); % Monocytes 10.1 % (1.7-9.3); % Neutrophils 71.1 % (42.2-75.2); Absolute Eosinophils 0.1 10^3/uL (0-0.7); Absolute Lymphocytes 0.8 10^3/uL (1.2-3.4); Absolute Monocytes 0.5 10^3/uL (0.1-0.6); Absolute Neutrophils 3.6 10^3/uL (1.4-6.5); Hematocrit 34.7 % (37.0-47.0); Hemoglobin 10.4 g/dL (12.0-16.0); Mean Corpuscular Hgb 32.9 pg (27.0-31.0); Mean Corpuscular Volume 109.8 fL (81.0-99.0); Mean Platelet Volume 10.1 fL (7.4-10.4); Nucleated Red Blood Cells % 0 %; Platelet Count 159 10^3/uL (130-400); Red Blood Cell Count 3.16 10^6/uL (4.20-5.40); Red Cell Dist. Width 16.6 % (11.5-14.5); White Blood Cell Count 5.1 10^3/uL (4.8-10.8)
== END ==
LOC: OLABN 10:30
PROVIDERS: ATTENDING PHYSICIAN Internal Medicine Geriatric Medicine
DX: D63.8 Anemia in other chronic diseases classified elsewhere (principal)
CPT/HCPCS: 36415; 85025

== ENCOUNTER → 2024-07-22 17:01 | Outpatient (REF) | payer MEDICARE, OTHER, SELFPAY | LOC: OLABN 17:01 | PROVIDERS: ATTENDING PHYSICIAN Internal Medicine Geriatric Medicine | DX: J10.1 Influenza due to other identified influenza virus with other respiratory manifestations (principal) | CPT/HCPCS: 87502 ==

== ENCOUNTER → 2024-07-31 09:33 | Outpatient (REF) | payer MEDICARE, OTHER, SELFPAY | LOC: WOUND 09:33 | PROVIDERS: ATTENDING PHYSICIAN Surgery; FAMILY PHYSICIAN Internal Medicine Geriatric Medicine | DX: L97.811 Non-pressure chronic ulcer of other part of right lower leg limited to breakdown of skin (principal); I87.2 Venous insufficiency (chronic) (peripheral); I35.0 Nonrheumatic aortic (valve) stenosis; I73.9 Peripheral vascular disease, unspecified; R41.82 Altered mental status, unspecified; E78.2 Mixed hyperlipidemia; I25.10 Atherosclerotic heart disease of native coronary artery without angina pectoris; Z79.01 Long term (current) use of anticoagulants | CPT/HCPCS: 99213 ==

== ENCOUNTER → 2024-08-04 11:53 | Outpatient (REF) | payer MEDICARE, OTHER, SELFPAY ==
[2024-08-04 12:21] LABS: % Basophils 0.4 % (0-2); % Immature Granulocytes 0.4 % (0-0.5); % Lymphocytes 26.3 % (20.5-51.1); % Monocytes 12.1 % (1.7-9.3); % Neutrophils 57.8 % (42.2-75.2); Absolute Eosinophils 0.2 10^3/uL (0-0.7); Absolute Lymphocytes 1.3 10^3/uL (1.2-3.4); Absolute Monocytes 0.6 10^3/uL (0.1-0.6); Absolute Neutrophils 2.9 10^3/uL (1.4-6.5); Hematocrit 33.3 % (37.0-47.0); Hemoglobin 10.2 g/dL (12.0-16.0); Mean Corp Hgb Conc. 30.6 g/dL (33.0-37.0); Mean Corpuscular Hgb 33.1 pg (27.0-31.0); Mean Corpuscular Volume 108.1 fL (81.0-99.0); Mean Platelet Volume 10.4 fL (7.4-10.4); Nucleated Red Blood Cells % 0 %; Platelet Count 184 10^3/uL (130-400); Red Blood Cell Count 3.08 10^6/uL (4.20-5.40); Red Cell Dist. Width 16.2 % (11.5-14.5)
[2024-08-04 12:30] LABS: Blood Urea Nitrogen 42 mg/dl (7-17); Calcium 8.1 mg/dl (8.4-10.2); Carbon Dioxide 28 mmol/L (22-30); Chloride 102 mmol/L (98-107); Glucose 149 mg/dl (70-99); Iron 55 ug/dl (37-170); Potassium 3.6 mmol/L (3.5-5.1); Sodium 137 mmol/L (135-145)
[2024-08-04 13:25] LABS: Vitamin B12 798 pg/ml (239-931)
[2024-08-05 09:27] LABS: Glycohemoglobin (HgbA1c) 6.2 % (4.0-5.6)
== END ==
LOC: OLABN 11:53
PROVIDERS: ATTENDING PHYSICIAN Internal Medicine Geriatric Medicine
DX: E11.40 Type 2 diabetes mellitus with diabetic neuropathy, unspecified (principal); D51.9 Vitamin B12 deficiency anemia, unspecified; D63.8 Anemia in other chronic diseases classified elsewhere
CPT/HCPCS: 36415; 80048; 82607; 83036; 83540; 85025

== ENCOUNTER → 2024-08-14 13:28 | Outpatient (REF) | payer MEDICARE, OTHER, SELFPAY | LOC: WOUND 13:28 | PROVIDERS: ATTENDING PHYSICIAN Surgery; FAMILY PHYSICIAN Internal Medicine Geriatric Medicine | DX: L97.811 Non-pressure chronic ulcer of other part of right lower leg limited to breakdown of skin (principal); I87.2 Venous insufficiency (chronic) (peripheral); I73.9 Peripheral vascular disease, unspecified | CPT/HCPCS: 99213 ==

== ENCOUNTER → 2024-09-04 14:06 | Outpatient (REF) | payer MEDICARE, OTHER, SELFPAY | LOC: WOUND 14:06 | PROVIDERS: ATTENDING PHYSICIAN Surgery; FAMILY PHYSICIAN Internal Medicine Geriatric Medicine | DX: L97.811 Non-pressure chronic ulcer of other part of right lower leg limited to breakdown of skin (principal); I87.2 Venous insufficiency (chronic) (peripheral); Z79.01 Long term (current) use of anticoagulants; I35.0 Nonrheumatic aortic (valve) stenosis; I73.9 Peripheral vascular disease, unspecified; R41.82 Altered mental status, unspecified; E78.2 Mixed hyperlipidemia; I25.10 Atherosclerotic heart disease of native coronary artery without angina pectoris | CPT/HCPCS: 99213 ==

== ENCOUNTER → 2024-09-18 12:45 | Outpatient (REF) | payer MEDICARE, OTHER, SELFPAY | LOC: WOUND 12:45 | PROVIDERS: ATTENDING PHYSICIAN Surgery; FAMILY PHYSICIAN Internal Medicine Geriatric Medicine | DX: L97.811 Non-pressure chronic ulcer of other part of right lower leg limited to breakdown of skin (principal); I87.2 Venous insufficiency (chronic) (peripheral); I35.0 Nonrheumatic aortic (valve) stenosis; I73.9 Peripheral vascular disease, unspecified; R41.82 Altered mental status, unspecified; E78.2 Mixed hyperlipidemia; I25.10 Atherosclerotic heart disease of native coronary artery without angina pectoris; Z79.01 Long term (current) use of anticoagulants | CPT/HCPCS: 17250; 99213 ==

== ENCOUNTER → 2024-10-09 10:13 | Outpatient (REF) | payer MEDICARE, OTHER, SELFPAY | LOC: WOUND 10:13 | PROVIDERS: ATTENDING PHYSICIAN Surgery; FAMILY PHYSICIAN Internal Medicine Geriatric Medicine | DX: L97.811 Non-pressure chronic ulcer of other part of right lower leg limited to breakdown of skin (principal); I87.2 Venous insufficiency (chronic) (peripheral); I35.0 Nonrheumatic aortic (valve) stenosis; I73.9 Peripheral vascular disease, unspecified; Z79.01 Long term (current) use of anticoagulants; R41.82 Altered mental status, unspecified; E78.2 Mixed hyperlipidemia; I25.10 Atherosclerotic heart disease of native coronary artery without angina pectoris | CPT/HCPCS: 17250; 99213 ==

== ENCOUNTER → 2024-10-23 13:40 | Outpatient (REF) | payer MEDICARE, OTHER, SELFPAY | LOC: WOUND 13:40 | PROVIDERS: ATTENDING PHYSICIAN Surgery; FAMILY PHYSICIAN Internal Medicine Geriatric Medicine | DX: L97.811 Non-pressure chronic ulcer of other part of right lower leg limited to breakdown of skin (principal); I87.2 Venous insufficiency (chronic) (peripheral); I35.0 Nonrheumatic aortic (valve) stenosis; I73.9 Peripheral vascular disease, unspecified; R41.82 Altered mental status, unspecified; E78.2 Mixed hyperlipidemia; I25.10 Atherosclerotic heart disease of native coronary artery without angina pectoris; Z79.01 Long term (current) use of anticoagulants | CPT/HCPCS: 17250; 99213 ==

== ENCOUNTER → 2024-11-05 13:46 | Outpatient (REF) | payer MEDICARE, OTHER, SELFPAY | LOC: WOUND 13:46 | PROVIDERS: ATTENDING PHYSICIAN Surgery; FAMILY PHYSICIAN Internal Medicine Geriatric Medicine | DX: L97.811 Non-pressure chronic ulcer of other part of right lower leg limited to breakdown of skin (principal); L89.312 Pressure ulcer of right buttock, stage 2; I87.2 Venous insufficiency (chronic) (peripheral); I35.0 Nonrheumatic aortic (valve) stenosis; I25.10 Atherosclerotic heart disease of native coronary artery without angina pectoris; Z79.01 Long term (current) use of anticoagulants; E78.2 Mixed hyperlipidemia; R41.82 Altered mental status, unspecified; I73.9 Peripheral vascular disease, unspecified | CPT/HCPCS: 99213 ==

== ENCOUNTER → 2024-11-27 08:48 | Outpatient (REF) | payer MEDICARE, OTHER, SELFPAY | LOC: WOUND 08:48 | PROVIDERS: ATTENDING PHYSICIAN Surgery; FAMILY PHYSICIAN Internal Medicine Geriatric Medicine | DX: L97.811 Non-pressure chronic ulcer of other part of right lower leg limited to breakdown of skin (principal); L89.312 Pressure ulcer of right buttock, stage 2; I87.2 Venous insufficiency (chronic) (peripheral); I35.0 Nonrheumatic aortic (valve) stenosis; I73.9 Peripheral vascular disease, unspecified; R41.82 Altered mental status, unspecified; E78.2 Mixed hyperlipidemia; I25.10 Atherosclerotic heart disease of native coronary artery without angina pectoris | CPT/HCPCS: 99213 ==

== ENCOUNTER → 2024-12-07 22:30 | Outpatient (REF) | payer MEDICARE, OTHER, SELFPAY ==
[2024-12-08 11:00] LABS: Urine Albumin Negative (Neg - Trace); Urine Bilirubin Negative (Negative); Urine Color Yellow; Urine Glucose Negative (Negative); Urine Ketone Negative (Negative); Urine Leukocyte 3+ (Negative); Urine Nitrite Positive (Negative); Urine Occult Blood 1+ (Negative); Urine Specific Gravity 1.015 (<1.030); Urine Urobilinogen Negative (Neg - 1+)
[2024-12-08 11:01] LABS: Urine Character Clear (Clear)
[2024-12-08 11:40] LABS: Urine Bacteria Many (Negative); Urine White Cell 50-60 /HPF (0-5)
== END ==
LOC: OLABN 22:30
PROVIDERS: ATTENDING PHYSICIAN Internal Medicine Geriatric Medicine
DX: R82.90 Unspecified abnormal findings in urine (principal)
CPT/HCPCS: 81003; 81015; 87077; 87086; 87186

== ENCOUNTER → 2024-12-14 09:09 | Outpatient (REF) | payer MEDICARE, OTHER, SELFPAY | LOC: WOUND 09:09 | PROVIDERS: ATTENDING PHYSICIAN Surgery; FAMILY PHYSICIAN Internal Medicine Geriatric Medicine | DX: L97.811 Non-pressure chronic ulcer of other part of right lower leg limited to breakdown of skin (principal); L89.312 Pressure ulcer of right buttock, stage 2; I87.2 Venous insufficiency (chronic) (peripheral); I35.0 Nonrheumatic aortic (valve) stenosis; I73.9 Peripheral vascular disease, unspecified; E78.2 Mixed hyperlipidemia; R41.82 Altered mental status, unspecified; I25.10 Atherosclerotic heart disease of native coronary artery without angina pectoris | CPT/HCPCS: 99213 ==

== ENCOUNTER → 2025-01-11 09:50 | Outpatient (REF) | payer MEDICARE, OTHER, SELFPAY | LOC: WOUND 09:50 | PROVIDERS: ATTENDING PHYSICIAN Surgery; FAMILY PHYSICIAN Internal Medicine Geriatric Medicine | DX: L97.811 Non-pressure chronic ulcer of other part of right lower leg limited to breakdown of skin (principal); L89.312 Pressure ulcer of right buttock, stage 2; I87.2 Venous insufficiency (chronic) (peripheral); I35.0 Nonrheumatic aortic (valve) stenosis; I73.9 Peripheral vascular disease, unspecified; R41.82 Altered mental status, unspecified; E78.2 Mixed hyperlipidemia; I25.10 Atherosclerotic heart disease of native coronary artery without angina pectoris; Z79.01 Long term (current) use of anticoagulants | CPT/HCPCS: 99212 ==

== ENCOUNTER → 2025-01-11 20:40 | Outpatient (REF) | payer MEDICARE, OTHER, SELFPAY ==
[2025-01-12 12:15] LABS: Urine Character Cloudy (Clear)
[2025-01-12 12:18] LABS: Urine Red Blood Cell 16-20 /HPF (0-2); Urine White Cell >100 /HPF (0-5)
== END ==
LOC: OLABN 20:40
PROVIDERS: ATTENDING PHYSICIAN Internal Medicine Geriatric Medicine
DX: R35.0 Frequency of micturition (principal)
CPT/HCPCS: 81003; 81015; 87077; 87086; 87186

== ENCOUNTER 2025-01-21 02:38 | Inpatient (IN) | payer MEDICARE, OTHER, SELFPAY ==
[2025-01-20 21:57] VITALS: BP 125/58
[2025-01-20 22:09] LABS: Hematocrit 28.6 % (37.0-47.0); Hemoglobin 9.0 g/dL (12.0-16.0); Mean Corp Hgb Conc. 31.5 g/dL (33.0-37.0); Mean Corpuscular Volume 108.3 fL (81.0-99.0); Nucleated Red Blood Cells % 0 %; Platelet Count 154 10^3/uL (130-400); Red Cell Dist. Width 16.4 % (11.5-14.5)
[2025-01-20 22:40] LABS: Troponin I 6.250 ng/ml
[2025-01-20 22:57] LABS: ALT (SGPT) < 10 U/L (0-35); AST (SGOT) 23 U/L (14-36); Albumin 3.7 g/dl (3.5-5.0); Alkaline Phosphatase 63 U/L (38-126); Blood Urea Nitrogen 70 mg/dl (7-17); Calcium 7.9 mg/dl (8.4-10.2); Carbon Dioxide 22 mmol/L (22-30); Chloride 107 mmol/L (98-107); Glucose 174 mg/dl (70-99); Potassium 4.7 mmol/L (3.5-5.1); Sodium 137 mmol/L (135-145); Total Protein 7.0 g/dl (6.3-8.2); eGFR 16.87
[2025-01-20 23:28] VITALS: BP 131/50
[2025-01-21] VITALS (27 sets, daily range): BP systolic 86–145; BP diastolic 35–96; PULSE 2–98; BMI 30.9
[2025-01-21 00:21] LABS: APTT 30.0 Sec (23.4-35.0)
--- NOTE | 2025-01-21 01:00 | ED.GENMED ---
History of Present Illness
General
Chief Complaint: Chest Pain
Source: patient
Exam Limitations: none
Time Seen by Provider: 01/20/25 23:11
Nursing documentation reviewed up to this point in time: agreed with
History of Present Illness
History of Present Illness:
84-year-old female with past medical history of CHF CAD, DVT hypertension hyperlipidemia, asthma, COPD, CK, diabetes presenting to the emergency department today after an episode where she was coughing and had discomfort to her r central chest
described as achy. Pulse ox was found to be slightly low at the nursing facility but now normal. Denies any ongoing chest pain
Past History
Past History
ED Past Medical History: Asthma, CAD, CHF, CVA (suggestion of lacunar stroke), GERD, HTN, Hypercholesterolemia, IDDM, Renal failure (chronic renal disease stage III), Valvular disease (MR), Hypothyroidism, Psychiatric (generalized anxiety disorder),
Other (Parkinson's, chronic lymphedema, cellulitis, MGUS IgG kappa, cognitive decline, B12 deficiency), Other (morbid obesity, pulmonary hypertension, anemia, DVT, PVD, meningioma, macular degeneration) and Other (drop foot left foot Fracture C
spine,Cellulitis, DVT, GIB, Umbilical hernia, iron deficiency, vitamin D deficiency)
ED Past Surgical History: Appendectomy, Cardiac (Stents 8-9), Cholecystectomy, Gynecological (Parital hysterectomy), Orthopedic (left knee replacement), Tonsilectomy and Other (PVD surgery, thyroidectomy)
Patient has exhibited threatening behavior?: No
PSI?: No
Social History
Tobacco: Non-smoker
Alcohol: None
Personal:
Living: alone
Employment: Retired
Family History
Family History: Other (reviewed and noncontributory)
Review of Systems
Review of Systems
Allergies reviewed?: Yes
All Other Systems: ROS reviewed and negative except as documented in HPI and ROS
Phy Exam
Physical Exam
Physical Exam:
GENERAL: Alert , in no apparent distress
EYE: pupils equal and reactive
NECK: Supple, no significant adenopathy.
ENT: o/p clr, mmm.
CARDIAC: Regular rate and rhythm .
LUNGS: Clear breath sounds bilaterally, no acute respiratory distress, no wheezes/rales/rhonchi
ABDOMEN: Soft, without focal tenderness, no r/g, no cvat
NEUROLOGICAL: Alert and oriented, no focal neuro deficits
SKIN: Warm and dry, skin intact.
MUSCULOSKELETAL: No edema, well perfused.
PSYCH: Normal and appropriate interaction.
Scores
Heart Score for Chest Pain Patients
STEMI patient?: No
History: Slightly or Non-Suspicious
ECG: Nonspecific Repolarization
Age: >/= 65 years
Risk Factors: >/= 3 Risk Factors or History of CAD
Troponin: >/= 3 x Normal Limit
Heart Score for Chest Pain Patients: 7
Heart Score Risk: 72.7 % MACE over next 6 weeks
Course
Orders/Labs/Results
Orders:
Orders
01/20/25 22:01
Electrocardiogram (*1) Urgent
Reason for Study: Chest Pain
EKG- Treatment ONCE
01/20/25 22:04
Complete Blood Count/With Diff Urgent
Comprehensive Metabolic Panel Urgent
Troponin I Urgent
01/20/25 23:22
Chest [CR Chest - 2 Views ] Urgent
Comment:
Reason For Exam: cp cough sob
01/20/25 23:23
BNP [NT-proBNP] Urgent
PTT Urgent
01/21/25 00:57
Furosemide [Lasix] 40 mg IV ONCE ONE
01/21/25 01:44
Admit/Transfer Patient As Directed
Co-Sign Provider:
Level of Care: Inpatient admission
Assign to:: IMU- Intermediate Care
Physician / Group: Rodolfo
Diagnosis: NSTEMI
Reason for Hospitalization: NSTEMI
Expected length of stay greater than two midnights?: Yes
ELOS- Estimated Length of Stay in days: 2
I certify the patient meets the requirements for IP care: Yes
PRN Pain Medication Management As Directed
May give lesser potent ordered pain med per pt: Yes
preference::
Protocol:: Medication orders for pain may be administered in a
manner that supports deferring to patient preference
when the pt is:
- Requesting an ordered lesser potent pain medication.
Least to most potent pain medications are defined
as: acetaminophen < NSAID < tramadol < opioids
(morphine, oxycodone, hydromorphone).
- Requesting a lesser dose of the same medication IF
ORDERED.
- Requesting a less intrusive route of administration
if both routes are prescribed by the provider (PO <
IV).
01/21/25 01:47
Code Status As Directed
Resuscitation Status: Do not resuscitate
Reached after discussion with pt or family/Healthcare POA: Yes
01/21/25 01:48
DNR Bracelet Application ONCE
01/21/25 01:59
CefTRIAXone [Rocephin] 1,000 mg IV NOW STA
Doxycycline Hyclate [Vibramycin] 100 mg 0.9% Sodium Chloride 250 ml [Nss] 250 ml IV NOW
01/21/25 02:05
Sterile Water [Sterile Water For Injection] 10 ml IV NOW STA
01/21/25 02:43
COVID-19 Antigen Stat
Source: Nasal Swab
01/21/25 03:00
Flush (0.9% Sodium Chloride) [Flush (Nss)] See Dose Instructions IV PER PROTOCOL
Abnormal Lab Results
01/20/25
22:04
RBC 2.64 L 10^6/uL
(4.20-5.40)
Hgb 9.0 L g/dL
(12.0-16.0)
Hct 28.6 L %
(37.0-47.0)
MCV 108.3 H fL
(81.0-99.0)
MCH 34.1 H pg
(27.0-31.0)
MCHC 31.5 L g/dL
(33.0-37.0)
RDW 16.4 H %
(11.5-14.5)
Absolute Neuts (auto) 8.0 H 10^3/uL
(1.4-6.5)
Absolute Lymphs (auto) 0.4 L 10^3/uL
(1.2-3.4)
Neutrophils % 86.7 H %
(42.2-75.2)
Lymphocytes % 4.3 L %
(20.5-51.1)
BUN 70 H mg/dl
(7-17)
Creatinine 2.7 H mg/dL
(0.6-1.0)
Glucose 174 H mg/dl
(70-99)
Calcium 7.9 L mg/dl
(8.4-10.2)
Troponin I 6.250 H* ng/ml
01/20/25 22:04
01/20/25 22:04
Vital Signs
Initial and Last Documented VS:
Initial Vital Signs
Temp Pulse Resp BP Pulse Ox
97.8 F 71 18 125/58 100
01/20/25 21:57 01/20/25 21:57 01/20/25 21:57 01/20/25 21:57 01/20/25 21:57
Last Documented Vital Signs
Temp Pulse Resp BP Pulse Ox
97.8 F 73 26 124/83 100
01/20/25 21:57 01/21/25 00:15 01/21/25 00:15 01/21/25 01:39 01/21/25 01:04
MDM/Problems Addressed
MDM/Problems Addressed:
84-year-old female presenting with concerns of episode of chest pain coughing some shortness of breath over the past day or so. On arrival vital signs are normal. Patient's hemoglobin at baseline of 9. Other labs revealing significant CKD worse
than her baseline currently in the mid twos typically in the mid ones. Troponin significant elevated to 6.250. Has had elevated numbers in the past but this is somewhat higher. The EKG is unchanged from previous. BNP sniffily elevated to 19,500.
Patient given extra dose of Lasix. Patient does have a POLST that does request limited care. Case was discussed with the patient as well as the patient's medical power of admitted attorneys which is her son who would like to have further to figure out
potential treatment plans moving forward. She was open to getting IV Lasix at this point as well.
*Pulse Oximetry
SaO2: 100
Oxygen Mode of Delivery: Room air
Patient hypoxic: no (100)
*Critical Care Note
Total Time (30-74mins, 75-104mins- exclusive of procedures): Not Applicable
ED Attending Note
-
Portions of this chart may have been created with voice recognition software.� Occasional wrong word or��sound alike� substitutions may have occurred due to the inherent limitations of voice recognition software.
Discharge Plan
Departure
Patient Disposition: Admit
Date of Disposition: 01/21/25
Time of Disposition: 01:04
Admit to: Telemetry
Admit to doctor: Rodolfo
Presentation/result/management discussed w/ accepting MD/DO: Hospitalist
Patient with high blood pressure during this ER visit?: No
Condition: Good
Covid-19: Not Applicable
Discharge Problem:
VERONIKA (acute kidney injury), Elevated troponin, Heart failure
Interventions
Interventions:
*Risk Screen - Suicide Last Done: 01/20/25 21:57
*Neglect/Abuse Screening Last Done: 01/20/25 21:57
*ED- Fall Risk Assessment Last Done: 01/20/25 21:57
ED- Cardiac Assessment Last Done: 01/20/25 23:30
--- NOTE | 2025-01-21 01:22 | HPS.HSE ---
Family Physician
-
Family Physician: Evan Walden
Chief Complaint
-
Cough and chest pain
History of Present Illness
This is an 84-year-old female with past medical history significant for CAD status post multiple stenting and NSTEMI, CHF, paroxysmal atrial fibrillation on anticoagulation, hypertension, CKD, insulin-dependent diabetes, presenting from skilled
nursing facility with cough and some shortness of breath.
Patient stated that she has been having some wheezing and shortness of breath for about 2 days. When her oxygen was checked at the halfway she stated that they said her oxygen level was good so she did not have to come to the emergency
department. She stated that she had chest pain in the bilateral chest area that she describes as indigestion. Does not appear to be associated with cough. She says her cough is productive of some phlegm that was whitish to brown. She denied any
hemoptysis. She denied pleuritic chest pain. She is not very ambulatory and does not have dyspnea on exertion. She denies any palpitations. She denies having any fevers.
According to the halfway staff she had an abrupt drop in her pulse ox to 85 on room air today. She was placed on 2 L of nasal cannula and it promptly came up to the 90s. She had expiratory wheezes and was thus sent to the emergency department.
On arrival in the emergency department she was afebrile with a temp of nine 7.8, blood pressure was 105/60 with a pulse of 73 and respirate rate of 26. ECG shows a normal sinus rhythm at a rate of 70 with poor R wave progression but otherwise no
acute ischemic changes. Troponin was 6.25. Her BNP was greater than 19,000. CBC was unremarkable. Electrolytes were normal. Creatinine was elevated to 2.7 and a BUN to 70.
Chest x-ray shows rounded right lower lobe opacity which could be atelectasis or effusion.
Medical History
Past Medical History
Past Medical History: Reports Other
Additional Past Medical History:
Left Cerebellar Stroke
Multivessel Coronary Artery Disease s/p Multiple Stents
Chronic HFrEF
Moderate/Severe Mitral Regurgitation
Paroxysmal Atrial Fibrillation
Essential Hypertension
Hyperlipidemia
Insulin-Dependent Diabetes Mellitus
Diabetic Neuropathy
CKD Stage III
Anemia of Chronic Disease
Parkinson's Disease
Cognitive Impairment
Hypothyroidism
GERD
Chronic Constipation
Past Surgical History: Reports Other
Additional Past Surgical History:
Cholecystectomy
Hysterectomy
Knee Replacement
Rotator Cuff Repair
Spinal Fusion/Laminectomy
Social History
Tobacco: Non-smoker
Drug: None
Living: Penitentiary
Family History
Family History: Not pertinent
Allergies / Home Medications
Allergies reflects when Allergies were last updated in [facility].
Home Medications with original date entered in [facility]
Allergy/Medication List:
Allergies
Allergy/AdvReac Type Severity Reaction Status Date / Time
amlodipine Allergy LEG PAINS Verified 05/06/24 15:57
amlodipine besylate Allergy leg pain Verified 05/06/24 15:57
[From Norvasc]
cat dander Allergy COUGH AND Verified 05/06/24 15:57
SNEEZING
ibuprofen Allergy Anaphylaxis Verified 05/06/24 15:57
metformin Allergy severe Verified 05/06/24 15:57
diarrhea
naproxen Allergy Unknown Verified 05/06/24 15:57
naproxen sodium [From Aleve] Allergy Anaphylaxis Verified 05/06/24 15:57
nortriptyline Allergy Unknown Verified 05/06/24 15:57
Penicillins Allergy rash as a Verified 05/06/24 15:57
child;
tolerates
Keflex,rash;severe
itching,rash;s
potassium chloride Allergy leg pain Verified 05/06/24 15:57
tree and shrub pollen Allergy COUGH AND Verified 05/06/24 15:57
SNEEZING
Home Medications
atorvastatin 80 mg tablet 80 mg PO HS High cholesterol 02/19/18
polyvinyl alcohol-povidone (PF) 1.4 %-0.6 % eye drops in a dropperette (Refresh Classic (PF)) 1 drp BOTH EYES BID@0830,1830 Eye condition 02/17/20
clopidogrel 75 mg tablet 75 mg PO DAILY 02/29/20
isosorbide mononitrate 60 mg tablet,extended release 24 hr 60 mg PO DAILY 02/29/20
acetaminophen 500 mg tablet (Tylenol Extra Strength) 1,000 mg PO BID@0830,1830 Pain 04/11/20
magnesium oxide 400 mg PO MOWEFR Constipation 04/11/20
metolazone 5 mg tablet 5 mg PO DAILYPRN PRN weight gain of 3lbs overnight 04/11/20
nitroglycerin 0.4 mg sublingual tablet 0.4 mg sublingual [id number] PRN chest pain 04/11/20
vit C 250 mg-vit E 90 mg-zinc 40 mg-copper 1 ty-dxpnud-tiztyr capsule (PreserVision AREDS-2) 1 ea PO DAILY Supplement 04/11/20
bisacodyl 10 mg rectal suppository (OneLAX Bisacodyl) 10 mg MO DAILYPRN PRN if mom ineffective 10/25/20
lidocaine 4 % topical patch (Aspercreme (lidocaine)) 1 patch topical DAILY RIGHT KNEE PAIN 01/19/21
cyanocobalamin (vitamin B-12) 1,000 mcg/mL injection solution 500 mcg IM MONTHLY Anemia 05/25/22
epoetin najma 40,000 unit/mL injection solution 40,000 unit SC WE take with 20,000 05/25/22
ascorbic acid (vitamin C) 500 mg tablet (Vitamin C) 500 mg PO DAILY Supplement 07/10/23
carbidopa 25 mg-levodopa 100 mg tablet 2 tab PO QID Neurological Condition 07/10/23
cetirizine 5 mg tablet 5 mg PO HS Allergies 07/10/23
ferrous sulfate 325 mg (65 mg iron) tablet 325 mg PO DAILY Supplement 07/10/23
methenamine hippurate 1 gram tablet (Hiprex) 1 g PO FR Urinary Issue 07/10/23
sennosides 8.6 mg-docusate sodium 50 mg capsule (Senna Plus) 2 tab-cap PO QPM Constipation 07/10/23
sodium chloride 0.65 % nasal spray aerosol 1 spray intranasal Q1HPRN PRN dryness 07/10/23
insulin glargine 100 unit/mL (3 mL) subcutaneous pen (Basaglar KwikPen U-100 Insulin) 20 unit SC HS Diabetes 07/13/23
pregabalin 50 mg capsule 50 mg PO HS #14 caps 07/26/23
apixaban 5 mg tablet (Eliquis) 2.5 mg PO BID Blood Clot Prevention/Tx 10/06/23
buspirone 5 mg tablet 2.5 mg PO TID 10/06/23
latanoprost (PF) 0.005 % eye drops in a dropperette 1 drp RIGHT EYE QPM Eye Condition 10/06/23
magnesium hydroxide 2,400 mg/10 mL oral suspension 30 ml PO HSPRN PRN constipation 10/06/23
pantoprazole 40 mg tablet,delayed release 20 mg PO DAILY Gastrointestinal Issue 10/06/23
acetaminophen 325 mg tablet 650 mg PO DAILYPRN PRN mild pain/fever>100.4 05/06/24
amiodarone 100 mg tablet 100 mg PO DAILY 05/06/24
benzocaine 6 mg-menthol 10 mg lozenges 1 ludwin mucous membrane Q2HPRN PRN sore throat 05/06/24
cholecalciferol (vitamin D3) 1,250 mcg (50,000 unit) tablet 1,250 mcg PO MONTHLY taken w/ 250 mcg 05/06/24
cholecalciferol (vitamin D3) 250 mcg (10,000 unit) tablet 250 mcg PO MONTHLY taken w/ 1,250 mcg 05/06/24
duloxetine 20 mg capsule,delayed release 20 mg PO HS 05/06/24
epoetin najma-epbx 20,000 unit/mL injection solution (Retacrit) 20,000 unit SC WE take with 40,000 05/06/24
furosemide 40 mg tablet (Lasix) 80 mg PO BID@0830,1630 05/06/24
insulin aspart U-100 100 unit/mL (3 mL) subcutaneous pen 9 unit SC TID@0830,1230,1730 05/06/24
ketoconazole 2 % shampoo 1 applic topical TUFR 05/06/24
levothyroxine 112 mcg tablet 112 mcg PO DAILY@0630 05/06/24
Review of Systems
-
Unable to obtain full review of systems at this time due to: Acuity (Confusion)
EENT: Reports No Symptoms
Respiratory: Reports See HPI and Trouble Breathing
Cardiac: Reports No Symptoms
Abdomen/GI: Reports No Symptoms
: Reports No Symptoms
Musculoskeletal: Reports No Symptoms
Skin: Reports No Symptoms
Neurological: Reports No Symptoms
Endocrine: Reports No Symptoms
Hematologic/Lymphatic: Reports No Symptoms
Psych: Reports Dementia (suspect cognitive disorder )
Physical Exam
Vital Signs
Vital Signs
Temp Pulse Resp BP Pulse Ox
97.8 F 73 26 125/60 100
01/20/25 21:57 01/21/25 00:15 01/21/25 00:15 01/21/25 00:05 01/21/25 01:04
Physical Exam
General: Comfortable and Conversant
HEENT: Anicteric and Moist mucous membranes
Respiratory: Clear and Non Labored Respirations
Cardiac: S1/S2 and Regular Rhythm; No Peripheral Edema or JVD
GI: Soft and Non Tender
Musculoskeletal: No Clubbing, No Cyanosis, No Edema and Other (Large right lower extremity hematoma wrapped in PATRICK compression wrap)
Skin: Warm and Dry
Neuro: Awake, Alert and Nonfocal/grossly intact
Laboratory Results
-
01/20/25 22:04
01/20/25 22:04
Laboratory Results
APTT 30.0 Sec (23.4-35.0) 01/20/25 23:23
Total Bilirubin 0.7 mg/dl (0.2-1.3) 01/20/25 22:04
AST 23 U/L (14-36) 01/20/25 22:04
ALT < 10 U/L (0-35) 01/20/25 22:04
Alkaline Phosphatase 63 U/L (38-126) 01/20/25 22:04
Troponin I 6.250 ng/ml H* 01/20/25 22:04
Data Reviewed
-
Diagnostic Radiology: Image Personally Visualized and interpreted
Medical Tests (Nuc Med, Echo, EKG etc): Image Personally Visualized and interpreted
Lab Data: Labs Reviewed by me
Old Records: Reviewed
Impression/Plan
-
IMPRESSION:
84-year-old with extensive past medical history including CAD status post multiple stents, atrial fibrillation on anticoagulation, CHF on chronic diuresis and fluid restriction, iron deficiency anemia, recurrent UTIs methenamine, initiated on
Bactrim on 718 for urinary tract infection presented to the emergency department to be hypoxic episode, expiratory wheezes cough and shortness of breath. X-ray shows some volume overload and cannot rule out infiltrate. She had troponin of 6, ECG
was nonischemic. Her rate is well-controlled and she is currently satting 97% on 2 L. BNP is markedly elevated over 19,000. On examination she had audible wheezes but auscultation of the anterior lungs was clear, I did not auscultate posterior.
There was no JVD. There was no significant ankle edema but cannot rule out got edema.
PLAN:
Shortness of breath -suspect CHF exacerbation and cannot rule out pulmonary infiltrate, no other obvious signs of infection
-Admit to telemetry
-Given VERONIKA, cannot check Pro-George
-Sputum culture, Legionella and pneumococcal antigen
-Will start with empiric ceftriaxone and doxycycline for now
-DC Bactrim
-Cough suppression, nebs
-Supplemental oxygen
CHF -NSTEMI, troponin 6, BNP greater than 19,000. ECG nonischemic. Patient had mild chest pain earlier but no current chest pain. Unclear whether troponin secondary to global ischemia versus ongoing primary cardiac ischemia
-Start patient on heparin drip
-Continue aspirin and Plavix
-Hold apixaban
-Patient is preference for limited medical interventions,
-Echo in a.m.
-Continue Lasix 80 mg IV daily
- Daily weights, ins and outs
-Cardiology consultation
VERONIKA -creatinine elevated to 2.7 from 1.4, BUN also elevated to 70. Since patient appeared volume overloaded suspect cardiorenal versus VERONIKA from Bactrim related renal injury
-Discontinue Bactrim
-Renal ultrasound and bladder ultrasound
-Will continue to monitor ins and outs
-Avoid nephrotoxins,
-Hold metolazone, continue Lasix for now
-Nephrology consultation
Paroxysmal atrial fibrillation
-Continue amiodarone Saturday
-Heparin drip for anticoagulation for now
DVT prophylaxis�on heparin
CODE STATUS�DNR
[2025-01-21] MEDS: LASIX 40 MG IV (01:39)
[2025-01-21] MEDS: ROCEPHIN 1000 MG IV (02:46)
[2025-01-21] MEDS: STERILE WATER FOR INJECTION 10 ML IV (02:47)
[2025-01-21] MEDS: VIBRAMYCIN 260 MG IV ×2 (02:48→12:53)
[2025-01-21 03:02] LABS: COVID-19 Antigen Negative (Negative)
[2025-01-21] MEDS: HEPARIN 25000 UNITS/250 ML IV (04:10)
--- NOTE | 2025-01-21 04:15 | PTCARENOTE ---
Patient arrived from ER with IV doxycycline infusing to LFA PIV. 2L NC in place. Pt pleasantly confused; only able to state her name and . Denies any pain. NSR on satellite project site monitor. 99-100% Sp02 on 2L; audible wheezing. Incont of moderate amount
of yellow urine. Morning labs drawn. Heparin gtt initiated. Bed alarm set for safety. Call [facility] within reach. Pt oriented to room and use of call [facility].
[2025-01-21 04:26] LABS: Hematocrit 28.1 % (37.0-47.0); Hemoglobin 8.9 g/dL (12.0-16.0); Mean Corp Hgb Conc. 31.7 g/dL (33.0-37.0); Mean Corpuscular Volume 106.4 fL (81.0-99.0); Platelet Count 160 10^3/uL (130-400); Red Cell Dist. Width 16.2 % (11.5-14.5)
[2025-01-21 04:37] LABS: APTT 30.5 Sec (23.4-35.0)
[2025-01-21 04:53] LABS: Blood Urea Nitrogen 68 mg/dl (7-17); Calcium 7.7 mg/dl (8.4-10.2); Carbon Dioxide 20 mmol/L (22-30); Chloride 109 mmol/L (98-107); Estimated Creatinine Clearance 17 ml/min; Glucose 136 mg/dl (70-99); HDL Cholesterol 28 mg/dl; LDL Cholesterol, Calculated 19 mg/dl; Magnesium 2.6 mg/dl (1.6-2.3); Potassium 4.8 mmol/L (3.5-5.1); Sodium 140 mmol/L (135-145); Very Low Density Lipoprotein 28 mg/dl (0-30); eGFR 18.50
[2025-01-21 05:05] LABS: Troponin I 5.390 ng/ml
[2025-01-21] MEDS: SYNTHROID 112 MCG PO (05:41)
[2025-01-21] MEDS: PROTONIX 20 MG PO (05:41)
--- NOTE | 2025-01-21 07:43 | CON.CAR ---
Addendum entered and electronically signed by Saul Flores DO 01/21/25 08:54:
I saw and examined the patient.
The Clother In's note was reviewed and I agree with the note.
Comment:
Plan:
PCP: Dr. Walden
Computer Designer: Dr. Danielle Franz
Impression:
Presented with cough, SOB
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
NSTEMI
VERONIKA on CKD 3
CAD: Last cath Jul 2023: stable distal left main stenosis involving the origin of the LAD and circumflex and new high-grade calcified mid LAD stenosis with apical LAD now occluded.
12/2000 left circumflex stent
10/2002 mid RCA stent
10/2004 mid LAD x2 stents and OM stents
05/2007 mid OM stents
03/[address] stent
01/2020 NSTEMI, medical management of multivessel CAD, she is not a candidate for any further revascularization either surgical or percutaneous
Ranexa was previously discontinued to allow initiation of amiodarone given that she has demonstrated prolonged QT at times in the past.PAF
Chronic Amiodarone therapy
Chronic Eliquis therapyHypertension
h/o prolonged QTc/Bradycardia
COPD
Moderate MR
Insulin-dependent diabetes
Hyperlipidemia
PVD
Hypothyroidism
Severe orthopedic issues with decreased activity of daily living
h/o neck fracture
Parkinson's disease
Dementia
Polypharmacy
Multiple medication intolerances/allergies
Cardiac cath 07/19/2023 demonstrated stable distal left main stenosis involving the origin of the LAD and circumflex and new high-grade calcified mid LAD stenosis with apical LAD now occluded. Initially there was discussion of high risk LAD PCI but
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 After further discussion w/ family decision was made to treat her medically as she was deemed not
a surgical candidate.
Echo 07/15/23: EF 35-40%, EF previously had been 55-60%.
Echo 10/07/23: Hyperdynamic LV, EF 65 to 70%, MAC, mild to moderate MS with peak/mean gradients 14/6 mmHg, at least moderate and possibly severe MR likely underestimated due to MAC, mild with peak/mean gradients 29/16 mmHg, ANGELINA 1.1 cm�, mild to
moderate AR, mild TR, PAP 34 mmHg
Echo 01/21/2025: Study pending
Plan
-Presented with SOB, cough, wheezing. Admitted with possible pneumonia, acute heart failure, and NSTEMI. ProBNP 23654 on arrival with trop 6.25.
Troponin trending down
Transition IV Heparin back to oral anticoagulation likely next 24 hrs
She has previously been determined to be a nonrevascularizable candidate; medical therapy only.
Cont Imdur, she can not tolerate Ranexa due to prolonged QT. Prior intolerance to Norvasc.
She has hx of bradycardia and is not on beta christelle due to this.
Cont Plavix.
Cont Lipitor
Echo pending.
Cont IV diuresis, cr improving with diuresis. Wt coming down.
Wean O2 as able.
Cont Amiodarone 3x/week. Remains in sinus.
HPI: Phoebe is an 84 year old female with PMH of CAD w/ multiple prior stents, being medically managed at this time, HFimpEF, HTN, PAF, COPD, DM, CKD, HLD, PVD, hypothyroidism, Parkinson's disease, and dementia. Presented for evaluation of cough
and SOB. Reportedly symptoms started about 2 days prior to arrival and was initially evaluated at assisted however during initial eval, VS were stable, so hospitalization was not recommended. She then continued w/ cough and SOB and when she was
checked again, was noted to be hypoxic with pulse ox in the 80s, so she was referred to the ER. In ER, noted to be in acute heart failure with proBNP 19,500 and also found to have elevated troponin. Possible pneumonia noted and she was admitted for
further workup and evaluation. She has known chronic stable angina which is managed medically with imdur. Has not tolerated metoprolol due to bradycardia and cannot tolerate Ranexa due to prolonged QT. This AM, she is resting comfortably in bed. No
chest pain currently. No SOB. She has previously wished for more conservative management and this was confirmed again today.
Original Note:
Consultation
Consultation Request
Date/Time Consultation Requested: 01/21/2025
Date/Time Consultation Performed: 01/21/2025
Requesting Provider: Dr. Reynolds
Performing Provider: Laura Brito PA-C for Dr. Flores
Reason for Consultation: CHF, NSTEMI
Medical History
-
History of Present Illness:
HPI: Phoebe is an 84 year old female with PMH of CAD w/ multiple prior stents, being medically managed at this time, HFimpEF, HTN, PAF, COPD, DM, CKD, HLD, PVD, hypothyroidism, Parkinson's disease, and dementia. Presented for evaluation of cough
and SOB. Reportedly symptoms started about 2 days prior to arrival and was initially evaluated at assisted however during initial eval, VS were stable, so hospitalization was not recommended. She then continued w/ cough and SOB and when she was
checked again, was noted to be hypoxic with pulse ox in the 80s, so she was referred to the ER. In ER, noted to be in acute heart failure with proBNP 19,500 and also found to have elevated troponin. Possible pneumonia noted and she was admitted for
further workup and evaluation. She has known chronic stable angina which is managed medically with imdur. Has not tolerated metoprolol due to bradycardia and cannot tolerate Ranexa due to prolonged QT. This AM, she is resting comfortably in bed. No
chest pain currently. No SOB. She has previously wished for more conservative management and this was confirmed again today.
PMH:
PAF
Chronic amiodarone therapy
Chronic eliquis therapy
Hypertension
h/o prolonged QTc/Bradycardia
HFimpEF
COPD
CAD
12/2000 left circumflex stent
10/2002 mid RCA stent
10/2004 mid LAD x2 stents and OM stents
05/2007 mid OM stents
03/[address] stent
01/2020 NSTEMI, medical management of multivessel CAD, she is not a candidate for any further revascularization either surgical or percutaneous
Ranexa was previously discontinued to allow initiation of amiodarone given that she has demonstrated prolonged QT at times in the past.
Moderate MR
Insulin-dependent diabetes
CKD 3
Hyperlipidemia
PVD
Hypothyroidism
Severe orthopedic issues with decreased activity of daily living
h/o neck fracture
Parkinson's disease
Dementia
Polypharmacy
Multiple medication intolerances/allergies
Past Medical History
Past Medical History: Other (in HPI)
Social History
Tobacco: Non-Smoker
Alcohol: None
Living: [facility]
Family History
Family History: Reviewed & Not Pertinent
Allergies / Home Medications
Allergy/AdvReac Type Severity Reaction Status Date / Time
amlodipine Allergy LEG PAINS Verified 01/20/25 21:56
amlodipine besylate (From Allergy leg pain Verified 01/20/25 21:56
Norvasc)
cat dander Allergy COUGH AND Verified 01/20/25 21:56
SNEEZING
ibuprofen Allergy Anaphylaxis Verified 01/20/25 21:56
metformin Allergy severe Verified 01/20/25 21:56
diarrhea
naproxen Allergy Unknown Verified 01/20/25 21:56
naproxen sodium (From Aleve) Allergy Anaphylaxis Verified 01/20/25 21:56
nortriptyline Allergy Unknown Verified 01/20/25 21:56
Penicillins Allergy rash as a Verified 01/20/25 21:56
child;
tolerates
Keflex,rash;severe
itching,rash;s
potassium chloride Allergy leg pain Verified 01/20/25 21:56
tree and shrub pollen Allergy COUGH AND Verified 01/20/25 21:56
SNEEZING
�Medication �Instructions �Recorded �Confirmed �Type
atorvastatin 80 mg tablet 80 mg PO HS High cholesterol 02/19/18 01/20/25 History
acetaminophen 500 mg tablet 1,000 mg PO BID@0830,1830 Pain 04/11/20 01/20/25 History
(Tylenol Extra Strength)
metolazone 5 mg tablet 5 mg PO DAILYPRN PRN weight gain 04/11/20 01/20/25 History
of 3lbs overnight
nitroglycerin 0.4 mg sublingual 0.4 mg sublingual [id number] PRN 04/11/20 01/20/25 History
tablet chest pain
bisacodyl 10 mg rectal suppository 10 mg DE DAILYPRN PRN if MOM 10/25/20 01/20/25 History
(OneLAX Bisacodyl) ineffective
cyanocobalamin (vitamin B-12) 500 mcg IM QMONTH Anemia 05/25/22 01/20/25 History
1,000 mcg/mL injection solution
ascorbic acid (vitamin C) 500 mg 500 mg PO DAILY Supplement 07/10/23 01/20/25 History
tablet (Vitamin C)
carbidopa 25 mg-levodopa 100 mg 2 tab PO QID Neurological Condition 07/10/23 01/20/25 History
tablet
ferrous sulfate 325 mg (65 mg 325 mg PO DAILY Supplement 07/10/23 01/20/25 History
iron) tablet
sennosides 8.6 mg-docusate sodium 2 tab-cap PO QPM Constipation 07/10/23 01/20/25 History
50 mg capsule (Senna Plus)
sodium chloride 0.65 % nasal spray 1 spray intranasal Q1HPRN PRN 07/10/23 01/20/25 History
aerosol congestion/stuffiness
buspirone 5 mg tablet 2.5 mg PO TID Mental Health/Anxiety 10/06/23 01/20/25 History
acetaminophen 325 mg tablet 650 mg PO DAILYPRN PRN mild 05/06/24 01/20/25 History
pain/fever>100.4F
benzocaine 6 mg-menthol 10 mg 1 ludwin mucous membrane Q2HPRN PRN 05/06/24 01/20/25 History
lozenges sore throat
cholecalciferol (vitamin D3) 1,250 1,250 mcg PO QMONTH 05/06/24 01/20/25 History
mcg (50,000 unit) tablet
cholecalciferol (vitamin D3) 250 250 mcg PO QMONTH 05/06/24 01/20/25 History
mcg (10,000 unit) tablet
levothyroxine 112 mcg tablet 112 mcg PO DAILY@0630 Thyroid 05/06/24 01/20/25 History
clopidogrel 75 mg tablet 75 mg PO DAILY Blood Clot 05/07/24 01/20/25 History
Prevention/Tx
amiodarone 100 mg tablet 100 mg PO MOWEFR Arrhythmia #0 tabs 05/11/24 01/20/25 Rx
pregabalin 50 mg capsule 50 mg PO HS Neurological Condition 05/11/24 01/20/25 Rx
#14 caps
Coricidin Hbp Cold/Flu 2 tab PO Q6HPRN PRN cough/nasal 01/20/25 01/20/25 History
congestion
Coricidin Hbp Max Strength Flu 2 tab PO Q6HPRN PRN cough/nasal 01/20/25 01/20/25 History
congestion
Saccharomyces boulardii 250 mg 250 mg PO BID 01/20/25 01/20/25 History
capsule (Probiotic (S.boulardii))
apixaban 2.5 mg tablet (Eliquis) 2.5 mg PO BID 01/20/25 01/20/25 History
calcium carbonate 500 mg PO BIDPRN PRN dyspepsia 01/20/25 01/20/25 History
epoetin najma-epbx 20,000 unit/mL 20,000 unit SC TH if Hgb <11 01/20/25 01/20/25 History
injection solution (Retacrit)
epoetin najma-epbx 40,000 unit/mL 40,000 unit SC TH give if Hgb <11 01/20/25 01/20/25 History
injection solution (Retacrit)
famotidine 20 mg tablet 20 mg PO HS 01/20/25 01/20/25 History
furosemide 80 mg tablet 80 mg PO BID 01/20/25 01/20/25 History
hydralazine 25 mg tablet 25 mg PO Q8H Blood pressure 01/20/25 01/20/25 History
insulin glargine 100 unit/mL (3 15 unit SC HS Diabetes 01/20/25 01/20/25 History
mL) subcutaneous pen (Basaglar
KwikPen U-100 Insulin)
isosorbide mononitrate 30 mg 90 mg PO HS 01/20/25 01/20/25 History
tablet,extended release 24 hr
ketoconazole 2 % shampoo 1 applic topical MOTH 01/20/25 01/20/25 History
latanoprost 0.005 % eye drops 1 drp RIGHT EYE HS 01/20/25 01/20/25 History
lidocaine 4 % topical patch 1 patch topical HS apply to R knee 01/20/25 01/20/25 History
magnesium hydroxide 400 mg/5 mL 30 ml PO HSPRN PRN constipation 01/20/25 01/20/25 History
oral suspension (Milk of Magnesia)
magnesium oxide 400 mg PO MOWEFR 01/20/25 01/20/25 History
methenamine hippurate 1 gram tablet 1 g PO FR 01/20/25 01/20/25 History
pantoprazole 20 mg tablet,delayed 20 mg PO DAILY@0630 01/20/25 01/20/25 History
release
polyethylene glycol 3350 17 gram 17 g PO DAILY 01/20/25 01/20/25 History
oral powder packet (Miralax)
polyvinyl alcohol-povidone (PF) 1 drp BOTH EYES BID 01/20/25 01/20/25 History
1.4 %-0.6 % eye drops in a
dropperette
sulfamethoxazole 800 1 tab PO Q12H 01/20/25 01/20/25 History
mg-trimethoprim 160 mg tablet
vit C 250 mg-vit E 90 mg-zinc 40 1 cap PO DAILY 01/20/25 01/20/25 History
mg-copper 1 [id number]
capsule (PreserVision AREDS-2)
Review of Systems
-
History Source: Patient
All other systems: Negative unless noted
Physical Exam
Vital Signs
Temp Pulse Resp BP Pulse Ox
98.1 F 73 22 117/86 98
01/21/25 03:35 01/21/25 06:15 01/21/25 06:15 01/21/25 06:13 01/21/25 06:29
Lab Results
01/21/25 04:04
01/21/25 04:04
Troponin I Cancelled 01/21/25 10:00
Fxx-O-Ddivihgecke Pept 25905 pg/ml 01/20/25 23:23
Physical Exam
General: No Apparent Distress
HEENT: Normocephalic and Moist Mucous Membranes
Respiratory: Wheezes and Non Labored Respirations
Cardiac: S1/S2, Regular Rhythm and Murmur
Musculoskeletal: No Clubbing, No Cyanosis and Edema
Skin: Warm and Dry
Neuro: Awake, Alert and Nonfocal/Grossly Intact
Psych: Calm
Impression / Plan
-
PCP: Dr. Walden
Computer Designer: Dr. Danielle rFanz
Impression:
Presented with cough, SOB
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
NSTEMI
VERONIKA on CKD 3
CAD
12/2000 left circumflex stent
10/2002 mid RCA stent
10/2004 mid LAD x2 stents and OM stents
05/2007 mid OM stents
03/[address] stent
01/2020 NSTEMI, medical management of multivessel CAD, she is not a candidate for any further revascularization either surgical or percutaneous
Ranexa was previously discontinued to allow initiation of amiodarone given that she has demonstrated prolonged QT at times in the past.
PAF
Chronic Amiodarone therapy
Chronic Eliquis therapy
Hypertension
h/o prolonged QTc/Bradycardia
COPD
Moderate MR
Insulin-dependent diabetes
Hyperlipidemia
PVD
Hypothyroidism
Severe orthopedic issues with decreased activity of daily living
h/o neck fracture
Parkinson's disease
Dementia
Polypharmacy
Multiple medication intolerances/allergies
Cardiac cath 07/19/2023 demonstrated stable distal left main stenosis involving the origin of the LAD and circumflex and new high-grade calcified mid LAD stenosis with apical LAD now occluded. Initially there was discussion of high risk LAD PCI but
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 After further discussion w/ family decision was made to treat her medically as she was deemed not
a surgical candidate.
Echo 07/15/23: EF 35-40%, EF previously had been 55-60%.
Echo 10/07/23: Hyperdynamic LV, EF 65 to 70%, MAC, mild to moderate MS with peak/mean gradients 14/6 mmHg, at least moderate and possibly severe MR likely underestimated due to MAC, mild with peak/mean gradients 29/16 mmHg, ANGELINA 1.1 cm�, mild to
moderate AR, mild TR, PAP 34 mmHg
Echo 01/21/2025: Study pending
Plan
-Presented with SOB, cough, wheezing. Admitted with possible pneumonia, acute heart failure, and NSTEMI. ProBNP 84003 on arrival with trop 6.25.
-She has known CAD which is being medically managed as she would be high risk for PCI and is not felt to be a surgical candidate.
-NSTEMI noted with trop 6.25 on arrival, trending down thereafter. No chest pain this AM. Continue Imdur 90mg daily. Cannot tolerate metoprolol due to h/o bradycardia, not on Ranexa due to h/o prolonged QT. Prior intolerance to amlodipine.
-Continue plavix 75mg daily and lipitor 80mg daily. LDL 19.
-Diuresing with IV lasix 80mg BID. Unclear what dry weight is. Weight down 5lbs overnight if accurate to 179 lbs.
-Continue daily weights, I&Os.
-Creat improving w/ diuresis down from 2.7 to 2.5 01/21.
-Check echo. Prior echo 09/2023 w/ improved EF as noted above.
-In SR on review of telemetry and by initial EKG. Continue amiodarone.
-Typically on Eliquis 2.5mg BID for anticoagulation, currently on IV heparin. No current plans for cardiac intervention, so could transition back to Eliquis.
-BP stable, continue hydralazine.
-On 2L NC, wean as able.
HPI: Phoebe is an 84 year old female with PMH of CAD w/ multiple prior stents, being medically managed at this time, HFimpEF, HTN, PAF, COPD, DM, CKD, HLD, PVD, hypothyroidism, Parkinson's disease, and dementia. Presented for evaluation of cough
and SOB. Reportedly symptoms started about 2 days prior to arrival and was initially evaluated at assisted however during initial eval, VS were stable, so hospitalization was not recommended. She then continued w/ cough and SOB and when she was
checked again, was noted to be hypoxic with pulse ox in the 80s, so she was referred to the ER. In ER, noted to be in acute heart failure with proBNP 19,500 and also found to have elevated troponin. Possible pneumonia noted and she was admitted for
further workup and evaluation. She has known chronic stable angina which is managed medically with imdur. Has not tolerated metoprolol due to bradycardia and cannot tolerate Ranexa due to prolonged QT. This AM, she is resting comfortably in bed. No
chest pain currently. No SOB. She has previously wished for more conservative management and this was confirmed again today.
Data Reviewed
-
EKG: Tracing Personally Visualized and interpreted
Radiology: Report Reviewed by me
Labs: Labs Reviewed by me
Old Records: Reviewed
[2025-01-21 08:20] LABS: Glucose - Point of Care 121 mg/dl (70-99)
--- NOTE | 2025-01-21 08:39 | W.PN.HOSP.TC ---
Addendum entered and electronically signed by Lana Pineda MD 01/21/25 09:34:
Son informed that pt is AOx3 at baseline, not usually confused, but she can be tired/sleepy in the morning.
Check CT head as pt appears to be confused currently and is on heparin drip.
Original Note:
Today's Communication/Plan
-
see A/P
Assessment / Plan
Assessment / Plan
HPI: 84-year-old F with extensive past medical history including CAD status post multiple stents, paroxysmal atrial fibrillation on anticoagulation, CHF on chronic diuresis and fluid restriction, iron deficiency anemia, recurrent UTIs on
methenamine, initiated on Bactrim on 01/15 for urinary tract infection, Hypertension, CKD, insulin-dependent diabetes; presented to the emergency department 2/2 hypoxia, wheezing, cough and shortness of breath, ongoing for about 2 days. She c/o chest
pain that she described as indigestion.
According to the residential staff, she had an abrupt drop in her pulse ox to 85 on room air. She was placed on 2 L of nasal cannula and it promptly came up to the 90s. She had expiratory wheezes and was thus sent to the emergency department.
Her X-ray showed some volume overload and rounded right lower lobe opacity which could be atelectasis or effusion. She was also noted to have troponin elevation at 6.2 on admission and markedly elevated BNP over 19,000.
A/P:
# Shortness of breath, suspect acute CHF exacerbation and cannot rule out pulmonary infiltrate
# Acute hypoxic respiratory insufficiency, 2/2 above
Supplemental oxygen at 2L NC, wean O2 as tolerated
Monitor on telemetry
Given VERONIKA, cannot check Pro-George
Check sputum culture if able, follow Legionella and pneumococcal urine antigens, Follow MRSA screen
COVID negative
Pt was started with empiric ceftriaxone and doxycycline, cont for now
DCed FERRY HAND Bactrim
Cough suppression, nebs
Consider steroid if wheezing dose not improve
# NSTEMI with likely acute on chronic diastolic CHF
troponin 6.25 -> 5.39
BNP greater than 19,000.
ECG nonischemic.
Patient had mild chest pain but no current chest pain.
Pt was started with heparin drip, continue for now
Cont FERRY HAND Plavix
Hold apixaban
Check echo
Continue Lasix 80 mg IV BID, monitor daily weights, ins and outs
Cardiology consulted
# VERONIKA on CKD stage 3
Since patient appeared volume overloaded suspect cardiorenal versus VERONIKA from Bactrim related renal injury
Creatinine at 2.7 on admission from baseline 1.4, cont to monitor SCr
Discontinued Bactrim
Check Renal and bladder ultrasound
Continue to monitor ins and outs
Avoid nephrotoxins,
Hold metolazone, continue Lasix for now
Nephrology consultation
# Paroxysmal atrial fibrillation
Continue amiodarone Saturday
Heparin drip for anticoagulation for now
# IDDM
Cont Lantus adjusted from FERRY HAND 15 to 10 units HS
ISS coverage
DVT prophylaxis�on heparin drip
CODE STATUS�DNR
DW RN
DW son on the phone
total time spent 51 min
Anticipated Discharge: > 48 hours
Subjective/Interval History
-
Date of Service: January 21, 2025
Objective Data
-
Labs:
Laboratory Results
01/20/25 01/20/25 01/21/25
22:04 23:23 04:03
WBC 9.2 7.4
Hgb 9.0 L 8.9 L
Hct 28.6 L 28.1 L
Plt Count 154 160
APTT 30.0
Sodium 137
Potassium 4.7
Chloride 107
Carbon Dioxide 22
BUN 70 H
Creatinine 2.7 H
Glucose 174 H
Calcium 7.9 L
Total Bilirubin 0.7
AST 23
ALT < 10
Alkaline Phosphatase 63
01/21/25 01/21/25
04:04 10:15
WBC Cancelled
Hgb Cancelled
Hct Cancelled
Plt Count Cancelled
APTT 30.5 Pending
Sodium 140
Potassium 4.8
Chloride 109 H
Carbon Dioxide 20 L
BUN 68 H
Creatinine 2.5 H
Glucose 136 H
Calcium 7.7 L
Total Bilirubin
AST
ALT
Alkaline Phosphatase
Vital Signs:
Vital Signs
Temp Pulse Resp BP Pulse Ox
36.7 C 70 18 104/94 98
01/21/25 03:35 01/21/25 08:00 01/21/25 08:00 01/21/25 08:00 01/21/25 06:29
Review of Systems
-
Unable to obtain full review of systems at this time due to: Acuity
Physical Exam
-
General: Well Developed, Well Nourished and Respiratory Distress (mild)
HEENT: Normocephalic, Atraumatic and Oxygen (2L NC)
Respiratory: Clear to Auscultation and Non Labored Respirations; Negative Wheezes or Accessory Resp Muscle Use
Cardiac: Regular Rhythm and S1/S2
GI: Soft and Nontender
Skin: Warm and Dry
Psych: Calm
Data Reviewed
-
Diagnostic Radiology: Image personally visualized and interpreted and Report Reviewed by me
Labs: Labs Reviewed by me
[2025-01-21] MEDS: NOVOLOG FLEXPEN-LOW RESISTANCE SC (09:15)
[2025-01-21] MEDS: TYLENOL 1000 MG PO (09:16)
[2025-01-21] MEDS: PLAVIX 75 MG PO (09:16)
[2025-01-21] MEDS: APRESOLINE 25 MG PO (09:16)
[2025-01-21] MEDS: FEOSOL 325 MG PO (09:16)
[2025-01-21] MEDS: BUSPAR 2.5 MG PO (09:16)
[2025-01-21] MEDS: REFRESH EYE DROPS (PF) 1 DROPS BOTH EYES ×2 (09:17→21:23)
[2025-01-21] MEDS: MIRALAX 17 GRAMS PO (09:17)
[2025-01-21] MEDS: LASIX 80 MG IV ×2 (09:17→15:22)
[2025-01-21] MEDS: SINEMET 25-100 2 TABLET PO ×2 (09:19→13:00)
--- NOTE | 2025-01-21 10:10 | W.CON.NEPH ---
Consultation
-
Date/Time Consultation Requested: 01/21/2025 7:30 AM
Date/Time Consultation Performed: 01/21/2025 10:15 AM
Requesting Provider: Dr. Pineda
Performing Provider: Dr. Hadley
Reason for Consultation: VERONIKA
Medical History
-
Chief Complaint: VERONIKA
History of Present Illness:
She is 82y/o F with PMH Of ICMO with low EF on imdur, lasix, metolazone prn, COPD on inhalers, chronic anemia on Procrit out pt, Parkinson on sinemet, DVT, P afib on amio and ELiquis, CKD [id number] variable cr 1.2-1.8, type 2 DM on insulin, was
brought to [facility] emergency department with complaints of cough and shortness of breath. She has been short of breath over the past couple days and was found to be hypoxic at her detention facility. The patient had stated on
admission to the emergency room that she had some bilateral chest pain. On presentation she was found to be in acute renal Fur[place] a creatinine up to 2.7 and symptoms consistent with possible congestive heart failure. Nephrology was consulted for VERONIKA.
Past Medical History
HFrEF
Hypertension
Bradycardia
Prolonged QTc by EKG / abnormal EKG
CAD s/p NSTEMI 01/2020
CAD with medical management of multivessel CAD by cath 01/2020
CAD s/p remote PCI
12/2000 left circumflex stent
10/2002 mid RCA stent
10/2004 mid LAD x2 stents and OM stents
05/2007 mid OM stents
03/[address] stentPrior evaluations have determined she is not a candidate for any further revascularization either surgical or percutaneous
Echo 07/15/23: EF 35-40%,
Moderate MR
Insulin-dependent diabetes
CKD 3 ~1.4
Hyperlipidemia
PVD
Hypothyroidism
Severe orthopedic issues with decreased activity of daily living
History of neck fracture
Parkinson's disease
Prox Atrial fibrillation , new onset on July 18, 2023.
COPD
Anemia of chronic disease.
Hypothyroidism on replacement.
[facility] residence with bed-bound status
Past Medical History: Other (Appendectomy, Cardiac (Stents 8-9), Cholecystectomy, Gynecological (Parital hysterectomy), Orthopedic (left knee replacement), Tonsilectomy and Other (PVD surgery, thyroidectomy))
Social History
Tobacco: Non-Smoker
Alcohol: None
Living: Senior Living
Family History
no CKD
Family History: Not Pertinent
Allergies / Home Medications
Allergy/AdvReac Type Severity Reaction Status Date / Time
amlodipine Allergy LEG PAINS Verified 01/20/25 21:56
amlodipine besylate (From Allergy leg pain Verified 01/20/25 21:56
Norvasc)
cat dander Allergy COUGH AND Verified 01/20/25 21:56
SNEEZING
ibuprofen Allergy Anaphylaxis Verified 01/20/25 21:56
metformin Allergy severe Verified 01/20/25 21:56
diarrhea
naproxen Allergy Unknown Verified 01/20/25 21:56
naproxen sodium (From Aleve) Allergy Anaphylaxis Verified 01/20/25 21:56
nortriptyline Allergy Unknown Verified 01/20/25 21:56
Penicillins Allergy rash as a Verified 01/20/25 21:56
child;
tolerates
Keflex,rash;severe
itching,rash;s
potassium chloride Allergy leg pain Verified 01/20/25 21:56
tree and shrub pollen Allergy COUGH AND Verified 01/20/25 21:56
SNEEZING
�Medication �Instructions �Recorded �Confirmed �Type
atorvastatin 80 mg tablet 80 mg PO HS High cholesterol 02/19/18 01/20/25 History
acetaminophen 500 mg tablet 1,000 mg PO BID@0830,1830 Pain 04/11/20 01/20/25 History
(Tylenol Extra Strength)
metolazone 5 mg tablet 5 mg PO DAILYPRN PRN weight gain 04/11/20 01/20/25 History
of 3lbs overnight
nitroglycerin 0.4 mg sublingual 0.4 mg sublingual [id number] PRN 04/11/20 01/20/25 History
tablet chest pain
bisacodyl 10 mg rectal suppository 10 mg NJ DAILYPRN PRN if MOM 10/25/20 01/20/25 History
(OneLAX Bisacodyl) ineffective
cyanocobalamin (vitamin B-12) 500 mcg IM QMONTH Anemia 05/25/22 01/20/25 History
1,000 mcg/mL injection solution
ascorbic acid (vitamin C) 500 mg 500 mg PO DAILY Supplement 07/10/23 01/20/25 History
tablet (Vitamin C)
carbidopa 25 mg-levodopa 100 mg 2 tab PO QID Neurological Condition 07/10/23 01/20/25 History
tablet
ferrous sulfate 325 mg (65 mg 325 mg PO DAILY Supplement 07/10/23 01/20/25 History
iron) tablet
sennosides 8.6 mg-docusate sodium 2 tab-cap PO QPM Constipation 07/10/23 01/20/25 History
50 mg capsule (Senna Plus)
sodium chloride 0.65 % nasal spray 1 spray intranasal Q1HPRN PRN 07/10/23 01/20/25 History
aerosol congestion/stuffiness
buspirone 5 mg tablet 2.5 mg PO TID Mental Health/Anxiety 10/06/23 01/20/25 History
acetaminophen 325 mg tablet 650 mg PO DAILYPRN PRN mild 05/06/24 01/20/25 History
pain/fever>100.4F
benzocaine 6 mg-menthol 10 mg 1 ludwin mucous membrane Q2HPRN PRN 05/06/24 01/20/25 History
lozenges sore throat
cholecalciferol (vitamin D3) 1,250 1,250 mcg PO QMONTH 05/06/24 01/20/25 History
mcg (50,000 unit) tablet
cholecalciferol (vitamin D3) 250 250 mcg PO QMONTH 05/06/24 01/20/25 History
mcg (10,000 unit) tablet
levothyroxine 112 mcg tablet 112 mcg PO DAILY@0630 Thyroid 05/06/24 01/20/25 History
clopidogrel 75 mg tablet 75 mg PO DAILY Blood Clot 05/07/24 01/20/25 History
Prevention/Tx
amiodarone 100 mg tablet 100 mg PO MOWEFR Arrhythmia #0 tabs 05/11/24 01/20/25 Rx
pregabalin 50 mg capsule 50 mg PO HS Neurological Condition 05/11/24 01/20/25 Rx
#14 caps
Coricidin Hbp Cold/Flu 2 tab PO Q6HPRN PRN cough/nasal 01/20/25 01/20/25 History
congestion
Coricidin Hbp Max Strength Flu 2 tab PO Q6HPRN PRN cough/nasal 01/20/25 01/20/25 History
congestion
Saccharomyces boulardii 250 mg 250 mg PO BID 01/20/25 01/20/25 History
capsule (Probiotic (S.boulardii))
apixaban 2.5 mg tablet (Eliquis) 2.5 mg PO BID 01/20/25 01/20/25 History
calcium carbonate 500 mg PO BIDPRN PRN dyspepsia 01/20/25 01/20/25 History
epoetin najma-epbx 20,000 unit/mL 20,000 unit SC TH if Hgb <01/20/25 01/20/25 History
injection solution (Retacrit)
epoetin najma-epbx 40,000 unit/mL 40,000 unit SC TH give if Hgb <11 01/20/25 01/20/25 History
injection solution (Retacrit)
famotidine 20 mg tablet 20 mg PO HS 01/20/25 01/20/25 History
furosemide 80 mg tablet 80 mg PO BID 01/20/25 01/20/25 History
hydralazine 25 mg tablet 25 mg PO Q8H Blood pressure 01/20/25 01/20/25 History
insulin glargine 100 unit/mL (3 15 unit SC HS Diabetes 01/20/25 01/20/25 History
mL) subcutaneous pen (Basaglar
KwikPen U-100 Insulin)
isosorbide mononitrate 30 mg 90 mg PO HS 01/20/25 01/20/25 History
tablet,extended release 24 hr
ketoconazole 2 % shampoo 1 applic topical MOTH 01/20/25 01/20/25 History
latanoprost 0.005 % eye drops 1 drp RIGHT EYE HS 01/20/25 01/20/25 History
lidocaine 4 % topical patch 1 patch topical HS apply to R knee 01/20/25 01/20/25 History
magnesium hydroxide 400 mg/5 mL 30 ml PO HSPRN PRN constipation 01/20/25 01/20/25 History
oral suspension (Milk of Magnesia)
magnesium oxide 400 mg PO MOWEFR 01/20/25 01/20/25 History
methenamine hippurate 1 gram tablet 1 g PO FR 01/20/25 01/20/25 History
pantoprazole 20 mg tablet,delayed 20 mg PO DAILY@0630 01/20/25 01/20/25 History
release
polyethylene glycol 3350 17 gram 17 g PO DAILY 01/20/25 01/20/25 History
oral powder packet (Miralax)
polyvinyl alcohol-povidone (PF) 1 drp BOTH EYES BID 01/20/25 01/20/25 History
1.4 %-0.6 % eye drops in a
dropperette
sulfamethoxazole 800 1 tab PO Q12H 01/20/25 01/20/25 History
mg-trimethoprim 160 mg tablet
vit C 250 mg-vit E 90 mg-zinc 40 1 cap PO DAILY 01/20/25 01/20/25 History
mg-copper 1 [id number]
capsule (PreserVision AREDS-2)
Review of Systems
-
All other systems: Negative unless noted
Constitutional: No Symptoms
Respiratory: Cough and Trouble Breathing
Physical Exam
Vital Signs
Vital Signs
Temp Pulse Resp BP Pulse Ox
97.8 F 70 18 104/94 98
01/21/25 07:14 01/21/25 08:00 01/21/25 08:00 01/21/25 09:16 01/21/25 06:29
Lab Results
01/21/25 04:04
01/21/25 04:04
WBC Cancelled 01/21/25 04:04
RBC Cancelled 01/21/25 04:04
Hgb Cancelled 01/21/25 04:04
Hct Cancelled 01/21/25 04:04
Plt Count Cancelled 01/21/25 04:04
Sodium 140 mmol/L (135-145) 01/21/25 04:04
Potassium 4.8 mmol/L (3.5-5.1) 01/21/25 04:04
Chloride 109 mmol/L (98-107) H 01/21/25 04:04
Carbon Dioxide 20 mmol/L (22-30) L 01/21/25 04:04
BUN 68 mg/dl (7-17) H 01/21/25 04:04
Creatinine 2.5 mg/dL (0.6-1.0) H 01/21/25 04:04
eGFR 18.50 01/21/25 04:04
Glucose 136 mg/dl (70-99) H 01/21/25 04:04
Calcium 7.7 mg/dl (8.4-10.2) L 01/21/25 04:04
Vck-[id number]-Pvvwltpyxvt Pept 75967 pg/ml 01/20/25 23:23
Albumin 3.7 g/dl (3.5-5.0) 01/20/25 22:04
Physical Exam
General: Confused, not oriented to time or place or self, appears ill
HEENT: PERRL, EOMI, Anicteric, Conjunctivae pale, Ear/Nose Intact, Hearing Normal, Oropharynx Clear/Moist, Dentition Intact, Facial Symmetry, Neck Supple, Neck: Trachea Midline, No JVD and No Thyromegaly, no Bruits
Respiratory: Clear to auscultation bilaterally with normal lung excursion but decreased breath sounds towards the bases
Cardiac: S1/S2 and Regular Rate/Rhythm
Breast: Deferred by me
Abdomen: Soft, Nontender, Nondistended, Normal Bowel Sounds and No Hepatosplenomegaly
Rectal: Deferred by Provider
Genito-urinary: No Costovertebral Tenderness
Extremities: No Clubbing, No Cyanosis and No Edema
Skin: No Rash or open lesions
Neuro: Difficult to ascertain as patient does not follow commands she does appear to move all 4 limbs independently and can speak
Hematologic/Lymphatic: No Cervical Lymphadenopathy, No Submandibular Lymphadenopathy and No Supraclavicular Lymphadenopathy
Psych: Confused unable to answer most questions appropriately
Vascular: plus 1pedal and radial pulses
Data Reviewed
-
Radiology: Image Personally Visualized and interpreted (Chest x-ray on admission personally viewed noted cardiomyopathy with mild interstitial edema by my personal review)
Labs: Labs Reviewed by me (BMP CBC urinalysis) and Other (EKG report sinus rhythm at 70 bpm with old anterior infarct pattern lateral ischemic changes per report)
Old Records: Reviewed (Old labs reviewed from December 08, 2024 in the EMR creatinine 1.4)
Assessment/Plan
-
Impression:
VERONIKA
CKD 3 (1.4-1.8)
Change of Mental Status
UTI (on Bactrim as outpatient)
CHF exacerbation and non-ST elevation CT with troponin of 6
PAF
CAD with multiple stenting procedures
History of iron deficiency anemia
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
CAD
HX HLD
HX COPD
HX CVA
Essential HTN
DMT2
GERD
Hypothyroidism
Parkinsonism
Chronic constipation
Plan:
VERONIKA:
- Possibly precipitated by Bactrim administration for UTI now held
- Possibly exacerbated by congestive heart failure exacerbation due to strong prerenal stimulus
- Accurate I's and O's, postvoid bladder scan to assess for urinary retention
- Maintain IV lasix 80mg IV BID for CHF decompensation
- Check iron stores in setting of worsening anemia JUANITO to be provided
-CT scan of head based on change of mental status
[2025-01-21 10:52] LABS: APTT 61.8 Sec (23.4-35.0)
--- NOTE | 2025-01-21 12:09 | CM ---
Initial assessment completed w/ patient's son, Reji at the bedside
Pharmacy: [facility] @ [address] [facility]
Patient resides at [facility]; [facility] Bed On Hold per facility
Patient is wheelchair bound; does not ambulate; able to feed self w/ set up; incontinent; requires total care
Plan: return to [facility] when medically stable via ambulance
[2025-01-21 12:11] LABS: Glucose - Point of Care 174 mg/dl (70-99)
[2025-01-21] MEDS: DECADRON 2 MG IV (12:51)
[2025-01-21] MEDS: NOVOLOG FLEXPEN-LOW RESISTANCE 1 UNITS SC (12:52)
--- NOTE | 2025-01-21 13:37 | WOUNDNOTE ---
ABDOMEN (LOWER, SUPRAPUBIC)
--- NOTE | 2025-01-21 13:37 | WOUNDNOTE ---
RLE (ANTERIOR LATERAL)
--- NOTE | 2025-01-21 13:40 | WOUNDNOTE ---
[facility] RN note: Patient admitted with NSTEMO. Patient admitted from SNF.
See H&P for complete history.
PMH: CAD with stents, MSTEMI, a fib (on anticoagulant), HTN, CKD3, IDDM, CVA, mitral valve regurgitation, constipation.
Wound Location and type/assessment: Patient admitted with: scattered dry stage 2 sacral/buttocks pressure injuries. R anterior lateral shallow pink ulcerations from previous full thickness wounds r/t hematoma evacuation (05/07/24). R dorsal hammer
toe scabbed ulcer. R dorsal foot old bruise. MASD suprapubic crease, Mild groin discolored skin r/t moisture and possible yeast. Pedal pulses heard via portable Doppler (L>R). Patient wears knee high Tubigrip.
Appetite: on 1800 calorie 2 gm sodium diet.
Pressure redistribution devices in place: Octopus Deploy air bed. She needs assistance with turning.
Plan: Silicone border foam applied to sacral/buttocks. RLE dressing changed. Patient turned to R semi side lying position with help from RN Yarelis. Heels off bed with pillow and air chair cushion. t/c SPD and ordered TruVue lite boots. She stated
she wears boots on/off at [facility].
Will confirm orders with Dr. Pineda and discussed with nurse.
Care plan to be updated and will follow as needed.
Note to case management of equipment requested for discharge: air mattress if not already in place.
Recommend follow up at wound care center upon discharge.
--- NOTE | 2025-01-21 13:45 | WOUNDNOTE ---
[facility] RN note: Patient admitted with NSTEMO. Patient admitted from SNF. Patient is followed by [facility] and Dr. Narayanan.
See H&P for complete history.
PMH: CAD with stents, MSTEMI, a fib (on anticoagulant), HTN, CKD3, IDDM, CVA, PAD, mitral valve regurgitation, constipation.
Wound Location and type/assessment: Patient admitted with: scattered dry stage 2 sacral/buttocks pressure injuries. R anterior lateral calf shallow pink ulcerations from previous full thickness wound r/t hematoma evacuation (05/07/24). L dorsal
hammer toe scabbed ulcer. L dorsal foot old bruise. MASD suprapubic crease, Mild groin discolored skin r/t moisture and possible yeast. Pedal pulses heard via portable Doppler (L>R). Patient wears knee high Tubigrip.
Appetite: on 1800 calorie 2 gm sodium diet.
Pressure redistribution devices in place: Centrella Max air bed. She needs assistance with turning.
Plan: Silicone border foam applied to sacral/buttocks. RLE dressing changed. Patient turned to R semi side lying position with help from FAHAD Santoyo. Heels off bed with pillow and air chair cushion. t/c SPD and ordered TruVue lite boots. She stated
she wears boots on/off at SNF.
Confirm orders with Dr. Pineda including knee high Tubigrip. Update Dr. Hoang via tiger text who was agreeable to wound care plan. Discussed with FAHAD Santoyo.
Care plan to be updated and will follow as needed.
Note to case management of equipment requested for discharge: air mattress if not already in place.
Recommend follow up at wound care center upon discharge.
[2025-01-21] MEDS: VENTOLIN NEBULES 2.5 MG INH (14:21)
[2025-01-21 14:29] LABS: Glucose - Point of Care 278 mg/dl (70-99)
--- NOTE | 2025-01-21 14:33 | W.PN.UPDATE ---
Update Note
Progress Note Update
MANAGER STONE called for SOB/increased work of breathing.
Noted pulse ox remain stable on 2L NC,
Ordered BIPA. Can check ABG in 30 min on BIPAP.
Suspect resp failure 2/2 ongoing acute CHF with likely NSTEMI as the culprit.
Informed Card Dr Flores on TT.
Updated son at bedside in person. GOC discussed and confirmed DNR DNI status.
CC time 40 min
--- NOTE | 2025-01-21 14:55 | W.PN.UPDATE ---
Update Note
Progress Note Update
Called to reassess patient by primary service.
Urgent bedside echo with reduced EF 35-40% with apical hypokinesis
General: Lethargic on BiPAP
Neck: Negative JVD
Heart: Regular, Negative S3 positive S1/S2, Negative S4, No murmur
Lungs: basilar rhonchi., negative wheezes/rales
Abd: Positive BS, NT/ND, neg rebound/rigidity/guarding
Ext: Negative cyanosis/clubbing. +1 b/l edema
Neuro: nonfocal
Pt s/p rapid response event. Now on BiPAP
Start IV nitro
Cont IV Heparin
Cont IV diuresis, reviewed with renal
Not candidate for beta christelle due to hx of bradycardia.
Check BMP, CBC, troponin
Check EKG
Son confirms conservative therapy and DNR.
Pt previously determined Not to be a revascularizable candidate
Son was appreciative of care.
Reviewed with primary wood web weaving machine operator.
Prognosis is very poor.
[2025-01-21] MEDS: NITROGLYCERIN PREMIX 250 IV (15:17)
--- NOTE | 2025-01-21 15:20 | RR ---
A Rapid Response was called on this patient, please see Rapid Response form. Patient became diaphoretic; audible wheezing and increased work of breathing during bedside echo. manager technical stated study was almost complete. Dr Pineda in to see patient.
Bipap ordered and placed on patient by RT. Dr Flores in to see patient; talked with son. EKG done and shown to Dr Flores. Nitro drip ordered at 30 mcg/min (4.5ml/hr) not to be titrated. BP 137/83, HR 103-105, POx 93% on 2L n/c. Accu check 278. BMP,
troponin and CBC drawn; see results. Patient remains on heparin drip.
[2025-01-21 15:28] LABS: Hematocrit 32.3 % (37.0-47.0); Hemoglobin 10.0 g/dL (12.0-16.0); Mean Corp Hgb Conc. 31.0 g/dL (33.0-37.0); Mean Corpuscular Volume 110.2 fL (81.0-99.0); Platelet Count 230 10^3/uL (130-400); Red Cell Dist. Width 16.4 % (11.5-14.5)
[2025-01-21] MEDS: APRESOLINE PO (15:44)
[2025-01-21] MEDS: BUSPAR PO ×2 (15:44→21:08)
[2025-01-21] MEDS: SINEMET 25-100 PO ×2 (15:45→21:08)
[2025-01-21 15:47] LABS: Troponin I 4.280 ng/ml
[2025-01-21 15:48] LABS: ALT (SGPT) < 10 U/L (0-35); AST (SGOT) 26 U/L (14-36); Albumin 3.8 g/dl (3.5-5.0); Alkaline Phosphatase 75 U/L (38-126); Blood Urea Nitrogen 72 mg/dl (7-17); Calcium 8.1 mg/dl (8.4-10.2); Carbon Dioxide 15 mmol/L (22-30); Estimated Creatinine Clearance 17 ml/min; Glucose 223 mg/dl (70-99); Total Protein 7.2 g/dl (6.3-8.2); eGFR 18.50
[2025-01-21 15:58] LABS: Chloride 110 mmol/L (98-107); Potassium 4.9 mmol/L (3.5-5.1); Sodium 140 mmol/L (135-145)
[2025-01-21] MEDS: SENOKOT-S PO (17:58)
[2025-01-21] MEDS: TYLENOL PO (17:58)
[2025-01-21 18:21] LABS: APTT 97.0 Sec (23.4-35.0)
[2025-01-21 18:24] LABS: B.E. -4.9 mmol/L; HCO3 19.5 mmol/L (21-28); O2 Saturation % 98.8 % (94-98); PCO2 33 mmHg (32-35); PO2 81 mmHg (83-108)
[2025-01-21] MEDS: NOVOLOG FLEXPEN-LOW RESISTANCE 3 UNITS SC (18:34)
[2025-01-21 18:36] LABS: Glucose - Point of Care 226 mg/dl (70-99)
[2025-01-21] MEDS: DESENEX/MITRAZOL/ZEASORB 1 APPLIC TOPICAL (21:06)
[2025-01-21] MEDS: XALATAN OPHTHALMIC SOLUTION 1 DROP RIGHT EYE (21:07)
[2025-01-21] MEDS: PEPCID PO (21:08)
[2025-01-21] MEDS: LIPITOR PO (21:08)
[2025-01-22] VITALS (27 sets, daily range): BP systolic 93–128; BP diastolic 41–106; PULSE 2–98; BMI 31.1
[2025-01-22] MEDS: HEPARIN 25000 UNITS/250 ML IV (00:16)
[2025-01-22] MEDS: NOVOLOG FLEXPEN-LOW RESISTANCE SC (00:21)
[2025-01-22 00:32] LABS: Glucose - Point of Care 124 mg/dl (70-99)
[2025-01-22] MEDS: APRESOLINE PO (00:39)
[2025-01-22] MEDS: DECADRON 2 MG IV ×2 (00:43→13:28)
[2025-01-22] MEDS: STERILE WATER FOR INJECTION 10 ML IV (00:46)
[2025-01-22] MEDS: ROCEPHIN 1000 MG IV (00:46)
[2025-01-22] MEDS: VIBRAMYCIN 260 MG IV ×2 (00:47→13:30)
[2025-01-22 01:07] LABS: APTT 111.9 Sec (23.4-35.0)
[2025-01-22] MEDS: MORPHINE SULFATE 1 MG IV (04:49)
--- NOTE | 2025-01-22 05:17 | PTCARENOTE ---
Patient calling out for help. Patient found to be tachypneic RR 30s with labored breathing. Sp02 89-91% on bipap. Pt appears visibly anxious and flushed in the face. Pt stated her breathing 'felt heavy'. RT Jemma at bedside to check bipap mask.
Nitro gtt and Heparin gtt continue per the AUG/ work list. Pt pulled up and sat up in bed. SRAVANI Jhaveri made aware. Order for 1 mg morphine x1 received and administered. Upon reassessment patient's breathing appears to be improved; respirations even
and unlabored. Sp02 93-94% on Bipap.
[2025-01-22] MEDS: SYNTHROID PO (05:47)
[2025-01-22] MEDS: PROTONIX PO (05:47)
[2025-01-22] MEDS: NOVOLOG FLEXPEN-LOW RESISTANCE 2 UNITS SC ×2 (06:13→18:33)
[2025-01-22 06:15] LABS: Glucose - Point of Care 203 mg/dl (70-99)
--- NOTE | 2025-01-22 06:24 | PTCARENOTE ---
Reji(son) called and provided an update via phone
[2025-01-22 07:06] LABS: APTT 109.6 Sec (23.4-35.0)
[2025-01-22 07:21] LABS: Blood Urea Nitrogen 78 mg/dl (7-17); Calcium 7.6 mg/dl (8.4-10.2); Carbon Dioxide 20 mmol/L (22-30); Chloride 111 mmol/L (98-107); Estimated Creatinine Clearance 16 ml/min; Glucose 169 mg/dl (70-99); Magnesium 2.5 mg/dl (1.6-2.3); Potassium 5.0 mmol/L (3.5-5.1); Sodium 141 mmol/L (135-145); eGFR 16.87
--- NOTE | 2025-01-22 07:57 | W.PN.HOSP.TC ---
Addendum entered and electronically signed by Lana Pineda MD 01/22/25 13:28:
# scattered dry stage 2 sacral/buttocks pressure injuries
Original Note:
Today's Communication/Plan
-
see A/P
Assessment / Plan
Assessment / Plan
HPI: 84-year-old F with extensive past medical history including CAD status post multiple stents, paroxysmal atrial fibrillation on anticoagulation, CHF on chronic diuresis and fluid restriction, iron deficiency anemia, recurrent UTIs on
methenamine, initiated on Bactrim on 01/15 for urinary tract infection, Hypertension, CKD, insulin-dependent diabetes; presented to the emergency department 2/2 hypoxia, wheezing, cough and shortness of breath, ongoing for about 2 days. She c/o chest
pain that she described as indigestion.
According to the [facility] staff, she had an abrupt drop in her pulse ox to 85 on room air. She was placed on 2 L of nasal cannula and it promptly came up to the 90s. She had expiratory wheezes and was thus sent to the emergency department.
Her X-ray showed some volume overload and rounded right lower lobe opacity which could be atelectasis or effusion. She was also noted to have troponin elevation at 6.2 on admission and markedly elevated BNP over 19,000.
A/P:
# Shortness of breath, likely acute CHF exacerbation (see below) and cannot rule out pulmonary infiltrate
# Acute hypoxic respiratory failure, 2/2 above
Supplemental oxygen at 2L NC -> BIPAP for increased work of breathing; wean O2 as tolerated
Pt developed hemoptysis 01/22 (heparin drip held), hence cannot use BIPAP currently, d/w RT will attempt high flow for now (PEEP of 5) and will re-attempt BIPAP if hemoptysis resolves
Of note, given VERONIKA, cannot check Pro-George
Check sputum culture if able, follow Legionella and pneumococcal urine antigens,
MRSA screen negative, COVID negative
Pt was started with empiric ceftriaxone and doxycycline, cont for now
DCed CLINICAL DIETITIAN Bactrim
Cough suppression, nebs
Started steroid Decadron 2 mg Q12H to see if this would be wheezing (although wheezing likely cardiac cause)
# NSTEMI with likely acute on chronic CHF, new systolic heart failure
troponin 6.2 -> ... -> 4.2
BNP greater than 19,000.
ECG nonischemic.
Pt was started with heparin drip, now held 2/2 hemoptysis.
Cont nitro drip (in place of CLINICAL DIETITIAN Imdur)
Cont CLINICAL DIETITIAN Plavix
Hold CLINICAL DIETITIAN apixaban
echo this admission noted new reduced EF at 35-40%. Mild to moderate mitral stenosis. Moderate to severe mitral regurgitation. Estimated pulmonary artery pressure 45 mmHg. Compared to the previous echo from September 2023, EF was 65-70% without wall
motion abnormalities.
Continue Lasix 80 mg IV BID, monitor daily weights, ins and outs
Cardiology on board
# Hemoptysis 01/22
heparin drip held
Check urgent CXR
# VERONIKA on CKD stage 3
Since patient appeared volume overloaded suspect cardiorenal versus VERONIKA from Bactrim related renal injury
Creatinine at 2.7 on admission from baseline 1.4, SCr today at 2.7, cont to monitor SCr
Discontinued Bactrim
Renal and bladder ultrasound unrevealing: chronic medical renal disease. Punctate nonobstructing bilateral renal calculi. No hydronephrosis.
Continue to monitor ins and outs. Avoid nephrotoxins,
Hold metolazone, continue Lasix for now
Nephrology on board
# Paroxysmal atrial fibrillation
Continue amiodarone Saturday
heparin drip held 2/2 hemoptysis.
# IDDM
Cont Lantus adjusted from CLINICAL DIETITIAN 15 to 10 units HS
ISS coverage
DVT prophylaxis�heparin drip held 2/2 hemoptysis. SCD for now
CODE STATUS�DNR
DW RN
DW son at bedside
DW Card
CC Mx for hemoptysis , total time spent 51 min
Anticipated Discharge: > 48 hours
Subjective/Interval History
-
Date of Service: January 22, 2025
Objective Data
-
Labs:
Laboratory Results
01/22/25 01/22/25 01/22/25
00:38 06:46 12:45
APTT 111.9 H 109.6 H Pending
Sodium 141
Potassium 5.0
Chloride 111 H
Carbon Dioxide 20 L
BUN 78 H
Creatinine 2.7 H
Glucose 169 H
Calcium 7.6 L
Vital Signs:
Vital Signs
Temp Pulse Resp BP Pulse Ox
37.0 C 78 16 115/59 94
01/22/25 07:10 01/22/25 06:00 01/22/25 06:00 01/22/25 06:00 01/22/25 04:28
Review of Systems
-
Unable to obtain full review of systems at this time due to: Acuity
Physical Exam
-
General: Well Developed, Well Nourished and Respiratory Distress
HEENT: Normocephalic, Atraumatic and Oxygen (BIPAP -> NC)
Respiratory: Clear to Auscultation, Crackles and Non Labored Respirations; Negative Wheezes or Accessory Resp Muscle Use
Cardiac: Regular Rhythm and S1/S2
GI: Soft and Nontender
Skin: Warm and Dry
Psych: Calm and Intact Judgement/Insight (somewhat)
Data Reviewed
-
Diagnostic Radiology: Image personally visualized and interpreted and Report Reviewed by me
Labs: Labs Reviewed by me
--- NOTE | 2025-01-22 09:14 | PTCARENOTE ---
Patient received from therapeutic strategy lead. Patient is resting comfortably in bed, off BiPAP and on N/C. Son at bedside. AAOx2, not really to place, VSS. No complaints of pain at this time. No events noted overnight. Patient on Nitro gtt for cardiac
output and to remain at set rate. Heparin gtt on hold due to hemoptysis. Head CT from prior day still ordered, no other testing at this time. Call mcginnis in reach.
[2025-01-22] MEDS: MIRALAX 17 GRAMS PO (09:53)
[2025-01-22] MEDS: FEOSOL 325 MG PO (09:54)
[2025-01-22] MEDS: PLAVIX 75 MG PO (09:54)
[2025-01-22] MEDS: TYLENOL 1000 MG PO ×2 (09:54→15:59)
[2025-01-22] MEDS: BUSPAR 2.5 MG PO ×2 (09:54→15:55)
[2025-01-22] MEDS: LASIX 80 MG IV (09:54)
[2025-01-22] MEDS: REFRESH EYE DROPS (PF) 1 DROPS BOTH EYES ×2 (09:54→20:54)
[2025-01-22] MEDS: APRESOLINE 25 MG PO ×2 (09:55→15:55)
[2025-01-22] MEDS: DESENEX/MITRAZOL/ZEASORB 1 APPLIC TOPICAL ×2 (09:55→20:55)
[2025-01-22] MEDS: PACERONE 100 MG PO (09:59)
[2025-01-22] MEDS: SINEMET 25-100 2 TABLET PO ×3 (09:59→15:58)
--- NOTE | 2025-01-22 10:21 | PTCARENOTE ---
per Reji, patients POA
Tamra Herron - absolutely no information and no decision making. Ask her to speak to Reji for updates
--- NOTE | 2025-01-22 10:51 | W.PN.CARDCBS ---
Today's Communication / Plan
-
Hemoptysis noted this morning. Follow hemoglobin. Stop IV heparin. Would remain off Eliquis for now.
With non-STEMI would continue Plavix for now. Plan is for conservative therapy for her known severe coronary artery disease.
LVEF has dropped and is back down to 35 to 40%. She does not tolerate beta-blockers. Will continue Imdur and hydralazine if blood pressure tolerates. Hopefully restart Imdur over next 24 hours.
Continue high flow oxygen and aggressive diuresis for now.
We also discussed CODE STATUS/end-of-life care and she desires to continue medical therapy but is DNR/DNI.
Discussed at length with her son. She remains critically ill.
Impression / Plan
-
PCP: Dr. Walden
Bilingual Kindergarten Teacher: Dr. Danielle Franz
Impression:
Presented with cough, SOB
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
NSTEMI
VERONIKA on CKD 3
CAD
12/2000 left circumflex stent
10/2002 mid RCA stent
10/2004 mid LAD x2 stents and OM stents
05/2007 mid OM stents
03/[address] stent
01/2020 NSTEMI, medical management of multivessel CAD, she is not a candidate for any further revascularization either surgical or percutaneous
Ranexa was previously discontinued to allow initiation of amiodarone given that she has demonstrated prolonged QT at times in the past.
PAF
Chronic Amiodarone therapy
Chronic Eliquis therapy
Hypertension
h/o prolonged QTc/Bradycardia
COPD
Moderate MR
Insulin-dependent diabetes
Hyperlipidemia
PVD
Hypothyroidism
Severe orthopedic issues with decreased activity of daily living
h/o neck fracture
Parkinson's disease
Dementia
Polypharmacy
Multiple medication intolerances/allergies
Cardiac cath 07/19/2023 demonstrated stable distal left main stenosis involving the origin of the LAD and circumflex and new high-grade calcified mid LAD stenosis with apical LAD now occluded. Initially there was discussion of high risk LAD PCI but
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 After further discussion w/ family decision was made to treat her medically as she was deemed not
a surgical candidate.
Echo 07/15/23: EF 35-40%, EF previously had been 55-60%.
Echo 10/07/23: Hyperdynamic LV, EF 65 to 70%, MAC, mild to moderate MS with peak/mean gradients 14/6 mmHg, at least moderate and possibly severe MR likely underestimated due to MAC, mild with peak/mean gradients 29/16 mmHg, ANGELINA 1.1 cm�, mild to
moderate AR, mild TR, PAP 34 mmHg
Echo 01/21/2025: EF 35 to 40% with hypokinetic apex, mild to moderate mitral stenosis with mean gradient of 5, moderate to severe MR, mild aortic stenosis, mild to moderate AI, mild to moderate TR with PA pressure 45
Plan
-She had an episode of hemoptysis this morning. In setting of non-STEMI and no new chest pains we will stop IV heparin and follow hemoglobin. Would continue Plavix for now. She is on Eliquis as outpatient. Continue to hold.
-She has known CAD which is being medically managed as she would be high risk for PCI and is not felt to be a surgical candidate.
-NSTEMI noted with trop 6.25 on arrival, trending down thereafter. No chest pain this AM. Continue Imdur 90mg daily. Cannot tolerate metoprolol due to h/o bradycardia, not on Ranexa due to h/o prolonged QT. Prior intolerance to amlodipine.
-Continue plavix 75mg daily and lipitor 80mg daily. LDL 19.
-Diuresing with IV lasix 80mg BID. Unclear what dry weight is. Weight remains variable continue to follow. She was briefly on BiPAP but now is back on high amounts of nasal cannula and high flow oxygen.
-Continue daily weights, I&Os.
-Creat remained stable to 2.5-2.7 range.
-LVEF back down to 35 to 40%. It has been variable on the last several echoes.
-In SR on review of telemetry and by initial EKG. Continue amiodarone.
-BP stable, continue hydralazine.
-Discussed with son. She remains critically ill with NSTEMI and hemoptysis.
HPI: Phoebe is an 84 year old female with PMH of CAD w/ multiple prior stents, being medically managed at this time, HFimpEF, HTN, PAF, COPD, DM, CKD, HLD, PVD, hypothyroidism, Parkinson's disease, and dementia. Presented for evaluation of cough
and SOB. Reportedly symptoms started about 2 days prior to arrival and was [facility] however during initial eval, VS were stable, so hospitalization was not recommended. She then continued w/ cough and SOB and when she was
checked again, was noted to be hypoxic with pulse ox in the 80s, so she was referred to the ER. In ER, noted to be in acute heart failure with proBNP 19,500 and also found to have elevated troponin. Possible pneumonia noted and she was admitted for
further workup and evaluation. She has known chronic stable angina which is managed medically with imdur. Has not tolerated metoprolol due to bradycardia and cannot tolerate Ranexa due to prolonged QT. This AM, she is resting comfortably in bed. No
chest pain currently. No SOB. She has previously wished for more conservative management and this was confirmed again today.
Progress Note - Bilingual Kindergarten Teacher
Subjective
Date of Service: January 22, 2025
She is having hemoptysis this morning. IV heparin was stopped. She denies any chest pains. Son at bedside.
Objective
Labs:
01/21/25 15:13
01/22/25 06:46
Labs
Hgb 10.0 g/dL (12.0-16.0) L 01/21/25 15:13
Hct 32.3 % (37.0-47.0) L 01/21/25 15:13
Plt Count 230 10^3/uL (130-400) D 01/21/25 15:13
APTT 109.6 Sec (23.4-35.0) H 01/22/25 06:46
Sodium 141 mmol/L (135-145) 01/22/25 06:46
Potassium 5.0 mmol/L (3.5-5.1) 01/22/25 06:46
BUN 78 mg/dl (7-17) H 01/22/25 06:46
Creatinine 2.7 mg/dL (0.6-1.0) H 01/22/25 06:46
Glucose 169 mg/dl (70-99) H 01/22/25 06:46
Troponins
01/20/25 01/21/25 01/21/25
22:04 04:04 10:00
Troponin I 6.250 H* 5.390 H* Cancelled
01/21/25
15:13
Troponin I 4.280 H*
Vital Signs and I&O:
Vital Signs
Temp Pulse Resp BP Pulse Ox
99.2 F 81 16 107/66 94
01/22/25 08:34 01/22/25 09:55 01/22/25 06:00 01/22/25 09:55 01/22/25 04:28
Vital Signs
Temp Pulse Resp BP Pulse Ox
99.2 F 81 16 107/66 94
01/22/25 08:34 01/22/25 09:55 01/22/25 06:00 01/22/25 09:55 01/22/25 04:28
Physical Exam
Physical Exam
GEN: No distress, awake, anxious
HEENT: supple, anicteric, mmm
LUNGS: bilat rhonchi
CV: Reg, S1/S2, 1/6 syst LSB, S3+
ABD: soft, BS+, NT/ND
EXT: +1 edema
NEURO: Gross non-focal
SKIN: No rash
--- NOTE | 2025-01-22 11:04 | W.PN.NEPH.PH ---
Today's Communication / Plan
-
Increased Lasix to 120 mg twice daily
Assessment/Plan
-
Impression:
VERONIKA
CKD 3 (1.4-1.8)
Change of Mental Status
UTI (on Bactrim as outpatient)
CHF exacerbation and non-ST elevation IN with troponin of 6
PAF
CAD with multiple stenting procedures
History of iron deficiency anemia
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
CAD
HX HLD
HX COPD
HX CVA
Essential HTN
DMT2
GERD
Hypothyroidism
Parkinsonism
Chronic constipation
Plan:
VERONIKA:
- Possibly precipitated by Bactrim administration for UTI now held
- Cardiorenal
- Accurate I's and O's,
Long discussion with her son about the guarded prognosis
Patient would not want dialysis as that is in her living will
I will increase diuretics 120 mg as she is dependent on high flow oxygen and chest x-ray and physical exam consistent with pulmonary edema
-
-
Date of Service: January 22, 2025
CC / HPI / ROS
-
Chief Complaint:
Shortness of breath
History of Present Illness:
CHF exacerbation VERONIKA on CKD
Review of Systems:
Remains short of breath on high flow oxygen
Labs
-
Labs:
WBC 11.3 10^3/uL (4.8-10.8) H 01/21/25 15:13
RBC 2.93 10^6/uL (4.20-5.40) L 01/21/25 15:13
Hgb 10.0 g/dL (12.0-16.0) L 01/21/25 15:13
Hct 32.3 % (37.0-47.0) L 01/21/25 15:13
Plt Count 230 10^3/uL (130-400) D 01/21/25 15:13
Sodium 141 mmol/L (135-145) 01/22/25 06:46
Potassium 5.0 mmol/L (3.5-5.1) 01/22/25 06:46
Chloride 111 mmol/L (98-107) H 01/22/25 06:46
Carbon Dioxide 20 mmol/L (22-30) L 01/22/25 06:46
BUN 78 mg/dl (7-17) H 01/22/25 06:46
Creatinine 2.7 mg/dL (0.6-1.0) H 01/22/25 06:46
eGFR 16.87 01/22/25 06:46
Glucose 169 mg/dl (70-99) H 01/22/25 06:46
Calcium 7.6 mg/dl (8.4-10.2) L 01/22/25 06:46
Bez-K-Rmseokddisn Pept 21564 pg/ml 01/20/25 23:23
Albumin 3.8 g/dl (3.5-5.0) 01/21/25 15:13
Physical Exam
-
Vital Signs:
Vital Signs
Temp Pulse Resp BP Pulse Ox
99.2 F 81 16 107/66 94
01/22/25 08:34 01/22/25 09:55 01/22/25 06:00 01/22/25 09:55 01/22/25 04:28
Cardiovascular:: Regular rate and rhythm
Respiratory:: Bilateral: Rales and Bilateral: Rhonchi
Lung Excursion:: Normal
Abdomen:: Nontender and Soft
Bowel Sounds:: Normal
Extremity Edema:: None: Bilateral:
Silveira Catheter: No
[2025-01-22 12:07] LABS: Glucose - Point of Care 171 mg/dl (70-99)
--- NOTE | 2025-01-22 13:09 | PN.CDI ---
CDI
- -
CDI:
Physician Documentation Request
Admit Date: 01/21/25 02:38
Dear Doctor Miriam,
01/21 WOCN note states ' scattered dry stage 2 sacral/buttocks pressure injuries.'
Physician documentation of the type and location of wounds is required for compliant documentation. Based on the above clinical findings and your assessment, please provide the following in your progress note:
1. Location of the ulcer/wound, including laterality.
2. Type (etiology) of ulcer/wound:
- Traumatic wound
- Pressure (decubitus) ulcer
- Other
Use of terms such as suspected, likely, concern for, or probable (associated with a specific diagnosis that is being evaluated, monitored, or treated as if it exists) are acceptable and can be coded in the inpatient setting, when documented at the
time of discharge.
Thank you,
Janet Powers RN, BSN
CDI Specialist
tiger text
Please use your independent medical judgment in providing your response.
*Source: National Pressure Ulcer Advisory Panel (NPUAP)
[2025-01-22] MEDS: NOVOLOG FLEXPEN-LOW RESISTANCE 1 UNITS SC (13:29)
[2025-01-22 15:22] LABS: Glucose - Point of Care 252 mg/dl (70-99)
[2025-01-22] MEDS: ALPRAZOLAM ODT 0.25 MG PO (15:54)
[2025-01-22] MEDS: SENOKOT-S 2 TABLET PO (15:55)
[2025-01-22] MEDS: LASIX 120 MG IV (15:58)
[2025-01-22 18:23] LABS: Glucose - Point of Care 221 mg/dl (70-99)
[2025-01-22 18:34] LABS: Glucose - Point of Care 218 mg/dl (70-99)
[2025-01-22] MEDS: SINEMET 25-100 PO (22:05)
[2025-01-22] MEDS: BUSPAR PO (22:06)
[2025-01-22] MEDS: PEPCID PO (22:06)
[2025-01-22] MEDS: LIPITOR PO (22:06)
[2025-01-22] MEDS: XALATAN OPHTHALMIC SOLUTION 1 DROP RIGHT EYE (22:07)
[2025-01-22] MEDS: NITROGLYCERIN PREMIX 250 IV (22:11)
[2025-01-22 22:17] LABS: Glucose - Point of Care 223 mg/dl (70-99)
[2025-01-23] VITALS (28 sets, daily range): BP systolic 99–137; BP diastolic 30–96; PULSE 2–90; BMI 30.4
[2025-01-23] MEDS: APRESOLINE PO (00:40)
[2025-01-23] MEDS: ROCEPHIN 1000 MG IV ×2 (00:41→23:21)
[2025-01-23] MEDS: DECADRON 2 MG IV (00:41)
[2025-01-23] MEDS: STERILE WATER FOR INJECTION 10 ML IV ×2 (00:42→23:21)
[2025-01-23] MEDS: VIBRAMYCIN 260 MG IV ×2 (00:45→12:36)
[2025-01-23] MEDS: NOVOLOG FLEXPEN-LOW RESISTANCE 1 UNITS SC ×3 (00:59→23:26)
[2025-01-23 01:10] LABS: Glucose - Point of Care 184 mg/dl (70-99)
--- NOTE | 2025-01-23 01:46 | PTCARENOTE ---
Received pt on BIPAP but she was restless and removing equipment. Resp notified and arrived to reapply BIPAP 15/5 with 6L. Pt repositioned and turned and settled into a quiet sleep, awakens restless at intervals and trying to remove BIPAP, reassured
by staff and repositioned when restless-pt then settles back to resting quietly. NSR on monitor, no complaints of pain. EKUK but appears to understand simple directions and questions.
[2025-01-23] MEDS: PROTONIX 20 MG PO (05:52)
[2025-01-23] MEDS: SYNTHROID 112 MCG PO (05:52)
[2025-01-23 05:56] LABS: Hematocrit 25.8 % (37.0-47.0); Hemoglobin 8.1 g/dL (12.0-16.0); Mean Corp Hgb Conc. 31.4 g/dL (33.0-37.0); Mean Corpuscular Volume 109.3 fL (81.0-99.0); Platelet Count 180 10^3/uL (130-400); Red Cell Dist. Width 16.9 % (11.5-14.5)
[2025-01-23 05:58] LABS: Glucose - Point of Care 186 mg/dl (70-99)
[2025-01-23 06:29] LABS: Blood Urea Nitrogen 104 mg/dl (7-17); Calcium 8.1 mg/dl (8.4-10.2); Carbon Dioxide 20 mmol/L (22-30); Chloride 112 mmol/L (98-107); Estimated Creatinine Clearance 17 ml/min; Glucose 160 mg/dl (70-99); Potassium 5.5 mmol/L (3.5-5.1); Sodium 142 mmol/L (135-145); eGFR 17.65
--- NOTE | 2025-01-23 08:28 | W.PN.HOSP.TC ---
Addendum entered and electronically signed by Lana Pineda MD 01/23/25 14:51:
Per SPL therapist, patient's breathing is becoming tenuous again.
Will change 3 L mid flow to BiPAP again. Make NPO.
Original Note:
Today's Communication/Plan
-
see A/P
Assessment / Plan
Assessment / Plan
HPI: 84-year-old F with extensive past medical history including CAD status post multiple stents, paroxysmal atrial fibrillation on anticoagulation, CHF on chronic diuresis and fluid restriction, iron deficiency anemia, recurrent UTIs on
methenamine, initiated on Bactrim on 01/15 for urinary tract infection, Hypertension, CKD, insulin-dependent diabetes; presented to the emergency department 2/2 hypoxia, wheezing, cough and shortness of breath, ongoing for about 2 days. She c/o chest
pain that she described as indigestion.
According to the jail staff, she had an abrupt drop in her pulse ox to 85 on room air. She was placed on 2 L of nasal cannula and it promptly came up to the 90s. She had expiratory wheezes and was thus sent to the emergency department.
Her X-ray showed some volume overload and rounded right lower lobe opacity which could be atelectasis or effusion. She was also noted to have troponin elevation at 6.2 on admission and markedly elevated BNP over 19,000.
A/P:
# Shortness of breath, likely acute CHF exacerbation (see below) and cannot rule out pulmonary infiltrate
# Acute hypoxic respiratory failure, 2/2 above
On and off BIPAP, can try mid flow today with improved oxygenation; wean O2 as tolerated
restart diet, SPL eval
Of note, given VERONIKA, cannot check Pro-George
MRSA screen negative, COVID negative, Legionella and pneumococcal urine antigens negative
Check sputum culture if able,
Pt was started with empiric ceftriaxone and doxycycline, cont for now
DCed LOG PREPARER Bactrim
Cough suppression, nebs
DC further Decadron 2 mg Q12H with resolved wheezing (wheezing was likely cardiac cause anyway)
# NSTEMI with likely acute on chronic CHF, new systolic heart failure
troponin 6.2 -> ... -> 4.2
BNP greater than 19,000.
ECG nonischemic.
Pt was started with heparin drip for ACS, held 2/2 hemoptysis.
Cont nitro drip (in place of LOG PREPARER Imdur)
Cont LOG PREPARER Plavix
Hold LOG PREPARER apixaban
echo this admission noted new reduced EF at 35-40%. Mild to moderate mitral stenosis. Moderate to severe mitral regurgitation. Estimated pulmonary artery pressure 45 mmHg. Compared to the previous echo from September 2023, EF was 65-70% without wall
motion abnormalities.
Continue IV Lasix now at 120 mg IV BID, monitor daily weights, ins and outs
Cardiology on board
# Hemoptysis 01/22, appear to have resolved
heparin drip held
Follow up CXR and CT Chest showed Moderate bilateral pleural effusions and airspace disease process in the upper lobes, right greater than left. Suspicious for pulmonary edema possibly related to congestive heart failure.
# VERONIKA on CKD stage 3
Since patient appeared volume overloaded suspect cardiorenal versus VERONIKA from Bactrim related renal injury
Creatinine at 2.7 on admission from baseline 1.4, SCr today at 2.6, cont to monitor SCr
Discontinued Bactrim
Renal and bladder ultrasound unrevealing: chronic medical renal disease. Punctate nonobstructing bilateral renal calculi. No hydronephrosis.
Continue to monitor ins and outs. Avoid nephrotoxins,
Hold metolazone, continue Lasix as stated above
Galindo placed on 01/22 for I/O
Nephrology on board
# Paroxysmal atrial fibrillation
Continue amiodarone Saturday
heparin drip held 2/2 hemoptysis.
# IDDM
Cont Lantus adjusted from LOG PREPARER 15 to 10 units HS
ISS coverage
# Suspect anxiety
s/p Xanax ODT, can consider additional doses for anxiety
DVT prophylaxis�heparin drip held 2/2 hemoptysis. SCD for now.
CODE STATUS�DNR
DW RN
DW son
total time spent 51 min
Anticipated Discharge: > 48 hours
Subjective/Interval History
-
Date of Service: January 23, 2025
Objective Data
-
Labs:
Laboratory Results
01/23/25
05:43
WBC 9.1
Hgb 8.1 L
Hct 25.8 L
Plt Count 180 D
Sodium 142
Potassium 5.5 H
Chloride 112 H
Carbon Dioxide 20 L
BUN 104 H*
Creatinine 2.6 H
Glucose 160 H
Calcium 8.1 L
Vital Signs:
Vital Signs
Temp Pulse Resp BP Pulse Ox
36.6 C 71 22 107/86 96
01/23/25 07:00 01/23/25 01:00 01/23/25 01:00 01/23/25 01:00 01/23/25 07:52
I&O
01/22/25 01/23/25 01/24/25
06:59 06:59 06:59
Intake Total 314 / 314
Output Total 775 / 775
Balance -461 / -461
Review of Systems
-
History Source: Patient
All other systems: Reviewed and negative
Physical Exam
-
General: Well Developed, Well Nourished and Respiratory Distress
HEENT: Normocephalic, Atraumatic and Oxygen (high flow -> mid flow )
Respiratory: Clear to Auscultation, Crackles and Non Labored Respirations; Negative Wheezes or Accessory Resp Muscle Use
Cardiac: Regular Rhythm and S1/S2
GI: Soft and Nontender
Genito-urinary: Galindo (galindo placed on 01/22)
Skin: Warm and Dry
Psych: Calm and Intact Judgement/Insight (somewhat)
Data Reviewed
-
Diagnostic Radiology: Image personally visualized and interpreted and Report Reviewed by me
CT Scan: Report Reviewed by me
Labs: Labs Reviewed by me
--- NOTE | 2025-01-23 08:50 | W.PN.CARDCBS ---
Today's Communication / Plan
-
Hemoptysis has resolved off IV Heparin
She was on Eliquis as outpt, cont to hold.
Cont IV nitro for another 24 hrs.
Cont Plavix
NSTEMI, Trop peak 6.2 and trended down.
She has previously been determined to be a nonrevascularizable candidate; medical therapy only.
Continue Imdur 90mg daily. She cannot tolerate metoprolol due to hx bradycardia, not on Ranexa due to hx prolonged QT. Prior intolerance to amlodipine.
Cont Lipitor 80mg daily. LDL 19.
Cont IV diuresis as per nephrology, currently on 120 mg IV BID.
-Continue daily weights, I&Os.
-Creat remained stable to 2.5-2.7 range.
-LVEF back down to 35 to 40%. It has been variable on the last several echoes.
She was briefly on BiPAP but now is back on nasal cannula
Remains in sinus. Cont Amio
Bp stable on Hydralazine.
Son has been updated last 24 hrs
Discussed with nursing and with primary service.
Impression / Plan
-
.
PCP: Dr. Walden
Floral Assistant: Dr. Danielle Franz
Impression:
Presented with cough, SOB
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
NSTEMI
VERONIKA on CKD 3
CAD
12/2000 left circumflex stent
10/2002 mid RCA stent
10/2004 mid LAD x2 stents and OM stents
05/2007 mid OM stents
03/[address] stent
01/2020 NSTEMI, medical management of multivessel CAD, she is not a candidate for any further revascularization either surgical or percutaneous
Ranexa was previously discontinued to allow initiation of amiodarone given that she has demonstrated prolonged QT at times in the past.
PAF
Chronic Amiodarone therapy
Chronic Eliquis therapy
Hypertension
h/o prolonged QTc/Bradycardia
COPD
Moderate MR
Insulin-dependent diabetes
Hyperlipidemia
PVD
Hypothyroidism
Severe orthopedic issues with decreased activity of daily living
h/o neck fracture
Parkinson's disease
Dementia
Polypharmacy
Multiple medication intolerances/allergies
Cardiac cath 07/19/2023 demonstrated stable distal left main stenosis involving the origin of the LAD and circumflex and new high-grade calcified mid LAD stenosis with apical LAD now occluded. Initially there was discussion of high risk LAD PCI but
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 After further discussion w/ family decision was made to treat her medically as she was deemed not
a surgical candidate.
Echo 07/15/23: EF 35-40%, EF previously had been 55-60%.
Echo 10/07/23: Hyperdynamic LV, EF 65 to 70%, MAC, mild to moderate MS with peak/mean gradients 14/6 mmHg, at least moderate and possibly severe MR likely underestimated due to MAC, mild with peak/mean gradients 29/16 mmHg, ANGELINA 1.1 cm�, mild to
moderate AR, mild TR, PAP 34 mmHg
Echo 01/21/2025: EF 35 to 40% with hypokinetic apex, mild to moderate mitral stenosis with mean gradient of 5, moderate to severe MR, mild aortic stenosis, mild to moderate AI, mild to moderate TR with PA pressure 45
Plan
Hemoptysis has resolved off IV Heparin
She was on Eliquis as outpt, cont to hold.
Cont IV nitro for another 24 hrs.
Cont Plavix
NSTEMI, Trop peak 6.2 and trended down.
She has previously been determined to be a nonrevascularizable candidate; medical therapy only.
Continue Imdur 90mg daily. She cannot tolerate metoprolol due to hx bradycardia, not on Ranexa due to hx prolonged QT. Prior intolerance to amlodipine.
Cont Lipitor 80mg daily. LDL 19.
Cont IV diuresis as per nephrology, currently on 120 mg IV BID.
-Continue daily weights, I&Os.
-Creat remained stable to 2.5-2.7 range.
-LVEF back down to 35 to 40%. It has been variable on the last several echoes.
She was briefly on BiPAP but now is back on nasal cannula
Remains in sinus. Cont Amio
Bp stable on Hydralazine.
Son has been updated last 24 hrs
Discussed with nursing and with primary service.
Prognosis overall is poor.
HPI: Phoebe is an 84 year old female with PMH of CAD w/ multiple prior stents, being medically managed at this time, HFimpEF, HTN, PAF, COPD, DM, CKD, HLD, PVD, hypothyroidism, Parkinson's disease, and dementia. Presented for evaluation of cough
and SOB. Reportedly symptoms started about 2 days prior to arrival and was initially evaluated at halfway however during initial eval, VS were stable, so hospitalization was not recommended. She then continued w/ cough and SOB and when she was
checked again, was noted to be hypoxic with pulse ox in the 80s, so she was referred to the ER. In ER, noted to be in acute heart failure with proBNP 19,500 and also found to have elevated troponin. Possible pneumonia noted and she was admitted for
further workup and evaluation. She has known chronic stable angina which is managed medically with imdur. Has not tolerated metoprolol due to bradycardia and cannot tolerate Ranexa due to prolonged QT. This AM, she is resting comfortably in bed. No
chest pain currently. No SOB. She has previously wished for more conservative management and this was confirmed again today.
Progress Note - Floral Assistant
Subjective
Date of Service: January 23, 2025
Pt seen and examined. No complaints. No chest pain or shortness of breath.
Objective
Labs:
01/23/25 05:43
01/23/25 05:43
Labs
Hgb 8.1 g/dL (12.0-16.0) L 01/23/25 05:43
Hct 25.8 % (37.0-47.0) L 01/23/25 05:43
Plt Count 180 10^3/uL (130-400) D 01/23/25 05:43
APTT Cancelled 01/22/25 12:45
Sodium 142 mmol/L (135-145) 01/23/25 05:43
Potassium 5.5 mmol/L (3.5-5.1) H 01/23/25 05:43
BUN 104 mg/dl (7-17) H* 01/23/25 05:43
Creatinine 2.6 mg/dL (0.6-1.0) H 01/23/25 05:43
Glucose 160 mg/dl (70-99) H 01/23/25 05:43
Troponins
01/20/25 01/21/25 01/21/25
22:04 04:04 10:00
Troponin I 6.250 H* 5.390 H* Cancelled
01/21/25
15:13
Troponin I 4.280 H*
Vital Signs and I&O:
Vital Signs
Temp Pulse Resp BP Pulse Ox
97.8 F 71 22 107/86 96
01/23/25 07:00 01/23/25 01:00 01/23/25 01:00 01/23/25 01:00 01/23/25 07:52
Vital Signs
Temp Pulse Resp BP Pulse Ox
97.8 F 71 22 107/86 96
01/23/25 07:00 01/23/25 01:00 01/23/25 01:00 01/23/25 01:00 01/23/25 07:52
Intake & Output
01/21/25 01/22/25 01/23/25 01/24/25
06:59 06:59 06:59 06:59
Intake Total 314 / 314
Output Total 775 / 775
Balance -461 / -461
Physical Exam
Physical Exam
General: No acute distress, AAOX3
Neck: Negative JVD
Heart: Regular, Negative S3 positive S1/S2, Negative S4, No murmur
Lungs: CTA b/l, negative wheezes/rales/rhonchi
Abd: Positive BS, NT/ND, neg rebound/rigidity/guarding
Ext: Negative cyanosis/clubbing/edema
Neuro: nonfocal
--- NOTE | 2025-01-23 08:55 | VATNOTE ---
PRIMARY RN FOUND PATIENT RA WITH INFILTRATE OF IVF. +1-2 EDEMA FA AREA. PT STATES IT IS TENDER TO TOUCH. HEAT APPLIED, ARM ELEVATED, NEW IV ACCESS ESTABLISHED. WILL CONT TO MONITOR
--- NOTE | 2025-01-23 09:00 | PTCARENOTE ---
Patients BUN this AM is 104 and Creatinine is 2.6. Dr. Mares, Nephrology, was informed of the patients lab values and that she was due to have 120mg of Lasix @ 0800. Hospitalist was also made aware and asked to consult with nephrology. Was
instructed to give AM dose and then afternoon dose would be reassessed.
--- NOTE | 2025-01-23 09:14 | PTCARENOTE ---
Patient received from shift mgr. Patient is resting comfortably in bed. Remains AAOx2, not really to place, VSS. No complaints of pain at this time. No events noted overnight. Placed on Highflow off the BiPAP initially then wean to N/C as
tolerated. Patient continues on Nitro gtt for cardiac output and to remain at set rate, reassessing by cardiology tomorrow. Silveira in place, nephrology determination. No further testing at this time. Call mcginnis in reach.
[2025-01-23] MEDS: LASIX 120 MG IV (09:29)
[2025-01-23] MEDS: MIRALAX 17 GRAMS PO (09:33)
[2025-01-23] MEDS: TYLENOL 1000 MG PO ×2 (09:33→18:21)
[2025-01-23] MEDS: APRESOLINE 25 MG PO ×2 (09:33→15:10)
[2025-01-23] MEDS: BUSPAR 2.5 MG PO ×3 (09:33→21:31)
[2025-01-23] MEDS: REFRESH EYE DROPS (PF) 1 DROPS BOTH EYES ×2 (09:33→20:49)
[2025-01-23] MEDS: FEOSOL 325 MG PO (09:34)
[2025-01-23] MEDS: DESENEX/MITRAZOL/ZEASORB 1 APPLIC TOPICAL ×2 (09:34→20:49)
[2025-01-23] MEDS: PLAVIX 75 MG PO (09:37)
[2025-01-23 09:44] LABS: Glucose - Point of Care 185 mg/dl (70-99)
[2025-01-23] MEDS: SINEMET 25-100 2 TABLET PO ×4 (09:53→21:33)
--- NOTE | 2025-01-23 12:27 | W.PN.NEPH.PH ---
Today's Communication / Plan
-
Lasix 120 mg given at this morning will hold going forward maintain Silveira catheter
Assessment/Plan
-
Impression:
VERONIKA
CKD 3 (1.4-1.8)
Change of Mental Status
UTI (on Bactrim as outpatient)
CHF exacerbation and non-ST elevation [place] with troponin of 6
PAF
CAD with multiple stenting procedures
History of iron deficiency anemia
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
CAD
HX HLD
HX COPD
HX CVA
Essential HTN
DMT2
GERD
Hypothyroidism
Parkinsonism
Chronic constipation
Plan:
VERONIKA:
- Possibly precipitated by Bactrim administration for UTI now held
- Cardiorenal
- Accurate I's and O's,
Long discussion with her son about the guarded prognosis
Patient would not want dialysis as that is in her living will
Respiratory status much improved with the Lasix 120 mg added twice a day
Morning dose was given I will hold this afternoon's dose then reevaluate tomorrow with the BUN of 104
Maintain Silveira catheter for now
-
-
Date of Service: January 23, 2025
CC / HPI / ROS
-
Chief Complaint:
Shortness of breath
History of Present Illness:
CHF exacerbation VERONIKA on CKD
Review of Systems:
On 4 L nasal cannula improved to nonoliguric Silveira catheter
Labs
-
Labs:
WBC 9.1 10^3/uL (4.8-10.8) 01/23/25 05:43
RBC 2.36 10^6/uL (4.20-5.40) L 01/23/25 05:43
Hgb 8.1 g/dL (12.0-16.0) L 01/23/25 05:43
Hct 25.8 % (37.0-47.0) L 01/23/25 05:43
Plt Count 180 10^3/uL (130-400) D 01/23/25 05:43
Sodium 142 mmol/L (135-145) 01/23/25 05:43
Potassium 5.5 mmol/L (3.5-5.1) H 01/23/25 05:43
Chloride 112 mmol/L (98-107) H 01/23/25 05:43
Carbon Dioxide 20 mmol/L (22-30) L 01/23/25 05:43
BUN 104 mg/dl (7-17) H* 01/23/25 05:43
Creatinine 2.6 mg/dL (0.6-1.0) H 01/23/25 05:43
eGFR 17.65 01/23/25 05:43
Glucose 160 mg/dl (70-99) H 01/23/25 05:43
Calcium 8.1 mg/dl (8.4-10.2) L 01/23/25 05:43
Xtk-R-Nryxbzuopjx Pept 61240 pg/ml 01/20/25 23:23
Albumin 3.8 g/dl (3.5-5.0) 01/21/25 15:13
Physical Exam
-
Vital Signs:
Vital Signs
Temp Pulse Resp BP Pulse Ox
97.6 F 88 22 118/57 93
01/23/25 11:00 01/23/25 09:29 01/23/25 01:00 01/23/25 09:29 01/23/25 10:41
Cardiovascular:: Regular rate and rhythm
Respiratory:: Bilateral: Rales and Bilateral: Rhonchi
Lung Excursion:: Normal
Abdomen:: Nontender and Soft
Bowel Sounds:: Normal
Extremity Edema:: None: Bilateral:
Silveira Catheter: Yes
[2025-01-23] MEDS: NOVOLOG FLEXPEN-LOW RESISTANCE 3 UNITS SC (12:30)
--- NOTE | 2025-01-23 12:31 | W.PN.UPDATE ---
Update Note
Progress Note Update
Further discussion with her son patient gets Procrit outpatient. Because of the admission to the hospital she did not get her dose this week I will give subcutaneous dose of Retacrit today
[2025-01-23 12:39] LABS: Glucose - Point of Care 294 mg/dl (70-99)
--- NOTE | 2025-01-23 14:44 | PTOTSP ---
ST Acute Care Evaluation
Pt currently presents with clinical signs of suspected pharyngeal dysphagia characterized by immediate and delayed onset of coughing with ingestion of both small and large quantities of thin liquids indicative of airway invasion from either
ingestion or retrograde flow from the esophagus. Pt is at an elevated risk for aspiration given her tendency to bolus hold content in her oral cavity prior to swallowing as well as her reduced breathing/swallowing coordination given her elevated
respiratory rate at this time.
Recommendations:
- NPO except meds crushed in puree
- ARHP - ice chips SELDOMLY with supervision of RN ONLY after thorough oral care has been provided.
- Aspiration and reflux precautions: HOB upright as often as possible; at least 30 degrees when sleeping; oral care QID.
- SLURRY WORKER to f/u to re-assess pt's candidacy for initiating PO intake.
- Pt and pt's family to consider initiating comfort feeds given pt's poor overall prognosis documented by several providers so far this admission.
[2025-01-23] MEDS: ALPRAZOLAM ODT 0.25 MG PO (15:00)
[2025-01-23] MEDS: RETACRIT 10000 UNITS SC (15:00)
[2025-01-23 18:11] LABS: Glucose - Point of Care 216 mg/dl (70-99)
[2025-01-23] MEDS: SENOKOT-S 2 TABLET PO (18:21)
[2025-01-23] MEDS: NOVOLOG FLEXPEN-LOW RESISTANCE 2 UNITS SC (18:21)
[2025-01-23] MEDS: PEPCID 10 MG PO (21:31)
[2025-01-23] MEDS: LIPITOR 80 MG PO (21:31)
[2025-01-23] MEDS: XALATAN OPHTHALMIC SOLUTION 1 DROP RIGHT EYE (21:37)
[2025-01-23] MEDS: NITROGLYCERIN PREMIX 250 IV (22:21)
[2025-01-23] MEDS: LANTUS 0.05 UNITS SC (23:22)
[2025-01-23 23:35] LABS: Glucose - Point of Care 185 mg/dl (70-99)
[2025-01-24] VITALS (32 sets, daily range): BP systolic 76–167; BP diastolic 27–113; PULSE 2–77; BMI 30.6
[2025-01-24] MEDS: APRESOLINE PO ×2 (00:33)
[2025-01-24] MEDS: VIBRAMYCIN 260 MG IV ×3 (00:35→23:23)
[2025-01-24 04:47] LABS: Hematocrit 25.6 % (37.0-47.0); Hemoglobin 7.9 g/dL (12.0-16.0); Mean Corp Hgb Conc. 30.9 g/dL (33.0-37.0); Mean Corpuscular Volume 109.4 fL (81.0-99.0); Platelet Count 174 10^3/uL (130-400); Red Cell Dist. Width 16.7 % (11.5-14.5)
[2025-01-24 05:10] LABS: Blood Urea Nitrogen 117 mg/dl (7-17); Calcium 7.9 mg/dl (8.4-10.2); Carbon Dioxide 20 mmol/L (22-30); Chloride 111 mmol/L (98-107); Estimated Creatinine Clearance 15 ml/min; Glucose 133 mg/dl (70-99); Potassium 4.8 mmol/L (3.5-5.1); Sodium 141 mmol/L (135-145); eGFR 16.15
--- NOTE | 2025-01-24 05:14 | PTCARENOTE ---
Approx 0150 this am pt was restless, pulled off her BIPAP mask, increased facial flushing with increased resp rate of 30s, hypotensive. Pt denies any chest pain or discomfort of any type. She complained of discomfort from BIPAP mask, pulse ox into
86% range and 3L NC applied, pulse ox up to 92% but pt continued with tachypnea and appeared anxious. Resp arrived and reapplied BIPAP and pt became less flushed and resp rate slowed to low 20s with pulse ox in mid 90%s. BP recovered and pt resting
comfortable since this event and has cooperated with BIPAP mask.
[2025-01-24] MEDS: PROTONIX 20 MG PO (06:41)
[2025-01-24] MEDS: SYNTHROID 112 MCG PO (06:41)
[2025-01-24] MEDS: NOVOLOG FLEXPEN-LOW RESISTANCE 1 UNITS SC (06:42)
[2025-01-24 06:43] LABS: Glucose - Point of Care 150 mg/dl (70-99)
[2025-01-24] MEDS: MIRALAX 17 GRAMS PO (08:53)
[2025-01-24] MEDS: FEOSOL 325 MG PO (08:53)
[2025-01-24] MEDS: BUSPAR 2.5 MG PO ×3 (08:53→21:19)
[2025-01-24] MEDS: TYLENOL 1000 MG PO ×2 (08:53→17:06)
[2025-01-24] MEDS: REFRESH EYE DROPS (PF) 1 DROPS BOTH EYES ×2 (08:53→21:17)
[2025-01-24] MEDS: PLAVIX 75 MG PO (08:53)
[2025-01-24] MEDS: APRESOLINE 25 MG PO ×3 (08:53→23:03)
[2025-01-24] MEDS: DESENEX/MITRAZOL/ZEASORB 1 APPLIC TOPICAL ×2 (08:54→21:17)
[2025-01-24] MEDS: SINEMET 25-100 2 TABLET PO ×4 (08:55→21:25)
--- NOTE | 2025-01-24 11:16 | PTCARENOTE ---
cont to titrate O2 level. currently on 2L nasal cannula. audible wheezing. lungs diminished throughout. occasional dry cough. large BM noted today. galindo care given. turned and repositioned Q2H. family updated on patient status
--- NOTE | 2025-01-24 11:50 | W.PN.CARDCBS ---
Today's Communication / Plan
-
Hemoptysis has resolved off IV Heparin
She was on Eliquis as outpt, cont to hold given worsening anemia. Resume once H/H improves
D/C IV nitro given hypotension and symptomatic improvement.
Cont Plavix
NSTEMI, Trop peak 6.2 and trended down.
She has previously been determined to be a nonrevascularizable candidate; medical therapy only.
Resume Imdur 90mg daily. She cannot tolerate metoprolol due to hx bradycardia, not on Ranexa due to hx prolonged QT. Prior intolerance to amlodipine.
Cont Lipitor 80mg daily. LDL 19.
Cont IV diuresis as per nephrology, currently on 120 mg IV BID.
-Continue daily weights, I&Os.
-Creat remained stable to 2.5-2.7 range.
-LVEF back down to 35 to 40%. It has been variable on the last several echoes.
Wean O2 as able
She was briefly on BiPAP but now is back on nasal cannula
Remains in sinus. Cont Amio
Bp stable on Hydralazine.
Discussed with nursing
Impression / Plan
-
.
PCP: Dr. Walden
Sccm Administrator: Dr. Danielle Franz
Impression:
Presented with cough, SOB
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
NSTEMI
VERONIKA on CKD 3
CAD
12/2000 left circumflex stent
10/2002 mid RCA stent
10/2004 mid LAD x2 stents and OM stents
05/2007 mid OM stents
03/[address] stent
01/2020 NSTEMI, medical management of multivessel CAD, she is not a candidate for any further revascularization either surgical or percutaneous
Ranexa was previously discontinued to allow initiation of amiodarone given that she has demonstrated prolonged QT at times in the past.
PAF
Chronic Amiodarone therapy
Chronic Eliquis therapy
Hypertension
h/o prolonged QTc/Bradycardia
COPD
Moderate MR
Insulin-dependent diabetes
Hyperlipidemia
PVD
Hypothyroidism
Severe orthopedic issues with decreased activity of daily living
h/o neck fracture
Parkinson's disease
Dementia
Polypharmacy
Multiple medication intolerances/allergies
Cardiac cath 07/19/2023 demonstrated stable distal left main stenosis involving the origin of the LAD and circumflex and new high-grade calcified mid LAD stenosis with apical LAD now occluded. Initially there was discussion of high risk LAD PCI but
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 After further discussion w/ family decision was made to treat her medically as she was deemed not
a surgical candidate.
Echo 07/15/23: EF 35-40%, EF previously had been 55-60%.
Echo 10/07/23: Hyperdynamic LV, EF 65 to 70%, MAC, mild to moderate MS with peak/mean gradients 14/6 mmHg, at least moderate and possibly severe MR likely underestimated due to MAC, mild with peak/mean gradients 29/16 mmHg, ANGELINA 1.1 cm�, mild to
moderate AR, mild TR, PAP 34 mmHg
Echo 01/21/2025: EF 35 to 40% with hypokinetic apex, mild to moderate mitral stenosis with mean gradient of 5, moderate to severe MR, mild aortic stenosis, mild to moderate AI, mild to moderate TR with PA pressure 45
Plan
Hemoptysis has resolved off IV Heparin
She was on Eliquis as outpt, cont to hold given worsening anemia. Resume once H/H improves
D/C IV nitro given hypotension and symptomatic improvement.
Cont Plavix
NSTEMI, Trop peak 6.2 and trended down.
She has previously been determined to be a nonrevascularizable candidate; medical therapy only.
Resume Imdur 90mg daily. She cannot tolerate metoprolol due to hx bradycardia, not on Ranexa due to hx prolonged QT. Prior intolerance to amlodipine.
Cont Lipitor 80mg daily. LDL 19.
Cont IV diuresis as per nephrology, currently on 120 mg IV BID.
-Continue daily weights, I&Os.
-Creat remained stable to 2.5-2.7 range.
-LVEF back down to 35 to 40%. It has been variable on the last several echoes.
Wean O2 as able
She was briefly on BiPAP but now is back on nasal cannula
Remains in sinus. Cont Amio
Bp stable on Hydralazine.
Discussed with nursing
Overall prognosis overall is poor.
HPI: Phoebe is an 84 year old female with PMH of CAD w/ multiple prior stents, being medically managed at this time, HFimpEF, HTN, PAF, COPD, DM, CKD, HLD, PVD, hypothyroidism, Parkinson's disease, and dementia. Presented for evaluation of cough
and SOB. Reportedly symptoms started about 2 days prior to arrival and [facility] however during initial eval, VS were stable, so hospitalization was not recommended. She then continued w/ cough and SOB and when she was
checked again, was noted to be hypoxic with pulse ox in the 80s, so she was referred to the ER. In ER, noted to be in acute heart failure with proBNP 19,500 and also found to have elevated troponin. Possible pneumonia noted and she was admitted for
further workup and evaluation. She has known chronic stable angina which is managed medically with imdur. Has not tolerated metoprolol due to bradycardia and cannot tolerate Ranexa due to prolonged QT. This AM, she is resting comfortably in bed. No
chest pain currently. No SOB. She has previously wished for more conservative management and this was confirmed again today.
Progress Note - Sccm Administrator
Subjective
Date of Service: January 24, 2025
Pt seen and examined. No complaints. No chest pain or shortness of breath.
Objective
Labs:
01/24/25 04:20
01/24/25 04:20
Labs
Hgb 7.9 g/dL (12.0-16.0) L 01/24/25 04:20
Hct 25.6 % (37.0-47.0) L 01/24/25 04:20
Plt Count 174 10^3/uL (130-400) 01/24/25 04:20
APTT Cancelled 01/22/25 12:45
Sodium 141 mmol/L (135-145) 01/24/25 04:20
Potassium 4.8 mmol/L (3.5-5.1) 01/24/25 04:20
BUN 117 mg/dl (7-17) H* 01/24/25 04:20
Creatinine 2.8 mg/dL (0.6-1.0) H 01/24/25 04:20
Glucose 133 mg/dl (70-99) H 01/24/25 04:20
Troponins
01/21/25
15:13
Troponin I 4.280 H*
Vital Signs and I&O:
Vital Signs
Temp Pulse Resp BP Pulse Ox
97.3 F 79 22 91/78 98
01/24/25 03:00 01/24/25 10:01 01/24/25 10:01 01/24/25 10:01 01/24/25 08:23
Vital Signs
Temp Pulse Resp BP Pulse Ox
97.3 F 79 22 91/78 98
01/24/25 03:00 01/24/25 10:01 01/24/25 10:01 01/24/25 10:01 01/24/25 08:23
Intake & Output
01/22/25 01/23/25 01/24/25 01/25/25
06:59 06:59 06:59 06:59
Intake Total 314 / 314 374 / 374
Output Total 775 / 775 725 / 725
Balance -461 / -461 -351 / -351
Physical Exam
Physical Exam
General: No acute distress,awake and alert
Neck: Negative JVD
Heart: Regular, Negative S3 positive S1/S2, Negative S4, No murmur
Lungs: CTA b/l, negative wheezes/rales/rhonchi
Abd: Positive BS, NT/ND, neg rebound/rigidity/guarding
Ext: Negative cyanosis/clubbing/edema
Neuro: nonfocal
[2025-01-24 12:02] LABS: Glucose - Point of Care 167 mg/dl (70-99)
--- NOTE | 2025-01-24 12:10 | PTOTSP ---
Speech Therapy
Improved tolerance with oral trials this day, though risk factors for aspiration include combination of acute and chronic risk factors including but not limited to current pna, mild tachypnea, CHF, PD and GERD.
Recommend
1. Allow Level 6 Solids (soft and bite-sized) for energy efficiency espcially with missing teeth.
2. Thin Liquids by single sips
3. Meds whole in applesauce.
4. Empty mouth before taking liquids
5. Brief prep set/oral hold with liquids prior to swallow
6. Aspiration and reflux
7. Diligent oral care at least 3x/daily
8. ST will follow to determine diet tolerance, and reassess for diet upgrade, further modifications and/or instrumental swallowing test. precautions.
[2025-01-24] MEDS: NOVOLOG FLEXPEN-LOW RESISTANCE SC (12:37)
--- NOTE | 2025-01-24 13:53 | W.PN.HOSP.TC ---
Today's Communication/Plan
-
holding diuretic for today
monitor hgb
monitor BUN -may be creeping up due to hemoptysis v diuresis
wean o2 as tolerated
Assessment / Plan
Assessment / Plan
HPI: 84-year-old F with extensive past medical history including CAD status post multiple stents, paroxysmal atrial fibrillation on anticoagulation, CHF on chronic diuresis and fluid restriction, iron deficiency anemia, recurrent UTIs on
methenamine, initiated on Bactrim on 01/15 for urinary tract infection, Hypertension, CKD, insulin-dependent diabetes; presented to the emergency department 2/2 hypoxia, wheezing, cough and shortness of breath, ongoing for about 2 days. She c/o chest
pain that she described as indigestion.
According to the [facility] staff, she had an abrupt drop in her pulse ox to 85 on room air. She was placed on 2 L of nasal cannula and it promptly came up to the 90s. She had expiratory wheezes and was thus sent to the emergency department.
Her X-ray showed some volume overload and rounded right lower lobe opacity which could be atelectasis or effusion. She was also noted to have troponin elevation at 6.2 on admission and markedly elevated BNP over 19,000.
A/P:
# Shortness of breath, likely acute CHF exacerbation (see below) and cannot rule out pulmonary infiltrate
# Acute hypoxic respiratory failure, 2/2 above
On and off BIPAP, can try mid flow today with improved oxygenation; wean O2 as tolerated
restart diet, SPL eval
Of note, given VERONIKA, cannot check Pro-George
MRSA screen negative, COVID negative, Legionella and pneumococcal urine antigens negative
Check sputum culture if able,
Pt was started with empiric ceftriaxone and doxycycline, cont for now
DCed WIRE TINNER Bactrim
Cough suppression, nebs
DC further Decadron 2 mg Q12H with resolved wheezing (wheezing was likely cardiac cause anyway)
# NSTEMI with likely acute on chronic CHF, new systolic heart failure
troponin 6.2 -> ... -> 4.2
BNP greater than 19,000.
ECG nonischemic.
Pt was started with heparin drip for ACS, held 2/2 hemoptysis.
Off nitro drip (in place of WIRE TINNER Imdur)
Restart Imdur
Cont WIRE TINNER Plavix
Hold WIRE TINNER apixaban
echo this admission noted new reduced EF at 35-40%. Mild to moderate mitral stenosis. Moderate to severe mitral regurgitation. Estimated pulmonary artery pressure 45 mmHg. Compared to the previous echo from September 2023, EF was 65-70% without wall
motion abnormalities.
Continue IV Lasix now at 120 mg IV, monitor daily - BUN creeping up; Can hold for today; monitor daily weights, ins and outs
Cardiology on board
# Hemoptysis 01/22, appear to have resolved
heparin drip held
-She was on Eliquis as outpt, cont to hold given worsening anemia. = restart once hgb stable
-BUN also creeping up may be contributed to this as well
# VERONIKA on CKD stage 3
Since patient appeared volume overloaded suspect cardiorenal versus VERONIKA from Bactrim related renal injury
Creatinine at 2.7 on admission from baseline 1.4, SCr today at 2.6, cont to monitor SCr
Discontinued Bactrim
Renal and bladder ultrasound unrevealing: chronic medical renal disease. Punctate nonobstructing bilateral renal calculi. No hydronephrosis.
Continue to monitor ins and outs. Avoid nephrotoxins,
Hold metolazone, continue Lasix as stated above
Galindo placed on 01/22 for I/O
Nephrology on board
# Paroxysmal atrial fibrillation
Continue amiodarone Saturday
heparin drip held 2/2 hemoptysis.
# IDDM
Cont Lantus adjusted from WIRE TINNER 15 to 10 units HS
ISS coverage
# Suspect anxiety
s/p Xanax ODT, can consider additional doses for anxiety
DVT prophylaxis�heparin drip held 2/2 hemoptysis. SCD for now.
CODE STATUS�DNR
total time spent 50 min
Anticipated Discharge: > 48 hours
Subjective/Interval History
-
Date of Service: January 24, 2025
no acute events overnight
Objective Data
-
Labs:
Laboratory Results
01/24/25
04:20
WBC 8.7
Hgb 7.9 L
Hct 25.6 L
Plt Count 174
Sodium 141
Potassium 4.8
Chloride 111 H
Carbon Dioxide 20 L
BUN 117 H*
Creatinine 2.8 H
Glucose 133 H
Calcium 7.9 L
Vital Signs:
Vital Signs
Temp Pulse Resp BP Pulse Ox
96.5 F L 79 22 91/78 98
01/24/25 07:45 01/24/25 10:01 01/24/25 10:01 01/24/25 10:01 01/24/25 08:23
I&O
01/23/25 01/24/25 01/25/25
06:59 06:59 06:59
Intake Total 314 / 314 374 / 374
Output Total 775 / 775 725 / 725
Balance -461 / -461 -351 / -351
Review of Systems
-
History Source: Patient
All other systems: Reviewed and negative
Physical Exam
-
General: Well Developed, Well Nourished and Respiratory Distress
HEENT: Normocephalic, Atraumatic and Oxygen
Respiratory: Clear to Auscultation, Crackles and Non Labored Respirations; Negative Wheezes or Accessory Resp Muscle Use
Cardiac: Regular Rhythm and S1/S2
GI: Soft and Nontender
Genito-urinary: Galindo (galindo placed on 01/22)
Skin: Warm and Dry
Psych: Calm and Intact Judgement/Insight (somewhat)
Data Reviewed
-
Diagnostic Radiology: Image personally visualized and interpreted and Report Reviewed by me
CT Scan: Report Reviewed by me
Labs: Labs Reviewed by me
--- NOTE | 2025-01-24 15:38 | W.PN.NEPH.PH ---
Today's Communication / Plan
-
Hold diuretics
Assessment/Plan
-
Impression:
VERONIKA
CKD 3 (1.4-1.8)
Change of Mental Status
UTI (on Bactrim as outpatient)
CHF exacerbation and non-ST elevation [place] with troponin of 6
PAF
CAD with multiple stenting procedures
History of iron deficiency anemia
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
CAD
HX HLD
HX COPD
HX CVA
Essential HTN
DMT2
GERD
Hypothyroidism
Parkinsonism
Chronic constipation
Plan:
VERONIKA:
- Possibly precipitated by Bactrim administration for UTI now held
- Cardiorenal
- Accurate I's and O's,
Long discussion with her son about the guarded prognosis
Patient would not want dialysis as that is in her living will
Respiratory status much improved with the Lasix 120 mg added twice a day
With increasing azotemia respiratory status improved I am holding all diuretics and will reevaluate tomorrow ultimately she will need to be back on
Maintain Silveira catheter for now
Overall prognosis is guarded with uncertainty long-term as discussed with her son at bedside at length
-
-
Date of Service: January 24, 2025
CC / HPI / ROS
-
Chief Complaint:
Shortness of breath
History of Present Illness:
CHF exacerbation VERONIKA on CKD
Review of Systems:
On 4 L nasal cannula improved to nonoliguric Silveira catheter
Labs
-
Labs:
WBC 8.7 10^3/uL (4.8-10.8) 01/24/25 04:20
RBC 2.34 10^6/uL (4.20-5.40) L 01/24/25 04:20
Hgb 7.9 g/dL (12.0-16.0) L 01/24/25 04:20
Hct 25.6 % (37.0-47.0) L 01/24/25 04:20
Plt Count 174 10^3/uL (130-400) 01/24/25 04:20
Sodium 141 mmol/L (135-145) 01/24/25 04:20
Potassium 4.8 mmol/L (3.5-5.1) 01/24/25 04:20
Chloride 111 mmol/L (98-107) H 01/24/25 04:20
Carbon Dioxide 20 mmol/L (22-30) L 01/24/25 04:20
BUN 117 mg/dl (7-17) H* 01/24/25 04:20
Creatinine 2.8 mg/dL (0.6-1.0) H 01/24/25 04:20
eGFR 16.15 01/24/25 04:20
Glucose 133 mg/dl (70-99) H 01/24/25 04:20
Calcium 7.9 mg/dl (8.4-10.2) L 01/24/25 04:20
Yul-T-Eypxhfzfqih Pept 40753 pg/ml 01/20/25 23:23
Albumin 3.8 g/dl (3.5-5.0) 01/21/25 15:13
Physical Exam
-
Vital Signs:
Vital Signs
Temp Pulse Resp BP Pulse Ox
96.5 F L 79 22 91/78 98
01/24/25 07:45 01/24/25 10:01 01/24/25 10:01 01/24/25 10:01 01/24/25 08:23
Cardiovascular:: Regular rate and rhythm
Respiratory:: Bilateral: Rales and Bilateral: Rhonchi
Lung Excursion:: Normal
Abdomen:: Nontender and Soft
Bowel Sounds:: Normal
Extremity Edema:: None: Bilateral:
Silveira Catheter: Yes
[2025-01-24] MEDS: SENOKOT-S PO (16:34)
--- NOTE | 2025-01-24 16:44 | PTCARENOTE ---
laxatives held due to loose stools. O2 down to 1.5L NC with sats above 92%. care ongoing
[2025-01-24] MEDS: NOVOLOG FLEXPEN-LOW RESISTANCE 2 UNITS SC (17:05)
[2025-01-24 17:15] LABS: Glucose - Point of Care 208 mg/dl (70-99)
[2025-01-24] MEDS: LIPITOR 80 MG PO (21:20)
[2025-01-24] MEDS: IMDUR (EXTENDED RELEASE) 90 MG PO (21:20)
[2025-01-24] MEDS: PEPCID 10 MG PO (21:21)
[2025-01-24] MEDS: XALATAN OPHTHALMIC SOLUTION 1 DROP RIGHT EYE (21:22)
[2025-01-24] MEDS: STERILE WATER FOR INJECTION 10 ML IV (23:16)
[2025-01-24] MEDS: ROCEPHIN 1000 MG IV (23:17)
[2025-01-25] VITALS (23 sets, daily range): BP systolic 96–144; BP diastolic 43–99; PULSE 2–73; BMI 31.1
[2025-01-25 00:45] LABS: Glucose - Point of Care 210 mg/dl (70-99)
--- NOTE | 2025-01-25 02:26 | PTCARENOTE ---
Assumed care for patient overnight, report received from dayselizabeth RN. Pt AAOx2, disoriented to place. Pt forgetful at times and [place]. Received pt on 2L NC. SpO2 dropped to 83% while changing and bathing. Pt brought up to 3L NC for recover. Pt back on
2L NC SpO2 97%. RT placed pt on the BiPAP. Pt wore BiPAP for approximately 2 hours and pulled it off. Pt states she needs 'a break' but is willing to go back on BiPAP mask. RT notified. Pt coarse throughout with inspiratory wheeze. Pt has b/l tubi
web database developer which were removed HS. Fiber heel boots are on. SCDs are on. Silveira draining yellow urine. R FA IV leaking, that was removed. Pt has L wrist site. Pt tolerating frequent turning and repositioning.
[2025-01-25 04:37] LABS: Hematocrit 26.2 % (37.0-47.0); Hemoglobin 8.2 g/dL (12.0-16.0); Mean Corp Hgb Conc. 31.3 g/dL (33.0-37.0); Mean Corpuscular Volume 108.3 fL (81.0-99.0); Platelet Count 198 10^3/uL (130-400); Red Cell Dist. Width 16.4 % (11.5-14.5)
[2025-01-25 05:22] LABS: ALT (SGPT) < 10 U/L (0-35); AST (SGOT) 17 U/L (14-36); Albumin 3.5 g/dl (3.5-5.0); Alkaline Phosphatase 72 U/L (38-126); Blood Urea Nitrogen 117 mg/dl (7-17); Calcium 7.8 mg/dl (8.4-10.2); Carbon Dioxide 19 mmol/L (22-30); Chloride 113 mmol/L (98-107); Estimated Creatinine Clearance 17 ml/min; Glucose 146 mg/dl (70-99); Potassium 5.0 mmol/L (3.5-5.1); Sodium 140 mmol/L (135-145); Total Protein 6.7 g/dl (6.3-8.2); eGFR 17.65
[2025-01-25] MEDS: PROTONIX 20 MG PO (05:50)
[2025-01-25] MEDS: SYNTHROID 112 MCG PO (05:50)
[2025-01-25 08:23] LABS: Glucose - Point of Care 187 mg/dl (70-99)
--- NOTE | 2025-01-25 09:07 | W.PN.CARDCBS ---
Today's Communication / Plan
-
Hemoptysis has resolved off IV Heparin
She was on Eliquis as outpt, if H/H remain stable as trending up slightly, may consider resuming in next 24 hrs.
Cont Plavix, no recurrent cp off IV nitro
NSTEMI, Trop peak 6.2 and trended down.
She has previously been determined to be a nonrevascularizable candidate; medical therapy only.
Cont Imdur 90mg daily. She cannot tolerate metoprolol due to hx bradycardia, not on Ranexa due to hx prolonged QT. Prior intolerance to amlodipine.
Cont Lipitor 80mg daily. LDL 19.
Consider resuming diuretics with dosing as per nephrology given wt coming up and dyspnea. She had been on lasix 120 mg IV BID.
-Continue daily weights, I&Os.
-Creat remains stable in 2.5-2.8 range.
-LVEF back down to 35 to 40%. It has been variable on the last several echoes.
Wean O2 as able
She was briefly on BiPAP but now is back on nasal cannula
Remains in sinus. Cont Amio
Bp stable on Hydralazine.
Impression / Plan
-
.
PCP: Dr. Walden
Range Examiner: Dr. Danielle Franz
Impression:
Presented with cough, SOB
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
NSTEMI
VERONIKA on CKD 3
CAD
12/2000 left circumflex stent
10/2002 mid RCA stent
10/2004 mid LAD x2 stents and OM stents
05/2007 mid OM stents
03/[address] stent
01/2020 NSTEMI, medical management of multivessel CAD, she is not a candidate for any further revascularization either surgical or percutaneous
Ranexa was previously discontinued to allow initiation of amiodarone given that she has demonstrated prolonged QT at times in the past.
PAF
Chronic Amiodarone therapy
Chronic Eliquis therapy
Hypertension
h/o prolonged QTc/Bradycardia
COPD
Moderate MR
Insulin-dependent diabetes
Hyperlipidemia
PVD
Hypothyroidism
Severe orthopedic issues with decreased activity of daily living
h/o neck fracture
Parkinson's disease
Dementia
Polypharmacy
Multiple medication intolerances/allergies
Cardiac cath 07/19/2023 demonstrated stable distal left main stenosis involving the origin of the LAD and circumflex and new high-grade calcified mid LAD stenosis with apical LAD now occluded. Initially there was discussion of high risk LAD PCI but
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 After further discussion w/ family decision was made to treat her medically as she was deemed not
a surgical candidate.
Echo 07/15/23: EF 35-40%, EF previously had been 55-60%.
Echo 10/07/23: Hyperdynamic LV, EF 65 to 70%, MAC, mild to moderate MS with peak/mean gradients 14/6 mmHg, at least moderate and possibly severe MR likely underestimated due to MAC, mild with peak/mean gradients 29/16 mmHg, ANGELINA 1.1 cm�, mild to
moderate AR, mild TR, PAP 34 mmHg
Echo 01/21/2025: EF 35 to 40% with hypokinetic apex, mild to moderate mitral stenosis with mean gradient of 5, moderate to severe MR, mild aortic stenosis, mild to moderate AI, mild to moderate TR with PA pressure 45
Plan
Hemoptysis has resolved off IV Heparin
She was on Eliquis as outpt, if H/H remain stable as trending up slightly, may consider resuming in next 24 hrs.
Cont Plavix, no recurrent cp off IV nitro
NSTEMI, Trop peak 6.2 and trended down.
She has previously been determined to be a nonrevascularizable candidate; medical therapy only.
Cont Imdur 90mg daily. She cannot tolerate metoprolol due to hx bradycardia, not on Ranexa due to hx prolonged QT. Prior intolerance to amlodipine.
Cont Lipitor 80mg daily. LDL 19.
Consider resuming diuretics with dosing as per nephrology given wt coming up and dyspnea. She had been on lasix 120 mg IV BID.
-Continue daily weights, I&Os.
-Creat remains stable in 2.5-2.8 range.
-LVEF back down to 35 to 40%. It has been variable on the last several echoes.
Wean O2 as able
She was briefly on BiPAP but now is back on nasal cannula
Remains in sinus. Cont Amio
Bp stable on Hydralazine.
Discussed with nursing
Overall prognosis remains poor.
HPI: Phoebe is an 84 year old female with PMH of CAD w/ multiple prior stents, being medically managed at this time, HFimpEF, HTN, PAF, COPD, DM, CKD, HLD, PVD, hypothyroidism, Parkinson's disease, and dementia. Presented for evaluation of cough
and SOB. Reportedly symptoms started about 2 days prior to arrival and was initially evaluated at senior living however during initial eval, VS were stable, so hospitalization was not recommended. She then continued w/ cough and SOB and when she was
checked again, was noted to be hypoxic with pulse ox in the 80s, so she was referred to the ER. In ER, noted to be in acute heart failure with proBNP 19,500 and also found to have elevated troponin. Possible pneumonia noted and she was admitted for
further workup and evaluation. She has known chronic stable angina which is managed medically with imdur. Has not tolerated metoprolol due to bradycardia and cannot tolerate Ranexa due to prolonged QT. This AM, she is resting comfortably in bed. No
chest pain currently. No SOB. She has previously wished for more conservative management and this was confirmed again today.
Progress Note - Range Examiner
Subjective
Date of Service: January 25, 2025
Objective
Labs:
01/25/25 04:16
01/25/25 04:16
Labs
Hgb 8.2 g/dL (12.0-16.0) L 01/25/25 04:16
Hct 26.2 % (37.0-47.0) L 01/25/25 04:16
Plt Count 198 10^3/uL (130-400) 01/25/25 04:16
APTT Cancelled 01/22/25 12:45
Sodium 140 mmol/L (135-145) 01/25/25 04:16
Potassium 5.0 mmol/L (3.5-5.1) 01/25/25 04:16
BUN 117 mg/dl (7-17) H* 01/25/25 04:16
Creatinine 2.6 mg/dL (0.6-1.0) H 01/25/25 04:16
Glucose 146 mg/dl (70-99) H 01/25/25 04:16
Vital Signs and I&O:
Vital Signs
Temp Pulse Resp BP Pulse Ox
97.4 F 64 18 122/87 96
01/25/25 03:00 01/25/25 06:00 01/25/25 06:00 01/25/25 06:00 01/25/25 02:13
Vital Signs
Temp Pulse Resp BP Pulse Ox
97.4 F 64 18 122/87 96
01/25/25 03:00 01/25/25 06:00 01/25/25 06:00 01/25/25 06:00 01/25/25 02:13
Intake & Output
01/23/25 01/24/25 01/25/25 01/26/25
06:59 06:59 06:59 06:59
Intake Total 314 / 314 374 / 374 180 / 180
Output Total 775 / 775 725 / 725 500 / 500
Balance -461 / -461 -351 / -351 -320 / -320
Physical Exam
Physical Exam
General: No acute distress, awake and alert
Neck: Negative JVD
Heart: Regular, Negative S3 positive S1/S2, Negative S4, No murmur
Lungs: CTA b/l, negative wheezes/rales/rhonchi
Abd: Positive BS, NT/ND, neg rebound/rigidity/guarding
Ext: Negative cyanosis/clubbing/edema
Neuro: nonfocal
[2025-01-25] MEDS: BUSPAR 2.5 MG PO ×3 (09:08→21:00)
[2025-01-25] MEDS: PLAVIX 75 MG PO (09:08)
[2025-01-25] MEDS: FEOSOL 325 MG PO (09:08)
[2025-01-25] MEDS: TYLENOL 1000 MG PO ×2 (09:08→17:23)
[2025-01-25] MEDS: MIRALAX 17 GRAMS PO (09:13)
[2025-01-25] MEDS: APRESOLINE 25 MG PO ×2 (09:13→17:24)
[2025-01-25] MEDS: REFRESH EYE DROPS (PF) 1 DROPS BOTH EYES ×2 (09:14→20:49)
[2025-01-25] MEDS: DESENEX/MITRAZOL/ZEASORB 1 APPLIC TOPICAL ×2 (09:14→20:49)
[2025-01-25] MEDS: SINEMET 25-100 2 TABLET PO ×4 (09:19→20:50)
[2025-01-25] MEDS: PACERONE 100 MG PO (09:19)
[2025-01-25] MEDS: NOVOLOG FLEXPEN-LOW RESISTANCE 1 UNITS SC ×2 (09:20→18:36)
--- NOTE | 2025-01-25 10:11 | PN.CDI ---
CDI
- -
CDI:
Physician Documentation Request
Admit Date: 01/21/25 02:38
Dear Doctor Dat
Patient noted to experience hemoptysis on 01/22 at which time the patient's Heparin drip was held.
Cardiology notes hemoptysis resolved off of Heparin
Please clarify if a relationship exist between these conditions:
Yes, hemoptysis is related to/associated with/due to/exacerbated by Heparin
No, hemoptysis is not related to/associated with/due to/exacerbated by Heparin
Unable to determine
Use of terms such as suspected, likely, concern for, or probable (associated with a specific diagnosis that is being evaluated, monitored, or treated as if it exists) are acceptable and can be coded in the inpatient setting, when documented at the
time of discharge.
Thank you,
Janet Powers RN, BSN
CDI Specialist
tiger text
Please use your independent medical judgment in providing your response.
--- NOTE | 2025-01-25 10:16 | PN.CDI ---
CDI
- -
CDI:
Physician Documentation Request
Admit Date: 01/21/25 02:38
Dear Doctor Dat,
01/21 hospitalist note states 'Son informed that pt is AOx3 at baseline, not usually confused,...Check CT head as pt appears to be confused currently and is on heparin drip.'
01/23 Nursing note states ' Remains AAOx2, not really to place'
01/25 Nursing note ' Pt AAOx2, disoriented to place'
Based on the above, could you clarify the most likely etiology of the confusion/altered mental status.
Encephalopathy - indicate type, such as metabolic, toxic, septic, alcoholic, anoxic, hypertensive etc. due to a specific condition such as UTI, CVA, hyponatremia etc.
Acute Delirium - indicate known or suspected etiology such as postoperative, due to opioids or other drugs etc. Can also indicate unknown or mixed etiologies.
Other
Use of terms such as suspected, likely, concern for, or probable (associated with a specific diagnosis that is being evaluated, monitored, or treated as if it exists) are acceptable and can be coded in the inpatient setting, when documented at the
time of discharge.
Thank you,
Janet Powers RN, BSN
CDI Specialist
tiger text
Please use your independent medical judgment in providing your response.
--- NOTE | 2025-01-25 11:12 | W.PN.NEPH.PH ---
Today's Communication / Plan
-
Lasix
Assessment/Plan
-
Impression:
VERONIKA
CKD 3 (1.4-1.8)
Change of Mental Status
UTI (on Bactrim as outpatient)
CHF exacerbation and non-ST elevation [place] with troponin of 6
PAF
CAD with multiple stenting procedures
History of iron deficiency anemia
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
CAD
HX HLD
HX COPD
HX CVA
Essential HTN
DMT2
GERD
Hypothyroidism
Parkinsonism
Chronic constipation
Plan:
Lasix 80 mg p.o. today
Follow BMP
She is not an ideal dialysis candidate
-
-
Date of Service: January 25, 2025
CC / HPI / ROS
-
Chief Complaint:
Shortness of breath
History of Present Illness:
CHF exacerbation VERONIKA on CKD
Hemoglobin stable 8.2
BUN elevated 117
VERONIKA/Cr stable 2.6
Review of Systems:
No chest pain
Mild shortness of breath
On 4 L nasal cannula
Labs
-
Labs:
WBC 7.5 10^3/uL (4.8-10.8) 01/25/25 04:16
RBC 2.42 10^6/uL (4.20-5.40) L 01/25/25 04:16
Hgb 8.2 g/dL (12.0-16.0) L 01/25/25 04:16
Hct 26.2 % (37.0-47.0) L 01/25/25 04:16
Plt Count 198 10^3/uL (130-400) 01/25/25 04:16
Sodium 140 mmol/L (135-145) 01/25/25 04:16
Potassium 5.0 mmol/L (3.5-5.1) 01/25/25 04:16
Chloride 113 mmol/L (98-107) H 01/25/25 04:16
Carbon Dioxide 19 mmol/L (22-30) L 01/25/25 04:16
BUN 117 mg/dl (7-17) H* 01/25/25 04:16
Creatinine 2.6 mg/dL (0.6-1.0) H 01/25/25 04:16
eGFR 17.65 01/25/25 04:16
Glucose 146 mg/dl (70-99) H 01/25/25 04:16
Calcium 7.8 mg/dl (8.4-10.2) L 01/25/25 04:16
Fzi-W-Aevtxdfswxa Pept 87402 pg/ml 01/20/25 23:23
Albumin 3.5 g/dl (3.5-5.0) 01/25/25 04:16
Physical Exam
-
Vital Signs:
Vital Signs
Temp Pulse Resp BP Pulse Ox
96.6 F L 73 22 122/49 97
01/25/25 07:40 01/25/25 10:00 01/25/25 10:00 01/25/25 10:00 01/25/25 10:41
Cardiovascular:: Regular rate and rhythm
Respiratory:: Bilateral: Coarse and Bilateral: Rales
Lung Excursion:: Normal
Abdomen:: Nontender and Soft
Bowel Sounds:: Normal
Extremity Edema:: None: Bilateral:
[2025-01-25] MEDS: VIBRAMYCIN 100 MG PO ×2 (12:04→20:50)
[2025-01-25] MEDS: LASIX 80 MG PO (12:04)
--- NOTE | 2025-01-25 12:19 | PTCARENOTE ---
Dilaudid gtt started. Family in agreement and educated about pain.
[2025-01-25 12:39] LABS: Glucose - Point of Care 205 mg/dl (70-99)
--- NOTE | 2025-01-25 12:41 | PTCARENOTE ---
Assumed care of patient this morning. She oriented to herself only this morning. She was complaining of back pain and that her feet being too 'heavy' with her boots on. Patient repositioned and states her back felt better. Pt remains on 2L NC. Pt is
forgetful and will take it out of her nose, SPO2 drops to 87% on RA. Lungs diminished and coarse, she has an audible upper airway wheeze. Silveira to stay today per Nephrology. Pt's son Reji updated over the phone. Assessment, care and VS as charted.
[2025-01-25] MEDS: NOVOLOG FLEXPEN-LOW RESISTANCE 2 UNITS SC (12:47)
--- NOTE | 2025-01-25 13:23 | CM ---
Patient from [facility] with Dx CHF, NSTEMI, VERONIKA. O2 2L. Receiving IV & PO Abx, heparin gtt. Seen by wound care nurse. Dysphagia diet. Per nurse; confused, forgetful.
Spoke with [facility]; provided clinical update as requested. SNF referral for return placed. The for report [phone], fax [phone]. They are able to accept the patient back when she is medically ready.
Plan recontact son when closer to d/c.
Plan return to [facility] when medically ready.
--- NOTE | 2025-01-25 14:10 | W.PN.HOSP.TC ---
Today's Communication/Plan
-
PO lasix
Monitor BMP, daily weights
Anticipate starting back Eliquis within 24 hours
Cont abx
Assessment / Plan
Assessment / Plan
HPI: 84-year-old F with extensive past medical history including CAD status post multiple stents, paroxysmal atrial fibrillation on anticoagulation, CHF on chronic diuresis and fluid restriction, iron deficiency anemia, recurrent UTIs on
methenamine, initiated on Bactrim on 01/15 for urinary tract infection, Hypertension, CKD, insulin-dependent diabetes; presented to the emergency department 2/2 hypoxia, wheezing, cough and shortness of breath, ongoing for about 2 days. She c/o chest
pain that she described as indigestion.
According to the prison staff, she had an abrupt drop in her pulse ox to 85 on room air. She was placed on 2 L of nasal cannula and it promptly came up to the 90s. She had expiratory wheezes and was thus sent to the emergency department.
Her X-ray showed some volume overload and rounded right lower lobe opacity which could be atelectasis or effusion. She was also noted to have troponin elevation at 6.2 on admission and markedly elevated BNP over 19,000.
A/P:
# Shortness of breath, likely acute CHF exacerbation (see below) and cannot rule out pulmonary infiltrate
# Acute hypoxic respiratory failure, 2/2 above
On and off BIPAP, can try mid flow today with improved oxygenation; wean O2 as tolerated
restart diet, SPL eval
Of note, given VERONIKA, cannot check Pro-George
MRSA screen negative, COVID negative, Legionella and pneumococcal urine antigens negative
Check sputum culture if able,
Pt was started with empiric ceftriaxone and doxycycline, cont for now
DCed [employer] Bactrim
Cough suppression, nebs
DC further Decadron 2 mg Q12H with resolved wheezing (wheezing was likely cardiac cause anyway)
-wean o2; goal o2 >92%
# NSTEMI with likely acute on chronic CHF, new systolic heart failure
troponin 6.2 -> ... -> 4.2
BNP greater than 19,000.
ECG nonischemic.
Pt was started with heparin drip for ACS, held 2/2 hemoptysis.
Off nitro drip (in place of [employer] Imdur)
Restart Imdur
Cont [employer] Plavix
Cont statin
Hold [employer] apixaban - consider restarting Eliquis tomorrow if Hgb remains stable
echo this admission noted new reduced EF at 35-40%. Mild to moderate mitral stenosis. Moderate to severe mitral regurgitation. Estimated pulmonary artery pressure 45 mmHg. Compared to the previous echo from September 2023, EF was 65-70% without wall
motion abnormalities.
S/p IV Lasix Resume PO Lasix and monitor BMP, daily weights, ins and outs
Cardiology on board
# Hemoptysis 01/22, appear to have resolved
heparin drip held
-She was on Eliquis as outpt, cont to hold given worsening anemia. = restart once hgb stable - tentatively tomorrow
-BUN also creeping up may be contributed to this as well
# VERONIKA on CKD stage 3
Since patient appeared volume overloaded suspect cardiorenal versus VERONIKA from Bactrim related renal injury
Creatinine at 2.7 on admission from baseline 1.4, SCr today at 2.6, cont to monitor SCr
Discontinued Bactrim
Renal and bladder ultrasound unrevealing: chronic medical renal disease. Punctate nonobstructing bilateral renal calculi. No hydronephrosis.
Continue to monitor ins and outs. Avoid nephrotoxins,
Hold metolazone, continue Lasix as stated above
Galindo placed on 01/22 for I/O
Nephrology on board
# Paroxysmal atrial fibrillation
Continue amiodarone Saturday
heparin drip held 2/2 hemoptysis.
Eliquis probable in next 24 hours
# IDDM
Cont Lantus adjusted from [employer] 15 to 10 units HS
ISS coverage
# Suspect anxiety
s/p Xanax ODT, can consider additional doses for anxiety
#ankylosing spondylitis
-f/u outpatient
DVT prophylaxis�heparin drip held 2/2 hemoptysis. SCD for now. Anticipate Eliquis tomorrow
CODE STATUS�DNR
Anticipated Discharge: > 48 hours
Subjective/Interval History
-
Date of Service: January 25, 2025
no acute events
Objective Data
-
Labs:
Laboratory Results
01/25/25
04:16
WBC 7.5
Hgb 8.2 L
Hct 26.2 L
Plt Count 198
Sodium 140
Potassium 5.0
Chloride 113 H
Carbon Dioxide 19 L
BUN 117 H*
Creatinine 2.6 H
Glucose 146 H
Calcium 7.8 L
Total Bilirubin 1.0
AST 17
ALT < 10
Alkaline Phosphatase 72
Vital Signs:
Vital Signs
Temp Pulse Resp BP Pulse Ox
96.6 F L 55 18 125/52 97
01/25/25 07:40 01/25/25 12:04 01/25/25 12:00 01/25/25 12:04 01/25/25 10:41
I&O
01/24/25 01/25/25 01/26/25
06:59 06:59 06:59
Intake Total 374 / 374 180 / 180
Output Total 725 / 725 500 / 500
Balance -351 / -351 -320 / -320
Review of Systems
-
History Source: Patient
All other systems: Reviewed and negative
Physical Exam
-
General: Well Developed, Well Nourished and Respiratory Distress
HEENT: Normocephalic, Atraumatic and Oxygen
Respiratory: Clear to Auscultation, Crackles and Non Labored Respirations; Negative Wheezes or Accessory Resp Muscle Use
Cardiac: Regular Rhythm and S1/S2
GI: Soft and Nontender
Genito-urinary: Galindo (galindo placed on 01/22)
Skin: Warm and Dry
Psych: Calm and Intact Judgement/Insight (somewhat)
Data Reviewed
-
Diagnostic Radiology: Image personally visualized and interpreted and Report Reviewed by me
CT Scan: Report Reviewed by me
Labs: Labs Reviewed by me
[2025-01-25] MEDS: SENOKOT-S PO (17:06)
[2025-01-25 18:20] LABS: Glucose - Point of Care 194 mg/dl (70-99)
[2025-01-25] MEDS: LIPITOR 80 MG PO (21:00)
[2025-01-25] MEDS: PEPCID 10 MG PO (21:00)
[2025-01-25] MEDS: XALATAN OPHTHALMIC SOLUTION 1 DROP RIGHT EYE (21:00)
[2025-01-25] MEDS: IMDUR (EXTENDED RELEASE) 90 MG PO (21:00)
[2025-01-25 22:08] LABS: Glucose - Point of Care 233 mg/dl (70-99)
[2025-01-25] MEDS: STERILE WATER FOR INJECTION 10 ML IV (23:16)
[2025-01-25] MEDS: ROCEPHIN 1000 MG IV (23:16)
[2025-01-25] MEDS: APRESOLINE PO (23:18)
[2025-01-26] VITALS (25 sets, daily range): BP systolic 92–144; BP diastolic 42–90; PULSE 2–72; BMI 30.8
--- NOTE | 2025-01-26 02:20 | PTCARENOTE ---
Patient AAOx1, disoriented to time and place, ELEM. Pt calling out for nursing staff, not utilizing the call [email or web address]. Pt confused at times. Received pt on 2L NC SpO2 96%. Pt has audible inspiratory wheeze. NSR w/ PVCs on the monitor. Pt incontinent of
bowels. Silveira in place draining yellow christ urine. RT placed pt on the BiPAP, pt tolerated the BiPAP for approximately 2 hours. Pt took off BiPAP. RT notified, pt agreeable to wear BiPAP. Pt has SCDs on and b/l fiber filled boots on. Call mcginnis
within reach.
[2025-01-26 05:15] LABS: Hematocrit 25.5 % (37.0-47.0); Hemoglobin 8.1 g/dL (12.0-16.0); Mean Corp Hgb Conc. 31.8 g/dL (33.0-37.0); Mean Corpuscular Volume 108.1 fL (81.0-99.0); Platelet Count 208 10^3/uL (130-400); Red Cell Dist. Width 16.3 % (11.5-14.5)
[2025-01-26] MEDS: PROTONIX 20 MG PO (05:20)
[2025-01-26] MEDS: SYNTHROID 112 MCG PO (05:20)
[2025-01-26 05:38] LABS: ALT (SGPT) < 10 U/L (0-35); AST (SGOT) 14 U/L (14-36); Albumin 3.4 g/dl (3.5-5.0); Alkaline Phosphatase 71 U/L (38-126); Calcium 8.2 mg/dl (8.4-10.2); Carbon Dioxide 19 mmol/L (22-30); Chloride 112 mmol/L (98-107); Estimated Creatinine Clearance 17 ml/min; Glucose 147 mg/dl (70-99); Potassium 5.1 mmol/L (3.5-5.1); Sodium 140 mmol/L (135-145); Total Protein 6.7 g/dl (6.3-8.2); eGFR 17.65
[2025-01-26 05:49] LABS: Blood Urea Nitrogen 124 mg/dl (7-17)
--- NOTE | 2025-01-26 08:19 | W.PN.CARDCBS ---
Today's Communication / Plan
-
Continue clopidogrel 75 mg a day
Continue to hold Eliquis and heparin. She is in sinus rhythm on amiodarone.
Reassess restart of Eliquis as outpatient, I would favor permanently with holding while on amiodarone and in sinus rhythm
Diuretics per nephrology
Impression / Plan
-
.
PCP: Dr. Walden
Methods Specialist: Dr. Danielle Franz
Impression:
Presented with cough, SOB
Acute on chronic HFrEF
NSTEMI
VERONIKA on CKD 3
CAD
12/2000 left circumflex stent
10/2002 mid RCA stent
10/2004 mid LAD x2 stents and OM stents
05/2007 mid OM stents
03/[address] stent
01/2020 NSTEMI, medical management of multivessel CAD, she is not a candidate for any further revascularization either surgical or percutaneous
Ranexa was previously discontinued to allow initiation of amiodarone given that she has demonstrated prolonged QT at times in the past.
PAF
Chronic Amiodarone therapy
Chronic Eliquis therapy
Hypertension
h/o prolonged QTc/Bradycardia
COPD
Moderate-severe MR
Insulin-dependent diabetes
Hyperlipidemia
PVD
Hypothyroidism
Severe orthopedic issues with decreased activity of daily living
h/o neck fracture
Parkinson's disease
Dementia
Polypharmacy
Multiple medication intolerances/allergies
Cardiac cath 07/19/2023 demonstrated stable distal left main stenosis involving the origin of the LAD and circumflex and new high-grade calcified mid LAD stenosis with apical LAD now occluded. Initially there was discussion of high risk LAD PCI but
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 After further discussion w/ family decision was made to treat her medically as she was deemed not
a surgical candidate.
Echo 07/15/23: EF 35-40%, EF previously had been 55-60%.
Echo 10/07/23: Hyperdynamic LV, EF 65 to 70%, MAC, mild to moderate MS with peak/mean gradients 14/6 mmHg, at least moderate and possibly severe MR likely underestimated due to MAC, mild with peak/mean gradients 29/16 mmHg, ANGELINA 1.1 cm�, mild to
moderate AR, mild TR, PAP 34 mmHg
Echo 01/21/2025: EF 35 to 40% with hypokinetic apex, mild to moderate mitral stenosis with mean gradient of 5, moderate to severe MR, mild aortic stenosis, mild to moderate AI, mild to moderate TR with PA pressure 45
Plan:
With regards to her non-ST segment elevation SD, she is not having further chest pain. Was on Plavix as outpatient, would continue.
She is in sinus rhythm on low-dose amiodarone. She has significant anemia on Eliquis. Given her frailty, bleeding risk etc. I would favor continuing Plavix alone and not restarting Eliquis as long as she is in sinus rhythm on amiodarone. Will
make amiodarone 100 mg daily instead of 3 times a week. Can reassess restart of Eliquis as outpatient, though I would favor permanent discontinuation as long as she is in sinus rhythm on amiodarone.
At present, she is wheezing, suspect COPD as a more active issue than acute HFrEF. Will recheck proBNP. Diuretics per nephrology. Creatinine remains elevated at 2.6
Antibiotics as per primary team.
Prognosis is poor. From my standpoint okay to proceed with discharge planning, presumably back to [facility]
HPI: Phoebe is an 84 year old female with PMH of CAD w/ multiple prior stents, being medically managed at this time, HFimpEF, HTN, PAF, COPD, DM, CKD, HLD, PVD, hypothyroidism, Parkinson's disease, and dementia. Presented for evaluation of cough
and SOB. Reportedly symptoms started about 2 days prior to arrival and [facility] during [facility] eval, VS were stable, so hospitalization was not recommended. She then continued w/ cough and SOB and when she was
checked again, was noted to be hypoxic with pulse ox in the 80s, so she was referred to the ER. In ER, noted to be in acute heart failure with proBNP 19,500 and also found to have elevated troponin. Possible pneumonia noted and she was admitted for
further workup and evaluation. She has known chronic stable angina which is managed medically with imdur. Has not tolerated metoprolol due to bradycardia and cannot tolerate Ranexa due to prolonged QT. This AM, she is resting comfortably in bed. No
chest pain currently. No SOB. She has previously wished for more conservative management and this was confirmed again today.
Progress Note - Methods Specialist
Subjective
Date of Service: January 26, 2025:
84-year-old woman with numerous PCI's dating back to 2000, NSTEMI January 2024 with multivessel CAD and left main ostial LAD disease precluding intervention on mid LAD admitted with NSTEMI troponin of 6 and EF down to 35% with acute HFrEF. Not a
candidate for PCI or CABG, with VERONIKA and admission. PAF
PMH: Heart failure with improved EF, prior non-STEMI, CKD 3, prolonged QT, COPD, moderate MR, diabetes, hyperlipidemia, PAD, degenerative joint and disc disease, Parkinson's, dementia, polypharmacy,
Current meds: Amiodarone 100 mg 3 days a week, heparin on hold, atorvastatin 80 mg at bedtime, BuSpar, Sinemet, Plavix 75 mg a day, hydralazine 25 every 8, Ismo 90 at bedtime, Xalatan, levothyroxine, MiraLAX, ceftriaxone, Pepcid, insulin,
doxycycline, as outpatient on Plavix and Eliquis
Currently, she offers no complaints.
106/84, pulse 78, respiratory 28, afebrile, sats 96%, pleasantly confused, wheezes bilaterally, soft systolic murmur at apex, JVD approximately 10, contractures in feet, patient in booties, neuro grossly nonfocal
Echo 01/17/2025: EF 35-40%, hypokinetic apex, mild to moderate mitral stenosis, mean gradient 5, moderate to severe MR, mild , mild to moderate AI, mild to moderate TR, pulmonary artery systolic pressure 45 mmHg
Hemoglobin 8.1,, BUN and creatinine are 124 and 2.6, GFR is 18, proBNP was 19,500 on admission
Objective
Labs:
01/26/25 04:39
01/26/25 04:39
Labs
Hgb 8.1 g/dL (12.0-16.0) L 01/26/25 04:39
Hct 25.5 % (37.0-47.0) L 01/26/25 04:39
Plt Count 208 10^3/uL (130-400) 01/26/25 04:39
APTT Cancelled 01/22/25 12:45
Sodium 140 mmol/L (135-145) 01/26/25 04:39
Potassium 5.1 mmol/L (3.5-5.1) 01/26/25 04:39
BUN 124 mg/dl (7-17) H* 01/26/25 04:39
Creatinine 2.6 mg/dL (0.6-1.0) H 01/26/25 04:39
Glucose 147 mg/dl (70-99) H 01/26/25 04:39
Vital Signs and I&O:
Vital Signs
Temp Pulse Resp BP Pulse Ox
36.4 C 78 28 106/84 96
01/26/25 07:37 01/26/25 06:00 01/26/25 06:00 01/26/25 06:00 01/26/25 02:16
Vital Signs
Temp Pulse Resp BP Pulse Ox
36.4 C 78 28 106/84 96
01/26/25 07:37 01/26/25 06:00 01/26/25 06:00 01/26/25 06:00 01/26/25 02:16
Intake & Output
01/24/25 01/25/25 01/26/25 01/27/25
07:59 07:59 07:59 07:59
Intake Total 374 / 374 180 / 180 480 / 480
Output Total 725 / 725 500 / 500 750 / 750
Balance -351 / -351 -320 / -320 -270 / -270
Physical Exam
Physical Exam
See above
[2025-01-26] MEDS: NOVOLOG FLEXPEN-LOW RESISTANCE 1 UNITS SC ×2 (09:23→12:24)
[2025-01-26] MEDS: REFRESH EYE DROPS (PF) 1 DROPS BOTH EYES ×2 (09:24→20:51)
[2025-01-26] MEDS: APRESOLINE 25 MG PO ×3 (09:25→23:03)
[2025-01-26] MEDS: BUSPAR 2.5 MG PO ×3 (09:26→20:54)
[2025-01-26] MEDS: VIBRAMYCIN 100 MG PO ×2 (09:26→20:52)
[2025-01-26] MEDS: PLAVIX 75 MG PO (09:26)
[2025-01-26] MEDS: DESENEX/MITRAZOL/ZEASORB 1 APPLIC TOPICAL ×2 (09:27→20:51)
[2025-01-26] MEDS: TYLENOL 1000 MG PO ×2 (09:27→17:15)
[2025-01-26] MEDS: MIRALAX PO (09:27)
[2025-01-26] MEDS: SINEMET 25-100 2 TABLET PO ×4 (09:27→20:52)
[2025-01-26] MEDS: FEOSOL 325 MG PO (09:27)
[2025-01-26 09:33] LABS: Glucose - Point of Care 195 mg/dl (70-99)
--- NOTE | 2025-01-26 10:14 | W.PN.NEPH.PH ---
Today's Communication / Plan
-
No Lasix today
Assessment/Plan
-
Impression:
VERONIKA
CKD 3 (1.4-1.8)
Change of Mental Status
UTI (on Bactrim as outpatient)
CHF exacerbation and non-ST elevation MA with troponin of 6
PAF
CAD with multiple stenting procedures
History of iron deficiency anemia
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
CAD
HX HLD
HX COPD
HX CVA
Essential HTN
DMT2
GERD
Hypothyroidism
Parkinsonism
Chronic constipation
Plan:
No Lasix today
Follow BMP
She has made it clear that she would not except dialysis
Her overall prognosis is quite poor and palliative care should be considered
-
-
Date of Service: January 26, 2025
CC / HPI / ROS
-
Chief Complaint:
Shortness of breath
History of Present Illness:
CHF exacerbation VERONIKA on CKD
Hemoglobin stable 8.1
BUN elevated more 124
VERONIKA/Cr stable 2.6
Review of Systems:
No chest pain
Mild shortness of breath
On 2-4 L nasal cannula
Labs
-
Labs:
WBC 8.1 10^3/uL (4.8-10.8) 01/26/25 04:39
RBC 2.36 10^6/uL (4.20-5.40) L 01/26/25 04:39
Hgb 8.1 g/dL (12.0-16.0) L 01/26/25 04:39
Hct 25.5 % (37.0-47.0) L 01/26/25 04:39
Plt Count 208 10^3/uL (130-400) 01/26/25 04:39
Sodium 140 mmol/L (135-145) 01/26/25 04:39
Potassium 5.1 mmol/L (3.5-5.1) 01/26/25 04:39
Chloride 112 mmol/L (98-107) H 01/26/25 04:39
Carbon Dioxide 19 mmol/L (22-30) L 01/26/25 04:39
BUN 124 mg/dl (7-17) H* 01/26/25 04:39
Creatinine 2.6 mg/dL (0.6-1.0) H 01/26/25 04:39
eGFR 17.65 01/26/25 04:39
Glucose 147 mg/dl (70-99) H 01/26/25 04:39
Calcium 8.2 mg/dl (8.4-10.2) L 01/26/25 04:39
Nkv-P-Cgzcdoagjem Pept 55933 pg/ml 01/20/25 23:23
Albumin 3.4 g/dl (3.5-5.0) L 01/26/25 04:39
Physical Exam
-
Vital Signs:
Vital Signs
Temp Pulse Resp BP Pulse Ox
97.5 F 75 28 111/90 96
01/26/25 07:37 01/26/25 09:25 01/26/25 06:00 01/26/25 09:25 01/26/25 02:16
Cardiovascular:: Regular rate and rhythm
Respiratory:: Bilateral: Coarse
Lung Excursion:: Normal
Abdomen:: Nontender and Soft
Bowel Sounds:: Normal
Extremity Edema:: None: Bilateral:
[2025-01-26 11:59] LABS: Glucose - Point of Care 180 mg/dl (70-99)
--- NOTE | 2025-01-26 15:54 | W.PN.HOSP.TC ---
Today's Communication/Plan
-
hold diuresis
Assessment / Plan
Assessment / Plan
HPI: 84-year-old F with extensive past medical history including CAD status post multiple stents, paroxysmal atrial fibrillation on anticoagulation, CHF on chronic diuresis and fluid restriction, iron deficiency anemia, recurrent UTIs on
methenamine, initiated on Bactrim on 01/15 for urinary tract infection, Hypertension, CKD, insulin-dependent diabetes; presented to the emergency department 2/2 hypoxia, wheezing, cough and shortness of breath, ongoing for about 2 days. She c/o chest
pain that she described as indigestion.
According to the [place] [facility] staff, she had an abrupt drop in her pulse ox to 85 on room air. She was placed on 2 L of nasal cannula and it promptly came up to the 90s. She had expiratory wheezes and was thus sent to the emergency department.
Her X-ray showed some volume overload and rounded right lower lobe opacity which could be atelectasis or effusion. She was also noted to have troponin elevation at 6.2 on admission and markedly elevated BNP over 19,000.
A/P:
# Shortness of breath, likely acute CHF exacerbation (see below) and cannot rule out pulmonary infiltrate
# Acute hypoxic respiratory failure, 2/2 above
On and off BIPAP, can try mid flow today with improved oxygenation; wean O2 as tolerated
restart diet, SPL eval
Of note, given VERONIKA, cannot check Pro-George
MRSA screen negative, COVID negative, Legionella and pneumococcal urine antigens negative
Check sputum culture if able,
Pt was started with empiric ceftriaxone and doxycycline, cont for now
DCed MANUFACTURING ACCOUNTANT Bactrim
Cough suppression, nebs
DC further Decadron 2 mg Q12H with resolved wheezing (wheezing was likely cardiac cause anyway)
-wean o2; goal o2 >92%
# NSTEMI with likely acute on chronic CHF, new systolic heart failure
troponin 6.2 -> ... -> 4.2
BNP greater than 19,000.
ECG nonischemic.
Pt was started with heparin drip for ACS, held 2/2 hemoptysis.
Off nitro drip (in place of MANUFACTURING ACCOUNTANT Imdur)
Restart Imdur
Cont MANUFACTURING ACCOUNTANT Plavix
Cont statin
Hold MANUFACTURING ACCOUNTANT apixaban - consider restarting Eliquis tomorrow if Hgb remains stable
echo this admission noted new reduced EF at 35-40%. Mild to moderate mitral stenosis. Moderate to severe mitral regurgitation. Estimated pulmonary artery pressure 45 mmHg. Compared to the previous echo from September 2023, EF was 65-70% without wall
motion abnormalities.
S/p IV Lasix Resume PO Lasix; Hold today and monitor BMP, daily weights, ins and outs
Cardiology on board
# Hemoptysis 01/22, appear to have resolved
-heparin drip held
-She was on Eliquis as outpt, cont to hold given worsening anemia. = can hold on further decision - defer to Cards
# VERONIKA on CKD stage 3
Since patient appeared volume overloaded suspect cardiorenal versus VERONIKA from Bactrim related renal injury
Creatinine at 2.7 on admission from baseline 1.4, SCr today at 2.6, cont to monitor SCr
Discontinued Bactrim
Renal and bladder ultrasound unrevealing: chronic medical renal disease. Punctate nonobstructing bilateral renal calculi. No hydronephrosis.
Continue to monitor ins and outs. Avoid nephrotoxins,
Hold metolazone, continue Lasix as stated above
Galindo placed on 01/22 for I/O
Nephrology on board
# Paroxysmal atrial fibrillation
Continue amiodarone Saturday
heparin drip held 2/2 hemoptysis.
Eliquis as per cards
# IDDM
Cont Lantus adjusted from MANUFACTURING ACCOUNTANT 15 to 10 units HS
ISS coverage
# Suspect anxiety
s/p Xanax ODT, can consider additional doses for anxiety
#ankylosing spondylitis
-f/u outpatient
DVT prophylaxis�heparin drip held 2/2 hemoptysis. SCD for now.
CODE STATUS�DNR
Anticipated Discharge: > 48 hours
Subjective/Interval History
-
Date of Service: January 26, 2025
no acute events, bun creeping up
Objective Data
-
Labs:
Laboratory Results
01/26/25
04:39
WBC 8.1
Hgb 8.1 L
Hct 25.5 L
Plt Count 208
Sodium 140
Potassium 5.1
Chloride 112 H
Carbon Dioxide 19 L
BUN 124 H*
Creatinine 2.6 H
Glucose 147 H
Calcium 8.2 L
Total Bilirubin 1.1
AST 14
ALT < 10
Alkaline Phosphatase 71
Vital Signs:
Vital Signs
Temp Pulse Resp BP Pulse Ox
97.6 F 69 23 122/60 96
01/26/25 15:43 01/26/25 15:00 01/26/25 15:00 01/26/25 15:00 01/26/25 10:30
I&O
01/25/25 01/26/25 01/27/25
06:59 06:59 06:59
Intake Total 180 / 180 480 / 480
Output Total 500 / 500 750 / 750 380 / 380
Balance -320 / -320 -270 / -270 -380 / -380
Review of Systems
-
History Source: Patient
All other systems: Not reviewed unless documented
Physical Exam
-
General: Well Developed, Well Nourished and Respiratory Distress
HEENT: Normocephalic, Atraumatic and Oxygen
Respiratory: Clear to Auscultation, Crackles and Non Labored Respirations; Negative Wheezes or Accessory Resp Muscle Use
Cardiac: Regular Rhythm and S1/S2
GI: Soft and Nontender
Genito-urinary: Galindo (galindo placed on 01/22)
Skin: Warm and Dry
Psych: Calm and Intact Judgement/Insight (somewhat)
Data Reviewed
-
Diagnostic Radiology: Image personally visualized and interpreted and Report Reviewed by me
CT Scan: Report Reviewed by me
Labs: Labs Reviewed by me
[2025-01-26 16:46] LABS: Glucose - Point of Care 271 mg/dl (70-99)
[2025-01-26] MEDS: SENOKOT-S PO (17:08)
[2025-01-26] MEDS: NOVOLOG FLEXPEN-LOW RESISTANCE 3 UNITS SC (17:15)
--- NOTE | 2025-01-26 18:00 | PTCARENOTE ---
Assumed care of patient this morning. Pt appears to be very confused this morning, oriented to herself only and drowsy. She denies any pain. Pt remains on 2L NC. Updated patient's son over the phone this morning and again at bedside in the evening.
He also spoke with over the phone. Assessment, care and VS as charted.
[2025-01-26] MEDS: IMDUR (EXTENDED RELEASE) 90 MG PO (20:53)
[2025-01-26] MEDS: PEPCID 10 MG PO (20:53)
[2025-01-26] MEDS: LIPITOR 80 MG PO (20:53)
[2025-01-26] MEDS: XALATAN OPHTHALMIC SOLUTION 1 DROP RIGHT EYE (20:54)
[2025-01-26 21:50] LABS: Glucose - Point of Care 214 mg/dl (70-99)
[2025-01-26] MEDS: MELATONIN 5 MG PO (23:01)
[2025-01-26] MEDS: ROCEPHIN 1000 MG IV (23:02)
[2025-01-26] MEDS: STERILE WATER FOR INJECTION 10 ML IV (23:02)
[2025-01-27] VITALS (27 sets, daily range): BP systolic 88–134; BP diastolic 25–86; PULSE 2–78; BMI 30.8; BMI 31.4
--- NOTE | 2025-01-27 00:38 | PTCARENOTE ---
Patient AAOx1, disoriented to time and place. Pt increasingly confused and calling out at time, despite education regarding using the call mcginnis. Pt 96% SpO2 on 1.5L O2. Pt has audible wheezing and her breathing appears labored. Pt orthopneic.
Reached out to BRIQUETTING MACHINE OPERATOR [employer] for order for melatonin for sleep aid, see MAR. RT bedside to place pt on the BiPAP around 2330. NSR w/ PVCs on the monitor. Pt incontinent of bowel and bladder. Urine is yellow. Pt tolerating frequent turning and
repositioning. Call mcginnis within reach.
[2025-01-27 04:18] LABS: Hematocrit 27.4 % (37.0-47.0); Hemoglobin 8.5 g/dL (12.0-16.0); Mean Corp Hgb Conc. 31.0 g/dL (33.0-37.0); Mean Corpuscular Volume 108.3 fL (81.0-99.0); Platelet Count 214 10^3/uL (130-400); Red Cell Dist. Width 16.2 % (11.5-14.5)
[2025-01-27] MEDS: SYNTHROID 112 MCG PO (04:35)
[2025-01-27] MEDS: PROTONIX 20 MG PO (04:35)
--- NOTE | 2025-01-27 04:38 | PTCARENOTE ---
Patient BiPAP alarming. Pt took of BiPAP mask around 0400.
[2025-01-27 04:48] LABS: ALT (SGPT) < 10 U/L (0-35); AST (SGOT) 14 U/L (14-36); Albumin 3.4 g/dl (3.5-5.0); Alkaline Phosphatase 73 U/L (38-126); Calcium 8.1 mg/dl (8.4-10.2); Carbon Dioxide 19 mmol/L (22-30); Chloride 113 mmol/L (98-107); Estimated Creatinine Clearance 18 ml/min; Glucose 157 mg/dl (70-99); Potassium 5.0 mmol/L (3.5-5.1); Sodium 141 mmol/L (135-145); Total Protein 6.7 g/dl (6.3-8.2); eGFR 19.43
[2025-01-27 04:55] LABS: Blood Urea Nitrogen 123 mg/dl (7-17)
[2025-01-27] MEDS: NOVOLOG FLEXPEN-LOW RESISTANCE 1 UNITS SC ×2 (07:23→17:22)
[2025-01-27] MEDS: DESENEX/MITRAZOL/ZEASORB 1 APPLIC TOPICAL ×2 (07:24→20:30)
[2025-01-27] MEDS: SINEMET 25-100 2 TABLET PO ×4 (07:25→20:32)
[2025-01-27] MEDS: BUSPAR 2.5 MG PO ×3 (07:25→20:31)
[2025-01-27] MEDS: FEOSOL 325 MG PO (07:25)
[2025-01-27] MEDS: MIRALAX PO (07:26)
[2025-01-27] MEDS: APRESOLINE 25 MG PO ×2 (07:26→23:24)
[2025-01-27] MEDS: PLAVIX 75 MG PO (07:26)
[2025-01-27] MEDS: REFRESH EYE DROPS (PF) 1 DROPS BOTH EYES ×2 (07:27→20:32)
[2025-01-27] MEDS: VIBRAMYCIN 100 MG PO ×2 (07:27→20:31)
[2025-01-27] MEDS: TYLENOL 1000 MG PO ×2 (07:29→17:19)
[2025-01-27] MEDS: PACERONE 100 MG PO (07:29)
[2025-01-27 07:33] LABS: Glucose - Point of Care 158 mg/dl (70-99)
--- NOTE | 2025-01-27 09:58 | PTCARENOTE ---
Assumed care of patient this morning. She is awake but with confused conversation. Oriented to herself only. Expressing the want to 'get out' and to go home. Breathing slightly labored this morning, beside CXR taken. Pt tolerated BiPAP mask
overnight from [id number]. Pt was given Melatonin overnight to help with sleep. Remains on 1.5 L NC. Lungs are coarse and diminished and she has an intermittent upper airway audible wheeze. Pt has no other complaints. Assessment, care and VS as
charted.
--- NOTE | 2025-01-27 11:35 | W.PN.CARDCBS ---
Today's Communication / Plan
-
Continue Plavix and high intensity statin for known CAD
Suspect she is still in acute heart failure with reduced ejection fraction
Will defer further diuretic dosing to nephrology
Continue Imdur/hydralazine
Impression / Plan
-
PCP: Dr. Walden
Burn Out Scarfing Operator: Dr. Danielle Franz
Impression:
Presented with cough, SOB
Acute on chronic HFrEF
NSTEMI
VERONIKA on CKD 3
CAD
12/2000 left circumflex stent
10/2002 mid RCA stent
10/2004 mid LAD x2 stents and OM stents
05/2007 mid OM stents
03/[address] stent
01/2020 NSTEMI, medical management of multivessel CAD, she is not a candidate for any further revascularization either surgical or percutaneous
Ranexa was previously discontinued to allow initiation of amiodarone given that she has demonstrated prolonged QT at times in the past.
PAF
Chronic Amiodarone therapy
Chronic Eliquis therapy
Hypertension
h/o prolonged QTc/Bradycardia
COPD
Moderate-severe MR
Insulin-dependent diabetes
Hyperlipidemia
PVD
Hypothyroidism
Severe orthopedic issues with decreased activity of daily living
h/o neck fracture
Parkinson's disease
Dementia
Polypharmacy
Multiple medication intolerances/allergies
Cardiac cath 07/19/2023 demonstrated stable distal left main stenosis involving the origin of the LAD and circumflex and new high-grade calcified mid LAD stenosis with apical LAD now occluded. Initially there was discussion of high risk LAD PCI but
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 After further discussion w/ family decision was made to treat her medically as she was deemed not
a surgical candidate.
Echo 07/15/23: EF 35-40%, EF previously had been 55-60%.
Echo 10/07/23: Hyperdynamic LV, EF 65 to 70%, MAC, mild to moderate MS with peak/mean gradients 14/6 mmHg, at least moderate and possibly severe MR likely underestimated due to MAC, mild with peak/mean gradients 29/16 mmHg, ANGELINA 1.1 cm�, mild to
moderate AR, mild TR, PAP 34 mmHg
Echo 01/21/2025: EF 35 to 40% with hypokinetic apex, mild to moderate mitral stenosis with mean gradient of 5, moderate to severe MR, mild aortic stenosis, mild to moderate AI, mild to moderate TR with PA pressure 45
Plan:
Presented in acute heart failure and still requiring supplemental O2. proBNP remains elevated >27k. Will defer diuretic dosing to nephrology. Creatinine remains elevated ~2.5.
LV systolic function is moderately reduced here with estimated EF 35 to 40%
GDMT limited by bradycardia and renal dysfunction
Continue Imdur/hydralazine
With regards to her non-ST segment elevation [place], she is not having further chest pain. Was on Plavix as outpatient, would continue.
Continue high intensity statin
Imdur as antianginal
Maintaining sinus rhythm on low-dose amiodarone. Has significant anemia on Eliquis. Given her frailty and bleeding risk Eliquis is on hold. Can reassess restart of Eliquis as outpatient.
Overall prognosis is poor. From my standpoint okay to proceed with discharge planning, presumably back to [facility]
HPI: Phoebe is an 84 year old female with PMH of CAD w/ multiple prior stents, being medically managed at this time, HFimpEF, HTN, PAF, COPD, DM, CKD, HLD, PVD, hypothyroidism, Parkinson's disease, and dementia. Presented for evaluation of cough
and SOB. Reportedly symptoms started about 2 days prior to arrival and was initially evaluated at group home however during initial eval, VS were stable, so hospitalization was not recommended. She then continued w/ cough and SOB and when she was
checked again, was noted to be hypoxic with pulse ox in the 80s, so she was referred to the ER. In ER, noted to be in acute heart failure with proBNP 19,500 and also found to have elevated troponin. Possible pneumonia noted and she was admitted for
further workup and evaluation. She has known chronic stable angina which is managed medically with imdur. Has not tolerated metoprolol due to bradycardia and cannot tolerate Ranexa due to prolonged QT. This AM, she is resting comfortably in bed. No
chest pain currently. No SOB. She has previously wished for more conservative management and this was confirmed again today.
Progress Note - Burn Out Scarfing Operator
Subjective
Date of Service: January 27, 2025
No acute overnight events. Patient remains in the IMU. Not reporting any chest discomfort. Breathing is comfortable on supplemental oxygen.
Objective
Labs:
01/27/25 04:06
01/27/25 04:05
Labs
Hgb 8.5 g/dL (12.0-16.0) L 01/27/25 04:06
Hct 27.4 % (37.0-47.0) L 01/27/25 04:06
Plt Count 214 10^3/uL (130-400) 01/27/25 04:06
APTT Cancelled 01/22/25 12:45
Sodium 141 mmol/L (135-145) 01/27/25 04:05
Potassium 5.0 mmol/L (3.5-5.1) 01/27/25 04:05
BUN 123 mg/dl (7-17) H* 01/27/25 04:05
Creatinine 2.4 mg/dL (0.6-1.0) H 01/27/25 04:05
Glucose 157 mg/dl (70-99) H 01/27/25 04:05
Vital Signs and I&O:
Vital Signs
Temp Pulse Resp BP Pulse Ox
97.5 F 55 18 107/57 99
01/27/25 03:08 01/27/25 11:00 01/27/25 11:00 01/27/25 11:00 01/27/25 09:49
Vital Signs
Temp Pulse Resp BP Pulse Ox
97.5 F 55 18 107/57 99
01/27/25 03:08 01/27/25 11:00 01/27/25 11:00 01/27/25 11:00 01/27/25 09:49
Intake & Output
01/25/25 01/26/25 01/27/25 01/28/25
06:59 06:59 06:59 06:59
Intake Total 180 / 180 480 / 480 240 / 240
Output Total 500 / 500 750 / 750 380 / 380
Balance -320 / -320 -270 / -270 -140 / -140
Physical Exam
Physical Exam
Gen: NAD, AA
HEENT: NC/AT, sclera anicteric
Neck: Difficult to assess JVD
CV: RRR, NL s1/s2
Lungs: No increased work of breathing on 3 L O2 via nasal cannula
Abd: S/ND
Ext: Non pitting LE edema
Skin: Warm, dry
Neuro: Non-focal
--- NOTE | 2025-01-27 11:43 | PTCARENOTE ---
Updated patient's son, Reji over the phone. He is requesting calls from hospitalist and Nephrology.
[2025-01-27 11:52] LABS: Glucose - Point of Care 134 mg/dl (70-99)
[2025-01-27] MEDS: NOVOLOG FLEXPEN-LOW RESISTANCE SC (12:16)
--- NOTE | 2025-01-27 14:10 | W.PN.NEPH.PH ---
Today's Communication / Plan
-
Continue to hold diuretic
Assessment/Plan
-
Impression:
VERONIKA
CKD 3 (1.4-1.8)
Change of Mental Status
UTI (on Bactrim as outpatient)
CHF exacerbation and non-ST elevation ID with troponin of 6
PAF
CAD with multiple stenting procedures
History of iron deficiency anemia
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
CAD
HX HLD
HX COPD
HX CVA
Essential HTN
DMT2
GERD
Hypothyroidism
Parkinsonism
Chronic constipation
Plan:
Follow BMP
She has made it clear that she would not except dialysis
Her overall prognosis is quite poor and palliative care should be considered
Weights are going up from
Will discuss with her son as she requires more diuretics though this is increasing her BUN significantly
With that said she is not requiring oxygen
I will continue to hold diuretics in the lower weights 1 kg
-
-
Date of Service: January 27, 2025
CC / HPI / ROS
-
Chief Complaint:
Shortness of breath
History of Present Illness:
CHF exacerbation VERONIKA on CKD
Hemoglobin stable 8.1
BUN elevated more 124
VERONIKA/Cr stable 2.6
Review of Systems:
No chest pain
Mild shortness of breath
Off nasal cannula
Labs
-
Labs:
WBC 9.1 10^3/uL (4.8-10.8) 01/27/25 04:06
RBC 2.53 10^6/uL (4.20-5.40) L 01/27/25 04:06
Hgb 8.5 g/dL (12.0-16.0) L 01/27/25 04:06
Hct 27.4 % (37.0-47.0) L 01/27/25 04:06
Plt Count 214 10^3/uL (130-400) 01/27/25 04:06
Sodium 141 mmol/L (135-145) 01/27/25 04:05
Potassium 5.0 mmol/L (3.5-5.1) 01/27/25 04:05
Chloride 113 mmol/L (98-107) H 01/27/25 04:05
Carbon Dioxide 19 mmol/L (22-30) L 01/27/25 04:05
BUN 123 mg/dl (7-17) H* 01/27/25 04:05
Creatinine 2.4 mg/dL (0.6-1.0) H 01/27/25 04:05
eGFR 19.43 01/27/25 04:05
Glucose 157 mg/dl (70-99) H 01/27/25 04:05
Calcium 8.1 mg/dl (8.4-10.2) L 01/27/25 04:05
Ydf-S-Isrofogovxi Pept > 04408 pg/ml 01/27/25 04:06
Albumin 3.4 g/dl (3.5-5.0) L 01/27/25 04:05
Physical Exam
-
Vital Signs:
Vital Signs
Temp Pulse Resp BP Pulse Ox
96.5 F L 57 21 120/49 99
01/27/25 12:00 01/27/25 13:00 01/27/25 13:00 01/27/25 13:00 01/27/25 09:49
Cardiovascular:: Regular rate and rhythm
Respiratory:: Bilateral: Coarse
Lung Excursion:: Normal
Abdomen:: Nontender and Soft
Bowel Sounds:: Normal
Extremity Edema:: None: Bilateral:
--- NOTE | 2025-01-27 14:13 | W.PN.HOSP.TC ---
Today's Communication/Plan
-
Continue to hold diuretics, volume status has improved. Hopeful BUN and creatinine may improve with holding of diuretics at this time
Monitor I's and O's, daily weights
proBNP unfortunately not as reliable secondary to renal function
Holding anticoagulation
Assessment / Plan
Assessment / Plan
HPI: 84-year-old F with extensive past medical history including CAD status post multiple stents, paroxysmal atrial fibrillation on anticoagulation, CHF on chronic diuresis and fluid restriction, iron deficiency anemia, recurrent UTIs on
methenamine, initiated on Bactrim on 01/15 for urinary tract infection, Hypertension, CKD, insulin-dependent diabetes; presented to the emergency department 2/2 hypoxia, wheezing, cough and shortness of breath, ongoing for about 2 days. She c/o chest
pain that she described as indigestion.
According to the [facility] staff, she had an abrupt drop in her pulse ox to 85 on room air. She was placed on 2 L of nasal cannula and it promptly came up to the 90s. She had expiratory wheezes and was thus sent to the emergency department.
Her X-ray showed some volume overload and rounded right lower lobe opacity which could be atelectasis or effusion. She was also noted to have troponin elevation at 6.2 on admission and markedly elevated BNP over 19,000.
A/P:
# Shortness of breath, likely acute CHF exacerbation (see below) and cannot rule out pulmonary infiltrate
# Acute hypoxic respiratory failure, 2/2 above
On and off BIPAP, can try mid flow today with improved oxygenation; wean O2 as tolerated
restart diet, SPL eval
Of note, given VERONIKA, cannot check Pro-George
MRSA screen negative, COVID negative, Legionella and pneumococcal urine antigens negative
Check sputum culture if able,
Pt was started with empiric ceftriaxone and doxycycline, cont for now
DCed ASSEMBLYMAN OR WOMAN Bactrim
Cough suppression, nebs
DC further Decadron 2 mg Q12H with resolved wheezing (wheezing was likely cardiac cause anyway)
-wean o2; goal o2 >92%
# NSTEMI with likely acute on chronic CHF, new systolic heart failure
troponin 6.2 -> ... -> 4.2
BNP greater than 19,000.
ECG nonischemic.
Pt was started with heparin drip for ACS, held 2/2 hemoptysis.
Off nitro drip (in place of ASSEMBLYMAN OR WOMAN Imdur)
Restart Imdur
Cont ASSEMBLYMAN OR WOMAN Plavix
Cont statin
Hold ASSEMBLYMAN OR WOMAN apixaban
echo this admission noted new reduced EF at 35-40%. Mild to moderate mitral stenosis. Moderate to severe mitral regurgitation. Estimated pulmonary artery pressure 45 mmHg. Compared to the previous echo from September 2023, EF was 65-70% without wall
motion abnormalities.
S/p IV Lasix Resume PO Lasix; Hold today and monitor BMP, daily weights, ins and outs
Cardiology on board
# Hemoptysis 01/22, appear to have resolved
-heparin drip held
-She was on Eliquis as outpt, cont to hold given worsening anemia. = can hold on further decision - defer to Cards
# VERONIKA on CKD stage 3
Since patient appeared volume overloaded suspect cardiorenal versus VERONIKA from Bactrim related renal injury
Creatinine at 2.7 on admission from baseline 1.4, SCr today at 2.6, cont to monitor SCr
Discontinued Bactrim
Renal and bladder ultrasound unrevealing: chronic medical renal disease. Punctate nonobstructing bilateral renal calculi. No hydronephrosis.
Continue to monitor ins and outs. Avoid nephrotoxins,
Hold metolazone, continue Lasix as stated above
Galindo placed on 01/22 for I/O
Nephrology on board
# Paroxysmal atrial fibrillation
Continue amiodarone Saturday
heparin drip held 2/2 hemoptysis.
Eliquis as per cards
# IDDM
Cont Lantus adjusted from ASSEMBLYMAN OR WOMAN 15 to 10 units HS
ISS coverage
# Suspect anxiety
s/p Xanax ODT, can consider additional doses for anxiety
#ankylosing spondylitis
-f/u outpatient
DVT prophylaxis�heparin drip held 2/2 hemoptysis. SCD for now. Trial hsq
CODE STATUS�DNR
Anticipated Discharge: Today
Subjective/Interval History
-
Date of Service: January 27, 2025
No acute events overnight
Objective Data
-
Labs:
Laboratory Results
01/27/25 01/27/25
04:05 04:06
WBC 9.1
Hgb 8.5 L
Hct 27.4 L
Plt Count 214
Sodium 141
Potassium 5.0
Chloride 113 H
Carbon Dioxide 19 L
BUN 123 H*
Creatinine 2.4 H
Glucose 157 H
Calcium 8.1 L
Total Bilirubin 1.0
AST 14
ALT < 10
Alkaline Phosphatase 73
Vital Signs:
Vital Signs
Temp Pulse Resp BP Pulse Ox
96.5 F L 57 21 120/49 99
01/27/25 12:00 01/27/25 13:00 01/27/25 13:00 01/27/25 13:00 01/27/25 09:49
I&O
01/26/25 01/27/25 01/28/25
06:59 06:59 06:59
Intake Total 480 / 480 240 / 240 120 / 120
Output Total 750 / 750 380 / 380
Balance -270 / -270 -140 / -140 120 / 120
Review of Systems
-
History Source: Patient
All other systems: Not reviewed unless documented
Physical Exam
-
General: Well Developed, Well Nourished and Respiratory Distress
HEENT: Normocephalic, Atraumatic and Oxygen (1 L, weaning)
Respiratory: Clear to Auscultation and Non Labored Respirations; Negative Wheezes or Accessory Resp Muscle Use
Cardiac: Regular Rhythm and S1/S2
GI: Soft and Nontender
Genito-urinary: Galindo (galindo placed on 01/22)
Skin: Warm and Dry
Psych: Calm and Intact Judgement/Insight (somewhat)
Data Reviewed
-
Diagnostic Radiology: Image personally visualized and interpreted and Report Reviewed by me
CT Scan: Report Reviewed by me
Labs: Labs Reviewed by me
--- NOTE | 2025-01-27 15:06 | W.PN.UPDATE ---
Update Note
Progress Note Update
Discussion with the patient's son Reji about the overall poor prognosis. We had a detailed conversation about dialysis the risks and benefits and the moth exterminator prognosis on HD which at this time is poor. With that being said, He would like to see
how she does with dialysis so we will proceed with treatment
[2025-01-27] MEDS: APRESOLINE PO (15:50)
--- NOTE | 2025-01-27 16:40 | PTCARENOTE ---
IR to bedside for HD catheter placement.
--- NOTE | 2025-01-27 16:48 | CM ---
Patient from [facility] with Dx CHF, NSTEMI, VERONIKA. Receiving IV & PO Abx. Seen by wound care nurse. Dysphagia diet. Per nurse; confused, forgetful.
Nephrology notes indicate plan for dialysis.
[facility] provided clinical update. She will find out if they can accept patient back if on dialysis.
Plan follow patient's HD needs.
Plan return to [facility] when medically ready.
[2025-01-27] MEDS: SENOKOT-S PO (17:15)
--- NOTE | 2025-01-27 17:24 | PN.IRAD.UPD ---
Update Note - IRAD
- -
CXR ordered for post line placement and 'central line' added to worklist by FAHAD Rodriguez.
[2025-01-27 17:32] LABS: Glucose - Point of Care 184 mg/dl (70-99)
[2025-01-27 17:51] LABS: Hepatitis B Surface Antigen Negative (Negative)
[2025-01-27 18:09] LABS: Hepatitis C Antibody Negative (Negative)
[2025-01-27] MEDS: HEPARIN 5000 UNITS SC (20:30)
[2025-01-27] MEDS: PEPCID 10 MG PO (20:31)
[2025-01-27] MEDS: IMDUR (EXTENDED RELEASE) 90 MG PO (20:31)
[2025-01-27] MEDS: LIPITOR 80 MG PO (20:32)
[2025-01-27] MEDS: XALATAN OPHTHALMIC SOLUTION 1 DROP RIGHT EYE (20:38)
[2025-01-27] MEDS: ROCEPHIN 1000 MG IV (23:23)
[2025-01-27] MEDS: TYLENOL 650 MG PO (23:23)
[2025-01-27] MEDS: STERILE WATER FOR INJECTION 10 ML IV (23:23)
[2025-01-28] VITALS (21 sets, daily range): BP systolic 82–137; BP diastolic 15–73; PULSE 2–69; BMI 31.0; BMI 30.5
[2025-01-28] MEDS: PROTONIX 20 MG PO (04:52)
[2025-01-28] MEDS: SYNTHROID 112 MCG PO (04:53)
[2025-01-28 05:16] LABS: Hematocrit 26.6 % (37.0-47.0); Hemoglobin 8.5 g/dL (12.0-16.0); Mean Corp Hgb Conc. 32.0 g/dL (33.0-37.0); Mean Corpuscular Volume 106.4 fL (81.0-99.0); Platelet Count 201 10^3/uL (130-400); Red Cell Dist. Width 16.1 % (11.5-14.5)
[2025-01-28 06:06] LABS: ALT (SGPT) < 10 U/L (0-35); AST (SGOT) 15 U/L (14-36); Albumin 3.3 g/dl (3.5-5.0); Alkaline Phosphatase 75 U/L (38-126); Blood Urea Nitrogen 136 mg/dl (7-17); Calcium 8.4 mg/dl (8.4-10.2); Carbon Dioxide 16 mmol/L (22-30); Chloride 115 mmol/L (98-107); Estimated Creatinine Clearance 20 ml/min; Glucose 131 mg/dl (70-99); Potassium 5.1 mmol/L (3.5-5.1); Sodium 140 mmol/L (135-145); Total Protein 6.8 g/dl (6.3-8.2); eGFR 21.57
[2025-01-28 07:58] LABS: Glucose - Point of Care 148 mg/dl (70-99)
[2025-01-28] MEDS: NOVOLOG FLEXPEN-LOW RESISTANCE SC (08:03)
[2025-01-28] MEDS: MIRALAX 17 GRAMS PO (08:45)
[2025-01-28] MEDS: BUSPAR 2.5 MG PO ×3 (08:45→20:47)
[2025-01-28] MEDS: HEPARIN 5000 UNITS SC ×2 (08:46→20:45)
[2025-01-28] MEDS: FEOSOL 325 MG PO (08:46)
[2025-01-28] MEDS: PLAVIX 75 MG PO (08:46)
[2025-01-28] MEDS: VIBRAMYCIN 100 MG PO ×2 (08:46→20:47)
[2025-01-28] MEDS: REFRESH EYE DROPS (PF) 1 DROPS BOTH EYES ×2 (08:46→20:48)
[2025-01-28] MEDS: TYLENOL 1000 MG PO ×2 (08:47→18:15)
[2025-01-28] MEDS: APRESOLINE PO (08:47)
[2025-01-28] MEDS: DESENEX/MITRAZOL/ZEASORB 1 APPLIC TOPICAL ×2 (08:48→20:48)
[2025-01-28] MEDS: SINEMET 25-100 2 TABLET PO ×4 (08:50→20:50)
--- NOTE | 2025-01-28 10:15 | PTCARENOTE ---
Addendum entered by Gee Ward RN 01/28/25 13:50:
Patient pulled out HD cath. Small amount of blood from site. Pressure held to site for 10 minutes. Sutures removed. Catheter intact. Sterile dressing placed on site. notified and has contacted IR. VSS. Patient in no distress, educated about lines
and importance of not pulling them.
Original Note:
Patient AAOx2, very forgetful. Reoriented. Attempted to get patient to BSC with tech, patient unable to bear weight so put back in bed. Patient due for HD at 1200. NSB, BPs soft. Hydralazine held this AM. RA, 95%. Orthopnea. Temp 96.6ax, warm
blankets applied. Will reassess. Continuing to closely monitor.
--- NOTE | 2025-01-28 11:10 | W.PN.NEPH.PH ---
Today's Communication / Plan
-
Dialysis
Assessment/Plan
-
Impression:
VERONIKA
CKD 3 (1.4-1.8)
Change of Mental Status
UTI (on Bactrim as outpatient)
CHF exacerbation and non-ST elevation [place] with troponin of 6
PAF
CAD with multiple stenting procedures
History of iron deficiency anemia
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
CAD
HX HLD
HX COPD
HX CVA
Essential HTN
DMT2
GERD
Hypothyroidism
Parkinsonism
Chronic constipation
Plan:
Follow BMP
Worsening azotemia yet remains off oxygen
No signs of uremia with a BUN of 134
Temporary IJ dialysis catheter placed yesterday by interventional radiology
Will start Epogen with dialysis for anemia
Awaiting first dialysis treatment
Discussed with dialysis nurse.
Discussed with her son Reji as he agrees to proceed with dialysis as stated previously
Will plan for dialysis again tomorrow

33 minutes critical care time
-
-
Date of Service: January 28, 2025
CC / HPI / ROS
-
Chief Complaint:
Shortness of breath
History of Present Illness:
CHF exacerbation VERONIKA on CKD
Hemoglobin stable 8.1
VERONIKA/Cr stable 2.6
Review of Systems:
No chest pain
Mild shortness of breath
Off nasal cannula
Labs
-
Labs:
WBC 7.5 10^3/uL (4.8-10.8) 01/28/25 05:01
RBC 2.50 10^6/uL (4.20-5.40) L 01/28/25 05:01
Hgb 8.5 g/dL (12.0-16.0) L 01/28/25 05:01
Hct 26.6 % (37.0-47.0) L 01/28/25 05:01
Plt Count 201 10^3/uL (130-400) 01/28/25 05:01
Sodium 140 mmol/L (135-145) 01/28/25 05:01
Potassium 5.1 mmol/L (3.5-5.1) 01/28/25 05:01
Chloride 115 mmol/L (98-107) H 01/28/25 05:01
Carbon Dioxide 16 mmol/L (22-30) L 01/28/25 05:01
BUN 136 mg/dl (7-17) H* 01/28/25 05:01
Creatinine 2.2 mg/dL (0.6-1.0) H 01/28/25 05:01
eGFR 21.57 01/28/25 05:01
Glucose 131 mg/dl (70-99) H 01/28/25 05:01
Calcium 8.4 mg/dl (8.4-10.2) 01/28/25 05:01
Jve-D-Guiqciltlko Pept > 26107 pg/ml 01/27/25 04:06
Albumin 3.3 g/dl (3.5-5.0) L 01/28/25 05:01
Physical Exam
-
Vital Signs:
Vital Signs
Temp Pulse Resp BP Pulse Ox
96.6 F L 53 19 100/15 95
01/28/25 09:00 01/28/25 10:00 01/28/25 10:00 01/28/25 10:00 01/28/25 08:00
Cardiovascular:: Regular rate and rhythm
Respiratory:: Bilateral: Coarse
Lung Excursion:: Normal
Abdomen:: Nontender and Soft
Bowel Sounds:: Normal
Extremity Edema:: None: Bilateral:
--- NOTE | 2025-01-28 11:56 | W.PN.CARDCBS ---
Today's Communication / Plan
-
See below for medication recommendations
We will sign off please call if questions
Impression / Plan
-
PCP: Dr. Walden
Continuous Churn Buttermaker: Dr. Danielle Franz
Impression:
Presented with cough, SOB
Acute on chronic HFrEF
NSTEMI
VERONIKA on CKD 3
CAD
12/2000 left circumflex stent
10/2002 mid RCA stent
10/2004 mid LAD x2 stents and OM stents
05/2007 mid OM stents
03/[address] stent
01/2020 NSTEMI, medical management of multivessel CAD, she is not a candidate for any further revascularization either surgical or percutaneous
Ranexa was previously discontinued to allow initiation of amiodarone given that she has demonstrated prolonged QT at times in the past.
PAF
Chronic Amiodarone therapy
Chronic Eliquis therapy
Hypertension
h/o prolonged QTc/Bradycardia
COPD
Moderate-severe MR
Insulin-dependent diabetes
Hyperlipidemia
PVD
Hypothyroidism
Severe orthopedic issues with decreased activity of daily living
h/o neck fracture
Parkinson's disease
Dementia
Polypharmacy
Multiple medication intolerances/allergies
Cardiac cath 07/19/2023 demonstrated stable distal left main stenosis involving the origin of the LAD and circumflex and new high-grade calcified mid LAD stenosis with apical LAD now occluded. Initially there was discussion of high risk LAD PCI but
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 After further discussion w/ family decision was made to treat her medically as she was deemed not
a surgical candidate.
Echo 07/15/23: EF 35-40%, EF previously had been 55-60%.
Echo 10/07/23: Hyperdynamic LV, EF 65 to 70%, MAC, mild to moderate MS with peak/mean gradients 14/6 mmHg, at least moderate and possibly severe MR likely underestimated due to MAC, mild with peak/mean gradients 29/16 mmHg, ANGELINA 1.1 cm�, mild to
moderate AR, mild TR, PAP 34 mmHg
Echo 01/21/2025: EF 35 to 40% with hypokinetic apex, mild to moderate mitral stenosis with mean gradient of 5, moderate to severe MR, mild aortic stenosis, mild to moderate AI, mild to moderate TR with PA pressure 45
Plan:
Presented in acute heart failure and still requiring supplemental O2. proBNP remains elevated >27k. Will defer diuretic dosing to nephrology. Creatinine remains elevated ~2.5.
LV systolic function is moderately reduced here with estimated EF 35 to 40%
GDMT limited by bradycardia and renal dysfunction
Continue Imdur/hydralazine
With regards to her non-ST segment elevation MT, she is not having further chest pain. Was on Plavix as outpatient, would continue.
Continue high intensity statin
Imdur as antianginal
Maintaining sinus rhythm on low-dose amiodarone. Has significant anemia on Eliquis. Given her frailty and bleeding risk Eliquis is on hold. Can reassess restart of Eliquis as outpatient.
Overall prognosis is poor. From my standpoint okay to proceed with discharge planning, presumably back to [facility]
HPI: Phoebe is an 84 year old female with PMH of CAD w/ multiple prior stents, being medically managed at this time, HFimpEF, HTN, PAF, COPD, DM, CKD, HLD, PVD, hypothyroidism, Parkinson's disease, and dementia. Presented for evaluation of cough
and SOB. Reportedly symptoms started about 2 days prior to arrival and was initially evaluated at skilled nursing however during initial eval, VS were stable, so hospitalization was not recommended. She then continued w/ cough and SOB and when she was
checked again, was noted to be hypoxic with pulse ox in the 80s, so she was referred to the ER. In ER, noted to be in acute heart failure with proBNP 19,500 and also found to have elevated troponin. Possible pneumonia noted and she was admitted for
further workup and evaluation. She has known chronic stable angina which is managed medically with imdur. Has not tolerated metoprolol due to bradycardia and cannot tolerate Ranexa due to prolonged QT. This AM, she is resting comfortably in bed. No
chest pain currently. No SOB. She has previously wished for more conservative management and this was confirmed again today.
Progress Note - Continuous Churn Buttermaker
Subjective
Date of Service: January 28, 2025:
84-year-old woman with numerous PCI's dating back to 2000, NSTEMI January 2024 with multivessel CAD and left main ostial LAD disease precluding intervention on mid LAD admitted with NSTEMI troponin of 6 and EF down to 35% with acute HFrEF. Not a
candidate for PCI or CABG, with VERONIKA and admission. PAF
PMH: Heart failure with improved EF, prior non-STEMI, CKD 3, prolonged QT, COPD, moderate MR, diabetes, hyperlipidemia, PAD, degenerative joint and disc disease, Parkinson's, dementia, polypharmacy,
Current meds: Amiodarone 100 mg daily, subcu heparin atorvastatin 80 mg at bedtime, BuSpar, Sinemet, Plavix 75 mg a day, hydralazine 25 every 8, Imdur 90 at bedtime, Xalatan, levothyroxine, MiraLAX, ceftriaxone, Pepcid, insulin, doxycycline, as
outpatient on Plavix and Eliquis
100/15, pulse 50, respiratory rate 19, temp 35.9, saturations 95%, no distress, sleepy, dialysis catheter in place, head neck exam unremarkable, lungs are clear, systolic murmur at apex, JVD hard to assess, 1+ edema
Hemoglobin 8.5, BUN and creatinine 136 and 2.2, potassium 5.1
Plan:
Patient seems stable from standpoint of non-STEMI. Would continue Plavix as monotherapy.
She is not having angina at present.
She is in sinus rhythm on amiodarone. Anemia is an ongoing issue, bleeding risk on Eliquis and clopidogrel is high, would favor permanent discontinuation of Eliquis as long as patient is in sinus rhythm on amiodarone.
She is bradycardic but currently asymptomatic. Continue amiodarone 100 mg daily.
Management of volume status will be per nephrology on hemodialysis.
Defer management of numerous other medical issues to primary service.
We will arrange for cardiac follow-up and sign off, please call if questions.
Recommended cardiac medications at discharge:
Amiodarone 100 mg daily
Atorvastatin 80 mg daily
Clopidogrel 75 mg daily
Hydralazine 25 mg p.o. every 8 or as per neurology
Isosorbide mononitrate 90 mg at bedtime
Would not restart Eliquis.
Objective
Labs:
01/28/25 05:01
01/28/25 05:01
Labs
Hgb 8.5 g/dL (12.0-16.0) L 01/28/25 05:01
Hct 26.6 % (37.0-47.0) L 01/28/25 05:01
Plt Count 201 10^3/uL (130-400) 01/28/25 05:01
APTT Cancelled 01/22/25 12:45
Sodium 140 mmol/L (135-145) 01/28/25 05:01
Potassium 5.1 mmol/L (3.5-5.1) 01/28/25 05:01
BUN 136 mg/dl (7-17) H* 01/28/25 05:01
Creatinine 2.2 mg/dL (0.6-1.0) H 01/28/25 05:01
Glucose 131 mg/dl (70-99) H 01/28/25 05:01
Vital Signs and I&O:
Vital Signs
Temp Pulse Resp BP Pulse Ox
35.9 C L 53 19 100/15 95
01/28/25 09:00 01/28/25 10:00 01/28/25 10:00 01/28/25 10:00 01/28/25 08:00
Vital Signs
Temp Pulse Resp BP Pulse Ox
35.9 C L 53 19 100/15 95
01/28/25 09:00 01/28/25 10:00 01/28/25 10:00 01/28/25 10:00 01/28/25 08:00
Intake & Output
01/26/25 01/27/25 01/28/25 01/29/25
07:59 07:59 07:59 07:59
Intake Total 480 / 480 240 / 240 120 / 120
Output Total 750 / 750 380 / 380
Balance -270 / -270 -140 / -140 120 / 120
Physical Exam
Physical Exam
See above
[2025-01-28 12:09] LABS: Glucose - Point of Care 182 mg/dl (70-99)
[2025-01-28] MEDS: NOVOLOG FLEXPEN-LOW RESISTANCE 1 UNITS SC ×2 (12:53→18:14)
--- NOTE | 2025-01-28 14:38 | W.PN.HOSP.TC ---
Today's Communication/Plan
-
replace HD cath for HD
Assessment / Plan
Assessment / Plan
HPI: 84-year-old F with extensive past medical history including CAD status post multiple stents, paroxysmal atrial fibrillation on anticoagulation, CHF on chronic diuresis and fluid restriction, iron deficiency anemia, recurrent UTIs on
methenamine, initiated on Bactrim on 01/15 for urinary tract infection, Hypertension, CKD, insulin-dependent diabetes; presented to the emergency department 2/2 hypoxia, wheezing, cough and shortness of breath, ongoing for about 2 days. She c/o chest
pain that she described as indigestion.
According to the [facility] staff, she had an abrupt drop in her pulse ox to 85 on room air. She was placed on 2 L of nasal cannula and it promptly came up to the 90s. She had expiratory wheezes and was thus sent to the emergency department.
Her X-ray showed some volume overload and rounded right lower lobe opacity which could be atelectasis or effusion. She was also noted to have troponin elevation at 6.2 on admission and markedly elevated BNP over 19,000.
A/P:
# Shortness of breath, likely acute CHF exacerbation (see below) and cannot rule out pulmonary infiltrate
# Acute hypoxic respiratory failure, 2/2 above
On and off BIPAP, can try mid flow today with improved oxygenation; wean O2 as tolerated
restart diet, SPL eval
Of note, given VERONIKA, cannot check Pro-George
MRSA screen negative, COVID negative, Legionella and pneumococcal urine antigens negative
Check sputum culture if able,
Pt was started with empiric ceftriaxone and doxycycline, (D7 Ceftriaxone, Day 4 of Doxy); DC Ceftriaxone
DCed WILDLIFE OFFICER Bactrim
Cough suppression, nebs
DC further Decadron 2 mg Q12H with resolved wheezing (wheezing was likely cardiac cause anyway)
-wean o2; goal o2 >92%
# NSTEMI with likely acute on chronic CHF, new systolic heart failure
troponin 6.2 -> ... -> 4.2
BNP greater than 19,000.
ECG nonischemic.
Pt was started with heparin drip for ACS, held 2/2 hemoptysis. Can restart Eliquis outpatient as per cards
Off nitro drip (in place of WILDLIFE OFFICER Imdur)
Restart Imdur
Cont WILDLIFE OFFICER Plavix
Cont statin
Hold WILDLIFE OFFICER apixaban
echo this admission noted new reduced EF at 35-40%. Mild to moderate mitral stenosis. Moderate to severe mitral regurgitation. Estimated pulmonary artery pressure 45 mmHg. Compared to the previous echo from September 2023, EF was 65-70% without wall
motion abnormalities.
S/p IV Lasix Resume PO Lasix; Hold today and monitor BMP, daily weights, ins and outs
Cardiology on board
# Hemoptysis 01/22, appear to have resolved
-heparin drip held
-She was on Eliquis as outpt, cont to hold given worsening anemia. = can hold on further decision - defer to Cards: Can restart Eliquis outpatient as per cards
# VERONIKA on CKD stage 3
Since patient appeared volume overloaded suspect cardiorenal versus VERONIKA from Bactrim related renal injury
Creatinine at 2.7 on admission from baseline 1.4, SCr today at 2.6, cont to monitor SCr
Discontinued Bactrim
Renal and bladder ultrasound unrevealing: chronic medical renal disease. Punctate nonobstructing bilateral renal calculi. No hydronephrosis.
Continue to monitor ins and outs. Avoid nephrotoxins,
Hold metolazone, hold Lasix as stated above
Galindo placed on 01/22 for I/O
Nephrology on board
Son agrees to HD - HD cath placed although patient removed 01/28; Requested replacement of HD cath
# Paroxysmal atrial fibrillation
Continue amiodarone Saturday
Eliquis to be on hold
# IDDM
Cont Lantus adjusted from WILDLIFE OFFICER 15 to 10 units HS
ISS coverage
# Suspect anxiety
s/p Xanax ODT, can consider additional doses for anxiety
#anemia
-Epogen with dialysis for anemia
#ankylosing spondylitis
-f/u outpatient
DVT prophylaxis�heparin drip held 2/2 hemoptysis. SCD. Trial hsq
CODE STATUS�DNR
Anticipated Discharge: > 48 hours
Subjective/Interval History
-
Date of Service: January 28, 2025
planning for HD; pulled out HD cath today - engaged with IR to replace
Objective Data
-
Labs:
Laboratory Results
01/28/25
05:01
WBC 7.5
Hgb 8.5 L
Hct 26.6 L
Plt Count 201
Sodium 140
Potassium 5.1
Chloride 115 H
Carbon Dioxide 16 L
BUN 136 H*
Creatinine 2.2 H
Glucose 131 H
Calcium 8.4
Total Bilirubin 1.1
AST 15
ALT < 10
Alkaline Phosphatase 75
Vital Signs:
Vital Signs
Temp Pulse Resp BP Pulse Ox
97.2 F 56 18 108/44 95
01/28/25 14:00 01/28/25 14:00 01/28/25 14:00 01/28/25 14:00 01/28/25 08:00
I&O
01/27/25 01/28/25 01/29/25
06:59 06:59 06:59
Intake Total 240 / 240 120 / 120
Output Total 380 / 380
Balance -140 / -140 120 / 120
Review of Systems
-
History Source: Patient
All other systems: Not reviewed unless documented
Physical Exam
-
General: Well Developed, Well Nourished and Respiratory Distress
HEENT: Normocephalic, Atraumatic and Oxygen (1 L, weaning)
Respiratory: Clear to Auscultation and Non Labored Respirations; Negative Wheezes or Accessory Resp Muscle Use
Cardiac: Regular Rhythm and S1/S2
GI: Soft and Nontender
Genito-urinary: Galindo (galindo placed on 01/22)
Skin: Warm and Dry
Psych: Calm and Intact Judgement/Insight (somewhat)
Data Reviewed
-
Diagnostic Radiology: Image personally visualized and interpreted and Report Reviewed by me
CT Scan: Report Reviewed by me
Labs: Labs Reviewed by me
--- NOTE | 2025-01-28 16:58 | CM ---
Patient from [facility] with Dx CHF, NSTEMI, VERONIKA. O2 4L. Receiving PO Abx. Seen by wound care nurse. Dysphagia diet. Per nurse; confused, forgetful, pulled out temp HD cath. Plan replace HD cath for HD.
Messages with Dr Christian; unsure at this time if patient will need [facility] dialysis, as she may not even tolerate it.
Spoke with Lucrecia, [facility]; they cannot accept the patient back if she remains on dialysis. Provided update that improvement director indicates [facility]it[facility]iary HD is unknown at this time.
Plan follow patient's dialysis needs.
Plan return to [facility] when medically ready, if patient not needing HD.
--- NOTE | 2025-01-28 17:30 | PTCARENOTE ---
Received patient back from IR. VSS, dressing CDI. Patient with no complaints. Instructed about importance of not touching lines. Son at bedside. Continuing to monitor.
[2025-01-28] MEDS: SENOKOT-S PO (18:11)
[2025-01-28 18:15] LABS: Glucose - Point of Care 181 mg/dl (70-99)
[2025-01-28] MEDS: APRESOLINE 25 MG PO (18:17)
[2025-01-28] MEDS: IMDUR (EXTENDED RELEASE) 90 MG PO (20:46)
[2025-01-28] MEDS: LIPITOR 80 MG PO (20:47)
[2025-01-28] MEDS: PEPCID 10 MG PO (20:48)
[2025-01-28] MEDS: XALATAN OPHTHALMIC SOLUTION 1 DROP RIGHT EYE (20:49)
[2025-01-28 21:19] LABS: Glucose - Point of Care 178 mg/dl (70-99)
[2025-01-29] VITALS (24 sets, daily range): BP systolic 49–138; BP diastolic 17–118; PULSE 2–80
--- NOTE | 2025-01-29 01:58 | PTCARENOTE ---
Patient aao x1-2 at start of shift. Patient lethargic, agreeable to bipap earlier this shift. Bipap in place for approx 1 hour, patient removed and refused. RT notified. Patient pulling at wires and devices, discussed with CAD DEVELOPER, order placed for b/l
hand mitts to avoid patient pulling at HD cath. Patient had large bm, hygiene provided and patient repositioned. Will continue to monitor.
[2025-01-29] MEDS: APRESOLINE PO ×2 (02:02→11:24)
[2025-01-29] MEDS: STERILE WATER FOR INJECTION IV ×2 (02:02→21:29)
[2025-01-29] MEDS: PROTONIX 20 MG PO (04:29)
[2025-01-29] MEDS: SYNTHROID 112 MCG PO (04:30)
[2025-01-29 04:43] LABS: Hematocrit 26.1 % (37.0-47.0); Hemoglobin 8.2 g/dL (12.0-16.0); Mean Corp Hgb Conc. 31.4 g/dL (33.0-37.0); Mean Corpuscular Volume 107.9 fL (81.0-99.0); Platelet Count 216 10^3/uL (130-400); Red Cell Dist. Width 16.0 % (11.5-14.5)
[2025-01-29 05:13] LABS: ALT (SGPT) < 10 U/L (0-35); AST (SGOT) 14 U/L (14-36); Albumin 3.2 g/dl (3.5-5.0); Alkaline Phosphatase 82 U/L (38-126); Calcium 8.1 mg/dl (8.4-10.2); Carbon Dioxide 16 mmol/L (22-30); Chloride 115 mmol/L (98-107); Estimated Creatinine Clearance 17 ml/min; Glucose 167 mg/dl (70-99); Potassium 5.4 mmol/L (3.5-5.1); Sodium 143 mmol/L (135-145); Total Protein 6.5 g/dl (6.3-8.2); eGFR 18.50
[2025-01-29 05:21] LABS: Blood Urea Nitrogen 130 mg/dl (7-17)
[2025-01-29 08:10] LABS: Glucose - Point of Care 202 mg/dl (70-99)
[2025-01-29] MEDS: HEPARIN 5000 UNITS SC ×2 (08:34→20:24)
[2025-01-29] MEDS: NOVOLOG FLEXPEN-LOW RESISTANCE 2 UNITS SC (08:34)
[2025-01-29] MEDS: BUSPAR 2.5 MG PO ×3 (08:35→20:26)
[2025-01-29] MEDS: PACERONE 100 MG PO (08:35)
[2025-01-29] MEDS: VIBRAMYCIN 100 MG PO (08:39)
[2025-01-29] MEDS: TYLENOL 1000 MG PO ×2 (08:39→17:30)
[2025-01-29] MEDS: DESENEX/MITRAZOL/ZEASORB 1 APPLIC TOPICAL ×2 (08:40→20:24)
[2025-01-29] MEDS: MIRALAX PO (08:41)
[2025-01-29] MEDS: PLAVIX 75 MG PO (08:41)
[2025-01-29] MEDS: FEOSOL 325 MG PO (08:41)
[2025-01-29] MEDS: REFRESH EYE DROPS (PF) 1 DROPS BOTH EYES ×2 (08:41→20:25)
[2025-01-29] MEDS: SINEMET 25-100 2 TABLET PO ×4 (08:45→20:30)
--- NOTE | 2025-01-29 12:09 | PTCARENOTE ---
Patient AAOxself, reports tired today, drowsy. NSB, BPs soft at times. Leann hugger off at this time. B/L mitts in place. Poor appetite. Patient getting HD today. Bed alarm on for safety. Update provided to patients son. Will closely monitor.
[2025-01-29] MEDS: NOVOLOG FLEXPEN-LOW RESISTANCE 1 UNITS SC (12:34)
[2025-01-29 12:45] LABS: Glucose - Point of Care 170 mg/dl (70-99)
[2025-01-29] MEDS: HEPARIN 500 UNITS IV (12:45)
[2025-01-29] MEDS: MANNITOL 25% 12.5 GRAMS IV ×2 (13:05→14:25)
[2025-01-29] MEDS: FLEXBUMIN 25% FOR HEMODIALYSIS 12.5 GRAMS IV ×2 (13:20→14:00)
--- NOTE | 2025-01-29 14:03 | W.PN.NEPH.HD ---
Assessment
-
Seen on dialysis first treatment and tolerating so for with ultrafiltration goal 1 to 2 L
Progress Note - Hemodialysis
-
Date of Service: January 29, 2025
Duration: 30 minutes and 2 hours
Potassium Bath: 2
Calcium Bath: 2.5
Opti-Dialyzer: 160
Ultrafiltration: Other
Blood Flow: 300
Dialysate Flow: Other
--- NOTE | 2025-01-29 15:32 | W.PN.HOSP.TC ---
Addendum entered and electronically signed by Aldo Daugherty MD 01/29/25 15:48:
Yes, hemoptysis is related to/associated with/due to/exacerbated by Heparin
Encephalopathy, Metabolic 2/2 to azotemia, VERONIKA
Original Note:
Today's Communication/Plan
-
HD today
Assessment / Plan
Assessment / Plan
HPI: 84-year-old F with extensive past medical history including CAD status post multiple stents, paroxysmal atrial fibrillation on anticoagulation, CHF on chronic diuresis and fluid restriction, iron deficiency anemia, recurrent UTIs on
methenamine, initiated on Bactrim on 01/15 for urinary tract infection, Hypertension, CKD, insulin-dependent diabetes; presented to the emergency department 2/2 hypoxia, wheezing, cough and shortness of breath, ongoing for about 2 days. She c/o chest
pain that she described as indigestion.
[facility] staff, she had an abrupt drop in her pulse ox to 85 on room air. She was placed on 2 L of nasal cannula and it promptly came up to the 90s. She had expiratory wheezes and was thus sent to the emergency department.
Her X-ray showed some volume overload and rounded right lower lobe opacity which could be atelectasis or effusion. She was also noted to have troponin elevation at 6.2 on admission and markedly elevated BNP over 19,000.
A/P:
# Shortness of breath, likely acute CHF exacerbation (see below) and cannot rule out pulmonary infiltrate
# Acute hypoxic respiratory failure, 2/2 above
On and off BIPAP, can try mid flow today with improved oxygenation; wean O2 as tolerated
restart diet, SPL eval
Of note, given VERONIKA, cannot check Pro-George
MRSA screen negative, COVID negative, Legionella and pneumococcal urine antigens negative
Check sputum culture if able,
Pt was started with empiric ceftriaxone and doxycycline, (D7 Ceftriaxone, Day 5 of Doxy); DC Ceftriaxone
DCed FUNERAL DIRECTOR'S ASSISTANT Bactrim
Cough suppression, nebs
DC further Decadron 2 mg Q12H with resolved wheezing (wheezing was likely cardiac cause anyway)
-wean o2; goal o2 >92%
# NSTEMI with likely acute on chronic CHF, new systolic heart failure
troponin 6.2 -> ... -> 4.2
BNP greater than 19,000.
ECG nonischemic.
Pt was started with heparin drip for ACS, held 2/2 hemoptysis. Can restart Eliquis outpatient as per cards
Off nitro drip (in place of FUNERAL DIRECTOR'S ASSISTANT Imdur)
Restart Imdur
Cont FUNERAL DIRECTOR'S ASSISTANT Plavix
Cont statin
Hold FUNERAL DIRECTOR'S ASSISTANT apixaban
echo this admission noted new reduced EF at 35-40%. Mild to moderate mitral stenosis. Moderate to severe mitral regurgitation. Estimated pulmonary artery pressure 45 mmHg. Compared to the previous echo from September 2023, EF was 65-70% without wall
motion abnormalities.
S/p IV Lasix Resume PO Lasix; Hold today and monitor BMP, daily weights, ins and outs
Cardiology on board
# Hemoptysis 01/22, appear to have resolved
-heparin drip held
-She was on Eliquis as outpt, cont to hold given worsening anemia. = can hold on further decision - defer to Cards: Can restart Eliquis outpatient as per cards
# VERONIKA on CKD stage 3
Since patient appeared volume overloaded suspect cardiorenal versus VERONIKA from Bactrim related renal injury
Creatinine at 2.7 on admission from baseline 1.4, SCr today at 2.6, cont to monitor SCr
Discontinued Bactrim
Renal and bladder ultrasound unrevealing: chronic medical renal disease. Punctate nonobstructing bilateral renal calculi. No hydronephrosis.
Continue to monitor ins and outs. Avoid nephrotoxins,
Hold metolazone, hold Lasix as stated above
Galindo placed on 01/22 for I/O
Nephrology on board
Son agrees to HD - HD cath placed although patient removed 01/28; Requested replacement of HD cath; HD today
# Paroxysmal atrial fibrillation
Continue amiodarone Saturday
Eliquis to be on hold
# IDDM
Cont Lantus adjusted from FUNERAL DIRECTOR'S ASSISTANT 15 to 10 units HS
ISS coverage
# Suspect anxiety
s/p Xanax ODT, can consider additional doses for anxiety
#anemia
-Epogen with dialysis for anemia
#ankylosing spondylitis
-f/u outpatient
DVT prophylaxis�heparin drip held 2/2 hemoptysis. SCD. Trial hsq
CODE STATUS�DNR
Anticipated Discharge: > 48 hours
Subjective/Interval History
-
Date of Service: January 29, 2025
no acute events overnight
Objective Data
-
Labs:
Laboratory Results
01/29/25
04:21
WBC 8.0
Hgb 8.2 L
Hct 26.1 L
Plt Count 216
Sodium 143
Potassium 5.4 H
Chloride 115 H
Carbon Dioxide 16 L
BUN 130 H*
Creatinine 2.5 H
Glucose 167 H
Calcium 8.1 L
Total Bilirubin 1.2
AST 14
ALT < 10
Alkaline Phosphatase 82
Vital Signs:
Vital Signs
Temp Pulse Resp BP Pulse Ox
97.1 F 72 21 94/61 96
01/29/25 14:00 01/29/25 15:02 01/29/25 15:02 01/29/25 15:02 01/29/25 08:00
I&O
01/28/25 01/29/25 01/30/25
06:59 06:59 06:59
Intake Total 120 / 120
Balance 120 / 120
Review of Systems
-
History Source: Patient
All other systems: Not reviewed unless documented
Physical Exam
-
General: Well Developed, Well Nourished and Respiratory Distress
HEENT: Normocephalic, Atraumatic and Oxygen (1 L, weaning)
Respiratory: Clear to Auscultation and Non Labored Respirations; Negative Wheezes or Accessory Resp Muscle Use
Cardiac: Regular Rhythm and S1/S2
GI: Soft and Nontender
Genito-urinary: Galindo (galindo placed on 01/22)
Skin: Warm and Dry
Psych: Calm and Intact Judgement/Insight (somewhat)
Data Reviewed
-
Diagnostic Radiology: Image personally visualized and interpreted and Report Reviewed by me
CT Scan: Report Reviewed by me
Labs: Labs Reviewed by me
[2025-01-29 16:54] LABS: Glucose - Point of Care 124 mg/dl (70-99)
[2025-01-29] MEDS: NOVOLOG FLEXPEN-LOW RESISTANCE SC (17:19)
[2025-01-29] MEDS: SENOKOT-S PO (17:23)
[2025-01-29] MEDS: APRESOLINE 25 MG PO (17:26)
--- NOTE | 2025-01-29 19:44 | PTCARENOTE ---
Patient resting in bed at start of shift. Awakens to verbal and tactile stimuli, lethargy and drowsiness noted. NSR on the monitor, breathing is tachypneic and shallow, pox 92-94% on RA. Will encourage bipap at hs and remove mitts prior to bipap
application. Patient with no s/s of pain at this time, call mcginnis within reach. Will continue to monitor patient closely.
[2025-01-29] MEDS: PEPCID 10 MG PO (20:25)
[2025-01-29] MEDS: LIPITOR 80 MG PO (20:26)
[2025-01-29] MEDS: IMDUR (EXTENDED RELEASE) 90 MG PO (20:26)
[2025-01-29] MEDS: XALATAN OPHTHALMIC SOLUTION 1 DROP RIGHT EYE (20:31)
[2025-01-29 21:00] LABS: Glucose - Point of Care 158 mg/dl (70-99)
[2025-01-30] VITALS (29 sets, daily range): BP systolic 91–150; BP diastolic 35–139; BMI 29.7
[2025-01-30] MEDS: APRESOLINE PO ×2 (00:35→09:05)
--- NOTE | 2025-01-30 00:47 | PTCARENOTE ---
Addendum entered by Catherine Lopez RN 01/30/25 00:50:
Earlier this shift patient noted to have difficult time swallowing pills. Medications crushed in pudding, patient held in mouth despite being instructed to swallow medications. Eventually patient swallowed medications, ST following, will update
oncoming RN as well.
Original Note:
Patient lethargic throughout shift. Attempted to remove b/l hand mitts as patient lethargic and sleeping thus far. Patient had Bipap on x2 hours, removed bipap, and reaching for HD cath. SRAVANI contacted and requested b/l mitt restraint be reordered
for patient safety as patient attempting to remove lines, wires, tubing. Will apply as ordered and continue to monitor patient closely.
[2025-01-30] MEDS: SYNTHROID 112 MCG PO (03:34)
[2025-01-30] MEDS: PROTONIX 20 MG PO (03:34)
[2025-01-30 04:19] LABS: Hematocrit 26.2 % (37.0-47.0); Hemoglobin 8.1 g/dL (12.0-16.0); Mean Corp Hgb Conc. 30.9 g/dL (33.0-37.0); Mean Corpuscular Volume 106.5 fL (81.0-99.0); Platelet Count 152 10^3/uL (130-400); Red Cell Dist. Width 16.1 % (11.5-14.5)
[2025-01-30 04:31] LABS: ALT (SGPT) < 10 U/L (0-35); AST (SGOT) 15 U/L (14-36); Albumin 3.4 g/dl (3.5-5.0); Alkaline Phosphatase 79 U/L (38-126); Blood Urea Nitrogen 81 mg/dl (7-17); Calcium 8.0 mg/dl (8.4-10.2); Carbon Dioxide 24 mmol/L (22-30); Chloride 109 mmol/L (98-107); Estimated Creatinine Clearance 20 ml/min; Glucose 149 mg/dl (70-99); Potassium 4.4 mmol/L (3.5-5.1); Sodium 141 mmol/L (135-145); Total Protein 6.7 g/dl (6.3-8.2); eGFR 22.81
--- NOTE | 2025-01-30 05:48 | PTCARENOTE ---
Patient c/o chest pain, unable to rate. EKG obtained. During EKG patient states pain is resolving. Will continue to monitor patient closely.
[2025-01-30 07:00] LABS: Troponin I 1.080 ng/ml
[2025-01-30 08:20] LABS: Glucose - Point of Care 177 mg/dl (70-99)
[2025-01-30] MEDS: NOVOLOG FLEXPEN-LOW RESISTANCE 1 UNITS SC ×2 (08:40→13:14)
[2025-01-30] MEDS: MIRALAX PO (09:06)
[2025-01-30] MEDS: REFRESH EYE DROPS (PF) 1 DROPS BOTH EYES ×2 (09:16→20:07)
[2025-01-30] MEDS: BUSPAR 2.5 MG PO ×3 (09:17→21:01)
[2025-01-30] MEDS: HEPARIN 5000 UNITS SC ×2 (09:17→20:06)
[2025-01-30] MEDS: FEOSOL 325 MG PO (09:17)
[2025-01-30] MEDS: PLAVIX 75 MG PO (09:17)
[2025-01-30] MEDS: TYLENOL 1000 MG PO ×2 (09:17→17:37)
[2025-01-30] MEDS: DESENEX/MITRAZOL/ZEASORB 1 APPLIC TOPICAL ×2 (09:18→20:06)
[2025-01-30] MEDS: PACERONE 100 MG PO (09:18)
[2025-01-30] MEDS: SINEMET 25-100 2 TABLET PO ×4 (09:23→21:04)
[2025-01-30] MEDS: HEPARIN 500 UNITS IV (13:05)
[2025-01-30] MEDS: MANNITOL 25% 12.5 GRAMS IV ×2 (13:20→14:23)
[2025-01-30 13:24] LABS: Glucose - Point of Care 186 mg/dl (70-99)
--- NOTE | 2025-01-30 14:02 | W.PN.HOSP.TC ---
Today's Communication/Plan
-
HD
Assessment / Plan
Assessment / Plan
HPI: 84-year-old F with extensive past medical history including CAD status post multiple stents, paroxysmal atrial fibrillation on anticoagulation, CHF on chronic diuresis and fluid restriction, iron deficiency anemia, recurrent UTIs on
methenamine, initiated on Bactrim on 01/15 for urinary tract infection, Hypertension, CKD, insulin-dependent diabetes; presented to the emergency department 2/2 hypoxia, wheezing, cough and shortness of breath, ongoing for about 2 days. She c/o chest
pain that she described as indigestion.
According to the [facility] staff, she had an abrupt drop in her pulse ox to 85 on room air. She was placed on 2 L of nasal cannula and it promptly came up to the 90s. She had expiratory wheezes and was thus sent to the emergency department.
Her X-ray showed some volume overload and rounded right lower lobe opacity which could be atelectasis or effusion. She was also noted to have troponin elevation at 6.2 on admission and markedly elevated BNP over 19,000.
A/P:
# Shortness of breath, likely acute CHF exacerbation (see below) and cannot rule out pulmonary infiltrate
# Acute hypoxic respiratory failure, 2/2 above
On and off BIPAP, can try mid flow today with improved oxygenation; wean O2 as tolerated
restart diet, SPL eval
Of note, given VERONIKA, cannot check Pro-George
MRSA screen negative, COVID negative, Legionella and pneumococcal urine antigens negative
Check sputum culture if able,
Pt was started with empiric ceftriaxone and doxycycline, (D7 Ceftriaxone, Day 5 of Doxy); DC Ceftriaxone
DCed INTEGRATED LOGISTICS SUPPORT MANAGER Bactrim
Cough suppression, nebs
DC further Decadron 2 mg Q12H with resolved wheezing (wheezing was likely cardiac cause anyway)
-wean o2; goal o2 >92%
# NSTEMI with likely acute on chronic CHF, new systolic heart failure
troponin 6.2 -> ... -> 4.2
BNP greater than 19,000.
ECG nonischemic.
Pt was started with heparin drip for ACS, held 2/2 hemoptysis. Can restart Eliquis outpatient as per cards
Off nitro drip (in place of INTEGRATED LOGISTICS SUPPORT MANAGER Imdur)
Restart Imdur
Cont INTEGRATED LOGISTICS SUPPORT MANAGER Plavix
Cont statin
Hold INTEGRATED LOGISTICS SUPPORT MANAGER apixaban
echo this admission noted new reduced EF at 35-40%. Mild to moderate mitral stenosis. Moderate to severe mitral regurgitation. Estimated pulmonary artery pressure 45 mmHg. Compared to the previous echo from September 2023, EF was 65-70% without wall
motion abnormalities.
S/p IV Lasix Resume PO Lasix; Hold today and monitor BMP, daily weights, ins and outs
Cardiology on board
Patient had overnight chest pain - Trop 1 (Downtrended from 6 prior); No CP currently; spoke to cardiology, overall patient's prognosis poor. Poor candidate for anticoagulation or intervention at this time (see cardiology note). Continue goals of
conversation. Would not initiate heparin drip due to hemoptysis. Can decide on Eliquis outpatient.
# Hemoptysis 01/22, appear to have resolved
-heparin drip held
-She was on Eliquis as outpt, cont to hold given worsening anemia. = can hold on further decision - defer to Cards: Can restart Eliquis outpatient as per cards
# VERONIKA on CKD stage 3
Since patient appeared volume overloaded suspect cardiorenal versus VERONIKA from Bactrim related renal injury
Creatinine at 2.7 on admission from baseline 1.4, SCr today at 2.6, cont to monitor SCr
Discontinued Bactrim
Renal and bladder ultrasound unrevealing: chronic medical renal disease. Punctate nonobstructing bilateral renal calculi. No hydronephrosis.
Continue to monitor ins and outs. Avoid nephrotoxins,
Hold metolazone, hold Lasix as stated above
Galindo placed on 01/22 for I/O
Nephrology on board
Son agrees to HD - HD cath placed although patient removed 01/28; Requested replacement of HD cath; HD todayagain
# Paroxysmal atrial fibrillation
Continue amiodarone Saturday
Eliquis to be on hold
# IDDM
Cont Lantus adjusted from INTEGRATED LOGISTICS SUPPORT MANAGER 15 to 10 units HS
ISS coverage
# Suspect anxiety
s/p Xanax ODT, can consider additional doses for anxiety
#anemia
-Epogen with dialysis for anemia
#ankylosing spondylitis
-f/u outpatient
DVT prophylaxis�heparin drip held / hemoptysis. SCD. Trial hsq
CODE STATUS�DNR
Anticipated Discharge: > 48 hours
Subjective/Interval History
-
Date of Service: January 30, 2025
chest pain overnight
Objective Data
-
Labs:
Laboratory Results
01/30/25
03:40
WBC 7.9
Hgb 8.1 L
Hct 26.2 L
Plt Count 152 D
Sodium 141
Potassium 4.4
Chloride 109 H
Carbon Dioxide 24
BUN 81 H
Creatinine 2.1 H
Glucose 149 H
Calcium 8.0 L
Total Bilirubin 1.7 H
AST 15
ALT < 10
Alkaline Phosphatase 79
Vital Signs:
Vital Signs
Temp Pulse Resp BP Pulse Ox
98.1 F 68 19 112/51 93
01/30/25 11:28 01/30/25 04:00 01/30/25 04:00 01/30/25 04:00 01/29/25 19:40
Review of Systems
-
History Source: Patient
All other systems: Not reviewed unless documented
Physical Exam
-
General: Well Developed, Well Nourished and Respiratory Distress
HEENT: Normocephalic, Atraumatic and Oxygen (1 L, weaning)
Respiratory: Clear to Auscultation and Non Labored Respirations; Negative Wheezes or Accessory Resp Muscle Use
Cardiac: Regular Rhythm and S1/S2
GI: Soft and Nontender
Genito-urinary: Galindo (galindo placed on 01/22)
Skin: Warm and Dry
Psych: Calm and Intact Judgement/Insight (somewhat)
Data Reviewed
-
Diagnostic Radiology: Image personally visualized and interpreted and Report Reviewed by me
CT Scan: Report Reviewed by me
Labs: Labs Reviewed by me
[2025-01-30] MEDS: RETACRIT 10000 UNITS IV (14:06)
--- NOTE | 2025-01-30 15:53 | W.PN.NEPH.HD ---
Assessment
-
pt seen during HD
vital stable
UF is limited today with soft Bps
remans confused
HD again tomorrow
temp HD catheter functions fine
Progress Note - Hemodialysis
-
Date of Service: January 30, 2025
Duration: 30 minutes and 2 hours
Potassium Bath: 2
Calcium Bath: 2.5
Ultrafiltration: Other (0.5kg)
Blood Flow: 300
Dialysate Flow: 600
Heparin: yesx1
EPO: 21989
[2025-01-30] MEDS: SENOKOT-S 2 TABLET PO (17:37)
[2025-01-30] MEDS: APRESOLINE 25 MG PO (17:37)
[2025-01-30 17:53] LABS: Glucose - Point of Care 138 mg/dl (70-99)
[2025-01-30] MEDS: NOVOLOG FLEXPEN-LOW RESISTANCE SC (18:01)
--- NOTE | 2025-01-30 18:42 | PTCARENOTE ---
see nursing assessment. pt received hemodialysis today. pt confused and yells out at times. mitts in place so pt doesnt pull right IJ dialysis access.
[2025-01-30] MEDS: PEPCID 10 MG PO (21:01)
[2025-01-30] MEDS: LIPITOR 80 MG PO (21:01)
[2025-01-30] MEDS: IMDUR (EXTENDED RELEASE) 90 MG PO (21:01)
[2025-01-30] MEDS: XALATAN OPHTHALMIC SOLUTION 1 DROP RIGHT EYE (21:03)
[2025-01-30 21:46] LABS: Glucose - Point of Care 160 mg/dl (70-99)
[2025-01-30] MEDS: STERILE WATER FOR INJECTION IV (22:03)
[2025-01-31] VITALS (40 sets, daily range): BP systolic 59–149; BP diastolic 25–103; BMI 28.6
[2025-01-31] MEDS: APRESOLINE 25 MG PO (00:48)
--- NOTE | 2025-01-31 03:04 | PTCARENOTE ---
Caring for pt overnight. aaox1, confused & forgetful. Bed alarm on. R IJ in place, HD planned for the morning. Q2T. Refused SCDs, accepted heparin shot. NSR/SB, PVC, >QT. Incontinent. Meds crushed in applesauce, pocketing food, had to be reminded to
swallow medicine. No other issues. will monitor.
[2025-01-31] MEDS: PROTONIX 20 MG PO (05:07)
[2025-01-31] MEDS: SYNTHROID 112 MCG PO (05:07)
[2025-01-31 08:35] LABS: Glucose - Point of Care 138 mg/dl (70-99)
[2025-01-31] MEDS: TYLENOL 1000 MG PO ×2 (08:36→17:49)
[2025-01-31] MEDS: REFRESH EYE DROPS (PF) 1 DROPS BOTH EYES ×2 (08:36→20:19)
[2025-01-31] MEDS: NOVOLOG FLEXPEN-LOW RESISTANCE SC ×3 (08:36→17:49)
[2025-01-31] MEDS: MIRALAX 17 GRAMS PO (08:37)
[2025-01-31] MEDS: PLAVIX 75 MG PO (08:37)
[2025-01-31] MEDS: HEPARIN 5000 UNITS SC ×2 (08:37→20:19)
[2025-01-31] MEDS: BUSPAR 2.5 MG PO ×3 (08:37→20:20)
[2025-01-31] MEDS: FEOSOL 325 MG PO (08:37)
[2025-01-31] MEDS: DESENEX/MITRAZOL/ZEASORB 1 APPLIC TOPICAL ×2 (08:38→20:18)
[2025-01-31] MEDS: SINEMET 25-100 2 TABLET PO ×4 (11:33→22:28)
[2025-01-31 12:02] LABS: Glucose - Point of Care 144 mg/dl (70-99)
[2025-01-31] MEDS: HEPARIN 500 UNITS IV ×2 (12:30→13:30)
[2025-01-31 13:00] LABS: Hematocrit 29.3 % (37.0-47.0); Hemoglobin 9.4 g/dL (12.0-16.0); Mean Corp Hgb Conc. 32.1 g/dL (33.0-37.0); Mean Corpuscular Volume 104.6 fL (81.0-99.0); Platelet Count 156 10^3/uL (130-400); Red Cell Dist. Width 15.8 % (11.5-14.5)
--- NOTE | 2025-01-31 13:04 | PTCARENOTE ---
Assumed care of patient at beginning of this shift from previous RN. Patient oriented to year but did not know month, day or place; cooperative with care, however mitts remain in place as patient forgetful and attempts to pull at HD cath. Anxious at
times. HD RN in to start treatment; morning cardiac meds held. See worklist for full assessment and vital signs.
[2025-01-31 13:28] LABS: ALT (SGPT) < 10 U/L (0-35); AST (SGOT) 19 U/L (14-36); Albumin 3.6 g/dl (3.5-5.0); Alkaline Phosphatase 95 U/L (38-126); Blood Urea Nitrogen 71 mg/dl (7-17); Calcium 7.9 mg/dl (8.4-10.2); Carbon Dioxide 23 mmol/L (22-30); Chloride 104 mmol/L (98-107); Estimated Creatinine Clearance 18 ml/min; Glucose 163 mg/dl (70-99); Potassium 4.1 mmol/L (3.5-5.1); Sodium 138 mmol/L (135-145); Total Protein 7.3 g/dl (6.3-8.2); eGFR 20.45
--- NOTE | 2025-01-31 13:29 | W.PN.NEPH.HD ---
Assessment
-
pt seen during HD
vital stable
UF as tolerates
Temp CVC functions fine
Progress Note - Hemodialysis
-
Date of Service: January 31, 2025
Duration: 15 minutes and 3 hours
Potassium Bath: 3
Calcium Bath: 2.5
Opti-Dialyzer: 160
Ultrafiltration: Other (1kg)
Blood Flow: 400
Dialysate Flow: 600
Heparin: yesx2
EPO: 4000
[2025-01-31] MEDS: FLEXBUMIN 25% FOR HEMODIALYSIS 12.5 GRAMS IV (13:50)
[2025-01-31] MEDS: MANNITOL 25% 12.5 GRAMS IV (13:51)
[2025-01-31] MEDS: RETACRIT 4000 UNITS IV (13:51)
--- NOTE | 2025-01-31 14:09 | W.PN.HOSP.TC ---
Today's Communication/Plan
-
HD
Assessment / Plan
Assessment / Plan
HPI: 84-year-old F with extensive past medical history including CAD status post multiple stents, paroxysmal atrial fibrillation on anticoagulation, CHF on chronic diuresis and fluid restriction, iron deficiency anemia, recurrent UTIs on
methenamine, initiated on Bactrim on 01/15 for urinary tract infection, Hypertension, CKD, insulin-dependent diabetes; presented to the emergency department 2/2 hypoxia, wheezing, cough and shortness of breath, ongoing for about 2 days. She c/o chest
pain that she described as indigestion.
According to the half-way staff, she had an abrupt drop in her pulse ox to 85 on room air. She was placed on 2 L of nasal cannula and it promptly came up to the 90s. She had expiratory wheezes and was thus sent to the emergency department.
Her X-ray showed some volume overload and rounded right lower lobe opacity which could be atelectasis or effusion. She was also noted to have troponin elevation at 6.2 on admission and markedly elevated BNP over 19,000.
A/P:
# Shortness of breath, likely acute CHF exacerbation (see below) and cannot rule out pulmonary infiltrate
# Acute hypoxic respiratory failure, 2/2 above
On and off BIPAP, can try mid flow today with improved oxygenation; wean O2 as tolerated
restart diet, SPL eval
Of note, given VERONIKA, cannot check Pro-George
MRSA screen negative, COVID negative, Legionella and pneumococcal urine antigens negative
Check sputum culture if able,
Pt was started with empiric ceftriaxone and doxycycline, Completed course
DCed ACCOUNTING PROFESSOR Bactrim
Cough suppression, nebs
DC further Decadron 2 mg Q12H with resolved wheezing (wheezing was likely cardiac cause anyway)
-wean o2; goal o2 >92%
# NSTEMI with likely acute on chronic CHF, new systolic heart failure
troponin 6.2 -> ... -> 4.2
BNP greater than 19,000.
ECG nonischemic.
Pt was started with heparin drip for ACS, held 2/2 hemoptysis. Can restart Eliquis outpatient as per cards if desired
Off nitro drip (in place of ACCOUNTING PROFESSOR Imdur)
Restart Imdur
Cont ACCOUNTING PROFESSOR Plavix
Cont statin
Hold ACCOUNTING PROFESSOR apixaban
echo this admission noted new reduced EF at 35-40%. Mild to moderate mitral stenosis. Moderate to severe mitral regurgitation. Estimated pulmonary artery pressure 45 mmHg. Compared to the previous echo from September 2023, EF was 65-70% without wall
motion abnormalities.
S/p IV Lasix failed trial of diuresis for improvement in renal function. BMP, daily weights, ins and outs
Cardiology on board
Patient had overnight chest pain - Trop 1 (Downtrended from 6 prior); No CP currently; spoke to cardiology, overall patient's prognosis poor. Poor candidate for anticoagulation or intervention at this time (see cardiology note). Continue goals of
conversation. Would not initiate heparin drip due to hemoptysis. Can decide on Eliquis outpatient.
# Hemoptysis 01/22, appear to have resolved
-heparin drip held
-She was on Eliquis as outpt, cont to hold given worsening anemia. = can hold on further decision - defer to Cards: Can restart Eliquis outpatient as per cards
# VERONIKA on CKD stage 3
Since patient appeared volume overloaded suspect cardiorenal versus VERONIKA from Bactrim related renal injury
Discontinued Bactrim
Renal and bladder ultrasound unrevealing: chronic medical renal disease. Punctate nonobstructing bilateral renal calculi. No hydronephrosis.
Continue to monitor ins and outs. Avoid nephrotoxins,
Hold metolazone, hold Lasix as stated above
Galindo placed on 01/22 for I/O
Nephrology on board
failed trial of IV lasix
Son agrees to HD - Cont HD as pr renal
# Paroxysmal atrial fibrillation
Continue amiodarone Saturday
Eliquis to be on hold
# IDDM
Cont Lantus adjusted from ACCOUNTING PROFESSOR 15 to 10 units HS
ISS coverage
# Suspect anxiety
s/p Xanax ODT, can consider additional doses for anxiety
#anemia
-Epogen with dialysis for anemia
#ankylosing spondylitis
-f/u outpatient
DVT prophylaxis�heparin drip held 2/2 hemoptysis. SCD. Trial hsq
CODE STATUS�DNR
Anticipated Discharge: > 48 hours
Subjective/Interval History
-
Date of Service: January 31, 2025
No acute events overnight
Objective Data
-
Labs:
Laboratory Results
01/31/25
12:21
WBC 7.1
Hgb 9.4 L
Hct 29.3 L
Plt Count 156
Sodium 138
Potassium 4.1
Chloride 104
Carbon Dioxide 23
BUN 71 H
Creatinine 2.3 H
Glucose 163 H
Calcium 7.9 L
Total Bilirubin 1.8 H
AST 19
ALT < 10
Alkaline Phosphatase 95
Vital Signs:
Vital Signs
Temp Pulse Resp BP Pulse Ox
97.0 F 91 24 149/74 98
01/31/25 11:39 01/31/25 12:27 01/31/25 12:27 01/31/25 12:27 01/31/25 10:35
I&O
01/30/25 01/31/25 02/01/25
06:59 06:59 06:59
Intake Total 480 / 480
Balance 480 / 480
Review of Systems
-
History Source: Patient
All other systems: Not reviewed unless documented
Physical Exam
-
General: Well Developed, Well Nourished and Respiratory Distress
HEENT: Normocephalic, Atraumatic and Oxygen (1 L, weaning)
Respiratory: Clear to Auscultation and Non Labored Respirations; Negative Wheezes or Accessory Resp Muscle Use
Cardiac: Regular Rhythm and S1/S2
GI: Soft and Nontender
Genito-urinary: Galindo (galindo placed on 01/22)
Skin: Warm and Dry
Psych: Calm and Intact Judgement/Insight (somewhat)
Data Reviewed
-
Diagnostic Radiology: Image personally visualized and interpreted and Report Reviewed by me
CT Scan: Report Reviewed by me
Labs: Labs Reviewed by me
[2025-01-31] MEDS: APRESOLINE PO ×2 (15:12→18:07)
[2025-01-31] MEDS: HEPARIN 2200 UNITS INTRACATH (16:03)
[2025-01-31 17:29] LABS: Glucose - Point of Care 115 mg/dl (70-99)
[2025-01-31] MEDS: SENOKOT-S 2 TABLET PO (17:49)
[2025-01-31] MEDS: PACERONE 100 MG PO (18:07)
[2025-01-31] MEDS: PEPCID 10 MG PO (20:19)
[2025-01-31] MEDS: LIPITOR 80 MG PO (20:19)
[2025-01-31] MEDS: IMDUR (EXTENDED RELEASE) PO (20:20)
[2025-01-31] MEDS: XALATAN OPHTHALMIC SOLUTION 1 DROP RIGHT EYE (20:28)
--- NOTE | 2025-01-31 22:31 | PTCARENOTE ---
Patient aao x1 to self since start of shift. Patient continues to pocket food, medications crushed in applesauce requiring frequent reminders to swallow. Repositioned for pressure relief and comfort. B/l hand mitts remain in place as patient
continues to attempt to remove lines/wires. Right IJ remains intact, dressing c/d/i. Pct reported patient temp low, rectal temp 96.6 at start of shift. RN replaced rectal probe for continuous temperature monitoring and to place juliana hugger on per
orders. Probe temp 97.7 when placed, juliana hugger not applied at that time due to temp >97.0. Juliana hugger at bedside, will continue to monitor and apply as ordered.
[2025-01-31 22:44] LABS: Glucose - Point of Care 128 mg/dl (70-99)
[2025-02-01] VITALS (19 sets, daily range): BP systolic 93–158; BP diastolic 25–69; PULSE 86–88; O2SAT 96–97; BMI 28.2
[2025-02-01] MEDS: STERILE WATER FOR INJECTION IV ×2 (00:11→23:23)
[2025-02-01] MEDS: APRESOLINE PO ×2 (00:12→08:45)
[2025-02-01] MEDS: SYNTHROID 112 MCG PO (04:21)
[2025-02-01] MEDS: PROTONIX 20 MG PO (04:21)
[2025-02-01 04:30] LABS: Hematocrit 30.7 % (37.0-47.0); Hemoglobin 9.7 g/dL (12.0-16.0); Mean Corp Hgb Conc. 31.6 g/dL (33.0-37.0); Mean Corpuscular Volume 104.1 fL (81.0-99.0); Platelet Count 122 10^3/uL (130-400); Red Cell Dist. Width 15.9 % (11.5-14.5)
[2025-02-01 04:43] LABS: ALT (SGPT) < 10 U/L (0-35); AST (SGOT) 16 U/L (14-36); Albumin 3.7 g/dl (3.5-5.0); Alkaline Phosphatase 97 U/L (38-126); Blood Urea Nitrogen 42 mg/dl (7-17); Calcium 8.3 mg/dl (8.4-10.2); Carbon Dioxide 23 mmol/L (22-30); Chloride 105 mmol/L (98-107); Estimated Creatinine Clearance 22 ml/min; Glucose 177 mg/dl (70-99); Potassium 4.1 mmol/L (3.5-5.1); Sodium 138 mmol/L (135-145); Total Protein 7.2 g/dl (6.3-8.2); eGFR 25.72
--- NOTE | 2025-02-01 05:01 | PTCARENOTE ---
Patient with small amount of UO in container from purewick. Bladder scanned for 13ml. Purewick removed, covidiens in place. Patient repositioned for comfort and pressure relief. Will continue to monitor patient closely.
--- NOTE | 2025-02-01 07:48 | W.PN.HOSP.TC ---
Today's Communication/Plan
-
Check CT head for confusion
Additional HD per renal
PT OT eval
Assessment / Plan
Assessment / Plan
HPI: 84-year-old F with extensive past medical history including CAD status post multiple stents, paroxysmal atrial fibrillation on anticoagulation, CHF on chronic diuresis and fluid restriction, iron deficiency anemia, recurrent UTIs on
methenamine, initiated on Bactrim on 01/15 for urinary tract infection, Hypertension, CKD, insulin-dependent diabetes; presented to the emergency department 2/2 hypoxia, wheezing, cough and shortness of breath, ongoing for about 2 days. She c/o chest
pain that she described as indigestion.
According to the care home staff, she had an abrupt drop in her pulse ox to 85 on room air. She was placed on 2 L of nasal cannula and it promptly came up to the 90s. She had expiratory wheezes and was thus sent to the emergency department.
Her X-ray showed some volume overload and rounded right lower lobe opacity which could be atelectasis or effusion. She was also noted to have troponin elevation at 6.2 on admission and markedly elevated BNP over 19,000.
A/P:
# Shortness of breath, likely acute CHF exacerbation (see below) and cannot rule out pulmonary infiltrate
# Acute hypoxic respiratory failure 2/2 above, resolved
s/p off BIPAP, weaned to RA
Of note, given VERONIKA, cannot check Pro-George
MRSA screen negative, COVID negative, Legionella and pneumococcal urine antigens negative, sputum not acceptable for culture,
s/p empiric ceftriaxone and doxycycline and completed course. DCed [employer] Bactrim
Cough suppression, nebs
# NSTEMI with likely acute on chronic CHF, new systolic heart failure
troponin 6.2 -> ... -> 1.08
Admission BNP greater than 19,000. ECG nonischemic.
echo this admission noted new reduced EF at 35-40%. Mild to moderate mitral stenosis. Moderate to severe mitral regurgitation. Estimated PASP 45 mmHg. Compared to the previous echo from September 2023, EF was 65-70% without wall motion abnormalities.
Pt was started with heparin drip for ACS, stopped 2/2 hemoptysis. Can restart Eliquis outpatient as per cards if desired.
s/p nitro drip, restarted [employer] Imdur
Cont [employer] Plavix. Cont statin
S/p IV Lasix, failed trial of diuresis for improvement in renal function.
Cardiology on board
# Hemoptysis 01/22 has resolved after stopping heparin drip
Can restart Eliquis outpatient as per cards if desired.
# VERONIKA on CKD stage 3. Since patient appeared volume overloaded suspect cardiorenal versus VERONIKA from Bactrim related renal injury
Discontinued Bactrim
Renal and bladder ultrasound unrevealing: chronic medical renal disease. Punctate nonobstructing bilateral renal calculi. No hydronephrosis.
Continue to monitor ins and outs. Avoid nephrotoxins.
Hold metolazone, hold Lasix as stated above
Galindo placed on 01/22 for I/O
Nephrology on board
Failed trial of IV lasix
Started HD 01/29
# Paroxysmal atrial fibrillation
Continue amiodarone Saturday
Can restart Eliquis outpatient as per cards if desired.
# Acute metabolic encephalopathy
Pt appears confused, disorientated
Check CT head
# IDDM
Lantus 10 units HS on hold
ISS coverage
# Suspect anxiety
s/p Xanax ODT, can consider additional doses for anxiety
# anemia
Epogen with dialysis for anemia
# ankylosing spondylitis
f/u outpatient
DVT prophylaxis� now on HSQ
CODE STATUS�DNR
Dispo: PT OT eval
DW RN
DW son on the phone
total time 51 min
Anticipated Discharge: > 48 hours
Subjective/Interval History
-
Date of Service: February 01, 2025
Objective Data
-
Labs:
Laboratory Results
02/01/25
04:12
WBC 8.7
Hgb 9.7 L
Hct 30.7 L
Plt Count 122 L D
Sodium 138
Potassium 4.1
Chloride 105
Carbon Dioxide 23
BUN 42 H
Creatinine 1.9 H
Glucose 177 H
Calcium 8.3 L
Total Bilirubin 2.2 H
AST 16
ALT < 10
Alkaline Phosphatase 97
Vital Signs:
Vital Signs
Temp Pulse Resp BP Pulse Ox
36.8 C 63 19 128/44 97
02/01/25 03:00 02/01/25 02:06 02/01/25 02:06 02/01/25 02:06 01/31/25 21:53
I&O
01/31/25 02/01/25 02/02/25
06:59 06:59 06:59
Intake Total 480 / 480
Balance 480 / 480
Review of Systems
-
Unable to obtain full review of systems at this time due to: Acuity
Physical Exam
-
General: Well Developed, Well Nourished and Appears Chronically Ill; Negative Respiratory Distress
HEENT: Normocephalic and Atraumatic; Negative Oxygen
Respiratory: Clear to Auscultation and Non Labored Respirations; Negative Wheezes or Accessory Resp Muscle Use
Cardiac: Regular Rhythm and S1/S2
GI: Soft and Nontender
Genito-urinary: Galindo (galindo placed on 01/22)
Skin: Warm and Dry
Psych: Calm and Confused; Negative Intact Judgement/Insight
Data Reviewed
-
Labs: Labs Reviewed by me
[2025-02-01 08:02] LABS: Glucose - Point of Care 168 mg/dl (70-99)
[2025-02-01] MEDS: NOVOLOG FLEXPEN-LOW RESISTANCE 1 UNITS SC (08:38)
[2025-02-01] MEDS: SINEMET 25-100 2 TABLET PO ×2 (08:40→12:34)
[2025-02-01] MEDS: TYLENOL 1000 MG PO (08:41)
[2025-02-01] MEDS: BUSPAR 2.5 MG PO (08:41)
[2025-02-01] MEDS: PACERONE 100 MG PO (08:42)
[2025-02-01] MEDS: FEOSOL 325 MG PO (08:42)
[2025-02-01] MEDS: PLAVIX 75 MG PO (08:42)
[2025-02-01] MEDS: HEPARIN 5000 UNITS SC (08:45)
[2025-02-01] MEDS: DESENEX/MITRAZOL/ZEASORB 1 APPLIC TOPICAL ×2 (08:45→20:48)
[2025-02-01] MEDS: REFRESH EYE DROPS (PF) 1 DROPS BOTH EYES ×2 (08:45→20:48)
[2025-02-01] MEDS: MIRALAX PO (08:46)
--- NOTE | 2025-02-01 11:24 | PTOTSP ---
PATIENT REQUIRING FULL ASSIST OF 2 PEOPLE FOR SUPINE<>SIT. PATIENT WHEELCHAIR BOUND AT FACILITY, WAS USING A SIT>STAND OF 05/2024 HOWEVER LIKELY THAT SHE IS A MICHAEL LIFT AT THIS POINT. THEREFORE, RECOMMEND STAFF UTILIZE MICHAEL LIFT IF THEY WOULD
LIKE PATIENT TO BE OUT OF BED. SPOKE WITH CASE MANAGEMENT AND RN REGARDING PATIENT. WILL DISCHARGE FROM P.T. SERVICES AT THIS TIME.
--- NOTE | 2025-02-01 11:29 | PTOTSP ---
Pt presents to OT requiring max to total assist for all ADLs; dependent for bed mobility; sit tolerance edge of bed x ~5 min with min/mod support. Pt currently at functional baseline. No skilled OT indicated at this time. Will sign off.
--- NOTE | 2025-02-01 11:43 | CON.NEURO ---
Addendum entered and electronically signed by Edison Pollard MD 02/01/25 15:02:
Studies reviewed.
I have personally examined the patient. I reviewed and agree with the WAFFLE MACHINE OPERATOR's Note.
My addenda:
Awake, alert, interactive. No acute distress.
Speech markedly reduced, unable to provide information regarding her own care.
Follows few 1-step requests w/ difficulty. No tremor.
Extra-ocular movements grossly intact. Masked facies
Facial movements full and symmetric. Hearing intact to normal conversational volume.
Normal UE movements bilaterally.
Neck: full ROM.
Chest: no dyspnea
Heart: no JVD
Ext: (-) Clubbing, (-) Cyanosis, (-) Edema
IMPRESSIONS/RECOMMENDATIONS:
Abrupt onset of worsening of cognition in a patient with previously diagnosed cognitive impairment, parkinsonism and severe orthostatic hypotension
Provide abdominal binder
Continue meds to remediate parkinsonism
Consider fludrocortisone if patient remains orthostatic
No clear benefit to additional neuroimaging at this time
Continue apixaban
Will continue to follow as outpatient.
Original Note:
Neuro Assessment/Plan
Assessment
84-year-old female with extensive past medical history including Parkinson's disease, CAD status post multiple stents, paroxysmal atrial fibrillation on anticoagulation, CHF on chronic diuresis and fluid restriction, iron deficiency anemia,
recurrent UTIs on methenamine, initiated on Bactrim on 01/15 for urinary tract infection, Hypertension, CKD, insulin-dependent diabetes; presented to [facility] on 01/21/2025 for evaluation of hypoxia, wheezing, cough and shortness of breath, ongoing for
about 2 days.
Brain MRI 06/10/2023: No evidence of acute intracranial abnormality. Moderate atrophy, which appears fairly similar to examination of April 12, 2020. Moderate T2 and FLAIR white matter hyperintensities, predominantly periventricular, which appear
increased from examination of April 12, 2020, suggesting interval increase in small vessel ischemic changes. Moderate ventricular dilation appears fairly stable. The callosal angle appears normal. Stable areas of old infarction as described.
Increased T2-weighted signal throughout the right mastoid air cells, which is likely chronic trapped fluid, stable from previous examination.
Head CT 02/01/2025: Moderate ventricular dilation, which appears slightly greater than the degree of atrophy. Ventricular dilation has slightly increased compared to CT examination of October 07, 2020. Callosal angle appears normal, a finding which is
evidence against normal pressure hydrocephalus, but does not exclude NPH. Please correlate clinically. Stable band of decreased density in the left cerebellar hemisphere, compatible with old infarct.
Labs: +UA on 01/11/2025, LDL 19
Plan
Impression:
I. increased confusion most likely due to metabolic encephalopathy with underlying dementia and Parkinson's disease
II. orthostatic hypotension
-delirium precautions
-orthostatic vitals BID, encourage fluid intake and abdominal binder, most likely will not tolerate fludrocortisone
-continue to treat infection/metabolic causes
-continue Parkinson's medication
-no need for brain MRI at this time as it will most likely not change treatment
-continue statin therapy and resume Eliquis when able per cardiology for secondary stroke prevention
-DVT prophylaxis
Plan of care discussed with Dr. Pollard and hospitalist
Consultation
Order
Date of Consultation: 02/01/25
Requesting Provider: hospitalist
Reason for Consult: confusion
Subjective/Objective
Subjective Data
Date of Service: February 01, 2025
84-year-old female with extensive past medical history including Parkinson's disease, CAD status post multiple stents, paroxysmal atrial fibrillation on anticoagulation, CHF on chronic diuresis and fluid restriction, iron deficiency anemia,
recurrent UTIs on methenamine, initiated on Bactrim on 01/15 for urinary tract infection, Hypertension, CKD, insulin-dependent diabetes; presented to [facility] on 01/21/2025 for evaluation of hypoxia, wheezing, cough and shortness of breath, ongoing for
about 2 days. She was started on a heparin drip for ACS and was stopped due to hemoptysis, she is also s/p nitro drip and is being followed by cardiology for her NSTEMI and acute on chronic CHF. She is also being followed by nephrology for her VERONIKA
on CKD and is s/p HD x3. Neurology has been consulted for her confusion. Her head CT showed moderate ventricular dilation, which appears slightly greater than the degree of atrophy, ventricular dilation has slightly increased compared to CT
examination of October 07, 2020, stable band of decreased density in the left cerebellar hemisphere, compatible with old infarct. Patient was unable to offer any meaningful history given she was mostly just staring and unable to follow commands. She
was oriented to self only and appeared delirious.
Of note was seen by Dr. Pollard 03/2020 for change in mental status and was recommended she continue her Parkinson's medication and seek psychological counseling for her anxiety. Adapted from neurology outpatient note on 06/12/2023:
'� Patient is an 82 year old woman with history of Parkinson's disease presenting for follow up.
�������Has had some difficulty swallowing, has lost weight as well. Ambulates in wheel chair. Not driving.
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 Sees people who are not alive. Not having any agitation or fear with these visual hallucinations.
�������Notes tremor on the left arm and leg.
�������Seems to have worsened over past 2 weeks with regards to Parkinson's symptoms according to family described as having a blank stare in the face and worsened memory.
�������Takes Pregabalin.
�������She is on Donepezil 10 mg once a day.
�������Today she is calm, no complaints of pain currently, does say she has some leg cramps bilaterally. No headache currently.
�������She lives at [facility] roughly 2 years now.
�������Denies any cough, dyspnea, abdominal pain, diarrhea, or dysuria currently.
�������Spoke with patient's son who related the above, worsened over the past several weeks, worsened swallowing problems, overall functional decline. Has had some hallucinations of her who has passed.
�������Today (06/12/2023)
�������Patient seen in the office today with her granddaughter as well as her son on the phone. Since her last visit she has been stable. She has been getting some limited physical therapy. She has continued on carbidopa/levodopa / tablets 4
times a day. No recent falls. She does continue with some intermittent hallucinations. She did have MRI of the brain completed on 06/10/2023 that showed no evidence of acute intracranial abnormality. Moderate atrophy, which appears fairly similar to
examination of April 12, 2020 moderate T2 and FLAIR white matter hyperintensities, predominantly periventricular, which appear increased from examination of April 12, 2020 suggesting interval increase in small vessel ischemic changes. Moderate
ventricular dilation appears fairly stable. The callosal angle appears normal. Stable areas of old infarct. She continues on atorvastatin and Plavix for stroke prevention. She continues on B12 supplementation. She continues on Lyrica. She also
continues on donepezil 10 mg for memory stabilization. No focal weakness today. Swallowing has improved with speech therapy. Patient herself offers no new complaints today.'
Objective Data
Vital Signs
Temp Pulse Resp BP Pulse Ox
98.4 F 56 26 115/31 95
02/01/25 07:08 02/01/25 11:00 02/01/25 11:00 02/01/25 11:00 02/01/25 08:00
Lab Results
02/01/25 04:12
02/01/25 04:12
APTT Cancelled 01/22/25 12:45
Sodium 138 mmol/L (135-145) 02/01/25 04:12
Potassium 4.1 mmol/L (3.5-5.1) 02/01/25 04:12
BUN 42 mg/dl (7-17) H 02/01/25 04:12
Glucose 177 mg/dl (70-99) H 02/01/25 04:12
Calcium 8.3 mg/dl (8.4-10.2) L 02/01/25 04:12
Yeu-Y-Ebszrujinib Pept > 47066 pg/ml 01/27/25 04:06
LDL Cholesterol, Calc 19 mg/dl 01/21/25 04:04
Patient Allergies
amlodipine Allergy (Verified 01/20/25 21:56)
LEG PAINS
amlodipine besylate (From Norvasc) Allergy (Verified 01/20/25 21:56)
leg pain
cat dander Allergy (Verified 01/20/25 21:56)
COUGH AND SNEEZING
ibuprofen Allergy (Verified 01/20/25 21:56)
Anaphylaxis
metformin Allergy (Verified 01/20/25 21:56)
severe diarrhea
naproxen Allergy (Verified 01/20/25 21:56)
Unknown
naproxen sodium (From Aleve) Allergy (Verified 01/20/25 21:56)
Anaphylaxis
nortriptyline Allergy (Verified 01/20/25 21:56)
Unknown
Penicillins Allergy (Verified 01/20/25 21:56)
rash as a child; tolerates Keflex,rash;severe itching,rash;s
potassium chloride Allergy (Verified 01/20/25 21:56)
leg pain
tree and shrub pollen Allergy (Verified 01/20/25 21:56)
COUGH AND SNEEZING
Physical Exam
-
Physical exam limited patient just staring and not following commands
General: Comfortable
HEENT: Normocephalic, Atraumatic and Anicteric
Neck: Full Range of Motion
Respiratory: No Dyspnea
Cardiac: No JVD
GI: Non-distended
Skin: Unremarkable
Extremities: No Clubbing, No Cyanosis and No Edema
Psych: Confused
Extended Neurological Exam
Mood & Affect: Unable to Assess
Attention Span & Concentration: Lethargic, Unable to Perform 2 Step Request and Other (oriented to person only )
Memory: Unable to Recall and Unable to Recall Personal History
Speech: Severely Reduced Output
Muscle Strength, Overall: Spontaneously Moves
Deep Tendon Reflexes: Absent Throughout
Data Reviewed
-
CT Head: Report Reviewed and Image Reviewed
MRI Head: Report Reviewed and Image Reviewed
Labs: Report Reviewed
Reviewed with: Physician
Old Records: Summarized
Medications
-
Active Medications
Generic Name Dose Route Start Last Admin
Trade Name Freq PRN Reason Stop Dose Admin
Acetaminophen 1,000 mg 01/21/25 08:30 02/01/25 08:41
Acetaminophen 500 Mg Tablet PO 02/18/25 08:29 1,000 mg
BID@0830,1830 CASTRO Administration
Acetaminophen 650 mg 01/21/25 03:19 01/27/25 23:23
Acetaminophen 325 Mg Tablet PO 02/18/25 03:18 650 mg
DAILYPRN PRN Administration
mild pain/fever>100.4F
Amiodarone HCl 100 mg 01/29/25 08:00 02/01/25 08:42
Amiodarone 100 Mg Tablet PO 02/26/25 07:59 100 mg
DAILY CASTRO Administration
Artificial Tears 1 drops 01/21/25 08:00 02/01/25 08:45
Artificial Tears Pf (Refresh) 10 Drop Droperette BOTH EYES 02/18/25 07:59 1 drops
BID CASTRO Administration
Atorvastatin Calcium 80 mg 01/21/25 22:00 01/31/25 20:19
Atorvastatin (Lipitor) 80 Mg Tablet PO 02/18/25 21:59 80 mg
HS CASTRO Administration
Benzocaine/Menthol 1 lozenge 01/21/25 03:19
Benzocaine/Menthol Lozenge PO 02/18/25 03:18
Q2HPRN PRN
sore throat
Bisacodyl 10 mg 01/21/25 03:19
Bisacodyl 10 Mg Rectal Suppository RECTAL 02/18/25 03:18
DAILYPRN PRN
if MOM ineffective
Buspirone HCl 2.5 mg 01/21/25 08:00 02/01/25 08:41
Buspirone 5 Mg Tablet PO 02/18/25 07:59 2.5 mg
TID CASTRO Administration
Carbidopa/Levodopa 2 tablet 01/21/25 08:30 02/01/25 08:40
Carbidopa (25 Mg)/Levodopa (100 Mg) Regular Release Tablet PO 02/18/25 08:29 2 tablet
QID@0830,1230,1630,2030 CASTRO Administration
Clopidogrel Bisulfate 75 mg 01/21/25 08:00 02/01/25 08:42
Clopidogrel 75 Mg Tablet PO 02/18/25 07:59 75 mg
DAILY CASTRO Administration
Dextrose 12.5 grams 01/21/25 04:00
Dextrose 50% (0.5 Grams/Ml) 50 Ml Syringe IV 02/18/25 03:59
[id number] PRN
hypoglycemia
Protocol
Famotidine 10 mg 01/21/25 22:00 01/31/25 20:19
Famotidine 20 Mg Tablet PO 02/18/25 21:59 10 mg
HS CASTRO Administration
Ferrous Sulfate 325 mg 01/21/25 08:00 02/01/25 08:42
Ferrous Sulfate 325 Mg Tablet PO 02/18/25 07:59 325 mg
DAILY CASTRO Administration
Glucagon 1 mg 01/21/25 04:00
Glucagon 1 Mg Vial IM 02/18/25 03:59
PRN PRN
hypoglycemia - no IV access
Protocol
Heparin Sodium 5,000 units 01/27/25 20:00 02/01/25 08:45
Heparin 5,000 Units/Ml 1 Ml Vial SC 02/24/25 19:59 5,000 units
Q12 CASTRO Administration
Hydralazine HCl 25 mg 01/21/25 08:00 02/01/25 08:45
Hydralazine 25 Mg Tablet PO 02/18/25 07:59 Not Given
On Hold: 02/01/25 08:54 Q8 CASTRO
Hydralazine HCl 10 mg 01/21/25 16:19
Hydralazine 20 Mg/Ml Vial IV 02/18/25 16:18
Q6HPRN PRN
SBP>160
Insulin Glargine 10 units/ 0.1 mls @ 0 mls/hr 01/21/25 22:00 01/23/25 22:54
Device SC 02/18/25 21:59 Not Given
On Hold: 01/23/25 22:32 HS CASTRO
As Directed
Insulin Aspart 0 units 01/24/25 16:30 02/01/25 08:38
Insulin Aspart Low Resistance 300 Units/3 Ml Pen.Injctr SC 02/21/25 16:29 1 units
AC CASTRO Administration
Protocol
Isosorbide Mononitrate 90 mg 01/21/25 22:00 01/31/25 20:20
Isosorbide Mononitrate 30 Mg Extended Release Tablet PO 02/18/25 21:59 Not Given
HS CASTRO
Latanoprost 1 drop 01/21/25 22:00 01/31/25 20:28
Latanoprost 0.005% (Ophthalmic Solution) 2.5 Ml Bottle RIGHT EYE 02/18/25 21:59 1 drop
HS CASTRO Administration
Levothyroxine Sodium 112 mcg 01/21/25 06:30 02/01/25 04:21
Levothyroxine 112 Mcg Tablet PO 02/18/25 06:29 112 mcg
DAILY@0630 CASTRO Administration
Magnesium Hydroxide 30 ml 01/21/25 03:19
Milk Of Magnesia 30 Ml Cup PO 02/18/25 03:18
HSPRN PRN
constipation
Miconazole Nitrate 0 applic 01/21/25 20:00 02/01/25 08:45
Miconazole Powder Bottle TOPICAL 02/18/25 19:59 1 applic
BID CASTRO Administration
Pantoprazole Sodium 20 mg 01/21/25 06:30 02/01/25 04:21
Pantoprazole 20 Mg Delayed Release Tablet PO 02/18/25 06:29 20 mg
DAILY@0630 CASTRO Administration
Polyethylene Glycol 17 grams 01/21/25 08:00 02/01/25 08:46
Polyethylene Glycol Powder 17 Grams Packet PO 02/18/25 07:59 Not Given
DAILY CASTRO
Senna/Docusate Sodium 2 tablet 01/21/25 18:00 01/31/25 17:49
Docusate W/Senna (Salome-Colace) Tablet PO 02/18/25 17:59 2 tablet
QPM CASTRO Administration
Sodium Chloride 0 flush 01/21/25 03:00
Sodium Chloride 0.9% (Flush) Syringe IV 02/18/25 02:59
PER PROTOCOL CASTRO
Sodium Chloride 1 sprays 01/27/25 18:56
Sodium Chloride 0.65% Nasal [place] 45 Ml Bottle NASAL 02/24/25 18:55
Q1HPRN PRN
congestion/stuffiness
Sterile Water 10 ml 01/22/25 00:00 02/01/25 00:11
Sterile Water For Injection 10 Ml Vial IV 02/19/25 00:00 Not Given
Q24H CASTRO
Home Medications
�Medication �Instructions �Recorded
atorvastatin 80 mg tablet 80 mg PO HS High cholesterol 02/19/18
acetaminophen 500 mg tablet 1,000 mg PO BID@0830,1830 Pain 04/11/20
(Tylenol Extra Strength)
metolazone 5 mg tablet 5 mg PO DAILYPRN PRN weight gain 04/11/20
of 3lbs overnight
nitroglycerin 0.4 mg sublingual 0.4 mg sublingual [id number] PRN 04/11/20
tablet chest pain
bisacodyl 10 mg rectal suppository 10 mg OH DAILYPRN PRN if MOM 10/25/20
(OneLAX Bisacodyl) ineffective
cyanocobalamin (vitamin B-12) 500 mcg IM QMONTH Anemia 05/25/22
1,000 mcg/mL injection solution
ascorbic acid (vitamin C) 500 mg 500 mg PO DAILY Supplement 07/10/23
tablet (Vitamin C)
carbidopa 25 mg-levodopa 100 mg 2 tab PO QID Neurological Condition 07/10/23
tablet
ferrous sulfate 325 mg (65 mg 325 mg PO DAILY Supplement 07/10/23
iron) tablet
sennosides 8.6 mg-docusate sodium 2 tab-cap PO QPM Constipation 07/10/23
50 mg capsule (Senna Plus)
sodium chloride 0.65 % nasal spray 1 spray intranasal Q1HPRN PRN 07/10/23
aerosol congestion/stuffiness
buspirone 5 mg tablet 2.5 mg PO TID Mental Health/Anxiety 10/06/23
acetaminophen 325 mg tablet 650 mg PO DAILYPRN PRN mild 05/06/24
pain/fever>100.4F
benzocaine 6 mg-menthol 10 mg 1 ludwin mucous membrane Q2HPRN PRN 05/06/24
lozenges sore throat
cholecalciferol (vitamin D3) 1,250 1,250 mcg PO QMONTH Supplement 05/06/24
mcg (50,000 unit) tablet
cholecalciferol (vitamin D3) 250 250 mcg PO QMONTH Supplement 05/06/24
mcg (10,000 unit) tablet
levothyroxine 112 mcg tablet 112 mcg PO DAILY@0630 Thyroid 05/06/24
clopidogrel 75 mg tablet 75 mg PO DAILY Blood Clot 05/07/24
Prevention/Tx
amiodarone 100 mg tablet 100 mg PO MOWEFR Arrhythmia #0 tabs 05/11/24
pregabalin 50 mg capsule 50 mg PO HS Neurological Condition 05/11/24
#14 caps
Coricidin Hbp Cold/Flu 2 tab PO Q6HPRN PRN cough/nasal 01/20/25
congestion
Coricidin Hbp Max Strength Flu 2 tab PO Q6HPRN PRN cough/nasal 01/20/25
congestion
Saccharomyces boulardii 250 mg 250 mg PO BID Supplement 01/20/25
capsule (Probiotic (S.boulardii))
apixaban 2.5 mg tablet (Eliquis) 2.5 mg PO BID Blood Clot 01/20/25
Prevention/Tx
calcium carbonate 500 mg PO BIDPRN PRN dyspepsia 01/20/25
epoetin najma-epbx 20,000 unit/mL 20,000 unit SC TH if Hgb <11 01/20/25
injection solution (Retacrit)
epoetin najma-epbx 40,000 unit/mL 40,000 unit SC TH give if Hgb <11 01/20/25
injection solution (Retacrit)
famotidine 20 mg tablet 20 mg PO HS Gastrointestinal Issue 01/20/25
furosemide 80 mg tablet 80 mg PO BID Fluid 01/20/25
Retention/Swelling
hydralazine 25 mg tablet 25 mg PO Q8H Blood pressure 01/20/25
insulin glargine 100 unit/mL (3 15 unit SC HS Diabetes 01/20/25
mL) subcutaneous pen (Basaglar
KwikPen U-100 Insulin)
isosorbide mononitrate 30 mg 90 mg PO HS Heart Disease/Condition 01/20/25
tablet,extended release 24 hr
ketoconazole 2 % shampoo 1 applic topical MOTH Fungal rash 01/20/25
latanoprost 0.005 % eye drops 1 drp RIGHT EYE HS glaucoma 01/20/25
lidocaine 4 % topical patch 1 patch topical HS apply to R knee 01/20/25
magnesium hydroxide 400 mg/5 mL 30 ml PO HSPRN PRN constipation 01/20/25
oral suspension (Milk of Magnesia)
magnesium oxide 400 mg PO MOWEFR Supplement 01/20/25
methenamine hippurate 1 gram tablet 1 g PO FR Urinary Issue 01/20/25
pantoprazole 20 mg tablet,delayed 20 mg PO DAILY@0630 01/20/25
release Gastrointestinal Issue
polyethylene glycol 3350 17 gram 17 g PO DAILY Constipation 01/20/25
oral powder packet (Miralax)
polyvinyl alcohol-povidone (PF) 1 drp BOTH EYES BID Dry eyes 01/20/25
1.4 %-0.6 % eye drops in a
dropperette
sulfamethoxazole 800 1 tab PO Q12H Infection 01/20/25
mg-trimethoprim 160 mg tablet
vit C 250 mg-vit E 90 mg-zinc 40 1 cap PO DAILY Supplement 01/20/25
mg-copper 1 [id number]
capsule (PreserVision AREDS-2)
Past History
Past History
ED Past Medical History: Asthma, CAD, CHF, CVA (suggestion of lacunar stroke), GERD, HTN, Hypercholesterolemia, IDDM, Renal failure (chronic renal disease stage III), Valvular disease (MR), Hypothyroidism, Psychiatric (generalized anxiety disorder),
Other (Parkinson's, chronic lymphedema, cellulitis, MGUS IgG kappa, cognitive decline, B12 deficiency), Other (morbid obesity, pulmonary hypertension, anemia, DVT, PVD, meningioma, macular degeneration) and Other (drop foot left foot Fracture C
spine,Cellulitis, DVT, GIB, Umbilical hernia, iron deficiency, vitamin D deficiency)
ED Past Surgical History: Appendectomy, Cardiac (Stents 8-9), Cholecystectomy, Gynecological (Parital hysterectomy), Orthopedic (left knee replacement), Tonsilectomy and Other (PVD surgery, thyroidectomy)
Family/Social History
Tobacco: Non-smoker
Alcohol: None
Personal:
Living: alone
Employment: Retired
Family History: Other (reviewed and noncontributory)
[2025-02-01 11:47] LABS: Magnesium 2.0 mg/dl (1.6-2.3)
--- NOTE | 2025-02-01 12:05 | CM ---
[facility] 02/01/25 15:14:
Bedside meeting with pt, son/Reji and KONSTANTIN/Eve along with attending
Pt confused and did not participate in conversation
Plan for comfort care at this time
Referral made to Hospice for GIP assessment vs return to SNF
Per [facility], bed-hold ends Thrs 8
Discharge Disposition- return to [facility] with hospice vs GIP
Addendum entered by [facility] 02/01/25 14:55:
Update from nephro- family interested in hospice info at this time
Call with admissions/[facility]- they have contracts with , [facility], and [facility]
VM left for son to review hospice provider choice- awaiting call back
Original Note:
CM reviewed chart and pt with nephro
Plan for long-term HD TBD
Call with admissions/[facility] Lucrecia
Pt is a LTC resident with [place] bed-hold- bed-hold will be ending soon
If plan for HD on dc, pt cannot return back to [facility] due to transportation issues
They are unable to accommodate transport to outpt HD on a long-term basis
Call to son with update
He has already been udpated by [facility]
He is aware of limited SNFs with HD capability in [facility], [facility] and [facility] info provided to him
He will research each facility
TT to attending and nephro requesting they update son per his request
Awaiting GOC and medical LTC plan
Discharge Disposition- return to [facility] if no HD vs new SNF with HD capability
[2025-02-01] MEDS: NOVOLOG FLEXPEN-LOW RESISTANCE SC ×2 (12:46→17:14)
[2025-02-01 12:51] LABS: Glucose - Point of Care 137 mg/dl (70-99)
--- NOTE | 2025-02-01 13:28 | W.PN.NEPH.PH ---
Today's Communication / Plan
-
see plan
will discuss with family
Assessment/Plan
-
Impression:
VERONIKA
CKD 3 (1.4-1.8)
Change of Mental Status
UTI (on Bactrim as outpatient)
CHF exacerbation and non-ST elevation HI with troponin of 6
PAF
CAD with multiple stenting procedures
History of iron deficiency anemia
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
CAD
HX HLD
HX COPD
HX CVA
Essential HTN
DMT2
GERD
Hypothyroidism
Parkinsonism
Chronic constipation
Plan:
completed HD x3
minimal UOP per nursing
monitor cr pre hD
may need senior care HD
will need to speak to family
Bps stable
-
-
Date of Service: February 01, 2025
CC / HPI / ROS
-
Chief Complaint:
Shortness of breath
History of Present Illness:
CHF exacerbation VERONIKA on CKD
Hemoglobin stable 9.7, plt low 122
tolerated HD x3 so far
Review of Systems:
No chest pain
off O2
no sob at rest
per nursing confused sometimes
Labs
-
Labs:
WBC 8.7 10^3/uL (4.8-10.8) 02/01/25 04:12
RBC 2.95 10^6/uL (4.20-5.40) L 02/01/25 04:12
Hgb 9.7 g/dL (12.0-16.0) L 02/01/25 04:12
Hct 30.7 % (37.0-47.0) L 02/01/25 04:12
Plt Count 122 10^3/uL (130-400) L D 02/01/25 04:12
Sodium 138 mmol/L (135-145) 02/01/25 04:12
Potassium 4.1 mmol/L (3.5-5.1) 02/01/25 04:12
Chloride 105 mmol/L (98-107) 02/01/25 04:12
Carbon Dioxide 23 mmol/L (22-30) 02/01/25 04:12
BUN 42 mg/dl (7-17) H 02/01/25 04:12
Creatinine 1.9 mg/dL (0.6-1.0) H 02/01/25 04:12
eGFR 25.72 02/01/25 04:12
Glucose 177 mg/dl (70-99) H 02/01/25 04:12
Calcium 8.3 mg/dl (8.4-10.2) L 02/01/25 04:12
Xld-O-Jcnhdzluayb Pept > 10145 pg/ml 01/27/25 04:06
Albumin 3.7 g/dl (3.5-5.0) 02/01/25 04:12
Physical Exam
-
Vital Signs:
Vital Signs
Temp Pulse Resp BP Pulse Ox
99.1 F 66 31 137/38 95
02/01/25 11:07 02/01/25 13:00 02/01/25 13:00 02/01/25 13:00 02/01/25 08:00
Cardiovascular:: Regular rate and rhythm
Respiratory:: Bilateral: CTA (decreased)
Lung Excursion:: Normal
Abdomen:: Nontender and Soft
Bowel Sounds:: Normal
Extremity Edema:: None: Bilateral:
Silveira Catheter: No
--- NOTE | 2025-02-01 15:15 | W.PN.UPDATE ---
Update Note
Progress Note Update
Safety Clothing And Equipment Developer discussed with son about dialysis, at the conclusion is that they will stop dialysis and transition to hospice.
I spoke with the son personally, and confirmed the decision to stop dialysis going forward.
Discussed with son about hospice philosophy, and the difference between inpatient versus outpatient hospice.
Plan is to stop therapeutic medications in addition to stopping dialysis, monitor clinically over the next 24 to 48 hours, and decide whether to pursue inpatient hospice versus outpatient hospice at facility.
offered emotional support to son.
--- NOTE | 2025-02-01 15:18 | HOSPNOTE ---
Patient will be on comfort measures and re assess in the morning. The plan would be for patient to be admitted inpatient hospice or return to [facility] with hospice. We will continue to follow.
--- NOTE | 2025-02-01 16:03 | W.PN.UPDATE ---
Update Note
Progress Note Update
spoke to the son this afternoon in detail
given her limited options of SN choice and poor DOL decision made to d/c HD
he is willing to speak to hospice
CM and primary team made aware
--- NOTE | 2025-02-01 17:24 | PTCARENOTE ---
Patient AAOxself, periods of staring off midconversation requiring redirection. Patient now comfort care. HD cath removed, mitts removed. Son at bedside. Closely monitoring. Patient comfortable.
[2025-02-01] MEDS: BUSPAR PO ×2 (17:29→20:45)
[2025-02-01] MEDS: SINEMET 25-100 PO ×2 (17:29→20:45)
[2025-02-01] MEDS: ATIVAN 1 MG PO (18:37)
[2025-02-01] MEDS: XALATAN OPHTHALMIC SOLUTION 1 DROP RIGHT EYE (20:54)
[2025-02-01] MEDS: MORPHINE SULFATE 1 MG IV (20:59)
--- NOTE | 2025-02-01 23:27 | PTCARENOTE ---
Addendum entered by Radha Treviño RN 02/02/25 06:15:
Comfort measures remain in place. Pt lethargic this morning; opened eyes for few seconds when providing incontinent care. Breathing unlabored at this time.
Original Note:
Patient noted to have delmar-fan breathing. PRN morphine provided. Upon reassessment pt breathing equal and unlabored. Salome care and repositioning provided. Pt alert with episodes of being non-verbal and staring. Does not follow commands. Oral
meds held for safety. Call [facility] within reach. Rounding q1 hour.
[2025-02-02] MEDS: MORPHINE SULFATE 1 MG IV ×4 (05:21→14:06)
[2025-02-02 07:30] VITALS: BP 146/39
[2025-02-02 07:55] LABS: Hematocrit 29.4 % (37.0-47.0); Hemoglobin 9.2 g/dL (12.0-16.0); Mean Corp Hgb Conc. 31.3 g/dL (33.0-37.0); Mean Corpuscular Volume 105.4 fL (81.0-99.0); Platelet Count 131 10^3/uL (130-400); Red Cell Dist. Width 16.3 % (11.5-14.5)
[2025-02-02] MEDS: BUSPAR PO ×3 (08:23→20:51)
[2025-02-02] MEDS: REFRESH EYE DROPS (PF) 1 DROPS BOTH EYES ×2 (08:23→22:09)
[2025-02-02] MEDS: SINEMET 25-100 PO ×4 (08:23→20:51)
[2025-02-02] MEDS: DESENEX/MITRAZOL/ZEASORB 1 APPLIC TOPICAL ×2 (08:23→22:09)
[2025-02-02 08:55] LABS: Blood Urea Nitrogen 72 mg/dl (7-17); Calcium 7.8 mg/dl (8.4-10.2); Carbon Dioxide 22 mmol/L (22-30); Chloride 107 mmol/L (98-107); Glucose 141 mg/dl (70-99); Magnesium 2.2 mg/dl (1.6-2.3); Potassium 4.3 mmol/L (3.5-5.1); Sodium 140 mmol/L (135-145)
[2025-02-02 09:17] LABS: Estimated Creatinine Clearance 14 ml/min; eGFR 15.48
--- NOTE | 2025-02-02 11:16 | HOSPNOTE ---
Met with son and the patient appears comfortable and most likely actively dying. The patient will remain on comfort. Son is in agreement. CM and Attending aware. We will continue to follow daily.
--- NOTE | 2025-02-02 11:26 | W.PN.HOSP.TC ---
Today's Communication/Plan
-
Cont comfort measures
Assessment / Plan
Assessment / Plan
HPI: 84-year-old F with extensive past medical history including CAD status post multiple stents, paroxysmal atrial fibrillation on anticoagulation, CHF on chronic diuresis and fluid restriction, iron deficiency anemia, recurrent UTIs on
methenamine, initiated on Bactrim on 01/15 for urinary tract infection, Hypertension, CKD, insulin-dependent diabetes; presented to the emergency department 2/2 hypoxia, wheezing, cough and shortness of breath, ongoing for about 2 days. She c/o chest
pain that she described as indigestion.
According to the long term staff, she had an abrupt drop in her pulse ox to 85 on room air. She was placed on 2 L of nasal cannula and it promptly came up to the 90s. She had expiratory wheezes and was thus sent to the emergency department.
Her X-ray showed some volume overload and rounded right lower lobe opacity which could be atelectasis or effusion. She was also noted to have troponin elevation at 6.2 on admission and markedly elevated BNP over 19,000.
A/P:
# Shortness of breath 2/2 acute CHF exacerbation (see below) and cannot rule out pulmonary infiltrate
# Acute hypoxic respiratory failure 2/2 above, resolved
s/p off BIPAP, weaned to RA
Of note, given VERONIKA, cannot check Pro-George
MRSA screen negative, COVID negative, Legionella and pneumococcal urine antigens negative, sputum not acceptable for culture,
s/p empiric ceftriaxone and doxycycline and completed course. DCed CARTRIDGE FEEDER Bactrim
# NSTEMI with likely acute on chronic CHF, new systolic heart failure
troponin 6.2 -> ... -> 1.08
Admission BNP greater than 19,000. ECG nonischemic.
echo this admission noted new reduced EF at 35-40%. Mild to moderate mitral stenosis. Moderate to severe mitral regurgitation. Estimated PASP 45 mmHg. Compared to the previous echo from September 2023, EF was 65-70% without wall motion abnormalities.
Pt was started with heparin drip for ACS, stopped 2/2 hemoptysis.
s/p nitro drip.
No more therapeutic medications with proceeding to comfort measures
# Hemoptysis 01/22 has resolved after stopping heparin drip
# VERONIKA on CKD stage 3. Since patient appeared volume overloaded suspect cardiorenal versus VERONIKA from Bactrim related renal injury
Discontinued Bactrim
Renal and bladder ultrasound unrevealing: chronic medical renal disease. Punctate nonobstructing bilateral renal calculi. No hydronephrosis.
Failed trial of IV lasix, started HD 01/29
GOC discussed with son, decision is to stop further HD and transition to comfort measures
Other medical conditions:
# Paroxysmal atrial fibrillation
# Acute metabolic encephalopathy
# IDDM
# ankylosing spondylitis
DVT prophylaxis� no need for comfort measures
CODE STATUS�DNR
DW son at bedside , provided emotional support
Anticipated Discharge: 24 - 48 hours
Subjective/Interval History
-
Date of Service: February 02, 2025
Objective Data
-
Labs:
Laboratory Results
02/02/25
07:16
WBC 8.1
Hgb 9.2 L
Hct 29.4 L
Plt Count 131
Sodium 140
Potassium 4.3
Chloride 107
Carbon Dioxide 22
BUN 72 H
Creatinine 2.9 H
Glucose 141 H
Calcium 7.8 L
Vital Signs:
Vital Signs
Temp Pulse Resp BP Pulse Ox
36.7 C 54 20 146/39 97
02/02/25 07:30 02/02/25 07:30 02/02/25 07:30 02/02/25 07:30 02/02/25 08:58
Review of Systems
-
Unable to obtain full review of systems at this time due to: Acuity
Physical Exam
-
General: Well Developed and Appears Chronically Ill
Neuro: Negative Awake
Psych: Calm
Data Reviewed
-
Labs: Labs Reviewed by me
--- NOTE | 2025-02-02 12:23 | CM ---
Patient seen at bedside on 2 and patient son present. Patient followed by [facility] hospice, currently Comfort care and plan is to remain at currently. Patient was a LTC at [facility] and 15 day bed hold expires 02/04/25 per chart review. CM will
discuss with [facility] liaison. CM will continue to follow for discharge planning needs.
Plan; Comfort Care at this time.
[2025-02-02] MEDS: ATIVAN 1 MG PO (15:15)
[2025-02-02 19:47] VITALS: BP 132/44
[2025-02-02] MEDS: XALATAN OPHTHALMIC SOLUTION 1 DROP RIGHT EYE (22:10)
[2025-02-03] MEDS: STERILE WATER FOR INJECTION IV (02:06)
[2025-02-03] MEDS: BUSPAR PO (07:21)
[2025-02-03] MEDS: SINEMET 25-100 PO (07:21)
[2025-02-03] MEDS: DESENEX/MITRAZOL/ZEASORB 1 APPLIC TOPICAL ×2 (07:58→21:40)
[2025-02-03] MEDS: REFRESH EYE DROPS (PF) 1 DROPS BOTH EYES (07:58)
[2025-02-03 09:40] VITALS: BP 122/57
--- NOTE | 2025-02-03 09:49 | W.PN.HOSP.TC ---
Today's Communication/Plan
-
cont comfort measures
Assessment / Plan
Assessment / Plan
HPI: 84-year-old F with extensive past medical history including CAD status post multiple stents, paroxysmal atrial fibrillation on anticoagulation, CHF on chronic diuresis and fluid restriction, iron deficiency anemia, recurrent UTIs on
methenamine, initiated on Bactrim on 01/15 for urinary tract infection, Hypertension, CKD, insulin-dependent diabetes; presented to the emergency department 2/2 hypoxia, wheezing, cough and shortness of breath, ongoing for about 2 days. She c/o chest
pain that she described as indigestion.
According to the [facility] staff, she had an abrupt drop in her pulse ox to 85 on room air. She was placed on 2 L of nasal cannula and it promptly came up to the 90s. She had expiratory wheezes and was thus sent to the emergency department.
Her X-ray showed some volume overload and rounded right lower lobe opacity which could be atelectasis or effusion. She was also noted to have troponin elevation at 6.2 on admission and markedly elevated BNP over 19,000.
A/P:
# Shortness of breath 2/2 acute CHF exacerbation (see below) and cannot rule out pulmonary infiltrate
# Acute hypoxic respiratory failure 2/2 above, resolved
s/p off BIPAP, weaned to RA
Of note, given VERONIKA, cannot check Pro-George
MRSA screen negative, COVID negative, Legionella and pneumococcal urine antigens negative, sputum not acceptable for culture,
s/p empiric ceftriaxone and doxycycline and completed course. DCed MEAT CARRIER Bactrim
# NSTEMI with likely acute on chronic CHF, new systolic heart failure
troponin 6.2 -> ... -> 1.08
Admission BNP greater than 19,000. ECG nonischemic.
echo this admission noted new reduced EF at 35-40%. Mild to moderate mitral stenosis. Moderate to severe mitral regurgitation. Estimated PASP 45 mmHg. Compared to the previous echo from September 2023, EF was 65-70% without wall motion abnormalities.
Pt was started with heparin drip for ACS, stopped 2/2 hemoptysis.
s/p nitro drip.
No more therapeutic medications with transition to comfort measures
# Hemoptysis 01/22 has resolved after stopping heparin drip
# VERONIKA on CKD stage 3. Since patient appeared volume overloaded suspect cardiorenal versus VERONIKA from Bactrim related renal injury
Discontinued Bactrim
Renal and bladder ultrasound unrevealing: chronic medical renal disease. Punctate nonobstructing bilateral renal calculi. No hydronephrosis.
Failed trial of IV lasix, started HD 01/29
GOC discussed with son, decision is to stop further HD and transition to comfort measures
Other medical conditions:
# Paroxysmal atrial fibrillation
# Acute metabolic encephalopathy
# IDDM
# ankylosing spondylitis
DVT prophylaxis� no need for comfort measures
CODE STATUS�DNR
DW son at bedside , provided emotional support
Anticipated Discharge: Within 24 hours
Subjective/Interval History
-
Date of Service: February 03, 2025
Objective Data
-
Vital Signs:
Vital Signs
Temp Pulse Resp BP Pulse Ox
36.7 C 64 12 122/57 98
02/03/25 09:40 02/03/25 09:40 02/02/25 19:47 02/03/25 09:40 02/03/25 09:40
Review of Systems
-
Unable to obtain full review of systems at this time due to: Acuity
Physical Exam
-
General: Well Developed and Appears Chronically Ill
Neuro: Awake
Psych: Calm
--- NOTE | 2025-02-03 10:13 | CM ---
Reviewed the chart notes and spoke with the patient's son at the bedside. CM continues to be available to patient/family.
Plan: Comfort care.
--- NOTE | 2025-02-03 11:19 | HOSPNOTE ---
Will continue to follow the patient will remain on comfort.
[2025-02-03] MEDS: ATIVAN 1 MG PO (14:31)
[2025-02-03] MEDS: MORPHINE SULFATE 1 MG IV (14:31)
--- NOTE | 2025-02-03 18:12 | PTCARENOTE ---
Patient drowsy/lethargic throughout shift, able to wake to verbal stimuli and communicate needs, occ able to drink water/eat small bites with assistance, medicated with PRN IV morphine and PO ativan x1 this shift for bout of restlessness/grimacing-
see AUG. Bed bath provided, pt oliguric, inc of urine x1 and large loose brown/black BM this shift. Sacrum foam and RLE foam replaced by this RN, B/L heel foams and R IJ dressing intact. Son at bedside throughout shift updated on plan of care.
[2025-02-03 19:54] VITALS: BP 120/75
[2025-02-03 20:08] VITALS: BP 120/75
[2025-02-04] MEDS: STERILE WATER FOR INJECTION IV (00:06)
[2025-02-04 08:39] VITALS: BP 153/66
--- NOTE | 2025-02-04 08:59 | CM ---
Reviewed the chart notes. Patient's son at the bedside. CM continues to be available to patient/family.
Plan: Comfort care continues.
[2025-02-04] MEDS: DESENEX/MITRAZOL/ZEASORB 1 APPLIC TOPICAL ×2 (09:17→20:09)
[2025-02-04] MEDS: ATIVAN 1 MG PO (09:20)
[2025-02-04] MEDS: MORPHINE SULFATE 1 MG IV ×2 (11:09→13:13)
--- NOTE | 2025-02-04 11:27 | W.PN.HOSP.TC ---
Today's Communication/Plan
-
see A/P
Assessment / Plan
Assessment / Plan
HPI: 84-year-old F with extensive past medical history including CAD status post multiple stents, paroxysmal atrial fibrillation, CHF on chronic diuresis and fluid restriction, iron deficiency anemia, recurrent UTIs on methenamine (initiated on
Bactrim on 01/15 for urinary tract infection), Hypertension, CKD, insulin-dependent diabetes; presented to the emergency department 2/2 hypoxia, wheezing, cough and shortness of breath, ongoing for about 2 days.
She c/o chest pain that she described as indigestion.
According to the [facility] staff, she had an abrupt drop in her pulse ox to 85 on room air and was placed on 2 L of nasal cannula. She had expiratory wheezes and was sent to the emergency department.
Admission CXR showed some volume overload and rounded right lower lobe opacity which could be atelectasis or effusion. She was also noted to have troponin elevation at 6.2 on admission and markedly elevated BNP over 19,000.
A/P:
# Shortness of breath 2/2 acute CHF exacerbation (see below) and cannot rule out pulmonary infiltrate
# Acute hypoxic respiratory failure 2/2 above, resolved
s/p off BIPAP, weaned to RA
Was not able to check procal with VERONIKA on admission
s/p empiric ceftriaxone and doxycycline and completed course. DCed NEWSPAPER PHOTO EDITOR Bactrim
# NSTEMI with likely acute on chronic CHF, new systolic heart failure
troponin 6.2 -> ... -> 1.08
Admission BNP greater than 19,000. ECG nonischemic.
echo this admission noted new reduced EF at 35-40%. Mild to moderate mitral stenosis. Moderate to severe mitral regurgitation. Estimated PASP 45 mmHg. Compared to the previous echo from September 2023, EF was 65-70% without wall motion abnormalities.
Pt was started with heparin drip for ACS, stopped 2/2 hemoptysis.
s/p nitro drip.
GOC discussion with family and pt has been transitioned to comfort measures
# Hemoptysis 01/22 has resolved after stopping heparin drip
# VERONIKA on CKD stage 3. Since patient appeared volume overloaded, suspect cardiorenal versus VERONIKA from Bactrim related renal injury
Discontinued Bactrim
Renal and bladder ultrasound unrevealing
Failed trial of IV lasix, started HD 01/29
GOC discussed with son, decision made to stop HD and transition to comfort measures
Cont comfort meds
Other medical conditions:
# Paroxysmal atrial fibrillation
# Acute metabolic encephalopathy
# IDDM
# ankylosing spondylitis
DVT prophylaxis� no need for comfort measures
CODE STATUS�DNR
DW RN
DW son at bedside , provided emotional support
Anticipated Discharge: 24 - 48 hours
Subjective/Interval History
-
Date of Service: February 04, 2025
Objective Data
-
Vital Signs:
Vital Signs
Temp Pulse Resp BP Pulse Ox
36.6 C 68 14 153/66 92
02/04/25 08:39 02/04/25 08:39 02/04/25 08:39 02/04/25 08:39 02/04/25 08:39
I&O
02/03/25 02/04/25 02/05/25
06:59 06:59 06:59
Intake Total 120 / 120
Balance 120 / 120
Review of Systems
-
Unable to obtain full review of systems at this time due to: Acuity
Physical Exam
-
General: Well Developed and Appears Chronically Ill
Neuro: Negative Awake
Psych: Calm
[2025-02-04 19:32] VITALS: BP 139/40
[2025-02-04 20:05] VITALS: BP 113/45
[2025-02-05] MEDS: STERILE WATER FOR INJECTION IV ×2 (00:24→21:42)
[2025-02-05 07:35] VITALS: BP 130/42
[2025-02-05] MEDS: DESENEX/MITRAZOL/ZEASORB 1 APPLIC TOPICAL ×2 (07:47→19:41)
--- NOTE | 2025-02-05 11:54 | W.PN.HOSP.TC ---
Today's Communication/Plan
-
consideration for d/c planning to alternative location IF pt continues as current state (awake and drinking)--pt has stopped HD however, so this might be the rally before the end
remains on comfort measures
Assessment / Plan
Assessment / Plan
HPI: 84-year-old F with extensive past medical history including CAD status post multiple stents, paroxysmal atrial fibrillation, CHF on chronic diuresis and fluid restriction, iron deficiency anemia, recurrent UTIs on methenamine (initiated on
Bactrim on 01/15 for urinary tract infection), Hypertension, CKD, insulin-dependent diabetes; presented to the emergency department 2/2 hypoxia, wheezing, cough and shortness of breath, ongoing for about 2 days.
She c/o chest pain that she described as indigestion.
According to the senior care staff, she had an abrupt drop in her pulse ox to 85 on room air and was placed on 2 L of nasal cannula. She had expiratory wheezes and was sent to the emergency department.
Admission CXR showed some volume overload and rounded right lower lobe opacity which could be atelectasis or effusion. She was also noted to have troponin elevation at 6.2 on admission and markedly elevated BNP over 19,000.
Shortness of breath 2/2 acute CHF exacerbation (see below) and cannot rule out pulmonary infiltrate--Acute hypoxic respiratory failure, resolved --s/p off BIPAP, weaned to RA--s/p empiric ceftriaxone and doxycycline and completed course. DCed BOARD DESIGN ENGINEER
Bactrim
NSTEMI with likely acute on chronic CHF, new systolic heart failure --troponin 6.2 -> ... -> 1.08 --Admission BNP greater than 19,000. ECG nonischemic.echo this admission noted new reduced EF at 35-40%. Mild to moderate mitral stenosis. Moderate to
severe mitral regurgitation. Estimated PASP 45 mmHg. Compared to the previous echo from September 2023, EF was 65-70% without wall motion abnormalities--Pt was started with heparin drip for ACS, stopped due to hemoptysis--s/p nitro drip--C discussion
with family had and pt has been transitioned to comfort measures
Hemoptysis 01/22 has resolved after stopping heparin drip
VERONIKA on CKD stage 3. Since patient appeared volume overloaded, suspect cardiorenal versus VERONIKA from Bactrim related renal injury--Discontinued Bactrim--Renal and bladder ultrasound unrevealing--Failed trial of IV lasix, started HD 01/29--[facility] discussed
with son, decision made to stop HD and transition to comfort measures
Other medical conditions:
Paroxysmal atrial fibrillation
Acute metabolic encephalopathy
IDDM
ankylosing spondylitis
DVT prophylaxis� no need as on comfort measures
CODE STATUS�DNR
Anticipated Discharge: > 48 hours
Subjective/Interval History
-
Date of Service: February 05, 2025
pt awake but not talkative--drinking liquids
Objective Data
-
Vital Signs:
max temp for 24 hours
02/04/25
19:32
Temp 97.8 F
Vital Signs
Temp Pulse Resp BP Pulse Ox
97.5 F 76 16 130/42 99
02/05/25 07:35 02/05/25 07:35 02/05/25 07:35 02/05/25 07:35 02/05/25 07:35
I&O
02/04/25 02/05/25 02/06/25
06:59 06:59 06:59
Intake Total 120 / 120
Balance 120 / 120
Review of Systems
-
Unable to obtain full review of systems at this time due to: Other (not talkative)
Physical Exam
-
General: Well Developed and Well Nourished
HEENT: Normocephalic and Atraumatic
Respiratory: Clear to Auscultation; Negative Wheezes or Rhonchi
Cardiac: Regular Rhythm and S1/S2; Negative Murmur
GI: Soft, Nontender, Nondistended and Normal Bowel Sounds
Musculoskeletal: No Clubbing, No Cyanosis and No Edema
--- NOTE | 2025-02-05 12:45 | CM ---
Reviewed the chart notes and spoke with the patient's son at the bedside. Received voice message from [facility] admissions liaison [facility] that the 15 day bed hold is up today. Patient's son was informed of this. CM spoke with [facility] hosp[facility]
liaison, patient continues on comfort measures, not [facility] hospice candidate at this time. She will continues to follow peripherally. Patient's son wants to wait until after weekend to see if patient would be more appropriate for back at SNF with
hospice services or meets [facility] hospice. Son aware that [facility] no longer has a bed for patient. Per son, his spouse will be picking up the patient's belongs from [facility]. CM continues to be available to patient/family and is monitoring medical plan for
needs at discharge.
Plan: Comfort care continues.
--- NOTE | 2025-02-05 12:59 | HOSPNOTE ---
Spoke with the son and explained that patient is here on comfort measures and at this time does not meet the criteria for inpatient hospice. The patient's son called [facility] since there was a bed hold and it ends today. Per the son he will call on Saturday
if patient is stable to return to [facility] with hospice. If patient declines and needs IV medications then we can admit inpatient on Saturday. We will continue to follow.
[2025-02-05] MEDS: MORPHINE SULFATE 1 MG IV ×2 (15:30→16:53)
[2025-02-05] MEDS: ATIVAN 1 MG PO (15:46)
[2025-02-05 19:33] VITALS: BP 111/50
[2025-02-06 07:25] VITALS: BP 145/64
[2025-02-06] MEDS: ATIVAN 1 MG PO ×2 (08:09→13:15)
[2025-02-06] MEDS: DESENEX/MITRAZOL/ZEASORB 1 APPLIC TOPICAL ×2 (08:14→20:55)
--- NOTE | 2025-02-06 10:06 | W.PN.HOSP.TC ---
Today's Communication/Plan
-
continue comfort measures
Assessment / Plan
Assessment / Plan
84-year-old F with extensive past medical history including:
CAD status post multiple stents,
paroxysmal atrial fibrillation,
CHF on chronic diuresis and fluid restriction,
iron deficiency anemia,
recurrent UTIs on methenamine (initiated on Bactrim on 01/15 for urinary tract infection),
Hypertension,
CKD,
insulin-dependent diabetes;
presented to the emergency department 2/2 hypoxia, wheezing, cough and shortness of breath, ongoing for about 2 days. She c/o chest pain that she described as indigestion. According to the longterm staff, she had an abrupt drop in her pulse ox
to 85 on room air and was placed on 2 L of nasal cannula. She had expiratory wheezes and was sent to the emergency department. Admission CXR showed some volume overload and rounded right lower lobe opacity which could be atelectasis or effusion.
She was also noted to have troponin elevation at 6.2 on admission and markedly elevated BNP over 19,000.
Patient now on comfort measures
1. Shortness of breath 2/2 acute CHF exacerbation, cannot rule out pulmonary infiltrate
Acute hypoxic respiratory failure, resolved
s/p off BIPAP, weaned to RA
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
Hold off on more antibiotics, vitals today wnl
2. NSTEMI with likely complicated by acute on chronic CHF, new systolic heart failure
troponin 6.2 -> ... -> 1.08
Admission BNP greater than 19,000.
ECG nonischemic
echo this admission:
new reduced EF at 35-40%.
Mild to moderate mitral stenosis.
Moderate to severe mitral regurgitation.
Estimated PASP 45 mmHg.
Compared to the previous echo from September 2023, EF was 65-70% without wall motion abnormalities
Pt was started with heparin drip for ACS, stopped due to hemoptysis
s/p nitro drip--GOC discussion with family had and pt has been transitioned to comfort measures
3. Hemoptysis on 01/22 resolved
has resolved after stopping heparin drip
4. VERONIKA on CKD stage 3, appeared volume overloaded
suspect cardiorenal versus VERONIKA from Bactrim related renal injury
Discontinued Bactrim
Renal and bladder ultrasound unrevealing
Failed trial of IV lasix, started HD 01/29
GOC discussed with son, decision made to stop HD and transition to comfort measures
5. Other medical conditions:
Paroxysmal atrial fibrillation
Acute metabolic encephalopathy
IDDM
ankylosing spondylitis
DVT prophylaxis� no need as on comfort measures
CODE STATUS�DNR
Anticipated Discharge: 24 - 48 hours
Subjective/Interval History
-
Date of Service: February 06, 2025
Comfortable, alertness waxes and wanes.
Objective Data
-
Vital Signs:
Vital Signs
Temp Pulse Resp BP Pulse Ox
98.1 F 63 18 145/64 97
02/06/25 07:25 02/06/25 07:25 02/06/25 07:25 02/06/25 07:25 02/06/25 07:25
I&O
02/05/25 02/06/25 02/07/25
06:59 06:59 06:59
Intake Total 840 / 840
Balance 840 / 840
Review of Systems
-
Unable to obtain full review of systems at this time due to: Acuity
Physical Exam
-
General: No Apparent Distress, Comfortable and Appears Chronically Ill; Negative Conversant
HEENT: Nose Appears Normal and Ears Appear Normal
Respiratory: Clear to Auscultation and Decreased Breath Sounds
Cardiac: Irregular Rhythm and Murmur
GI: Soft, Nontender and Nondistended
Musculoskeletal: No Clubbing and No Cyanosis
Skin: Warm and Dry
Neuro: Awake; Negative Alert or Oriented
Psych: Calm
Data Reviewed
-
Labs: Labs Reviewed by me
[2025-02-06] MEDS: MORPHINE SULFATE 1 MG IV ×2 (11:53→13:16)
[2025-02-06 19:59] VITALS: BP 121/40
[2025-02-07] MEDS: MORPHINE SULFATE 1 MG IV ×4 (01:25→17:12)
[2025-02-07 07:30] VITALS: BP 88/55
--- NOTE | 2025-02-07 08:57 | W.PN.HOSP.TC ---
Today's Communication/Plan
-
Support with comfort measures
Assessment / Plan
Assessment / Plan
84-year-old woman with extensive past medical history including:
CAD status post multiple stents,
paroxysmal atrial fibrillation,
CHF on chronic diuresis and fluid restriction,
iron deficiency anemia,
recurrent UTIs on methenamine (initiated on Bactrim on 01/15 for urinary tract infection),
Hypertension,
CKD,
insulin-dependent diabetes;
presented to the emergency department 2/2 hypoxia, wheezing, cough and shortness of breath, ongoing for about 2 days. She c/o chest pain that she described as indigestion. According to the detention staff, she had an abrupt drop in her pulse ox
to 85 on room air and was placed on 2 L of nasal cannula. She had expiratory wheezes and was sent to the emergency department. Admission CXR showed some volume overload and rounded right lower lobe opacity which could be atelectasis or effusion.
She was also noted to have troponin elevation at 6.2 on admission and markedly elevated BNP over 19,000.
Patient now on comfort measures
1. Shortness of breath 2/2 acute CHF exacerbation, cannot rule out pulmonary infiltrate
Acute hypoxic respiratory failure, resolved
s/p off BIPAP, weaned to RA
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
Hold off on more antibiotics
2. NSTEMI with likely complicated by acute on chronic CHF, new systolic heart failure
troponin 6.2 -> ... -> 1.08
Admission BNP greater than 19,000.
ECG nonischemic
echo this admission:
new reduced EF at 35-40%.
Mild to moderate mitral stenosis.
Moderate to severe mitral regurgitation.
Estimated PASP 45 mmHg.
Compared to the previous echo from September 2023, EF was 65-70% without wall motion abnormalities
Pt was started with heparin drip for ACS, stopped due to hemoptysis
s/p nitro drip--GOC discussion with family had and pt has been transitioned to comfort measures
3. Hemoptysis on 01/22 resolved
has resolved after stopping heparin drip
4. VERONIKA on CKD stage 3, appeared volume overloaded
suspect cardiorenal versus VERONIKA from Bactrim related renal injury
Discontinued Bactrim
Renal and bladder ultrasound unrevealing
Failed trial of IV lasix, started HD 01/29
GOC discussed with son, decision made to stop HD and transition to comfort measures
5. Other medical conditions:
Paroxysmal atrial fibrillation
Acute metabolic encephalopathy
IDDM
ankylosing spondylitis
DVT prophylaxis� no need as on comfort measures
CODE STATUS�DNR
Anticipated Discharge: > 48 hours
Subjective/Interval History
-
Date of Service: February 07, 2025
Appears comfortable
Objective Data
-
Vital Signs:
Vital Signs
Temp Pulse Resp BP Pulse Ox
98.0 F 74 12 88/55 98
02/07/25 07:30 02/07/25 07:30 02/07/25 07:30 02/07/25 07:30 02/07/25 07:30
I&O
02/06/25 02/07/25 02/08/25
06:59 06:59 06:59
Intake Total 840 / 840 300 / 300
Balance 840 / 840 300 / 300
Review of Systems
-
Unable to obtain full review of systems at this time due to: Acuity
Physical Exam
-
General: Well Developed, Well Nourished, No Apparent Distress and Comfortable
HEENT: Nose Appears Normal and Ears Appear Normal
Skin: Warm and Dry
Neuro: Awake
Psych: Calm
[2025-02-07] MEDS: DESENEX/MITRAZOL/ZEASORB 1 APPLIC TOPICAL ×2 (10:01→21:29)
--- NOTE | 2025-02-07 10:19 | PTCARENOTE ---
pt grimacing this morning prior to hygiene and assessment. prn pain medication given. Stage 2 on sacrum redressed. serosanguineous drainage on foam. pt with minimal hand L hand tremor. pt minimally responsive and lethargic this morning with
hypotensive BP. Son kedar given update around 0915 this morning.
[2025-02-07] MEDS: ATIVAN 1 MG PO (10:38)
[2025-02-07 15:30] VITALS: BP 112/44
[2025-02-07 19:15] VITALS: BP 113/45
[2025-02-08] MEDS: MORPHINE SULFATE 1 MG IV ×2 (03:34→08:34)
[2025-02-08 07:30] VITALS: BP 129/35
[2025-02-08] MEDS: DESENEX/MITRAZOL/ZEASORB 1 APPLIC TOPICAL ×2 (08:34→20:13)
--- NOTE | 2025-02-08 09:20 | VATNOTE ---
IV access Rt. arm cephalic #24 flushed at family's request. Flushed well.
[2025-02-08] MEDS: MORPHINE 100 IV (09:29)
--- NOTE | 2025-02-08 10:06 | PTCARENOTE ---
Morphine gtt step 1 hung in patients room this morning with a cosigner by this RN. end of life galindo ([id number]) placed by this RN as well. pt tolerated and galindo draining yellow urine. wound care for sacral wound placed and hygiene complete with
pct. son updated on all care at the bedside. no questions at this time.
--- NOTE | 2025-02-08 12:09 | CM ---
Reviewed the chart notes and spoke with the patient's son at the bedside. Morphine gtt started this morning for comfort. CM continues to be available to patient/family and is monitoring medical plan for needs at discharge.
Plan: Comfort care.
--- NOTE | 2025-02-08 13:30 | HOSPNOTE ---
Spoke with Dr Pineda and the patient is already on a morphine drip appears to be actively dying and will remain comfort. I will continue to follow and support.
--- NOTE | 2025-02-08 13:45 | W.PN.HOSP.TC ---
Today's Communication/Plan
-
see A/P
Assessment / Plan
Assessment / Plan
84-year-old woman with extensive past medical history including:
CAD status post multiple stents,
paroxysmal atrial fibrillation,
CHF on chronic diuresis and fluid restriction,
iron deficiency anemia,
recurrent UTIs on methenamine (initiated on Bactrim on 01/15 for urinary tract infection),
Hypertension,
CKD,
insulin-dependent diabetes;
presented to the emergency department 2/2 hypoxia, wheezing, cough and shortness of breath, ongoing for about 2 days. She c/o chest pain that she described as indigestion. According to the senior living staff, she had an abrupt drop in her pulse ox
to 85 on room air and was placed on 2 L of nasal cannula. She had expiratory wheezes and was sent to the emergency department. Admission CXR showed some volume overload and rounded right lower lobe opacity which could be atelectasis or effusion.
She was also noted to have troponin elevation at 6.2 on admission and markedly elevated BNP over 19,000.
Patient now on comfort measures
A/P:
# Shortness of breath POA 2/2 acute CHF exacerbation, cannot rule out pulmonary infiltrate
# Acute hypoxic respiratory failure, resolved
s/p off BIPAP, weaned to RA
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
Hold off on more antibiotics
# NSTEMI with likely complicated by acute on chronic CHF, new systolic heart failure
troponin 6.2 -> ... -> 1.08
Admission BNP greater than 19,000.
ECG nonischemic
echo this admission:
new reduced EF at 35-40%.
Mild to moderate mitral stenosis.
Moderate to severe mitral regurgitation.
Estimated PASP 45 mmHg.
Compared to the previous echo from September 2023, EF was 65-70% without wall motion abnormalities
Pt was started with heparin drip for ACS, stopped due to hemoptysis
s/p nitro drip--GOC discussion with family and pt has been transitioned to comfort measures
# Hemoptysis on 01/22 resolved after stopping heparin drip
# VERONIKA on CKD stage 3, appeared volume overloaded
suspect cardiorenal versus VERONIKA from Bactrim related renal injury
Discontinued Bactrim
Renal and bladder ultrasound unrevealing
Failed trial of IV lasix, started HD 01/29
GOC discussed with son, decision made to stop HD and transition to comfort measures
Silveira placement 02/08 for end of life care
Other medical conditions:
# Paroxysmal atrial fibrillation
# Acute metabolic encephalopathy
# IDDM
# ankylosing spondylitis
DVT prophylaxis� no need as on comfort measures
CODE STATUS�DNR
DW son at bedside
Anticipated Discharge: 24 - 48 hours
Subjective/Interval History
-
Date of Service: February 08, 2025
Objective Data
-
Vital Signs:
Vital Signs
Temp Pulse Resp BP Pulse Ox
36.7 C 69 16 129/35 96
02/08/25 07:30 02/08/25 07:30 02/08/25 07:30 02/08/25 07:30 02/08/25 08:40
I&O
02/07/25 02/08/25 02/09/25
06:59 06:59 06:59
Intake Total 300 / 300
Balance 300 / 300
Review of Systems
-
Unable to obtain full review of systems at this time due to: Acuity
Physical Exam
-
General: Well Developed, Comfortable and Appears Chronically Ill
HEENT: Nose Appears Normal and Ears Appear Normal
Respiratory: Non Labored Respirations; Negative Accessory Resp Muscle Use
Genito-urinary: Silveira
Skin: Warm
Neuro: Negative Awake
Psych: Calm
[2025-02-08] MEDS: MORPHINE SULFATE 2 MG IV (13:58)
[2025-02-08 20:01] VITALS: BP 109/29
[2025-02-09] MEDS: MORPHINE SULFATE 2 MG IV ×9 (05:49→22:36)
[2025-02-09] MEDS: DESENEX/MITRAZOL/ZEASORB 1 APPLIC TOPICAL ×2 (07:23→21:35)
[2025-02-09] MEDS: ATIVAN 1 MG PO ×2 (07:32→20:00)
[2025-02-09 07:51] VITALS: BP 78/50
--- NOTE | 2025-02-09 09:53 | CM ---
Reviewed the chart notes. Son at the bedside. Morphine gtt continues. CM continues to be available to patient/family and is monitoring medical plan for needs at discharge.
Plan: Comfort care.
--- NOTE | 2025-02-09 10:00 | CM ---
Reviewed the chart notes. Son at the bedside. Morphine gtt continues. CM continues to be available to patient/family.
Plan: Comfort care.
--- NOTE | 2025-02-09 12:24 | W.PN.HOSP.TC ---
Today's Communication/Plan
-
Cont comfort measures, cont current morphine drip
Assessment / Plan
Assessment / Plan
84-year-old woman with extensive past medical history including:
CAD status post multiple stents,
paroxysmal atrial fibrillation,
CHF on chronic diuresis and fluid restriction,
iron deficiency anemia,
recurrent UTIs on methenamine (initiated on Bactrim on 01/15 for urinary tract infection),
Hypertension,
CKD,
insulin-dependent diabetes;
presented to the emergency department 2/2 hypoxia, wheezing, cough and shortness of breath, ongoing for about 2 days. She c/o chest pain that she described as indigestion. According to the intermediate staff, she had an abrupt drop in her pulse ox
to 85 on room air and was placed on 2 L of nasal cannula. She had expiratory wheezes and was sent to the emergency department. Admission CXR showed some volume overload and rounded right lower lobe opacity which could be atelectasis or effusion.
She was also noted to have troponin elevation at 6.2 on admission and markedly elevated BNP over 19,000.
Patient now on comfort measures
A/P:
# Shortness of breath POA 2/2 acute CHF exacerbation, cannot rule out pulmonary infiltrate
# Acute hypoxic respiratory failure, resolved
s/p off BIPAP, weaned to RA
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
Hold off on more antibiotics
# NSTEMI with likely complicated by acute on chronic CHF, new systolic heart failure
troponin 6.2 -> ... -> 1.08
Admission BNP greater than 19,000.
ECG nonischemic
echo this admission:
new reduced EF at 35-40%.
Mild to moderate mitral stenosis.
Moderate to severe mitral regurgitation.
Estimated PASP 45 mmHg.
Compared to the previous echo from September 2023, EF was 65-70% without wall motion abnormalities
Pt was started with heparin drip for ACS, stopped due to hemoptysis
s/p nitro drip--GOC discussion with family and pt has been transitioned to comfort measures
Cont current morphine drip
# Hemoptysis on 01/22 resolved after stopping heparin drip
# VERONIKA on CKD stage 3, appeared volume overloaded
suspect cardiorenal versus VERONIKA from Bactrim related renal injury
Discontinued Bactrim
Renal and bladder ultrasound unrevealing
Failed trial of IV lasix, started HD 01/29
GOC discussed with son, decision made to stop HD and transition to comfort measures
Silveira placement 02/08 for end of life care
Other medical conditions:
# Paroxysmal atrial fibrillation
# Acute metabolic encephalopathy
# IDDM
# ankylosing spondylitis
DVT prophylaxis� no need as on comfort measures
CODE STATUS�DNR
DW son at bedside
Anticipated Discharge: Within 24 hours
Subjective/Interval History
-
Date of Service: February 09, 2025
Objective Data
-
Vital Signs:
Vital Signs
Temp Pulse Resp BP Pulse Ox
36.4 C 92 16 78/50 93
02/08/25 20:01 02/09/25 07:51 02/08/25 20:01 02/09/25 07:51 02/09/25 07:51
I&O
02/08/25 02/09/25 02/10/25
06:59 06:59 06:59
Intake Total
Output Total 325 / 325
Balance -315 / -315
Review of Systems
-
Unable to obtain full review of systems at this time due to: Acuity
Physical Exam
-
General: Well Developed, Comfortable and Appears Chronically Ill
HEENT: Nose Appears Normal and Ears Appear Normal
Respiratory: Non Labored Respirations; Negative Accessory Resp Muscle Use
Genito-urinary: Silveira
Skin: Warm
Neuro: Negative Awake
Psych: Calm
[2025-02-09 12:32] VITALS: BP 110/65
[2025-02-09] MEDS: TRANSDERM-SCOP 1 PATCH TRANSDERM (13:53)
[2025-02-09] MEDS: ROBINUL 0.2 MG IV ×2 (18:21→22:44)
[2025-02-09 19:40] VITALS: BP 84/38
[2025-02-09 20:15] VITALS: BP 84/38
--- NOTE | 2025-02-09 21:04 | HOSPNOTE ---
Trudi spoke with Dr Pineda and the patient is already on a morphine drip and appears to be actively dying and will remain comfort. Hospice will continue to follow and support.
[2025-02-09] MEDS: MORPHINE SULFATE 4 MG IV (23:54)
--- NOTE | 2025-02-10 06:41 | PTCARENOTE ---
02/10: pt assessed. no heart sounds or breathe sounds. family at bedside. director of patient care notified. pt pronounced .
--- NOTE | 2025-02-10 06:52 | W.PN.DEATH ---
Pronouncement of
-
Called to see patient to pronounce.
No spontaneous heart tones or respirations noted.
Patient not responsive to verbal stimuli.
Patient is pronounced .
Time of : 06:12
Date of : 02/10/25
Cause of : acute exacerbation of heart failure/nstemi/multivessel CAD
Family Notified: Yes (son at bedside)
--- NOTE | 2025-02-10 13:53 | W.DCSUMMARY ---
Discharge Summary
Discharge Data
Date of Admission: 01/21/25
Date of Discharge: 02/10/25
Total time spent discharging patient (in min): 40
-
Pending Results: No
Hospital Course
Principal Diagnosis:
Acute hypoxic respiratory failure
NSTEMI/ACS
New systolic heart failure
Initiated dialysis
Chronic Diagnoses:�
CAD status post multiple stents,
paroxysmal atrial fibrillation,
CHF
iron deficiency anemia,
recurrent UTIs
Hypertension,
CKD,
insulin-dependent diabetes
IDDM
Ankylosing spondylitis
Consultations:�
Nephrology
Cardiology
Procedures:�
Dialysis line placement
Clinical course:�
This is a 84-year-old female with past medical history as stated above, who presented with shortness of breath. She was admitted for acute hypoxic respiratory failure, likely related to NSTEMI/ACS, with new systolic heart failure. Her NSTEMI/ACS and
acute heart failure were treated medically with heparin drip and nitroglycerin drip. Heparin drip was discontinued due to development of hemoptysis which resolved after stopping heparin drip.
She remained severely deconditioned with fluid overload, hence dialysis was started. She continued to decompensate clinically with intermittent drowsiness/confusion.
Goals of care was discussed with her son, and the decision was made to stop hemodialysis and transition the patient to comfort measures.
She was started with morphine IV as needed, which was later transitioned to morphine drip.
She peacefully on 02/10/2025, and the time of was at 6:12 AM.
Her son was at bedside at pronouncement.
Discharge Plan
-
Patient Disposition:
Date/Time
Date/Time: 02/10/25 06:12
Discharge Date and Time
Discharge Date/Time: 02/10/25 06:12
Print Language: LITHUANIAN
== END 2025-02-10 06:12 | disposition expired ==
LOC: 2 NORTH 02:38
PROVIDERS: Internal Medicine; Internal Medicine Cardiovascular Disease; Internal Medicine Nephrology; Nurse Practitioner Gerontology; Physician Assistant; Radiology Vascular & Interventional Radiology; Student in an Organized Health Care Education/Training Program; ADMITTING PHYSICIAN Internal Medicine; ATTENDING PHYSICIAN Internal Medicine; CONSULT PHYSICIAN Psychiatry & Neurology Neurology; CONSULT PHYSICIAN Specialist; EMERGENCY PHYSICIAN Emergency Medicine; FAMILY PHYSICIAN Internal Medicine Geriatric Medicine; OTHER PHYSICIAN Nuclear Medicine Nuclear Cardiology
PROC: 5A09357 Assistance with Respiratory Ventilation, Less than 24 Consecutive Hours, Continuous Positive Airway Pressure (ICD-10-PCS; 2025-01-22)
PROC: 02HV33Z Insertion of Infusion Device into Superior Vena Cava, Percutaneous Approach (ICD-10-PCS; 2025-01-27)
PROC: 5A1D70Z Performance of Urinary Filtration, Intermittent, Less than 6 Hours Per Day (ICD-10-PCS; 2025-01-29)
DX: I13.0 Hypertensive heart and chronic kidney disease with heart failure and stage 1 through stage 4 chronic kidney disease, or unspecified chronic kidney disease (principal); G93.41 Metabolic encephalopathy; I21.4 Non-ST elevation (NSTEMI) myocardial infarction; I50.23 Acute on chronic systolic (congestive) heart failure; J96.01 Acute respiratory failure with hypoxia; N17.9 Acute kidney failure, unspecified; F02.82 Dementia in other diseases classified elsewhere, unspecified severity, with psychotic disturbance; R04.2 Hemoptysis; D68.32 Hemorrhagic disorder due to extrinsic circulating anticoagulants; I25.10 Atherosclerotic heart disease of native coronary artery without angina pectoris; N18.30 Chronic kidney disease, stage 3 unspecified; Z51.5 Encounter for palliative care; E11.40 Type 2 diabetes mellitus with diabetic neuropathy, unspecified; I34.0 Nonrheumatic mitral (valve) insufficiency; I48.0 Paroxysmal atrial fibrillation; I95.1 Orthostatic hypotension; E78.00 Pure hypercholesterolemia, unspecified; D63.1 Anemia in chronic kidney disease; G20.A1 Parkinson's disease without dyskinesia, without mention of fluctuations; K59.09 Other constipation; D50.9 Iron deficiency anemia, unspecified; T45.515A Adverse effect of anticoagulants, initial encounter; Z66 Do not resuscitate; E11.51 Type 2 diabetes mellitus with diabetic peripheral angiopathy without gangrene; L89.152 Pressure ulcer of sacral region, stage 2; F41.9 Anxiety disorder, unspecified; E89.0 Postprocedural hypothyroidism; R00.1 Bradycardia, unspecified; I25.5 Ischemic cardiomyopathy; K21.9 Gastro-esophageal reflux disease without esophagitis; Z11.52 Encounter for screening for COVID-19; Z74.01 Bed confinement status; Z87.440 Personal history of urinary (tract) infections; Z86.73 Personal history of transient ischemic attack (TIA), and cerebral infarction without residual deficits; Z95.5 Presence of coronary angioplasty implant and graft; I25.2 Old myocardial infarction; Z79.4 Long term (current) use of insulin; Z79.02 Long term (current) use of antithrombotics/antiplatelets; Z79.01 Long term (current) use of anticoagulants
CPT/HCPCS: 36415; 36556; 36600; 70450; 71045; 71046; 71250; 76770; 76937; 77001; 80048; 80053; 80061; 82805; 82962; 83735; 83880; 84484; 85025; 85027; 85730; 86704; 86706; 86803; 87070; 87205; 87340; 87449; 87811; 87899; 92526; 92610; 93005; 93306; 94640; 94660; 96374; 97163; 97167; 99285; C1752; G0257; P9047; Q5106